=== PATIENT | male | born 1960 | race Caucasian/White ===

== ENCOUNTER → 2024-10-04 | Outpatient (CLI) | payer MEDICARE, MEDICAID, SELFPAY ==
--- OUTSIDE RECORDS SUMMARY | 2024-10-04 07:20 | XMS RPT_ITS | CCD ---
Author Organization [facility] Care Team Providers Care Advertising Production Manager Name Role Phone Lavon Stallings Primary Care Provider LAVON STALLINGS DO Primary Care Physician Bong PT, Madisyn Unavailable Unavailable Lavon Stallings Primary Care Provider Miles Washburn DO Unavailable Miles Washburn DO Unavailable Farhana PT, Miguelina Unavailable Miles Washburn DO Unavailable Miles Washburn DO Unavailable Lavon Stallings Primary Care Provider Miles Washburn DO Unavailable Miles Washburn DO Unavailable Farhana PT, Miguelina Unavailable MILES WASHBURN Referring Unavailable LAVON STALLINGS Primary Care Unavailable MICHAELER, ANGIE S Referring Unavailable LAVON STALLINGS Primary Care Unavailable SPOER, ANGIE S Referring Unavailable LAVON STALLINGS Primary Care Unavailable MILES WASHBURN Attending Unavailable MILES WASHBURN Referring Unavailable LAVON STALLINGS Primary Care Unavailable MILES WASHBURN Attending Unavailable LAVON STALLINGS Referring Unavailable LAVON STALLINGS Primary Care Unavailable MILES WASHBURN Attending Unavailable LAVON STALLINGS F Referring Unavailable LAVON STALLINGS F Primary Care Unavailable MILES WASHBURN Referring Unavailable MILES WASHBURN Attending Unavailable LAVON STALLINGS Primary Care Unavailable WU, MILES P Referring Unavailable HAYLIE, LAVON Lowe Primary Care Unavailable WU, MILES P Referring Unavailable HAYLIE, LAVON Lowe Primary Care Unavailable WU, MILES P Referring Unavailable HAYLIE, LAVON Lowe Primary Care Unavailable WU, MILES P Referring Unavailable WU, MILES P Attending Unavailable WU, MILES P Admitting Unavailable HAYLIE, LAVON Lowe Primary Care Unavailable WU, MILES P Referring Unavailable HAYLIE, LAVON Lowe Primary Care Unavailable WU, MILES P Attending Unavailable WU, MILES P Referring Unavailable HAYLIE, LAVON Lowe Primary Care Unavailable WU, MILES P Attending Unavailable WU, MILES P Referring Unavailable HAYLIE, LAVON Lowe Primary Care Unavailable WU, MILES P Referring Unavailable HAYLIE, LAVON Lowe Primary Care Unavailable WU, MILES P Referring Unavailable HAYLIE, LAVON Lowe Primary Care Unavailable WU, MILES P Referring Unavailable HAYLIE, LAVON Lowe Primary Care Unavailable WU, MILES P Referring Unavailable HAYLIE, LAVON Lowe Primary Care Unavailable WU, MILES P Referring Unavailable HAYLIE, LAVON Lowe Primary Care Unavailable HAYLIE , LAVON Primary Care Physician HAYLIE ELIAS, LAVON Attending Unavailable HAYLIE DO, LAVON Primary Care Unavailable CAROLINA MENJIVAR, IZZY Attending Unavailable HAYLIE ELIAS, LAVON Primary Care Unavailable CAROLINA MENJIVAR, IZZY Attending Unavailable HAYLIE , LAVON Primary Care Unavailable CAROLINA MENJIVAR, IZZY Admitting Unavailable KENNEN CLINICAL GENETICIST-ESTIMATION MANAGER, [place] L Consulting Unavasofia FIGUEROA MD, IZZY Referring Unavailable CAROLINA MENJIVAR, IZZY Consulting Unavailable MURTAZA MENJIVAR, LAVON Aguirre Attending Unavailable MAST CLINICAL GENETICIST-ESTIMATION MANAGER, [place] Primary Care Unavailabl e MAST CLINICAL GENETICIST-ESTIMATION MANAGER, [place] Primary Care Physician MAST CLINICAL GENETICIST-ESTIMATION MANAGER, [place]AW Primary Care Unavailabl e ARIAS CLINICAL GENETICIST-ESTIMATION MANAGER, BRIANA Gallardo Attending Sophia vailable MAST, KYAW Primary Care Unavailable Fish MANAGER LEASING, Mariano Referring Unavailable Fish MANAGER LEASING, Mariano Attending Unavailable MAST CLINICAL GENETICIST-ESTIMATION MANAGER, [place] Primary Care Unavailabl e MAST CLINICAL GENETICIST-ESTIMATION MANAGER, [place] Attending Unavailabl e MAST CLINICAL GENETICIST-ESTIMATION MANAGER, [place] Attending Unavailabl e MAST CLINICAL GENETICIST-ESTIMATION MANAGER, [place] Primary Care Unavailabl e MAST CLINICAL GENETICIST-ESTIMATION MANAGER, [place] Primary Care Unavailabl e LIV MENJIVAR, ROCHELLE Lockhart Attending Unavailable MAST CLINICAL GENETICIST-ESTIMATION MANAGER, [place] Primary Care Unavailabl e MAST CLINICAL GENETICIST-ESTIMATION MANAGER, KYAW Attending Unavailabl e MAST CLINICAL GENETICIST-ESTIMATION MANAGER, [place] Primary Care Unavailabl e ARIAS CLINICAL GENETICIST-ESTIMATION MANAGER, BRIANA Gallardo Attending Sophia BETO Canales DO Attending Unavailable MAST CLINICAL GENETICIST-ESTIMATION MANAGER, [place]AW Primary Care Unavailabl e MAST CLINICAL GENETICIST-ESTIMATION MANAGER, [place]AW Primary Care Unavailabl e TED ELIAS, DR MAY Schrader Attending Unavailabl e MAYDA DO, SLOANE Attending Unavailable MAST CLINICAL GENETICIST-ESTIMATION MANAGER, [place] Primary Care Unavailabl e KRISTIN MENJIVAR, GETACHEW Crews Attending Unavailable MAST CLINICAL GENETICIST-ESTIMATION MANAGER, [place] Primary Care Unavailabl e MAST CLINICAL GENETICIST-ESTIMATION MANAGER, [place] Primary Care Unavailabl e ROCHELLE PECK MD Attending Unavailable FISH CLINICAL GENETICIST-ESTIMATION MANAGER, MARIANO Attending Unavailab le MAST CLINICAL GENETICIST-ESTIMATION MANAGER, [place] Primary Care Unavailabl e MAST CLINICAL GENETICIST-ESTIMATION MANAGER, KYAW Attending Unavailabl e MAST CLINICAL GENETICIST-ESTIMATION MANAGER, KYAW Primary Care Unavailabl e Medications Current Medications Medication Drug Class(es) Dates Sig (Normalized) Sig (Original) acetaminophen 325 mg / HYDROcodone bitartrate 5 mg oral tablet (1 source) Opioid Agonist Start: 06-11-2022 End: 06-16-2022 Rosenberg 325- 5 mg oral tablet Dose = 1 tab(s), Oral, q4h, PRN PRN Pain, scale 1-6, X 5 day(s), # 12 tab(s), 0 Refill(s), Pharmacy: [facility]/pharmacy #[id number], Acute post-operative pain, 175, cm, 06/11/22 7:20:00 EDT, Height, 93.2 Start Date: 06/11/22 Stop Date: 06/16/22 Status: Ordered acetaminophen 325 mg / oxyCODONE hydrochloride 5 mg oral tablet (5 sources) Opioid Agonist Start: 06-10-2021 End: 06-15-2021 take 1 tablet by mouth every six hours as needed oxyCODONE-acetami nophen (PERCOCET) 5-325 mg tablet Indications: History of cervical spinal surgery Take 1 tablet by mouth every 6 hours as needed for up to 5 days. 28 tablet 0 06/10/2021 06/15/2021 Active Start: 05-31-2021 End: 06-05-2021 oxyCODONE-acetaminophen (PER COCET) 5-325 mg tablet Indications: History of cervical spinal surgery [The details of the medication are not available because there are pending changes by a home health clinician.] 20 tablet 0 05/31/2021 06/05/2021 Active Comment on above: [The details of the medication are not available because there are pending changes by a home health clinician.] Take 1 tablet by antonetet th every 6 hours as needed for up to 5 days. albuterol MDI (90 mcg/inh) CFC free inhalation aerosol (7 sources) Start: take 2 puff(s) by inhalation every four hours albuterol MDI (90 mcg/inh) CFC free inhalation aerosol 2 puff(s), Inhalation, q4h, # 1 EA, 0 Refill(s) Start Date: 07/11/24 Status: Ordered Quantity: 1.0 Unit: EA Repeat number: 1 Start: 04-05-2023 take 1 puff(s) by in halation every four hours as needed for wheezing albuterol MDI (90 mcg/inh) CFC free inhalation aerosol 1 puff(s), Inhalation, q4h, PRN as needed for wheezing, # 18 gram(s), 0 Refill(s), Pharmacy: [facility]/pharmacy #[id number], 173, cm, 04/05/23 14:47:00 EST, Height, kg, 04/05/23 14:47:00 EST, Dosing Weight Start Date: 04/05/23 Status: Ordered Quantity: 18.0 Unit: g Repeat number: 1 Start: 06-12-2022 take 2 puff(s) by in halation every four hours as needed for wheezing albuterol MDI (90 mcg/inh) CFC free inhalation aerosol 2 puff(s), Inhalation, q4h, PRN as needed for wheezing, # 8.5 gram(s), 0 Refill(s), Pharmacy: [facility]/pharmacy #[id number], 175, cm, 06/11/22 14:41:00 EDT, Height Start Date: 06/12/22 Status: Ordered Start: 06-12-2022 take 2 puff(s) by in halation every four hours as needed for wheezing albuterol MDI (90 mcg/inh) CFC free inhalation aerosol 2 puff(s), Inhalation, q4h, PRN PRN as needed for wheezing, # 8.5 gram(s), 0 Refill(s), [id number], 175, cm, 06/11/22 14:41:00 EDT, Height Start Date: 06/12/22 Status: Ordered amitriptyline hydrochloride 25 mg oral tablet (20 sources) Tricyclic Antidepressant Start: 08-25-2024 amitriptyline 25 mg oral tablet Dose : 25 mg = 1 tab(s), Oral, qHS, # 90 tab(s), 3 Refill(s), Pharmacy: [facility]/pharmacy #[id number], Lumbar back pain with radiculopathy affecting lower extremity, 173, cm, 08/11/24 13:23:00 EDT, Height, kg, 08/11/24 13:23:00 EDT, Dosing Weight Start Date: 08/25/24 Status: Ordered Quantity: 90.0 Unit: tab(s) Repeat number: 4 Indications: Radiculopathy, lumbar region; Start: 04-05-2023 amitriptyline 25 mg oral tablet Dose : 25 mg = 1 tab(s), Oral, qHS, # 90 tab(s), 3 Refill(s), [id number], Lumbar back pain with radiculopathy affecting lower extremity, 173, cm, 04/05/23 14:47:00 EST, Height, kg, 04/05/23 14:47:00 EST, Dosing Weight Start Date: 04/05/23 Status: Ordered Quantity: 90.0 Unit: tab(s) Repeat number: 4 Indications: Radiculopathy, lumbar region; Start: 10-08-2022 amitriptyline 25 mg oral tablet Dose : 25 mg = 1 tab(s), Oral, qHS, # 90 tab(s), 3 Refill(s), [id number], Lumbar back pain with radiculopathy affecting lower extremity, 172, cm, 10/08/22 14:50:00 EDT, Height, kg, 10/08/22 14:50:00 EDT, Dosing Weight Start Date: 10/08/22 Status: Ordered Start: 04-25-2019 amitriptyline 25 mg oral tablet Dose : 25 mg = 1 tab(s), Oral, qHS, # 90 tab(s), 3 Refill(s), [id number], Lumbar back pain with radiculopathy affecting lower extremity, 173, cm, 10/13/21 11:06:00 EDT, Height, kg, 10/13/21 11:06:00 EDT, Dosing Weight Start Date: 10/13/21 Status: Ordered Comment on above: 25 mg. Take 25 mg by mouth daily at bedtime. aspirin 81 mg delayed release oral tablet (3 sources) Platelet Aggregation Inhibitor, Nonsteroidal Anti-inflammatory Drug Start: 08-11-2024 aspirin 81 mg oral delayed release tablet Dose : 81 mg = 1 tab(s), Oral, Daily, # 30 tab(s), 1 Refill(s), [id number], 173, cm, 08/11/24 13:23:00 EDT, Height, kg, 08/11/24 13:23:00 EDT, Dosing Weight Start Date: 08/11/24 Status: Ordered Quantity: 30.0 Unit: tab(s) Repeat number: 2 Azithromycin 5 Day Dose Pack 250 mg oral tablet (2 sources) Start: 07-11-2024 End: 07-16-2024 Azithromycin 5 Day Dose Pack 250 mg oral tablet Take two (2) tablets day 1-then one (1) tablet, Oral, Daily, X 5 day(s), # 6 tab(s), 0 Refill(s), 07/16/24 1:01:00 PM EDT, 81.8 Start Date: 07/11/24 Stop Date: 07/16/24 Status: Ordered Quantity: 6.0 Unit: tab(s) Repeat number: 1 diclofenac sodium 75 mg delayed release oral tablet (7 sources) Nonsteroidal Anti-inflammatory Drug Start: 06-23-2024 End: 12-20-2024 diclofenac sodium 75 mg oral delayed release tablet Dose : 75 mg = 1 tab(s), Oral, BID, PRN as needed for pain, # 60 tab(s), 5 Refill(s), Pharmacy: [facility]/pharmacy #[id number], 173, cm, 06/23/24 13:11:00 EDT, Height, kg, 06/23/24 13:11:00 EDT, Dosing Weight Start Date: 06/23/24 Stop Date: 12/20/24 Status: Ordered Quantity: 60.0 Unit: tab(s) Repeat number: 6 DULoxetine 60 mg delayed release oral capsule (20 sources) Serotonin and Norepinephrine Reuptake Inhibitor Start: 05-09-2024 DULoxetine 30 mg oral delayed release capsule Dose : 30 mg = 1 cap(s), Oral, qDay, Take along with a 60 mg capsule daily to equal 90 mg, # 90 cap(s), 3 Refill(s), Pharmacy: [facility]/pharmacy #[id number], 172, cm, 04/28/24 14:45:00 EST, Height, kg, 04/28/24 14:45:00 EST, Dosing Weight Start Date: 05/09/24 Status: Ordered Quantity: 90.0 Unit: cap(s) Repeat number: 4 Start: 05-09-2024 take 1 capsule by [facility] once daily DULoxetine 60 mg oral delayed release capsule Dose : 60 mg = 1 cap(s), Oral, qDay, Take along with a 30 mg Daily to equal 90 mg daily., # 90 cap(s), 3 Refill(s), Pharmacy: [facility]/pharmacy #[id number], 172, cm, 04/28/24 14:45:00 EST, Height, kg, 04/28/24 14:45:00 EST, Dosing Weight Start Date: 05/09/24 Status: Ordered Quantity: 90.0 Unit: cap(s) Repeat number: 4 Start: 04-05-2023 DULoxetine 30 mg oral delayed release capsule Dose : 30 mg = 1 cap(s), Oral, qDay, Take along with a 60 mg capsule daily to equal 90 mg, # 90 cap(s), 3 Refill(s), Pharmacy: [facility]/pharmacy #[id number], 173, cm, 04/05/23 14:47:00 EST, Height, kg, 04/05/23 14:47:00 EST, Dosing Weight Start Date: 04/05/23 Status: Ordered Quantity: 90.0 Unit: cap(s) Repeat number: 4 Start: 04-05-2023 take 1 capsule by mo uth once daily DULoxetine 60 mg oral delayed release capsule Dose : 60 mg = 1 cap(s), Oral, qDay, Take along with a 30 mg Daily to equal 90 mg daily., # 90 cap(s), 3 Refill(s), Pharmacy: [facility]/pharmacy #[id number], 173, cm, 04/05/23 14:47:00 EST, Height, kg, 04/05/23 14:47:00 EST, Dosing Weight Start Date: 04/05/23 Status: Ordered Quantity: 90.0 Unit: cap(s) Repeat number: 4 Start: 10-08-2022 DULoxetine 30 mg oral delayed release capsule Dose : 30 mg = 1 cap(s), Oral, qDay, Take along with a 60 mg capsule daily to equal 90 mg, # 90 cap(s), 3 Refill(s), Pharmacy: [facility]/pharmacy #[id number], 172, cm, 10/08/22 14:50:00 EDT, Height, kg, 10/08/22 14:50:00 EDT, Dosing Weight Start Date: 10/08/22 Status: Ordered Start: 10-08-2022 take 1 capsule by [facility] once daily DULoxetine 60 mg oral delayed release capsule Dose : 60 mg = 1 cap(s), Oral, qDay, Take along with a 30 mg Daily to equal 90 mg daily., # 90 cap(s), 3 Refill(s), Pharmacy: [facility]/pharmacy #[id number], 172, cm, 10/08/22 14:50:00 EDT, Height, kg, 10/08/22 14:50:00 EDT, Dosing Weight Start Date: 10/08/22 Status: Ordered Start: 08-27-2021 DULoxetine 30 mg oral delayed release capsule Dose : 30 mg = 1 cap(s), Oral, qDay, Take along with a 60 mg capsule daily to equal 90 mg, # 90 cap(s), 3 Refill(s), Pharmacy: [facility]/pharmacy #[id number], 172, cm, 05/20/21 13:03:00 EDT, Height, kg, 05/20/21 13:03:00 EDT, Dosing Weight Start Date: 08/27/21 Status: Ordered Start: 08-27-2021 take 1 capsule by [facility] once daily DULoxetine 60 mg oral delayed release capsule Dose : 60 mg = 1 cap(s), Oral, qDay, Take along with a 30 mg Daily to equal 90 mg daily., # 90 cap(s), 3 Refill(s), Pharmacy: [facility]/pharmacy #[id number], 172, cm, 05/20/21 13:03:00 EDT, Height Start Date: 08/27/21 Status: Ordered Start: 02-06-2020 DULoxetine 30 mg oral delayed release capsule Dose : 90 mg = 3 cap(s), Oral, qDay, # 270 cap(s), 3 Refill(s), [id number], 167.6, cm, 10/24/19 7:00:00 EDT, Height, kg, 10/24/19 7:00:00 EDT, Dosing Weight Start Date: 02/06/20 Status: Ordered Start: 08-18-2019 take 3 capsules by m outh once daily DULoxetine (CYMBALTA) 30 mg capsule Take 90 mg by mouth once daily. 0 08/18/2019 Active Comment on above: 90 mg. Take 90 mg by mouth once daily. TAKE 1 CAP(S) BY ANTONETTE TH EVERY DAY. TAKE ALONG WITH A 30 MG DAILY TO EQUAL 90 MG DAILY. escitalopram 10 mg oral tablet (20 sources) Serotonin Reuptake Inhibitor Start: 04-05-2023 escitalopram 10 mg oral tablet Dose : 10 mg = 1 tab(s), Oral, qDay, # 90 tab(s), 3 Refill(s), [id number], 173, cm, 04/05/23 14:47:00 EST, Height, kg, 04/05/23 14:47:00 EST, Dosing Weight Start Date: 04/05/23 Status: Ordered Quantity: 90.0 Unit: tab(s) Repeat number: 4 Start: 10-08-2022 escitalopram 1 0 mg oral tablet Dose : 10 mg = 1 tab(s), Oral, qDay, # 90 tab(s), 3 Refill(s), Pharmacy: [facility]/pharmacy #[id number], 172, cm, 10/08/22 14:50:00 EDT, Height, kg, 10/08/22 14:50:00 EDT, Dosing Weight Start Date: 10/08/22 Status: Ordered Start: 10-13-2021 escitalopram 1 0 mg oral tablet Dose : 10 mg = 1 tab(s), Oral, qDay, # 90 tab(s), 3 Refill(s), [id number], 173, cm, 10/13/21 11:06:00 EDT, Height, kg, 10/13/21 11:06:00 EDT, Dosing Weight Start Date: 10/13/21 Status: Ordered Start: 01-02-2019 End: 05-22-2021 escitalopram 10 mg oral tabl et Dose : 10 mg = 1 tab(s), Oral, qDay, # 90 tab(s), 1 Refill(s), Pharmacy: [facility]/pharmacy #[id number], 179, cm, 05/17/20 10:56:00 EDT, Height, kg, 05/17/20 10:56:00 EDT, Dosing Weight Start Date: 02/03/21 Status: Ordered Comment on above: 10 mg. Take 10 mg by mouth once daily. ezetimibe 10 mg oral tablet (18 sources) Dietary Cholesterol Absorption Inhibitor Start: 10-01-2023 Zetia 10 mg oral tablet Dose : 10 mg = 1 tab(s), Oral, qDay, # 30 tab(s), 11 Refill(s), [id number], History of IA (myocardial infarction), 173, cm, 08/09/23 13:46:00 EDT, Height, kg, 08/09/23 13:46:00 EDT, Dosing Weight Start Date: 10/01/23 Status: Ordered Quantity: 30.0 Unit: tab(s) Repeat number: 12 Indications: Old myocardial infarction; Start: 06-03-2021 ezetimibe 10 m g oral tablet Dose : 10 mg = 1 tab(s), Oral, qDay, # 90 tab(s), 0 Refill(s) Start Date: 06/03/21 Status: Ordered Start: 04-04-2019 End: 05-22-2021 ezetimibe (ZETIA) 10 mg tabl et 10 mg. 0 04/04/2019 05/22/2021 Discontinued Comment on above: 10 mg. icosapent ethyl 1000 mg oral capsule (20 sources) Start: 04-14-2022 Vascepa 1 g or al capsule Dose : 2 gram(s) = 2 cap(s), Oral, BID, # 360 cap(s), 3 Refill(s), Pharmacy: [facility]/pharmacy #[id number], Hyperlipidemia, 173.4, cm, 04/14/22 11:14:00 EST, Height, kg, 04/14/22 11:14:00 EST, Dosing Weight Start Date: 04/14/22 Status: Ordered Start: 10-08-2021 icosapent ethy l (VASCEPA) 1 gram capsule Take 2 g by mouth twice daily. 0 10/08/2021 Active Start: 05-22-2020 Vascepa 1 g or al capsule Dose : 2 gram(s) = 2 cap(s), Oral, BID, # 120 cap(s), 11 Refill(s), Pharmacy: [facility]/pharmacy #[id number], Hyperlipidemia, 179, cm, 05/17/20 10:56:00 EDT, Height, kg, 05/17/20 10:56:00 EDT, Dosing Weight Start Date: 05/22/20 Status: Ordered icosapent ethyl (VASCEPA) 0.5 gram capsule Take 2 g by mouth twice daily. 0 Active Comment on above: Take 2 g by mouth tw ice daily. lidocaine 0.05 mg/mg medicated patch (2 sources) Antiarrhythmic, Amide Local Anesthetic Start: 02-28-2024 lidocaine 5% topical patch Apply 1 patch(es), Topical, qDay, PRN Pain, remove patches after 12 hours, # 30 patch(es), 0 Refill(s), [id number], 175.3, cm, 02/28/24 11:20:00 EST, Height, 81.8, kg, 02/28/24 11:20:00 EST, Dosing Weight Start Date: 02/28/24 Status: Ordered Quantity: 30.0 Unit: patch(es) Repeat number: 1 lisinopril 5 mg oral tablet (20 sources) Angiotensin Converting Enzyme Inhibitor Start: 03-08-2024 lisinopril 5 mg oral tablet Dose : 5 mg = 1 tab(s), Oral, qDay, # 90 tab(s), 3 Refill(s), [id number], 174.3, cm, 03/08/24 13:38:00 EST, Height, kg, 03/08/24 13:38:00 EST, Dosing Weight Start Date: 03/08/24 Status: Ordered Quantity: 90.0 Unit: tab(s) Repeat number: 4 Start: 02-15-2024 lisinopril 5 m g oral tablet Dose : 5 mg = 1 tab(s), Oral, qDay, # 90 tab(s), 3 Refill(s), Pharmacy: [facility]/pharmacy #[id number], 173, cm, 02/15/24 13:54:00 EST, Height, kg, 02/15/24 13:54:00 EST, Dosing Weight Start Date: 02/15/24 Status: Ordered Quantity: 90.0 Unit: tab(s) Repeat number: 4 Start: 04-14-2022 lisinopril 5 m g oral tablet Dose : 5 mg = 1 tab(s), Oral, qDay, # 90 tab(s), 3 Refill(s), Pharmacy: [facility]/pharmacy #[id number], 173.4, cm, 04/14/22 11:14:00 EST, Height, kg, 04/14/22 11:14:00 EST, Dosing Weight Start Date: 04/14/22 Status: Ordered Start: 10-24-2019 take 1 tablet by antonette once daily lisinopril (ZESTRIL, PRINIVIL) 5 mg tablet Take 5 mg by mouth once daily. 0 10/24/2019 Active Comment on above: 5 mg. Take 5 mg by mouth o nce daily. Lopressor 25mg--USE metoprolol tartrate 25 mg oral tablet (14 sources) Start: 03-08-2024 Lopressor 25mg--USE metoprolol tartrate 25 mg oral tablet Dose : 25 mg = 1 tab(s), Oral, qDay, # 90 tab(s), 3 Refill(s), Pharmacy: [facility]/pharmacy #[id number], 174.3, cm, 03/08/24 13:38:00 EST, Height, kg, 03/08/24 13:38:00 EST, Dosing Weight Start Date: 03/08/24 Status: Ordered Quantity: 90.0 Unit: tab(s) Repeat number: 4 Start: 04-05-2023 Lopressor 25mg --USE metoprolol tartrate 25 mg oral tablet Dose : 25 mg = 1 tab(s), Oral, qDay, # 90 tab(s), 3 Refill(s), Pharmacy: [facility]acy #[id number], 173, cm, 04/05/23 14:47:00 EST, Height, kg, 04/05/23 14:47:00 EST, Dosing Weight Start Date: 04/05/23 Status: Ordered Quantity: 90.0 Unit: tab(s) Repeat number: 4 Start: 04-14-2022 Lopressor 25mg --USE metoprolol tartrate 25 mg oral tablet Dose : 25 mg = 1 tab(s), Oral, qDay, # 90 tab(s), 3 Refill(s), [id number], 173.4, cm, 04/14/22 11:14:00 EST, Height, kg, 04/14/22 11:14:00 EST, Dosing Weight Start Date: 04/14/22 Status: Ordered Melatonin (3 sources) Start: 09-08-2024 melatonin 0 Refill(s) Start Date: 09/08/24 Status: Ordered Repeat number: 1 meloxicam 15 mg oral tablet (20 sources) Nonsteroidal Anti-inflammatory Drug Start: 04-05-2023 meloxicam 15 mg o ral tablet Dose : 15 mg = 1 tab(s), Oral, qDay, PRN Pain, # 90 tab(s), 3 Refill(s), [id number], 173, cm, 04/05/23 14:47:00 EST, Height, kg, 04/05/23 14:47:00 EST, Dosing Weight Start Date: 04/05/23 Status: Ordered Quantity: 90.0 Unit: tab(s) Repeat number: 4 Start: 10-08-2022 meloxicam 15 m g oral tablet Dose : 15 mg = 1 tab(s), Oral, qDay, PRN Pain, # 90 tab(s), 1 Refill(s), [id number], 172, cm, 10/08/22 14:50:00 EDT, Height, kg, 10/08/22 14:50:00 EDT, Dosing Weight Start Date: 10/08/22 Status: Ordered Start: 04-14-2022 meloxicam 15 m g oral tablet Dose : 15 mg = 1 tab(s), Oral, qDay, PRN Pain, # 90 tab(s), 1 Refill(s), Pharmacy: [id number], 173.4, cm, 04/14/22 11:14:00 EST, Height, kg, 04/14/22 11:14:00 EST, Dosing Weight Start Date: 04/14/22 Status: Ordered Start: 06-02-2021 take 1 tablet by antonette th once daily meloxicam (MOBIC) 15 mg tablet Take 15 mg by mouth once daily. 0 06/02/2021 Active Start: 10-24-2019 meloxicam (MOB IC) 15 mg tablet 15 mg. 0 10/24/2019 Active Comment on above: 15 mg. Take 15 mg by mouth once daily. Misc Medication (15 sources) Start: 08-31-2019 Misc Medicatio n 0 Refill(s), 93 Start Date: 08/31/19 Status: Ordered Repeat number: 1 Start: 08-31-2019 Misc Medicatio n 0 Refill(s), 93 Start Date: 08/31/19 Status: Ordered montelukast 10 mg oral tablet (20 sources) Leukotriene Receptor Antagonist Start: 04-14-2022 montelukast 10 mg or al tablet Dose : 10 mg = 1 tab(s), Oral, qPM, # 90 tab(s), 3 Refill(s), [id number], 173.4, cm, 04/14/22 11:14:00 EST, Height, kg, 04/14/22 11:14:00 EST, Dosing Weight Start Date: 04/14/22 Status: Ordered Start: 04-25-2019 take 1 tablet by antonette th once daily at bedtime montelukast (SINGULAIR) 10 mg tablet Take 10 mg by mouth daily at bedtime. 0 04/25/2019 Active Comment on above: 10 mg. Take 10 mg by mouth daily at bedtime. omeprazole 40 mg delayed release oral capsule (20 sources) Proton Pump Inhibitor Start: 04-25-2024 omeprazole 40 mg oral delayed release capsule Dose : 40 mg = 1 cap(s), Oral, qDay, # 90 cap(s), 3 Refill(s), Pharmacy: [facility]/pharmacy #[id number], 170, cm, 04/19/24 13:34:00 EST, Height, kg, 04/19/24 13:34:00 EST, Dosing Weight Start Date: 04/25/24 Status: Ordered Quantity: 90.0 Unit: cap(s) Repeat number: 4 Start: 04-05-2023 omeprazole 40 mg oral delayed release capsule Dose : 40 mg = 1 cap(s), Oral, qDay, # 90 cap(s), 3 Refill(s), [id number], 173, cm, 04/05/23 14:47:00 EST, Height, kg, 04/05/23 14:47:00 EST, Dosing Weight Start Date: 04/05/23 Status: Ordered Quantity: 90.0 Unit: cap(s) Repeat number: 4 Start: 04-14-2022 omeprazole 40 mg oral delayed release capsule Dose : 40 mg = 1 cap(s), Oral, qDay, # 90 cap(s), 3 Refill(s), [id number], 173.4, cm, 04/14/22 11:14:00 EST, Height, kg, 04/14/22 11:14:00 EST, Dosing Weight Start Date: 04/14/22 Status: Ordered Start: 04-22-2020 omeprazole 40 mg oral delayed release capsule Dose : 40 mg = 1 cap(s), Oral, qDay, # 90 cap(s), 3 Refill(s), [facility] [id number] 167.6, cm, 10/24/19 7:00:00 EDT, Height, kg, 10/24/19 7:00:00 EDT, Dosing Weight Start Date: 04/22/20 Status: Ordered Comment on above: Take 40 mg by mouth once daily. predniSONE 20 mg oral tablet (5 sources) Start: 07-11-2024 End: 07-15-2024 predniSONE 20 mg oral tablet Dose : 60 mg = 3 tab(s), Oral, qDay, X 4 day(s), # 12 tab(s), 0 Refill(s), 07/15/24 1:01:00 PM EDT Start Date: 07/11/24 Stop Date: 07/15/24 Status: Ordered Quantity: 12.0 Unit: tab(s) Repeat number: 1 Start: 02-15-2024 End: 02-20-2024 predniSONE 20 mg oral tablet Dose : 20 mg = 1 tab(s), Oral, BID, HOLD Mobic while taking Prednisone, X 5 day(s), # 10 tab(s), 0 Refill(s), 02/20/24 2:18:00 PM EST, Pharmacy: [facility]/pharmacy #[id number], 173, cm, 02/15/24 13:54:00 EST, Height, kg, 02/15/24 13:54:00 EST, Dosing Weight Start Date: 02/15/24 Stop Date: 02/20/24 Status: Ordered Quantity: 10.0 Unit: tab(s) Repeat number: 1 Start: 06-12-2022 End: 06-18-2022 take 1 tablet by mouth once daily prednisone 10mg tab (TAPER) Taper 40-20-10 mg x 2 days each dose, Oral, Daily, # 14 tab(s), 0 Refill(s), Pharmacy: [facility]/pharmacy #[id number], 175, cm, 06/11/22 14:41:00 EDT, Height Start Date: 06/12/22 Stop Date: 06/18/22 Status: Ordered simvastatin 80 mg oral tablet (20 sources) HMG-CoA Reductase Inhibitor Start: 10-08-2022 simvastatin 80 mg or al tablet Dose : 80 mg = 1 tab(s), Oral, qHS, # 90 tab(s), 3 Refill(s), Pharmacy: [facility]/pharmacy #[id number], 172, cm, 10/08/22 14:50:00 EDT, Height, kg, 10/08/22 14:50:00 EDT, Dosing Weight Start Date: 10/08/22 Status: Ordered Start: 01-02-2019 simvastatin 80 mg oral tablet Dose : 80 mg = 1 tab(s), Oral, qHS, # 90 tab(s), 3 Refill(s), Pharmacy: [facility]/pharmacy #[id number], 172, cm, 05/20/21 13:03:00 EDT, Height Start Date: 08/20/21 Status: Ordered Comment on above: 80 mg. Take 80 mg by mouth daily at bedtime. tiZANidine 2 mg oral tablet (6 sources) Central alpha-2 Adrenergic Agonist Start: 05-09-2024 tiZANidine 2 mg oral tablet Dose : 2 mg = 1 tab(s), Oral, BID, # 60 tab(s), 0 Refill(s), Pharmacy: [facility]/pharmacy #[id number], 172, cm, 04/28/24 14:45:00 EST, Height, kg, 04/28/24 14:45:00 EST, Dosing Weight Start Date: 05/09/24 Status: Ordered Quantity: 60.0 Unit: tab(s) Repeat number: 1 Start: 02-28-2024 tiZANidine 2 m g oral tablet Dose : 2 mg = 1 tab(s), Oral, BID, # 60 tab(s), 0 Refill(s), Pharmacy: [facility]/pharmacy #[id number], 175.3, cm, 02/28/24 11:20:00 EST, Height, kg, 02/28/24 11:20:00 EST, Dosing Weight Start Date: 02/28/24 Status: Ordered Quantity: 60.0 Unit: tab(s) Repeat number: 1 traZODone hydrochloride 150 mg oral tablet (20 sources) Serotonin Reuptake Inhibitor Start: 04-05-2023 traZODone 150 mg ora l tablet Dose : 150 mg = 1 tab(s), Oral, qHS, # 90 tab(s), 3 Refill(s), Pharmacy: [facility]/pharmacy #[id number], 173, cm, 04/05/23 14:47:00 EST, Height, kg, 04/05/23 14:47:00 EST, Dosing Weight Start Date: 04/05/23 Status: Ordered Quantity: 90.0 Unit: tab(s) Repeat number: 4 Start: 04-14-2022 traZODone 150 mg oral tablet Dose : 150 mg = 1 tab(s), Oral, qHS, # 90 tab(s), 3 Refill(s), Pharmacy: [facility]/pharmacy #[id number], 173.4, cm, 04/14/22 11:14:00 EST, Height, kg, 04/14/22 11:14:00 EST, Dosing Weight Start Date: 04/14/22 Status: Ordered Start: 08-18-2019 take 1 tablet by antonette th once daily at bedtime traZODone (DESYREL) 150 mg tablet Take 150 mg by mouth daily at bedtime. 0 08/18/2019 Active Comment on above: 150 mg. Take 150 mg by mouth daily at bedtime. Completed/Discontinued Medications Medication Drug Class(es) Dates Sig (Normalized) Sig (Original) Comp Stocking,Knee,Regu lar,Sml (T.E.D. ANTI-EMBOLISM STOCKING) (20 sources) Start: 05-16-2021 Comp Stocking,Knee,Regu lar,Sml (T.E.D. ANTI-EMBOLISM STOCKING) Indications: Disc displacement, lumbar 12 Each q 12 HR. Post operatively 12 Each 0 05/16/2021 Active Comment on above: 12 Each q 12 HR. Pos t operatively gabapentin 300 mg oral capsule (20 sources) Anti-epileptic Agent Start: 04-19-2024 End: 07-18-2024 gabapentin 300 mg oral capsule Dose : 300 mg = 1 cap(s), Oral, TID, # 90 cap(s), 2 Refill(s), [id number], Lumbar radiculopathy, 170, cm, 04/19/24 13:34:00 EST, Height, 80, kg, 04/19/24 13:34:00 EST, Dosing Weight Start Date: 04/19/24 Stop Date: 07/18/24 Status: Ordered Quantity: 90.0 Unit: cap(s) Repeat number: 3 Indications: Radiculopathy, lumbar region; Start: 10-08-2022 End: 01-06-2023 gabapentin 600 mg oral table t Dose : 600 mg = 1 tab(s), Oral, qHS, # 90 tab(s), 0 Refill(s), [id number], Reflex sympathetic dystrophy of left lower extremity, 172, cm, 10/08/22 14:50:00 EDT, Height, 89.7, kg, 10/08/22 14:50:00 EDT, Dosing Weight Start Date: 10/08/22 Stop Date: 01/06/23 Status: Ordered Quantity: 90.0 Unit: tab(s) Repeat number: 1 Indication: Complex regional pain syndrome I of left lower limb Start: 04-14-2022 End: 07-13-2022 gabapentin 600 mg oral table t Dose : 600 mg = 1 tab(s), Oral, qHS, # 90 tab(s), 0 Refill(s), [id number], Reflex sympathetic dystrophy of left lower extremity, 173.4, cm, 04/14/22 11:14:00 EST, Height, 93.4, kg, 04/14/22 11:14:00 EST, Dosing Weight Start Date: 04/14/22 Stop Date: 07/13/22 Status: Ordered Start: 07-17-2020 End: 05-22-2021 take 1 tablet by mouth once daily at bedtime gabapentin (NEURONTIN) 600 mg tablet Take 600 mg by mouth daily at bedtime. 0 09/22/2020 Active Comment on above: Take 1 tablet by antonette one time only for 1 dose. To be given 1-2 hours prior to surgery Take 1 tablet by antonette one time only for 1 dose. Take preoperatively, in presurg, day of surgery Take 600 mg by mouth daily at bedtime. metoprolol tartrate 25 mg oral tablet (20 sources) beta-Adrenergic Balbina Start: 06-12-2022 End: 06-12-2022 Metoprolol Tartrate 25 mg oral tablet Start: 06/12/22 8:00:00 EDT, Dose = 25 mg, = 1 tab(s), Oral, 06/11/22 16:27:00 EDT Start Date: 06/12/22 Stop Date: 06/12/22 Status: Completed Start: 07-06-2021 take 1 tablet by antonette once daily metoprolol tartrate, short acting, (LOPRESSOR) 25 mg tablet Take 25 mg by mouth once daily. 0 07/06/2021 Active Start: 04-25-2019 End: 05-22-2021 metoprolol tartrate, short a cting, (LOPRESSOR) 25 mg tablet 25 mg. 0 04/25/2019 05/22/2021 Discontinued take 1 tablet by antonette th once daily metoprolol succinate ER (TOPROL XL) 25 mg 24 hr tablet Take 25 mg by mouth once daily. 0 Active Comment on above: 25 mg. Take 25 mg by mouth once daily. pantoprazole 40 mg delayed release oral tablet (6 sources) Proton Pump Inhibitor Start: 0 take 1 tablet by mouth once daily in the morning pantoprazole DR (PROTONIX) 40 mg tablet TAKE 1 TABLET BY MOUTH EVERY DAY IN THE MORNING 0 10/24/2019 Active Comment on above: TAKE 1 TABLET BY MOUTH EVERY DAY IN THE MORNING polyethylene glycol 3350 75856 mg powder for oral solution (20 sources) Osmotic Laxative Start: 2 polyethylene glycol 3350 (MIRALAX) 17 gram/dose powder Take 17 g by mouth twice daily. 0 06/02/2021 Active Comment on above: Take 17 g by mouth t wice daily. Problems Active Problems Problem Classification Problem Date Documented Da te Episodic/Chronic Abdominal hernia (14 sources) Hernia of anterior abdominal wall 04-14-2022 Episodic Administrative/social admission (7 sources) Illiteracy 06-25-2024 Episodic Anxiety disorders (15 sources) Anxiety 12-25-2013 Chronic Chronic kidney disease (17 sources) Chronic kidney disease stage 3A 04-05-2023 Chronic Chronic obstructive pulmonary disease and bronchiectasis (2 sources) Acute exacerbation of chronic obstructive airways disease; Translations: [Chronic obstructive pulmonary disease with (acute) exacerbation] Onset: 5 Chronic Coronary atherosclerosis and other heart disease (20 sources) Coronary arteriosclerosis; Translations: [History of myocardial infarction] Onset: 2 06-19-2015 Chronic Disorders of lipid metabolism (17 sources) Mixed hyperlipidemia; Translations: [Mixed hyperlipidemia] Onset: 2 04-25-2019 Chronic Esophageal disorders (15 sources) Gastroesophageal reflux disease 01-23-2019 Chronic Essential hypertension (19 sources) Essential hypertension; Translations: [Essential (primary) hypertension] Onset: 2 05-17-2020 Chronic Fluid and electrolyte disorders (1 source) Hyperkalemia 08-22-2019 Episodic Genitourinary symptoms and ill-defined conditions (10 sources) Slowing of urinary stream 08-09-2023 Episodic Intracranial injury (3 sources) Traumatic brain injury 08-11-2024 Episodic Miscellaneous mental health disorders (15 sources) Primary insomnia 02-06-2020 Chronic Mood disorders (15 sources) Depressive disorder; Translations: [Major depressive disorder] 02-06-2020 Chronic Nonspecific chest pain (7 sources) Chest pain; Translations: [Other chest pain] Onset: 4 Episodic Osteoarthritis (1 source) Primary osteoarthritis, right shoulder; Translations: [Primary osteoarthritis, right shoulder] Onset: 5 Chronic Other and unspecified benign neoplasm (13 sources) History of adenomatous polyp of colon 04-21-2022 Episodic Other bone disease and musculoskeletal deformities (1 source) Tietze's disease; Translations: [Chondrocostal junction syndrome [Tietze]] Onset: 4 Episodic Other connective tissue disease (7 sources) Pain in toe 06-23-2024 Episodic Other connective tissue disease (1 source) Complete rotator cuff tear or rupture of right shoulder, not specified as traumatic; Translations: [Complete rotator cuff tear or rupture of right shoulder, not specified as traumatic] Onset: 5 Episodic Other connective tissue disease (1 source) Other specified disorders of tendon, right shoulder; Translations: [Other specified disorders of tendon, right shoulder] Onset: 5 Episodic Other connective tissue disease (1 source) Bursitis of right shoulder; Translations: [Bursitis of right shoulder] Onset: 5 Episodic Other connective tissue disease (1 source) Bicipital tendinitis, right shoulder; Translations: [Bicipital tendinitis, right shoulder] Onset: 5 Episodic Other ear and sense organ disorders (7 sources) Hearing loss 04-28-2024 Chronic Other ear and sense organ disorders (7 sources) Tinnitus 04-28-2024 Episodic Other gastrointestinal disorders (3 sources) Diarrhea 09-08-2024 Episodic Other gastrointestinal disorders (2 sources) Diarrhea, unspecified; Translations: [Diarrhea, unspecified] Onset: 5 Episodic Other injuries and conditions due to external causes (6 sources) Foreign body of foot 06-28-2024 Episodic Other nervous system disorders (1 source) Mixed sensory-motor polyneuropathy; Translations: [Polyneuropathy, 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 Other nervous system disorders (15 sources) Carpal tunnel syndrome 01-02-2019 Chronic Other nervous system disorders (15 sources) Complex regional pain syndrome of lower limb 03-17-2019 Chronic Other nervous system disorders (20 sources) Cervical myelopathy; Translations: [Disease of spinal cord, unspecified] Chronic Other nervous system disorders (2 sources) Disease of spinal cord, unspecified; Translations: [Cervical myelopathy (HCC)] Onset: 1 Chronic Other nervous system disorders (10 sources) Peripheral nerve disease 04-05-2023 Chronic Other nervous system disorders (5 sources) Dysesthesia 01-23-2019 Episodic Other nervous system disorders (1 source) Postoperative pain ; Translations: [Other acute postprocedural pain] Onset: 3 Episodic Other non-traumatic joint disorders (15 sources) Shoulder pain 05-17-2020 Episodic Other non-traumatic joint disorders (1 source) Pain of right shoulder joint; Translations: [Pain in right shoulder] Episodic Other non-traumatic joint disorders (8 sources) Disorder of acromioclavicular joint 03-08-2024 Episodic Other non-traumatic joint disorders (1 source) Effusion, right shoulder; Translations: [Effusion, right shoulder] Onset: 5 Episodic Other upper respiratory disease (15 sources) Seasonal allergy 12-25-2013 Chronic [place]-; endo-; and myocarditis; cardiomyopathy (except that caused by tuberculosis or sexually transmitted disease) (1 source) Cardiomyopathy, unspecified; Translations: [Cardiomyopathy, unspecified] Onset: 5 Chronic Residual codes; unclassified (1 source) Past history of procedure; Translations: [Other specified postprocedural states] Onset: 3 Episodic Residual codes; unclassified (8 sources) Referred pain 03-08-2024 Episodic Respiratory failure; insufficiency; arrest (adult) (1 source) Acute respiratory failure; Translations: [Acute respiratory failure with hypoxia] Onset: 3 Episodic Spondylosis; intervertebral disc disorders; other back problems (20 sources) Prolapsed lumbar intervertebral disc; Translations: [Herniation of nucleus pulposus of lumbar intervertebral disc] Onset: 0 09-08-2019 Chronic Spondylosis; intervertebral disc disorders; other back problems (20 sources) Low back pain; Translations: [Spinal stenosis in cervical region] Onset: 0 09-08-2019 Episodic Spondylosis; intervertebral disc disorders; other back problems (2 sources) Herniation of nucleus pulposus of lumbar intervertebral disc; Translations: [Disc displacement, lumbar] Sprains and strains (1 source) Other sprain of right shoulder joint, initial encounter; Translations: [Other sprain of right shoulder joint, initial encounter] Onset: 5 Episodic Substance-related disorders (20 sources) Nicotine dependence; Translations: [Nicotine dependence, unspecified, uncomplicated] Onset: 2 05-30-2021 Chronic Comment on above: 1ppd since age 18 Syncope (4 sources) Syncope; Translations: [Syncope and collapse] Onset: 5 08-11-2024 Episodic Unclassified (20 sources) Patient encounter status 08-18-2019 Unclassified (1 source) Established Patient Onset: 2 Unclassified (10 sources) Pain of right shoulder region 02-15-2024 Unclassified (1 source) Other intervertebral disc degeneration, lumbar region with discogenic back pain only; Translations: [Other intervertebral disc degeneration, lumbar region with discogenic back pain only] Onset: 5 Unclassified (3 sources) Rupture of rotator cuff of shoulder 08-11-2024 Unclassified (1 source) Unspecified synovitis and tenosynovitis, right shoulder; Translations: [Unspecified synovitis and tenosynovitis, right shoulder] Onset: 5 Past or Other Problems Problem Classification Problem Date Documented Date Episodic/Chronic Other connective tissue disease (1 source) Bicipital tendinitis, left shoulder; Translations: [Biceps tendonitis on left] Onset: 08-19-2021 Episodic Residual codes; unclassified (20 sources) History of surgical procedure on cervical spine; Translations: [Other specified postprocedural states] Onset: 05-29-2021 05-29-2021 Episodic Residual codes; unclassified (1 source) Other specified postprocedural states; Translations: [History of cervical spinal surgery] Onset: 05-29-2021 Episodic Residual codes; unclassified (7 sources) Radiating pain Onset: 10-03-2019 04-13-2024 Episodic Comment on above: to left leg down to toes Skull and face fractures (1 source) Unspecified fracture of skull, sequela; Translations: [Traumatic fracture of skull, sequela (HCC)] Onset: 03-10-2021 Episodic Superficial injury; contusion (1 source) Superficial foreign body, unspecified lesser toe(s), initial encounter; Translations: [Superficial foreign body, unspecified lesser toe(s), initial encounter] Onset: 06-27-2024 Episodic Unclassified (1 source) Other intervertebral disc degeneration, lumbar region with discogenic back pain only; Translations: [Other intervertebral disc degeneration, lumbar region with discogenic back pain only] Onset: 04-19-2024 Results Test Name Value Interpretation Reference Range Facility .Auto Diffon 10-01-2024 Basophil, Absolute 0.1 10 3/mcL Normal 0.0-0.3 [facility] Comment on above: Performed By: #### A JD, PBNP, ADIFF, MG, CMP, TROPHS, MDW, LIP, GFR, CBC ####[facility] [place], [place] [address] Basophils/100 WBC (Bld) 1.0 % Normal 0.0-2.5 [facility] Comment on above: Performed By: #### A JD, PBNP, ADIFF, MG, CMP, TROPHS, MDW, LIP, GFR, CBC ####[facility] [place], [place] [address] Eosinophil, Absolute 0.2 10 3/mcL Normal 0.0-0.7 [facility] Comment on above: Performed By: #### A JD, PBNP, ADIFF, MG, CMP, TROPHS, MDW, LIP, GFR, CBC ####[place] [address] [place], [place] [address] Eosinophils/100 WBC (Bld) 3.3 % Normal 0.0-6.0 [facility] Comment on above: Performed By: #### A JD, PBNP, ADIFF, MG, CMP, TROPHS, MDW, LIP, GFR, CBC ####[facility] [place], [place] [address] Lymphocyte, Absolute 1.6 10 3/mcL Normal 0.9-4.3 [facility] Comment on above: Performed By: #### A JD, PBNP, ADIFF, MG, CMP, TROPHS, MDW, LIP, GFR, CBC ####[facility] [place], [place] [address] Lymphocytes/100 WBC (Bld) 26.3 % Normal 20.0-40.0 [facility] Comment on above: Performed By: #### A JD, PBNP, ADIFF, MG, CMP, TROPHS, MDW, LIP, GFR, CBC ####[facility] [place], [place] [address] Monocyte, Absolute 0.5 10 3/mcL Normal 0.1-1.4 [facility] Comment on above: Performed By: #### A JD, PBNP, ADIFF, MG, CMP, TROPHS, MDW, LIP, GFR, CBC ####[place] [address] [place], [place] [address] Monocytes/100 WBC (Bld) 8.0 % Normal 2.0-13.0 [facility] Comment on above: Performed By: #### A JD, PBNP, ADIFF, MG, CMP, TROPHS, MDW, LIP, GFR, CBC ####[place] [address] [place], [place] [address] Neutrophils/100 WBC (Bld) 61.4 % Normal 50.0-75.0 [facility] Comment on above: Performed By: #### A JD, PBNP, ADIFF, MG, CMP, TROPHS, MDW, LIP, GFR, CBC ####[place] [address] [place], [place] [address] .GFRon 10-01-2024 Estimated Glomerular Filtration Rate 68 ml/min/1.73sqm Normal [facility] Comment on above: Result Comment: Stages of Chronic Kidney Disease (CKD) Stage Description eGFR(ml/min/1.73 sq.m.) CKD 1 Normal kidney function or >=90 normal kindney function with possible kidney damage (ex. Proteinuria) CKD 2 Kidney damage with mild loss 60-89 of kidney function CKD 3a Mild to moderate loss of kidney 45-59 function CKD 3b Moderate to severe loss of 30-44 of kindey function CKD 4 Severe loss of kidney function 15-29 CKD 5 Kidney failure <15 Note: (go live 2024) the eGFR calculation was updated to the 2020 CKD-EPI creatinine equation without a race factor to calculate the eGFR results. Performed By: #### A JD, PBNP, ADIFF, MG, CMP, TROPHS, MDW, LIP, GFR, CBC ####[place] [address] [place], [place] [address] .MDWon 10-01-2024 Monocyte Distribution Width 18.12 Normal 0.00-20.00 [facility] Comment on above: Result Comment: For ED adult patients suspected of sepsis, MDW<=20.0 does not rule out sepsis or risk of sepsis Performed By: #### A JD, PBNP, ADIFF, MG, CMP, TROPHS, MDW, LIP, GFR, CBC ####[address] [address] .NEUABSon 10-01-2024 Neutrophil, Absolute 3.7 10 3/mcL Normal 2.3-8.1 [facility] Comment on above: Performed By: #### A JD, PBNP, ADIFF, MG, CMP, TROPHS, MDW, LIP, GFR, CBC ####[place] [address] CBCon 10-01-2024 Erythrocyte distribution width (RBC) [Ratio] 14.4 % Normal 11.5-15.5 [facility] Comment on above: Performed By: #### A JD, PBNP, ADIFF, MG, CMP, TROPHS, MDW, LIP, GFR, CBC ####[place] [address] Hematocrit (Bld) [Volume fraction] 48.9 % Normal 40.0-52.0 [facility] Comment on above: Performed By: #### A JD, PBNP, ADIFF, MG, CMP, TROPHS, MDW, LIP, GFR, CBC ####[place] [address] Hgb 16.3 G/dL Normal 13.0-17.5 [facility] Comment on above: Performed By: #### A JD, PBNP, ADIFF, MG, CMP, TROPHS, MDW, LIP, GFR, CBC ####[place] [address] MCH (RBC) [Entitic mass] 31.7 pg Normal 27.0-33.0 [facility] Comment on above: Performed By: #### A JD, PBNP, ADIFF, MG, CMP, TROPHS, MDW, LIP, GFR, CBC ####[place] [address] MCHC 33.3 G/dL Normal 32.0-36.0 [facility] Comment on above: Performed By: #### A JD, PBNP, ADIFF, MG, CMP, TROPHS, MDW, LIP, GFR, CBC ####[address] [place] [place], [place] [address] MCV (RBC) [Entitic vol] 95.0 fL Normal 81.0-100.0 [facility] Comment on above: Performed By: #### A JD, PBNP, ADIFF, MG, CMP, TROPHS, MDW, LIP, GFR, CBC ####[address] [place] [place], [place] [address] Platelet 221 10 3/mcL Normal 150-450 [facility] Comment on above: Performed By: #### A JD, PBNP, ADIFF, MG, CMP, TROPHS, MDW, LIP, GFR, CBC ####[place] [address] [place], [place] [address] Platelet mean volume (Bld) [Entitic vol] 7.9 fL Normal 6.4-10.5 [facility] Comment on above: Performed By: #### A JD, PBNP, ADIFF, MG, CMP, TROPHS, MDW, LIP, GFR, CBC ####[address] [place] [place], [place] [address] RBC 5.15 10 6/mcL Normal 4.50-6.00 [facility] Comment on above: Performed By: #### A JD, PBNP, ADIFF, MG, CMP, TROPHS, MDW, LIP, GFR, CBC ####[address] [place] [place], [place] [address] WBC 6.0 10 3/mcL Normal 4.5-10.8 [facility] Comment on above: Performed By: #### A JD, PBNP, ADIFF, MG, CMP, TROPHS, MDW, LIP, GFR, CBC ####[facility] [place], [place] [address] CMPon 10-01-2024 Albumin Level 3.5 G/dL Normal 3.4-4.8 [facility] Comment on above: Performed By: #### A JD, PBNP, ADIFF, MG, CMP, TROPHS, MDW, LIP, GFR, CBC ####[address] [address] Albumin/Globulin [Mass ratio] 1.0 {ratio} Low 1.1-2.5 [facility] Comment on above: Performed By: #### A JD, PBNP, ADIFF, MG, CMP, TROPHS, MDW, LIP, GFR, CBC ####[place] [id number] ALP [Catalytic activity/Vol] 77 U/L Normal 40-135 [facility] Comment on above: Performed By: #### A JD, PBNP, ADIFF, MG, CMP, TROPHS, MDW, LIP, GFR, CBC ####[address] [address] ALT [Catalytic activity/Vol] 18 U/L Normal 16-63 [facility] Comment on above: Performed By: #### A JD, PBNP, ADIFF, MG, CMP, TROPHS, MDW, LIP, GFR, CBC ####[place] [id number] AST [Catalytic activity/Vol] 11 U/L Normal 10-40 [facility] Comment on above: Performed By: #### A JD, PBNP, ADIFF, MG, CMP, TROPHS, MDW, LIP, GFR, CBC ####[address] [address] Bili Total 0.4 mg/dL Normal 0.2-1.0 [facility] Comment on above: Result Comment: Use of this assay is not recommended for patients undergoing treatment with eltrombopag due to the potential for falsely elevated results. Performed By: #### A JD, PBNP, ADIFF, MG, CMP, TROPHS, MDW, LIP, GFR, CBC ####[place] [address] [place] [id number] BUN/Creatinine Ratio 13 ratio Normal 7-27 [facility] Comment on above: Performed By: #### A JD, PBNP, ADIFF, MG, CMP, TROPHS, MDW, LIP, GFR, CBC ####[address] [address] Calcium [Mass/Vol] 9.1 mg/dL Normal 8.4-10.2 [facility] Comment on above: Performed By: #### A JD, PBNP, ADIFF, MG, CMP, TROPHS, MDW, LIP, GFR, CBC ####[place] [address] Chloride [Moles/Vol] 105 mmol/L Normal 98-107 [facility] Comment on above: Performed By: #### A JD, PBNP, ADIFF, MG, CMP, TROPHS, MDW, LIP, GFR, CBC ####[place] [address] CO2 [Moles/Vol] 26 mmol/L Normal 23-31 [facility] Comment on above: Performed By: #### A JD, PBNP, ADIFF, MG, CMP, TROPHS, MDW, LIP, GFR, CBC ####[place] [address] Creatinine [Mass/Vol] 1.21 mg/dL High 0.67-1.17 [facility] Comment on above: Performed By: #### A JD, PBNP, ADIFF, MG, CMP, TROPHS, MDW, LIP, GFR, CBC ####[place] [address] Electrolyte Balance 7.0 mEq/L Normal 4.0-15.0 [facility] Comment on above: Performed By: #### A JD, PBNP, ADIFF, MG, CMP, TROPHS, MDW, LIP, GFR, CBC ####[place] [address] Globulin 3.6 G/dL Normal 2.7-4.4 [facility] Comment on above: Performed By: #### A JD, PBNP, ADIFF, MG, CMP, TROPHS, MDW, LIP, GFR, CBC ####[facility] [place], [place] [address] Glucose [Mass/Vol] 96 mg/dL Normal 80-115 [facility] Comment on above: Performed By: #### A JD, PBNP, ADIFF, MG, CMP, TROPHS, MDW, LIP, GFR, CBC ####[place] [address] [place], [place] [address] Potassium [Moles/Vol] 4.5 mmol/L Normal 3.5-5.1 [facility] Comment on above: Performed By: #### A JD, PBNP, ADIFF, MG, CMP, TROPHS, MDW, LIP, GFR, CBC ####[place] [address] [place], [place] [address] Sodium [Moles/Vol] 138 mmol/L Normal 136-145 [facility] Comment on above: Performed By: #### A JD, PBNP, ADIFF, MG, CMP, TROPHS, MDW, LIP, GFR, CBC ####[place] [place], [place] [address] Total Protein 7.1 G/dL Normal 6.4-8.2 [facility] Comment on above: Performed By: #### A JD, PBNP, ADIFF, MG, CMP, TROPHS, MDW, LIP, GFR, CBC ####[address] [place], [place] [address] Urea nitrogen [Mass/Vol] 16 mg/dL Normal 7-18 [facility] Comment on above: Performed By: #### A JD, PBNP, ADIFF, MG, CMP, TROPHS, MDW, LIP, GFR, CBC ####[address] [place], [place] [address] LABORATORYOrdered By: SYSTEM SYSTEM on 10-01-2024 Troponin I.cardiac DL <= 0.01 ng/mL [Mass/Vol] 7 ng/L Normal 0 - 76 ng/L AO ADM SS Comment on above: Interpretive Data: H igh Sensitive Troponin I Reference Ranges: Female: 0-51 ng/L Male: 0-76 ng/L Testing performed on [employer] using a homogeneous sandwich chemiluminescent immunoassay based on Transmension technology. Albumin BCP dye [Mass/Vol] 3.5 G/dL Normal 3.4 - 4.8 G/dL AO ADM SS Albumin/Globulin [Mass ratio] 1.0 {ratio} Low 1.1 - 2.5 ratio AO ADM SS ALP [Catalytic activity/Vol] 77 U/L Normal 40 - 135 U/L AO ADM SS ALT With P-5'-P [Catalytic activity/Vol] 18 U/L Normal 16 - 63 U/L AO ADM SS AST With P-5'-P [Catalytic activity/Vol] 11 U/L Normal 10 - 40 U/L AO ADM SS Basophils (Bld) [#/Vol] 0.1 103/mcL Normal 0.0 - 0.3 10^3/mcL AO Workflow SS Basophils/100 WBC (Bld) 1.0 % Normal 0.0 - 2.5 % AO Workflow SS Bilirubin [Mass/Vol] 0.4 mg/dL Normal 0.2 - 1 .0 mg/dL AO ADM SS Comment on above: Interpretive Data: U se of this assay is not recommended for patients undergoing treatment with eltrombopag due to the potential for falsely elevated results. Calcium [Mass/Vol] 9.1 mg/dL Normal 8.4 - 10. 2 mg/dL AO ADM SS Chloride [Moles/Vol] 105 mmol/L Normal 98 - 10 7 mmol/L AO ADM SS CO2 [Moles/Vol] 26 mmol/L Normal 23 - 31 mmol/L AO ADM SS Creatinine [Mass/Vol] 1.21 mg/dL High 0.67 - 1.17 mg/dL AO ADM SS Electrolyte Balance 7.0 mEq/L Normal 4.0 - 15 .0 mEq/L AO ADM SS Eosinophil, Absolute 0.2 103/mcL Normal 0.0 - 0 .7 10^3/mcL AO Workflow SS Eosinophils/100 WBC (Bld) 3.3 % Normal 0.0 - 6.0 % AO Workflow SS Erythrocyte distribution width (RBC) [Ratio] 14.4 % Normal 11.5 - 15.5 % AO Workflow SS Estimated Glomerular Filtration Rate 68 ml/min/1.73sqm Invalid Interpretation Code AO Chemistry S Comment on above: Interpretive Data: Stages of Chronic Kidney Disease (CKD) Stage Description eGFR(ml/min/1.73 sq.m.) CKD 1 Normal kidney function or >=90 normal kindney function with possible kidney damage (ex. Proteinuria) CKD 2 Kidney damage with mild loss 60-89 of kidney function CKD 3a Mild to moderate loss of kidney 45-59 function CKD 3b Moderate to severe loss of 30-44 of kindey function CKD 4 Severe loss of kidney function 15-29 CKD 5 Kidney failure <15 Note: (go live 2024) the eGFR calculation was updated to the 2020 CKD-EPI creatinine equation without a race factor to calculate the eGFR results. Globulin 3.6 G/dL Normal 2.7 - 4.4 G/dL AO ADM SS Glucose [Mass/Vol] 96 mg/dL Normal 80 - 115 mg/dL AO ADM SS Hematocrit (Bld) [Volume fraction] 48.9 % Normal 40.0 - 52.0 % AO Workflow SS Hemoglobin (Bld) [Mass/Vol] 16.3 G/dL Normal 13.0 - 17.5 G/dL AO Workflow SS Lipase [Catalytic activity/Vol] 44 U/L Normal 16 - 77 U/L AO ADM SS Lymphocytes (Bld) [#/Vol] 1.6 103/mcL Normal 0.9 - 4.3 10^3/mcL AO Workflow SS Lymphocytes/100 WBC (Bld) 26.3 % Normal 20.0 - 40.0 % AO Workflow SS Magnesium [Mass/Vol] 1.7 mg/dL Low 1.8 - 2 .4 mg/dL AO ADM SS MCH (RBC) [Entitic mass] 31.7 pg Normal 27.0 - 33.0 pg AO Workflow SS MCHC 33.3 G/dL Normal 32.0 - 36.0 G/dL AO Workflow SS MCV (RBC) [Entitic vol] 95.0 fL Normal 81.0 - 100.0 fL AO Workflow SS Monocyte distribution width Auto (Bld) [Entitic vol] 18.12 1 Normal 0.00 - 20.00 AO Workflow SS Comment on above: Result Comment: For ED adult patients suspected of sepsis, MDW<=20.0 does not rule out sepsis or risk of sepsis Monocytes (Bld) [#/Vol] 0.5 103/mcL Normal 0.1 - 1.4 10^3/mcL AO Workflow SS Monocytes/100 WBC (Bld) 8.0 % Normal 2.0 - 13.0 % AO Workflow SS Natriuretic peptide.B prohormone N-Terminal [Mass/Vol] 33 pg/mL Normal 0 - 125 pg/mL AO ADM SS Comment on above: Interpretive Data: N T-proBNP results of less than 300 pg/mL effectively rules out acute congestive heart failure with 99% negative predictive value. Neutrophils (Bld) [#/Vol] 3.7 103/mcL Normal 2.3 - 8.1 10^3/mcL AO Workflow SS Neutrophils/100 WBC (Bld) 61.4 % Normal 50.0 - 75.0 % AO Workflow SS Platelet mean volume (Bld) [Entitic vol] 7.9 fL Normal 6.4 - 10.5 fL AO Workflow SS Platelets (Bld) [#/Vol] 221 103/mcL Normal 150 - 450 10^3/mcL AO Workflow SS Potassium [Moles/Vol] 4.5 mmol/L Normal 3.5 - 5.1 mmol/L AO ADM SS Protein [Mass/Vol] 7.1 G/dL Normal 6.4 - 8.2 G/dL AO ADM SS RBC (Bld) [#/Vol] 5.15 106/mcL Normal 4.50 - 6.0 0 10^6/mcL AO Workflow SS Sodium [Moles/Vol] 138 mmol/L Normal 136 - 145 mmol/L AO ADM SS Troponin I.cardiac DL <= 0.01 ng/mL [Mass/Vol] 6 ng/L Normal 0 - 76 ng/L AO ADM SS Comment on above: Interpretive Data: H igh Sensitive Troponin I Reference Ranges: Female: 0-51 ng/L Male: 0-76 ng/L Testing performed on [email or web address] using a homogeneous sandwich chemiluminescent immunoassay based on Transmension technology. Urea nitrogen [Mass/Vol] 16 mg/dL Normal 7 - 18 mg/dL AO ADM SS Urea nitrogen/Creatinine [Mass ratio] 13 ratio Normal 7 - 27 ratio AO ADM SS WBC (Bld) [#/Vol] 6.0 103/mcL Normal 4.5 - 10.8 10^3/mcL AO Workflow SS LIPon 10-01-2024 Lipase Level 44 U/L Normal 16-77 [facility] Comment on above: Performed By: #### A JD, PBNP, ADIFF, MG, CMP, TROPHS, MDW, LIP, GFR, CBC ####[address] [address] MGon 10-01-2024 Magnesium [Mass/Vol] 1.7 mg/dL Low 1.8-2.4 [facility] Comment on above: Performed By: #### A JD, PBNP, ADIFF, MG, CMP, CARSON, W, LIP, GFR, CBC ####[place] [place], [place] [address] PBNPon 10-01-2024 Natriuretic peptide B (Bld) [Mass/Vol] 33 pg/mL Normal 0-125 [facility] Comment on above: Result Comment: NT-p roBNP results of less than 300 pg/mL effectively rules out acute congestive heart failure with 99% negative predictive value. Performed By: #### A JD, PBNP, ADIFF, MG, CMP, CARSON, SAM, LIP, GFR, CBC ####[place] [place], [place] [address] TROPHSon 10-01-2024 High Sensitivity Troponin I 7 ng/L Normal 0-76 [facility] Comment on above: Result Comment: High Sensitive Troponin I Reference Ranges: Female: 0-51 ng/L Male: 0-76 ng/L Testing performed on [email or web address] using a homogeneous sandwich chemiluminescent immunoassay based on Transmension technology. Performed By: #### T [facility] ####[address] [address] High Sensitivity Troponin I 6 ng/L Normal 0-76 [facility] Comment on above: Result Comment: High Sensitive Troponin I Reference Ranges: Female: 0-51 ng/L Male: 0-76 ng/L Testing performed on [email or web address] using a homogeneous sandwich chemiluminescent immunoassay based on Transmension technology. Performed By: #### A JD, PBNP, ADIFF, MG, CMP, CARSON, W, LIP, GFR, CBC ####[address] [address] XR CHEST 1 VIEWon 10-01-2024 XR CHEST 1 VIEW ORIGINAL EXAMINATION: ONE XRAY VIEW OF THE CHEST 10/01/2024 2:35 pm COMPARISON: 07/11/2024 HISTORY: ORDERING SYSTEM PROVIDED HISTORY: Reason for Exam: chest pain FINDINGS: Non optimal inspiratory effort observed. No active alveolar, interstitial, pleural or mediastinal process identified. The skeletal elements remain intact. IMPRESSION: 1. No acute chest process. 2. Non optimal inspiratory effort. Interpreted by: Rickey Anderson DO Preliminary Report By: Rickey Anderson DO Electronically signed By Rickey Anderson DO Dictated Date: 10/01/2024 2:50:38 PM Prelim Date: 10/01/2024 2:51:22 PM Sign Date: 10/01/2024 2:51:22 PM Ordering Provider: BETO Ortiz [facility] LABORATORYOrdered By: Adeline Farris on 09-19-2024 Adenovirus 40+41 DNA ALINA+non-probe Ql (Stl) Not Detected *NA* (09/19/24 11:32 AM) Invalid Interpretation Code Not Detected AH Auto Microbiology GL SS Astrovirus subtypes 1-8 RNA ALINA+non-probe Ql (Stl) Not Detected *NA* (09/19/24 11:32 AM) Invalid Interpretation Code Not Detected AH Auto Microbiology GL SS C. cayetanensis DNA ALINA+non-probe Ql (Stl) Not Detected *NA* (09/19/24 11:32 AM) Invalid Interpretation Code Not Detected AH Auto Microbiology GL SS C. coli+jejuni+upsalien sis DNA ALINA+non-probe Ql (Stl) Not Detected *NA* (09/19/24 11:32 AM) Invalid Interpretation Code Not Detected AH Auto Microbiology GL SS Cryptosporidium sp DNA ALINA+non-probe Ql (Stl) Not Detected *NA* (09/19/24 11:32 AM) Invalid Interpretation Code Not Detected AH Auto Microbiology GL SS E. coli enteroaggregative Daphne plasmid aggR+aatA genes ALINA+non-probe Ql (Stl) Not Detected *NA* (09/19/24 11:32 AM) Invalid Interpretation Code Not Detected AH Auto Microbiology GL SS E. coli enteropathogenic eae gene ALINA+non-probe Ql (Stl) Not Detected *NA* (09/19/24 11:32 AM) Invalid Interpretation Code Not Detected AH Auto Microbiology GL SS E. coli enterotoxigenic ltA+st1a+st1b genes ALINA+non-probe Ql (Stl) Not Detected *NA* (09/19/24 11:32 AM) Invalid Interpretation Code Not Detected AH Auto Microbiology GL SS E. coli O157 DNA ALINA+non-probe Ql (Stl) Not Detected (09/19/24 11:32 AM) Normal Not Detected AH Auto Microbiology GL SS E. coli stx1+stx2 genes ALINA+non-probe Ql (Stl) Not Detected *NA* (09/19/24 11:32 AM) Invalid Interpretation Code Not Detected AH Auto Microbiology GL SS E. histolytica DNA ALINA+non-probe Ql (Stl) Not Detected *NA* (09/19/24 11:32 AM) Invalid Interpretation Code Not Detected AH Auto Microbiology GL SS G. lamblia DNA ALINA+non-probe Ql (Stl) Not Detected *NA* (09/19/24 11:32 AM) Invalid Interpretation Code Not Detected AH Auto Microbiology GL SS Norovirus genogroup I+II RNA ALINA+non-probe Ql (Stl) Not Detected *NA* (09/19/24 11:32 AM) Invalid Interpretation Code Not Detected AH Auto Microbiology GL SS Plesiomonas shigelloides Not Detected *NA* (09/19/24 11:32 AM) Invalid Interpretation Code Not Detected AH Auto Microbiology GL SS Rotavirus A RNA ALINA+non-probe Ql (Stl) Not Detected *NA* (09/19/24 11:32 AM) Invalid Interpretation Code Not Detected AH Auto Microbiology GL SS S. enterica+bongori DNA ALINA+non-probe Ql (Stl) Not Detected *NA* (09/19/24 11:32 AM) Invalid Interpretation Code Not Detected AH Auto Microbiology GL SS Sapovirus genogroups I+II+IV+V RNA ALINA+non-probe Ql (Stl) Not Detected *NA* (09/19/24 11:32 AM) Invalid Interpretation Code Not Detected AH Auto Microbiology GL SS Shigella species+EIEC invasion plasmid antigen H ipaH gene ALINA+non-probe Ql (Stl) Not Detected *NA* (09/19/24 11:32 AM) Invalid Interpretation Code Not Detected AH Auto Microbiology GL SS Stool GI Comment See Comment 1 (09/19/24 11:32 AM) Normal AH Auto Microbiology GL SS Comment on above: Interpretive Data: V irus, bacteria, and parasite nucleic acid may persist in vivo independently of organism viability. Negative Film Array GI panel results in the setting of clinical illness compatible with gastroenteritis may be due to infection by pathogens that are not detected by this test. False negatives may occur due to genetic variability in the region targeted by the primers. V. cholerae DNA ALINA+non-probe Ql (Stl) Not Detected *NA* (09/19/24 11:32 AM) Invalid Interpretation Code Not Detected AH Auto Microbiology GL SS V. cholerae+parahaemoly ticus+vulnificus DNA ALINA+non-probe Ql (Stl) Not Detected *NA* (09/19/24 11:32 AM) Invalid Interpretation Code Not Detected AH Auto Microbiology GL SS Y. enterocolitica DNA ALINA+non-probe Ql (Stl) Not Detected *NA* (09/19/24 11:32 AM) Invalid Interpretation Code Not Detected AH Auto Microbiology GL SS STGIPCRon 09-19-2024 Adenovirus F 40/41 Not detected Normal Not Detected [facility] Comment on above: Performed By: #### S TGIPCR ####[place] [address] Astrovirus Not detected Normal Not Detected [facility] Comment on above: Performed By: #### S TGIPCR ####[place] [address] Campy (jejuni/coli/ups) Not detected Normal Not Detected [facility] Comment on above: Performed By: #### S TGIPCR ####[place] [address] Cryptosporidium Not detected Normal Not Detected [facility] Comment on above: Performed By: #### S TGIPCR ####[place] [address] Cyclospora Not detected Normal Not Detected [facility] Comment on above: Performed By: #### S TGIPCR ####[place] [address] E. coli (ETEC) Not detected Normal Not Detected [facility] Comment on above: Performed By: #### S TGIPCR ####[place] [address] E. coli O157 Not detected Normal Not Detected [facility] Comment on above: Performed By: #### S TGIPCR ####[place] [address] Entamoeba histolytica Not detected Normal Not Detected [facility] Comment on above: Performed By: #### S TGIPCR ####[place] [address] Enteroaggregative E. coli (EAEC) Not detected Normal Not Detected [facility] Comment on above: Performed By: #### S TGIPCR ####[place] [address] Enteropathogenic E. coli (EPEC) Not detected Normal Not Detected [facility] Comment on above: Performed By: #### S TGIPCR ####[place] [address] Giardia lamblia Not detected Normal Not Detected [facility] Comment on above: Performed By: #### S TGIPCR ####[place] [address] Norovirus GI/GII Not detected Normal Not Detected [facility] Comment on above: Performed By: #### S TGIPCR ####[place] [address] Plesiomonas shigelloides Not detected Normal Not Detected [facility] Comment on above: Performed By: #### S TGIPCR ####[place] [address] Rotavirus A Not detected Normal Not Detected [facility] Comment on above: Performed By: #### S TGIPCR ####[place] [address] Salmonella species, stool Not detected Normal Not Detected [facility] Comment on above: Performed By: #### S TGIPCR ####[place] [address] Sapovirus I,II,IV,V Not detected Normal Not Detected [facility] Comment on above: Performed By: #### S TGIPCR ####[place] [address] Shig Tox E. coli (STEC) Not detected Normal Not Detected [facility] Comment on above: Performed By: #### S TGIPCR ####[place] [address] Shigella/Enteroinvas di E. coli (EIEC) Not detected Normal Not Detected [facility] Comment on above: Performed By: #### S TGIPCR ####[place] [address] Stool GI Comment See Comment Normal [facility] Comment on above: Result Comment: Viru s, bacteria, and parasite nucleic acid may persist in vivo independently of organism viability. Negative Film Array GI panel results in the setting of clinical illness compatible with gastroenteritis may be due to infection by pathogens that are not detected by this test. False negatives may occur due to genetic variability in the region targeted by the primers. Performed By: #### S TGIPCR ####[place] [address] Vibrio cholerae Not detected Normal Not Detected [facility] Comment on above: Performed By: #### S TGIPCR ####[place] [address] Vibrio par/vul/chol Not detected Normal Not Detected [facility] Comment on above: Performed By: #### S TGIPCR ####[place] [address] Yersinia enterocolitica Not detected Normal Not Detected [facility] Comment on above: Performed By: #### S TGIPCR ####[place] [address] CT HEAD OR BRAIN W/O CONTRAS Ton 09-12-2024 CT HEAD OR BRAIN W/O CONTRAST ORIGINAL EXAMINATION: CT OF THE HEAD WITHOUT CONTRAST 09/12/2024 10:51 am TECHNIQUE: CT of the head was performed without the administration of intravenous contrast. Automated exposure control, iterative reconstruction, and/or weight based adjustment of the mA/kV was utilized to reduce the radiation dose to as low as reasonably achievable. COMPARISON: Head CT 11/04/2018. HISTORY: ORDERING SYSTEM PROVIDED HISTORY: Reason for Exam: syncope FINDINGS: BRAIN/VENTRICLES: There is no acute intracranial hemorrhage, mass effect or midline shift. No abnormal extra-axial fluid collection. 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 No acute infarct visible. No posterior fossa lesion. ORBITS: The visualized portion of the orbits demonstrate no acute abnormality. SINUSES: The visualized paranasal sinuses and mastoid air cells demonstrate no acute abnormality. SOFT TISSUES/SKULL: No acute abnormality of the visualized skull or soft tissues. IMPRESSION: No acute findings. Interpreted by: Rochelle Jaramillo Preliminary Report By: Rochelle Jaramillo Electronically signed By Rochelle Jaramillo Dictated Date: 09/12/2024 10:58:54 AM Prelim Date: 09/12/2024 11:01:09 AM Sign Date: 09/12/2024 11:01:09 AM Ordering Provider: MARIANO Ortiz [facility] MRI SPINE LUMBAR W/O CONTRAS Ton 07-13-2024 MRI SPINE LUMBAR W/O CONTRAST ORIGINAL EXAMINATION: MRI OF THE LUMBAR SPINE WITHOUT CONTRAST, 07/13/2024 11:45 am TECHNIQUE: Multiplanar multisequence MRI of the lumbar spine was performed without the administration of intravenous contrast. COMPARISON: Lumbar spine radiograph 04/27/2023, MRI lumbar spine 10/23/2022 HISTORY: ORDERING SYSTEM PROVIDED HISTORY: Reason for Exam: increased low back pain into left leg FINDINGS: BONES/ALIGNMENT: Lumbar spine vertebral body heights are preserved. Facet joints are in gross anatomic alignment. Spinous processes are grossly intact. There is small endplate concavity with mild disc invagination again seen at inferior L2. There are small vertebral foci of T1/T2 hyperintensity, most compatible with hemangiomas. There are Modic endplate degenerative signal changes at L2-L3, L5-S1. SPINAL CORD: The conus terminates normally. SOFT TISSUES: No paraspinal mass identified. L1-L2: There is minimal grade 1 retrolisthesis of L1. There is mild ligamentum flavum and facet hypertrophy. There is moderate disc space narrowing with central 4 mm disc protrusion. There is mild central canal stenosis. There is mild disc bulge with endplate osteophytes and bilateral foraminal extension. There is no neuroforaminal stenosis. L2-L3: There is grade 1 retrolisthesis of L2. There is mild ligamentum flavum and facet hypertrophy. There is disc bulge with endplate osteophytes and bilateral foraminal extension. There is a right paracentral 5 mm disc protrusion. There is mild-moderate right subarticular stenosis with mild impingement of the traversing right L3 nerve root. There is mild central canal stenosis. There is no neuroforaminal stenosis. L3-L4: There is minimal grade 1 retrolisthesis of L3. Mild disc space narrowing is present. There is mild ligamentum flavum and facet hypertrophy. There is disc bulge with endplate osteophytes and bilateral foraminal extension. There is no central canal stenosis. There is mild left neuroforaminal stenosis. There is right foraminal/lateral 4 mm disc protrusion in close proximity to the exiting extraforaminal right L3 nerve root. There is mild-moderate right neuroforaminal stenosis. L4-L5: Mild disc space narrowing is present. There is grade 1 retrolisthesis of L4. There is mild-moderate ligamentum flavum and facet hypertrophy. There is disc bulge with endplate osteophytes and bilateral foraminal extension, right greater than left. There is mild impingement of the exiting right L3 nerve root and moderate right foraminal stenosis. There is mild-moderate left neuroforaminal stenosis. There is no central canal stenosis. L5-S1: There is grade 1 retrolisthesis of L5. There is moderate-severe posterior disc space narrowing. There is mild-moderate ligamentum flavum and facet hypertrophy. There is disc bulge with endplate osteophytes and bilateral foraminal extension. There is a broad-based central disc protrusion measuring 6 mm AP. There is mild central canal stenosis. There is mild-moderate right neuroforaminal stenosis. There is moderate left neuroforaminal stenosis. IMPRESSION: 1. Multilevel lumbar spondylosis with central canal stenosis as described above. 2. There is mild-moderate right subarticular stenosis with mild impingement of the traversing right L3 nerve root at L2-L3. 3. There is mild-moderate right neuroforaminal stenosis at L3-L4, L4-L5, and L5-S1. There is moderate right neuroforaminal stenosis at L4-L5 and moderate left neuroforaminal stenosis at L5-S1. Interpreted by: Kristopher Deluna Preliminary Report By: Kristopher Deluna Electronically signed By Kristopher eDluna Dictated Date: 07/13/2024 4:52:41 PM Prelim Date: 07/13/2024 5:08:45 PM Sign Date: 07/13/2024 5:08:45 PM Ordering Provider: BRIANA Ortiz [facility] XR CHEST 1 VIEWon 07-11-2024 XR CHEST 1 VIEW ORIGINAL EXAMINATION: ONE XRAY VIEW OF THE CHEST 07/11/2024 12:28 pm COMPARISON: 02/28/2024 HISTORY: ORDERING SYSTEM PROVIDED HISTORY: Reason for Exam: cough FINDINGS: Partially visualized lower cervical spine hardware. Cardiomediastinal silhouette is within normal limits. Left mediastinal small clips again seen. No overt edema. No focal consolidation, pleural effusion or pneumothorax. No acute osseous abnormality. Right AC joint degenerative change with subacromial spurring. IMPRESSION: No acute cardiopulmonary process. Interpreted by: Rhonda Menendez Preliminary Report By: Rhonda Menendez Electronically signed By Rhonda Menendez Dictated Date: 07/11/2024 12:34:33 PM Prelim Date: 07/11/2024 12:35:32 PM Sign Date: 07/11/2024 12:35:32 PM Ordering Provider: SLOANE OHARA [facility] MRI SHOULDER W/O CONTRAST VIRY Fatou 07-07-2024 MRI SHOULDER W/O CONTRAST RIGHT ORIGINAL EXAMINATION: MRI OF THE RIGHT SHOULDER WITHOUT CONTRAST 07/07/2024 11:53 am TECHNIQUE: Multiplanar multisequence MRI of the right shoulder was performed without the administration of intravenous contrast. COMPARISON: Right shoulder radiograph dated 02/15/2024 HISTORY: ORDERING SYSTEM PROVIDED HISTORY: Reason for Exam: Rotator cuff tear FINDINGS: There is no evidence of acute fracture, osteonecrosis or suspicious marrow lesion. Severe AC joint degenerative change with hypertrophic bone formation, capsular hypertrophy, subchondral cystic change and marrow edema with AC joint effusion with synovitis. There is subacromial spurring.. A type 1 acromial undersurface is seen. The coracoacromial ligaments are thickened and attenuated. Dystrophic calcification within the region of the coracoclavicular ligament which may be sequela of chronic injury. The humeral head is high riding secondary to a full-thickness full width supraspinatus tear. There is subacromial subdeltoid and subcoracoid bursitis. Glenohumeral joint fluid with synovitis and intra-articular debris. The teres minor is intact. High-grade full-thickness infraspinatus tear with retraction approximately to the level of the glenoid. The torn retracted fibers are balled-up and frayed. There is mild posterior instability. Moderate to severe subscapularis tendinosis with tearing of the transverse humeral ligament. The long head of the biceps tendon is perched at the level of the bicipital groove with tendinosis, interstitial tearing and tenosynovitis. There is no acute Hill-Sacks or Bankart lesion. Suboptimal evaluation of the labrum with lack of intra-articular contrast. Anterior superior labral tear. Posteroinferior labral tear with tiny parameniscal cyst (series 10, image 6). Diffuse chondral thinning of the glenohumeral joint with near [id number]. There is edema surrounding the inferior axillary pouch and obliteration of the fat within the rotator interval with thickened coracohumeral ligament, findings which can be seen in the setting of adhesive capsulitis. The suprascapular and spinoglenoid notches as well as the quadrilateral space have preserved fat planes. Moderate to severe supraspinatus and infraspinatus muscle belly atrophy. IMPRESSION: 1. High-riding humeral head secondary to massive rotator cuff tear with full-thickness supraspinatus infraspinatus tears. There is moderate to severe subscapularis tendinosis with tearing of the transverse humeral ligament. 2. Subacromial, subdeltoid and subcoracoid bursitis. Glenohumeral joint effusion with synovitis and intra-articular debris. 3. Limited evaluation of the labrum with lack of intra-articular contrast however there is an anterior superior labral tear and posteroinferior labral tear. 4. Biceps tendinosis, interstitial tearing and tenosynovitis. 5. Severe AC joint degenerative changes as detailed above. 6. Findings which most likely suggest adhesive capsulitis. Additional incidental findings as above. Interpreted by: Rhonda Menendez Preliminary Report By: Rhonda Menendez Electronically signed By Rhonda Menendez Dictated Date: 07/07/2024 3:32:57 PM Prelim Date: 07/07/2024 3:47:08 PM Sign Date: 07/07/2024 3:47:08 PM Ordering Provider: ROCHELLE PECK [facility] XR FOOT MINIMUM 3 VIEWS LEFT on 06-28-2024 XR FOOT MINIMUM 3 VIEWS LEFT ORIGINAL EXAMINATION: THREE XRAY VIEWS OF THE LEFT FOOT06/27/2024 2:38 pm COMPARISON: None HISTORY: ORDERING SYSTEM PROVIDED HISTORY: Reason for Exam: left great toe pain; RO foreign body FINDINGS: There is soft tissue swelling of the 1st digit. Within the plantar and lateral 1st digit soft tissues, there is a linear 4 mm radiopaque density. No evidence of subcutaneous gas. No fracture or dislocation. Articulations are maintained. No aggressive osseous lesion. IMPRESSION: Small radiopaque foreign body within the 1st digit soft tissues. Interpreted by: Elvis Rivera DO Preliminary Report By: Elvis Rivera DO Electronically signed By Elvis Rivera DO Dictated Date: 06/28/2024 2:33:02 PM Prelim Date: 06/28/2024 2:34:43 PM Sign Date: 06/28/2024 2:34:43 PM Ordering Provider: KYAW Ortiz [facility] PMDSon 04-25-2024 ToxAssure 13 Summary FINAL [facility] MAIN Comment on above: Result Comment: === TOXASSURE COMP DRUG ANALYSIS,UR === Test Result Flag Units Drug Present and Declared for Prescription Verification Carboxy-THC 233 EXPECTED ng/mg creat Carboxy-THC is a metabolite of tetrahydrocannabinol (THC). Source of THC is most commonly herbal marijuana or marijuana-based products, but THC is also present in a scheduled prescription medication. Trace amounts of THC can be present in hemp and cannabidiol (CBD) products. This test is not intended to distinguish between nsopq-1-gsrgvivbiinexuidhaif, the predominant form of THC in most herbal or marijuana-based products, and tbiwn-4-ubtyhtfvxxmyzqxsfclx. Citalopram PRESENT EXPECTED Desmethylcitalopram PRESENT EXPECTED Desmethylcitalopram is an expected metabolite of citalopram or the enantiomeric form, escitalopram. Duloxetine PRESENT EXPECTED Trazodone PRESENT EXPECTED 1,3 chlorophenyl piperazine PRESENT EXPECTED 1,3-chlorophenyl piperazine is an expected metabolite of trazodone. Drug Present not Declared for Prescription Verification Amitriptyline PRESENT UNEXPECTED Nortriptyline PRESENT UNEXPECTED Nortriptyline may be administered as a prescription drug; it is also an expected metabolite of amitriptyline. Metoprolol PRESENT UNEXPECTED Drug Absent but Declared for Prescription Verification Gabapentin Not Detected UNEXPECTED Tizanidine Not Detected UNEXPECTED Tizanidine, as indicated in the declared medication list, is not always detected even when used as directed. === Test Result Flag Units Ref Range Creatinine 150 mg/dL >=20 === Declared Medications: The flagging and interpretation on this report are based on the following declared medications. Unexpected results may arise from inaccuracies in the declared medications. Note: The testing scope of this panel includes these medications: Duloxetine (Cymbalta) Escitalopram Gabapentin Marijuana (THC) Trazodone (Desyrel) Note: The testing scope of this panel does not include small to moderate amounts of these reported medications: Tizanidine (Zanaflex) === For clinical consultation, please call . === ToxAssure, ToxAssure FLEX or MAT drug testin -Technical component - Data analysis performed at [facility], [address] [place] [address], [id number]. [phone]. Exhibit Builder Suki Huynh MD ToxAssure, ToxAssure FLEX or MAT drug testing: -Technical component - Result certification performed at [facility], [address] [address]. [phone] Exhibit Builder Vishal Ott MD. Performed At: [facility] [address] [id number] David Brianna J [facility] Ph:[phone] Performed By: #### [id number] #### [facility] [address] [place] [address] LABORATORYOrdered By: Karla Mora on 03-31-2024 Glucose [Mass/Vol] 94 mg/dL Normal 82 - 115 mg/dL [facility] XR FLUORO GUIDANCE FOR THERA PY INJECTIONon 03-31-2024 XR FLUORO GUIDANCE FOR THERAPY INJECTION ORIGINAL Images acquired, not reported on this accession number. Normal [facility] .Auto Diffon 02-28-2024 Basophil, Absolute 0.1 10 3/mcL Normal 0.0-0.2 [facility] Comment on above: Performed By: #### G FR, CBC, KENYON BYRD MDW, ANEU, BMP, PBNP ####[address] [place], [place] [address] Basophils/100 WBC (Bld) 1.2 % Normal 0.0-2.5 [facility] Comment on above: Performed By: #### G FR, CBC, KENYON BYRD MDW, ANEU, BMP, PBNP ####[facility] [place], [place] [address] Eosinophil, Absolute 0.2 10 3/mcL Normal 0.0-0.7 [facility] Comment on above: Performed By: #### G FR, CBC, TROPHS, ADIFF, MDW, ANEU, BMP, PBNP ####[facility] [place], [place] [address] Eosinophils/100 WBC (Bld) 3.1 % Normal 0.0-7.0 [facility] Comment on above: Performed By: #### G FR, CBC, TROPHS, ADIFF, MDW, ANEU, BMP, PBNP ####[place] [address] [place], [place] [address] Lymphocyte, Absolute 1.9 10 3/mcL Normal 0.9-4.3 [facility] Comment on above: Performed By: #### G FR, CBC, TROPHS, ADIFF, MDW, ANEU, BMP, PBNP ####[address] [place], [place] [address] Lymphocytes/100 WBC (Bld) 30.2 % Normal 20.0-40.0 [facility] Comment on above: Performed By: #### G FR, CBC, TROPHS, ADIFF, MDW, ANEU, BMP, PBNP ####[address] [address] Monocyte, Absolute 0.5 10 3/mcL Normal 0.1-1.4 [facility] Comment on above: Performed By: #### G FR, CBC, TROPHS, ADIFF, MDW, ANEU, BMP, PBNP ####[address] [address] Monocytes/100 WBC (Bld) 7.6 % Normal 2.0-13.0 [facility] Comment on above: Performed By: #### G FR, CBC, TROPHS, ADIFF, MDW, ANEU, BMP, PBNP ####[facility] [place], [place] [address] Neutrophils/100 WBC (Bld) 57.9 % Normal 50.0-75.0 [facility] Comment on above: Performed By: #### G FR, CBC, TROPHS, ADIFF, MDW, ANEU, BMP, PBNP ####[address] [place], [place] [address] .GFRon 02-28-2024 GFR 82 ml/min/1.73sqm Normal [facility] Comment on above: Result Comment: GFR Population mean for , Non- Americans Ages 20-29 = 116 mL/min/1.73 sq.m. Ages 30-39 = 107 mL/min/1.73 sq.m. Ages 40-49 = 99 mL/min/1.73 sq.m. Ages 50-59 = 93 mL/min/1.73 sq.m. Ages 60-69 = 85 mL/min/1.73 sq.m. Ages 70+ = 75 mL/min/1.73 sq.m. Chronic Kidney Disease: Less than 60 mL/min/1.73 square meters End Stage Renal Disease: Less than 15 mL/min/1.73 square meters Performed By: #### G FR, CBC, KENYON BYRD, SAM, ANEU, BMP, PBNP ####[address] [place], [place] [address] GFR Non- 68 ml/min/1.73sqm Normal [facility] Comment on above: Result Comment: GFR Population mean for , Non- Americans Ages 20-29 = 116 mL/min/1.73 sq.m. Ages 30-39 = 107 mL/min/1.73 sq.m. Ages 40-49 = 99 mL/min/1.73 sq.m. Ages 50-59 = 93 mL/min/1.73 sq.m. Ages 60-69 = 85 mL/min/1.73 sq.m. Ages 70+ = 75 mL/min/1.73 sq.m. Chronic Kidney Disease: Less than 60 mL/min/1.73 square meters End Stage Renal Disease: Less than 15 mL/min/1.73 square meters Performed By: #### G FR, CBC, CARSON, KENYON, SAM, ANEU, BMP, PBNP ####[address] [place], [place] [address] .MDWon 02-28-2024 Monocyte Distribution Width 17.91 Normal 0.00-20.00 [facility] Comment on above: Result Comment: For ED adult patients suspected of sepsis, MDW<=20.0 does not rule out sepsis or risk of sepsis Performed By: #### G FR, CBC, TROPHS, KENYON, SAM, ANEU, BMP, PBNP ####[facility] [place], [place] [address] .NEUABSon 02-28-2024 Neutrophil, Absolute 3.6 10 3/mcL Normal 2.3-8.1 [facility] Comment on above: Performed By: #### G FR, CBC, TROPHS, KENYON, SAM, ANEU, BMP, PBNP ####[facility] [place], [place] [address] BMPon 02-28-2024 BUN/Creatinine Ratio 19 ratio Normal 7-27 [facility] Comment on above: Performed By: #### G FR, CBC, TROPHS, KENYON, SAM, ANEU, BMP, PBNP ####[facility] [place], [place] [address] Calcium [Mass/Vol] 9.3 mg/dL Normal 8.4-10.2 [facility] Comment on above: Performed By: #### G FR, CBC, TROPHKENYON Mcneil, SAM, ANEU, BMP, PBNP ####[facility] [place], [place] [address] Chloride [Moles/Vol] 105 mmol/L Normal 98-107 [facility] Comment on above: Performed By: #### G FR, CBC, TROPHS, KENYON, SAM, ANEU, BMP, PBNP ####[facility] [place], [place] [address] CO2 [Moles/Vol] 30 mmol/L Normal 23-31 [facility] Comment on above: Performed By: #### G FR, CBC, TROPHS, KENYON, W, ANEU, BMP, PBNP ####[facility] [place], [place] [address] Creatinine [Mass/Vol] 1.10 mg/dL Normal 0.70-1.30 [facility] Comment on above: Result Comment: Test ing performed on Siemens Dimension EXL analyzer using a modified kinetic Marjan technique. Performed By: #### G FR, CBC, KENYON BYRD MDW, ANEU, BMP, PBNP ####[address] [place], [place] [address] Electrolyte Balance 6.0 mEq/L Normal 4.0-15.0 [facility] Comment on above: Performed By: #### G FR, CBC, KENYON BYRD MDW, ANEU, BMP, PBNP ####[address] [place], [place] [address] Glucose [Mass/Vol] 90 mg/dL Normal 80-115 [facility] Comment on above: Performed By: #### G FR, CBC, KENYON BYRD MDW, ANEU, BMP, PBNP ####[address] [place], [place] [address] Potassium [Moles/Vol] 4.7 mmol/L Normal 3.5-5.1 [facility] Comment on above: Performed By: #### G FR, CBC, KENYON BYRD MDW, ANEU, BMP, PBNP ####[address] [place], [place] [address] Sodium [Moles/Vol] 141 mmol/L Normal 136-145 [facility] Comment on above: Performed By: #### G FR, CBC, KENYON BYRD MDW, ANEU, BMP, PBNP ####[address] [place], [place] [address] Urea nitrogen [Mass/Vol] 21 mg/dL High 7-18 [facility] Comment on above: Performed By: #### G FR, CBC, KENYON BYRD MDW, ANEU, BMP, PBNP ####[address] [place], [place] [address] CBCon 02-28-2024 Erythrocyte distribution width (RBC) [Ratio] 13.4 % Normal 11.5-15.5 [facility] Comment on above: Performed By: #### G FR, CBC, TROPHS, ADIFF, MDW, ANEU, BMP, PBNP #### [address] [address] Hematocrit (Bld) [Volume fraction] 44.9 % Normal 40.0-52.0 [facility] Comment on above: Performed By: #### G FR, CBC, TROPHS, ADISI, MDW, ANEU, BMP, PBNP #### [id number] [place], [place] [address] Hgb 15.5 G/dL Normal 13.0-17.5 [facility] Comment on above: Performed By: #### G FR, CBC, TROPHS, KENYON, MDW, ANEU, BMP, PBNP #### [address] [address] MCH (RBC) [Entitic mass] 32.3 pg Normal 27.0-33.0 [facility] Comment on above: Performed By: #### G FR, CBC, TROPHS, ADISI, MDW, ANEU, BMP, PBNP #### [address] [address] MCHC 34.6 G/dL Normal 32.0-36.0 [facility] Comment on above: Performed By: #### G FR, CBC, TROPHS, ADISI, MDW, ANEU, BMP, PBNP #### [address] [address] MCV (RBC) [Entitic vol] 93.5 fL Normal 81.0-100.0 [facility] Comment on above: Performed By: #### G FR, CBC, TROPHS, ADIFF, MDW, ANEU, BMP, PBNP #### [address] [address] Platelet 202 10 3/mcL Normal 150-450 [facility] Comment on above: Performed By: #### G FR, CBC, TROPHS, ADIFF, MDW, ANEU, BMP, PBNP #### [address] [address] Platelet mean volume (Bld) [Entitic vol] 7.7 fL Normal 6.4-10.5 [facility] Comment on above: Performed By: #### G FR, CBC, KENYON BYRD MDW, ANEU, BMP, PBNP #### [address] [address] RBC 4.80 10 6/mcL Normal 4.50-6.00 [facility] Comment on above: Performed By: #### G FR, CBC, KENYON BYRD MDW, ANEU, BMP, PBNP #### [id number] [place], [place] [address] WBC 6.2 10 3/mcL Normal 4.5-10.8 [facility] Comment on above: Performed By: #### G FR, CBC, KENYON BYRD MDW, ANEU, BMP, PBNP #### [address] [address] LABORATORYOrdered By: SYSTEM SYSTEM on 02-28-2024 Troponin I.cardiac DL <= 0.01 ng/mL [Mass/Vol] ng/L Normal 0 - 76 ng/L AO ADM SS Comment on above: Interpretive Data: H igh Sensitive Troponin I Reference Ranges: Female: 0-51 ng/L Male: 0-76 ng/L Testing performed on [email or web address] using a homogeneous sandwich chemiluminescent immunoassay based on Transmension technology. Basophils (Bld) [#/Vol] 0.1 103/mcL Normal 0.0 - 0.2 10^3/mcL AO Workflow SS Basophils/100 WBC (Bld) 1.2 % Normal 0.0 - 2.5 % AO Workflow SS Calcium [Mass/Vol] 9.3 mg/dL Normal 8.4 - 10. 2 mg/dL AO ADM SS Chloride [Moles/Vol] 105 mmol/L Normal 98 - 10 7 mmol/L AO ADM SS CO2 [Moles/Vol] 30 mmol/L Normal 23 - 31 mmol/L AO ADM SS Creatinine [Mass/Vol] 1.10 mg/dL Normal 0.70 - 1.30 mg/dL AO ADM SS Comment on above: Interpretive Data: T esting performed on [email or web address] Dimension EXL analyzer using a modified kinetic Marjan technique. Electrolyte Balance 6.0 mEq/L Normal 4.0 - 15 .0 mEq/L AO ADM SS Eosinophil, Absolute 0.2 103/mcL Normal 0.0 - 0 .7 10^3/mcL AO Workflow SS Eosinophils/100 WBC (Bld) 3.1 % Normal 0.0 - 7.0 % AO Workflow SS Erythrocyte distribution width (RBC) [Ratio] 13.4 % Normal 11.5 - 15.5 % AO Workflow SS GFR/1.73 sq M.predicted among blacks MDRD (S/P/Bld) [Vol rate/Area] 82 ml/min/1.73sqm Invalid Interpretation Code AO Chemistry S Comment on above: Interpretive Data: GFR Population mean for , Non- Americans Ages 20-29 = 116 mL/min/1.73 sq.m. Ages 30-39 = 107 mL/min/1.73 sq.m. Ages 40-49 = 99 mL/min/1.73 sq.m. Ages 50-59 = 93 mL/min/1.73 sq.m. Ages 60-69 = 85 mL/min/1.73 sq.m. Ages 70+ = 75 mL/min/1.73 sq.m. Chronic Kidney Disease: Less than 60 mL/min/1.73 square meters End Stage Renal Disease: Less than 15 mL/min/1.73 square meters GFR/1.73 sq M.predicted among non-blacks MDRD (S/P/Bld) [Vol rate/Area] 68 ml/min/1.73sqm Invalid Interpretation Code AO Chemistry S Comment on above: Interpretive Data: GFR Population mean for , Non- Americans Ages 20-29 = 116 mL/min/1.73 sq.m. Ages 30-39 = 107 mL/min/1.73 sq.m. Ages 40-49 = 99 mL/min/1.73 sq.m. Ages 50-59 = 93 mL/min/1.73 sq.m. Ages 60-69 = 85 mL/min/1.73 sq.m. Ages 70+ = 75 mL/min/1.73 sq.m. Chronic Kidney Disease: Less than 60 mL/min/1.73 square meters End Stage Renal Disease: Less than 15 mL/min/1.73 square meters Glucose [Mass/Vol] 90 mg/dL Normal 80 - 115 mg/dL AO ADM SS Hematocrit (Bld) [Volume fraction] 44.9 % Normal 40.0 - 52.0 % AO Workflow SS Hemoglobin (Bld) [Mass/Vol] 15.5 G/dL Normal 13.0 - 17.5 G/dL AO Workflow SS Lymphocytes (Bld) [#/Vol] 1.9 103/mcL Normal 0.9 - 4.3 10^3/mcL AO Workflow SS Lymphocytes/100 WBC (Bld) 30.2 % Normal 20.0 - 40.0 % AO Workflow SS MCH (RBC) [Entitic mass] 32.3 pg Normal 27.0 - 33.0 pg AO Workflow SS MCHC 34.6 G/dL Normal 32.0 - 36.0 G/dL AO Workflow SS MCV (RBC) [Entitic vol] 93.5 fL Normal 81.0 - 100.0 fL AO Workflow SS Monocyte distribution width Auto (Bld) [Entitic vol] 17.91 1 Normal 0.00 - 20.00 AO Workflow SS Comment on above: Result Comment: For ED adult patients suspected of sepsis, MDW<=20.0 does not rule out sepsis or risk of sepsis Monocytes (Bld) [#/Vol] 0.5 103/mcL Normal 0.1 - 1.4 10^3/mcL AO Workflow SS Monocytes/100 WBC (Bld) 7.6 % Normal 2.0 - 13.0 % AO Workflow SS Natriuretic peptide.B prohormone N-Terminal [Mass/Vol] 13 pg/mL Normal 0 - 125 pg/mL AO ADM SS Comment on above: Interpretive Data: N T-proBNP results of less than 300 pg/mL effectively rules out acute congestive heart failure with 99% negative predictive value. Neutrophils (Bld) [#/Vol] 3.6 103/mcL Normal 2.3 - 8.1 10^3/mcL AO Workflow SS Neutrophils/100 WBC (Bld) 57.9 % Normal 50.0 - 75.0 % AO Workflow SS Platelet mean volume (Bld) [Entitic vol] 7.7 fL Normal 6.4 - 10.5 fL AO Workflow SS Platelets (Bld) [#/Vol] 202 103/mcL Normal 150 - 450 10^3/mcL AO Workflow SS Potassium [Moles/Vol] 4.7 mmol/L Normal 3.5 - 5.1 mmol/L AO ADM SS RBC (Bld) [#/Vol] 4.80 106/mcL Normal 4.50 - 6.0 0 10^6/mcL AO Workflow SS Sodium [Moles/Vol] 141 mmol/L Normal 136 - 145 mmol/L AO ADM SS Troponin I.cardiac DL <= 0.01 ng/mL [Mass/Vol] ng/L Normal 0 - 76 ng/L AO ADM SS Comment on above: Interpretive Data: H igh Sensitive Troponin I Reference Ranges: Female: 0-51 ng/L Male: 0-76 ng/L Testing performed on Dimension EXL using a homogeneous sandwich chemiluminescent immunoassay based on Transmension technology. Urea nitrogen [Mass/Vol] 21 mg/dL High 7 - 18 mg/dL AO ADM SS Urea nitrogen/Creatinine [Mass ratio] 19 ratio Normal 7 - 27 ratio AO ADM SS WBC (Bld) [#/Vol] 6.2 103/mcL Normal 4.5 - 10.8 10^3/mcL AO Workflow SS PBNPon 02-28-2024 Natriuretic peptide B (Bld) [Mass/Vol] 13 pg/mL Normal 0-125 [facility] Comment on above: Result Comment: NT-p roBNP results of less than 300 pg/mL effectively rules out acute congestive heart failure with 99% negative predictive value. Performed By: #### G FR, CBC, KENYON BYRD MDW, ANEU, BMP, PBNP ####[address] [place], [place] [address] [facility] 02-28-2024 High Sensitivity Troponin I <4 Normal 0-76 [facility] Comment on above: Result Comment: High Sensitive Troponin I Reference Ranges: Female: 0-51 ng/L Male: 0-76 ng/L Testing performed on Dimension EXL using a homogeneous sandwich chemiluminescent immunoassay based on Transmension technology. Performed By: #### T GEORGE ####[address] [place], [place] [address] High Sensitivity Troponin I <4 Normal 0-76 [facility] Comment on above: Result Comment: High Sensitive Troponin I Reference Ranges: Female: 0-51 ng/L Male: 0-76 ng/L Testing performed on Dimension EXL using a homogeneous sandwich chemiluminescent immunoassay based on LOCI technology. Performed By: #### G FR, CBC, KENYON BYRD MDW, ANEU, BMP, PBNP ####[facility] [place], [place] [address] XR CHEST 1 VIEWon 02-28-2024 XR CHEST 1 VIEW ORIGINAL EXAMINATION: ONE XRAY VIEW OF THE CHEST 02/28/2024 2:11 pm COMPARISON: None. HISTORY: ORDERING SYSTEM PROVIDED HISTORY: Reason for Exam: chest pain FINDINGS: Rotation to left. Cardiomediastinal silhouette is within normal limits. No overt edema. No focal consolidation. Costophrenic angles are sharp. No pneumothorax. Lower cervical posterior instrumented fusion partially visualized. Severe right AC joint degenerative change. IMPRESSION: No acute cardiopulmonary process. Interpreted by: Rhonda Menendez Preliminary Report By: Rhonda Menendez Electronically signed By Rhonda Menendez Dictated Date: 02/28/2024 2:17:44 PM Prelim Date: 02/28/2024 2:18:42 PM Sign Date: 02/28/2024 2:18:42 PM Ordering Provider: MAY JEAN [facility] XR SHOULDER MINIMUM 2 VIEWS RIGHTon 02-16-2024 XR SHOULDER MINIMUM 2 VIEWS RIGHT ORIGINAL EXAMINATION: TWO XRAY VIEWS OF THE RIGHT SHOULDER 02/15/2024 2:45 pm COMPARISON: November 04, 2018 HISTORY: ORDERING SYSTEM PROVIDED HISTORY: Reason for Exam: right shoulder pain FINDINGS: There is partially imaged orthopedic fixation of the cervical spine. There is no acute fracture or dislocation. Alignment is anatomic. The glenohumeral and acromioclavicular joints are maintained. There is right acromioclavicular joint space narrowing with adjacent subchondral sclerosis and marginal osteophytic lipping. Calcific tendinitis. Bones are well mineralized. Visualized portions of the thorax are unremarkable. IMPRESSION: 1. No acute fracture or dislocation. 2. Right acromioclavicular joint osteoarthritis. 3. Calcific tendinitis Interpreted by: Radha Zeng Preliminary Report By: Radha Zeng Electronically signed By Radha Zeng Dictated Date: 02/16/2024 3:44:51 PM Prelim Date: 02/16/2024 3:47:51 PM Sign Date: 02/16/2024 3:47:51 PM Ordering Provider: KYAW Ortiz [facility] MRI SPINE LUMBAR W/O CONTRAS Ton 10-23-2022 MRI SPINE LUMBAR W/O CONTRAST ORIGINAL EXAMINATION: MRI OF THE LUMBAR SPINE WITHOUT CONTRAST, 10/23/2022 11:36 am TECHNIQUE: Multiplanar multisequence MRI of the lumbar spine was performed without the administration of intravenous contrast. 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 New onset left lower extremity weakness and absence of the knee reflex. FINDINGS: For the purposes of this dictation, there are 5 lumbar vertebral bodies with the most caudal segmented vertebral body considered L5. BONES/ALIGNMENT: Grade 1 retrolisthesis of L1 on L2, L2 on L3, L4 on L5 and L5 on S1. The vertebral body heights are maintained. Degenerate endplate changes. SPINAL CORD: The conus terminates normally. SOFT TISSUES: No paraspinal mass identified. Scattered tiny renal cysts bilaterally. L1-L2: There is no significant disc herniation, spinal canal stenosis or neural foraminal narrowing. L2-L3: Mild disc bulge with a small central disc extrusion with superior migration to the infra pedicular level without significant spinal canal stenosis or neural foraminal narrowing. L3-L4: There is no significant disc herniation, spinal canal stenosis or neural foraminal narrowing. L4-L5: Mild disc bulge and facet arthrosis resulting in mild right neural foraminal narrowing without significant spinal canal stenosis. L5-S1: Broad disc bulge with bilateral facet arthrosis resulting in moderate left neural foraminal narrowing, mild on the right, without significant spinal canal stenosis. IMPRESSION: Degenerative changes of the spine as above.. Interpreted by: Terry Paredes Preliminary Report By: Terry Paredes Electronically signed By Terry Paredes Dictated Date: 10/23/2022 1:47:24 PM Prelim Date: 10/23/2022 1:57:19 PM Sign Date: 10/23/2022 1:57:19 PM Ordering Provider: LAVON Ortiz [facility] ([place] .Auto Diffon 06-12-2022 Basophil, Absolute 0.1 10 3/mcL Normal 0.0-0.2 [facility] ([place]) Comment on above: Performed By: #### C BC, ADIFF, ANEU, GFR, BMP #### [facility] [place] [address] [place], [place] [address] Basophils/100 WBC (Bld) 0.5 % Normal 0.0-2.5 [facility] ([place]) Comment on above: Performed By: #### C BC, ADIFF, ANEU, GFR, BMP #### [address] [address] Eosinophil, Absolute 0.0 10 3/mcL Normal 0.0-0.4 [facility] ([place]) Comment on above: Performed By: #### C BC, ADIFF, ANEU, GFR, BMP #### [address] [address] Eosinophils/100 WBC (Bld) 0.2 % Normal 0.0-7.0 [facility] ([place]) Comment on above: Performed By: #### C BC, ADIFF, ANEU, GFR, BMP #### [address] [address] Lymphocyte, Absolute 1.3 10 3/mcL Normal 0.8-3.9 [facility] ([place]) Comment on above: Performed By: #### C BC, ADIFF, ANEU, GFR, BMP #### [address] [address] Lymphocytes/100 WBC (Bld) 10.2 % Normal 10.0-50.0 [facility] ([place]) Comment on above: Performed By: #### C BC, ADIFF, ANEU, GFR, BMP #### [address] [address] Monocyte, Absolute 0.8 10 3/mcL Normal 0.2-1.0 [facility] ([place]) Comment on above: Performed By: #### C BC, ADIFF, ANEU, GFR, BMP #### [address] [address] Monocytes/100 WBC (Bld) 5.8 % Normal 1.7-13.0 [facility] ([place] Comment on above: Performed By: #### C BC, ADIFF, ANEU, GFR, BMP #### [address] [address] Neutrophils/100 WBC (Bld) 83.3 % High 37.0-80.0 [facility] ([place] Comment on above: Performed By: #### C BC, ADIFF, ANEU, GFR, BMP #### [address] [address] .GFRon 06-12-2022 GFR 68 ml/min/1.73sqm Normal [facility] ([place] Comment on above: Result Comment: GFR Population mean for , Non- Americans Ages 20-29 = 116 mL/min/1.73 sq.m. Ages 30-39 = 107 mL/min/1.73 sq.m. Ages 40-49 = 99 mL/min/1.73 sq.m. Ages 50-59 = 93 mL/min/1.73 sq.m. Ages 60-69 = 85 mL/min/1.73 sq.m. Ages 70+ = 75 mL/min/1.73 sq.m. Chronic Kidney Disease: Less than 60 mL/min/1.73 square meters End Stage Renal Disease: Less than 15 mL/min/1.73 square meters Performed By: #### C BC, ADIFF, ANEU, GFR, BMP #### [address] [address] GFR Non- 56 ml/min/1.73sqm Normal [facility] ([place] Comment on above: Result Comment: GFR Population mean for , Non- Americans Ages 20-29 = 116 mL/min/1.73 sq.m. Ages 30-39 = 107 mL/min/1.73 sq.m. Ages 40-49 = 99 mL/min/1.73 sq.m. Ages 50-59 = 93 mL/min/1.73 sq.m. Ages 60-69 = 85 mL/min/1.73 sq.m. Ages 70+ = 75 mL/min/1.73 sq.m. Chronic Kidney Disease: Less than 60 mL/min/1.73 square meters End Stage Renal Disease: Less than 15 mL/min/1.73 square meters Performed By: #### C BC, ADIFF, ANEU, GFR, BMP #### [address] [address] .NEUABSon 06-12-2022 Neutrophil, Absolute 10.8 10 3/mcL High 2.9-6.2 [facility] [place]: Performed By: #### C BC, ADIFF, ANEU, GFR, BMP #### [address] [address] BMPon 06-12-2022 Electrolyte Balance 12.0 mEq/L Normal 4.0-15.0 [facility] ([place] Comment on above: Performed By: #### C BC, ADIFF, ANEU, GFR, BMP #### [address] [address] Sodium [Moles/Vol] 141 mmol/L Normal 136-145 [facility] ([place] Comment [place]: Performed By: #### C BC, ADIFF, ANEU, GFR, BMP #### [place] [address] BUN/Creatinine Ratio 11 ratio Normal 7-27 [facility] ([place] Comment on above: Performed By: #### C BC, ADIFF, ANEU, GFR, BMP #### [address] [address] Calcium [Mass/Vol] 8.7 mg/dL Normal 8.4-10.2 [facility] ([place] Comment on above: Performed By: #### C BC, ADIFF, ANEU, GFR, BMP #### [address] [address] Chloride [Moles/Vol] 99 mmol/L Normal 98-107 [facility] ([place] Comment on above: Performed By: #### C BC, ADIFF, ANEU, GFR, BMP #### [place] [id number] CO2 [Moles/Vol] 30 mmol/L High 22-29 [facility] ([place] Comment on above: Performed By: #### C BC, ADIFF, ANEU, GFR, BMP #### [address] [address] Creatinine [Mass/Vol] 1.31 mg/dL High 0.70-1.30 [facility] ([place] Comment on above: Performed By: #### C BC, ADIFF, ANEU, GFR, BMP #### [address] [address] Glucose [Mass/Vol] 110 mg/dL High 70-105 [facility] ([place] Comment [place] above: Performed By: #### C BC, ADIFF, ANEU, GFR, BMP #### [address] [address] Potassium [Moles/Vol] 4.3 mmol/L Normal 3.5-5.1 [facility] ([place] Comment on above: Performed By: #### C BC, ADIFF, ANEU, GFR, BMP #### [address] [address] Urea nitrogen [Mass/Vol] 15 mg/dL Normal 7-18 [facility] ([place] Comment on above: Performed By: #### C BC, ADIFF, ANEU, GFR, BMP #### [address] [address] CBCon 06-12-2022 Erythrocyte distribution width (RBC) [Ratio] 14.4 % Normal 11.5-14.5 [facility] ([place] Comment [place] above: Performed By: #### C BC, ADIFF, ANEU, GFR, BMP #### [address] [address] Hematocrit (Bld) [Volume fraction] 43.5 % Normal 42.0-52.0 [facility] ([place] Comment on above: Performed By: #### C BC, ADIFF, ANEU, GFR, BMP #### [address] [address] Hgb 14.6 G/dL Normal 14.0-18.0 [facility] ([place] Comment on above: Performed By: #### C BC, ADIFF, ANEU, GFR, BMP #### [address] [address] MCH (RBC) [Entitic mass] 31.3 pg High 27.0-31.2 [facility] ([place] Comment on above: Performed By: #### C BC, ADIFF, ANEU, GFR, BMP #### [address] [address] MCHC 33.6 G/dL Normal 31.8-35.4 [facility] ([place] Comment on above: Performed By: #### C BC, ADIFF, ANEU, GFR, BMP #### [address] [address] MCV (RBC) [Entitic vol] 93.0 fL Normal 80.0-94.0 [facility] ([place] Comment on above: Performed By: #### C BC, ADIFF, ANEU, GFR, BMP #### [address] [address] Platelet 174 10 3/mcL Normal 130-400 [facility] ([place] Comment on above: Performed By: #### C BC, ADIFF, ANEU, GFR, BMP #### [address] [address] Platelet mean volume (Bld) [Entitic vol] 8.3 fL Normal 7.4-10.4 [facility] ([place] Comment on above: Performed By: #### C BC, ADIFF, ANEU, GFR, BMP #### [address] [address] RBC 4.68 10 6/mcL Normal 4.04-6.13 [facility] ([place] Comment [place]: Performed By: #### C BC, ADIFF, ANEU, GFR, BMP #### [address] [address] WBC 12.9 10 3/mcL High 4.6-10.8 [facility] ([place] Comment on above: Performed By: #### C BC, ADIFF, ANEU, GFR, BMP #### [address] [address] LABORATORYOrdered By: Ruth Mueller on 06-12-2022 Basophil, Absolute 0.1 103/mcL Invalid Interpretation Code 0.0 - 0.2 10^3/mcL AO Workflow SS Basophils/100 WBC (Bld) 0.5 % Invalid Interpretation Code 0.0 - 2.5 % AO Workflow SS Eosinophil, Absolute 0.0 103/mcL Invalid Interpretation Code 0.0 - 0.4 10^3/mcL AO Workflow SS Eosinophils/100 WBC (Bld) 0.2 % Invalid Interpretation Code 0.0 - 7.0 % AO Workflow SS Erythrocyte distribution width (RBC) [Ratio] 14.4 % Invalid Interpretation Code 11.5 - 14.5 % AO Workflow SS Hematocrit (Bld) [Volume fraction] 43.5 % Invalid Interpretation Code 42.0 - 52.0 % AO Workflow SS Hemoglobin (Bld) [Mass/Vol] 14.6 G/dL Invalid Interpretation Code 14.0 - 18.0 G/dL AO Workflow SS Lymphocyte, Absolute 1.3 103/mcL Invalid Interpretation Code 0.8 - 3.9 10^3/mcL AO Workflow SS Lymphocytes/100 WBC (Bld) 10.2 % Invalid Interpretation Code 10.0 - 50.0 % AO Workflow SS MCH (RBC) [Entitic mass] 31.3 pg Invalid Interpretation Code 27.0 - 31.2 pg AO Workflow SS MCHC 33.6 G/dL Invalid Interpretation Code 31.8 - 35.4 G/dL AO Workflow SS MCV (RBC) [Entitic vol] 93.0 fL Invalid Interpretation Code 80.0 - 94.0 fL AO Workflow SS Monocyte, Absolute 0.8 103/mcL Invalid Interpretation Code 0.2 - 1.0 10^3/mcL AO Workflow SS Monocytes/100 WBC (Bld) 5.8 % Invalid Interpretation Code 1.7 - 13.0 % AO Workflow SS Neutrophil, Absolute 10.8 103/mcL Invalid Interpretation Code 2.9 - 6.2 10^3/mcL AO Workflow SS Neutrophils/100 WBC (Bld) 83.3 % Invalid Interpretation Code 37.0 - 80.0 % AO Workflow SS Platelet mean volume (Bld) [Entitic vol] 8.3 fL Invalid Interpretation Code 7.4 - 10.4 fL AO Workflow SS Platelets (Bld) [#/Vol] 174 103/mcL Invalid Interpretation Code 130 - 400 10^3/mcL AO Workflow SS RBC (Bld) [#/Vol] 4.68 106/mcL Invalid Interpretation Code 4.04 - 6.13 10^6/mcL AO Workflow SS WBC (Bld) [#/Vol] 12.9 103/mcL Invalid Interpretation Code 4.6 - 10.8 10^3/mcL AO Workflow SS LABORATORYOrdered By: SYSTEM SYSTEM on 06-12-2022 Calcium [Mass/Vol] 8.7 mg/dL Invalid Interpretation Code 8.4 - 10.2 mg/dL AO ADM SS Chloride [Moles/Vol] 99 mmol/L Invalid Interpretation Code 98 - 107 mmol/L AO ADM SS CO2 [Moles/Vol] 30 mmol/L Invalid Interpretation Code 22 - 29 mmol/L AO ADM SS Creatinine [Mass/Vol] 1.31 mg/dL Invalid Interpretation Code 0.70 - 1.30 mg/dL AO ADM SS Electrolyte Balance 12.0 mEq/L Invalid Interpretation Code 4.0 - 15.0 mEq/L AO ADM SS GFR/1.73 sq M.predicted among blacks MDRD (S/P/Bld) [Vol rate/Area] 68 ml/min/1.73sqm Invalid Interpretation Code AO Chemistry S GFR/1.73 sq M.predicted among non-blacks MDRD (S/P/Bld) [Vol rate/Area] 56 ml/min/1.73sqm Invalid Interpretation Code AO Chemistry S Glucose [Mass/Vol] 110 mg/dL Invalid Interpretation Code 70 - 105 mg/dL AO ADM SS Potassium [Moles/Vol] 4.3 mmol/L Invalid Interpretation Code 3.5 - 5.1 mmol/L AO ADM SS Sodium [Moles/Vol] 141 mmol/L Invalid Interpretation Code 136 - 145 mmol/L AO ADM SS Urea nitrogen [Mass/Vol] 15 mg/dL Invalid Interpretation Code 7 - 18 mg/dL AO ADM SS Urea nitrogen/Creatinine [Mass ratio] 11 ratio Invalid Interpretation Code 7 - 27 ratio AO ADM SS XR CHEST 2 VIEWSon 3 XR CHEST 2 VIEWS ORIGINAL EXAMINATION: TWO XRAY VIEWS OF THE CHEST 06/12/2022 5:37 am COMPARISON: Chest radiograph 06/11/2022 HISTORY: ORDERING SYSTEM PROVIDED HISTORY: Reason for Exam: Follow-up abnormal chest x-ray and postop hypoxia FINDINGS: Improved lung volumes and aeration. Normal cardiomediastinal silhouette. No focal consolidation, vascular congestion, pleural effusion, or pneumothorax. Minimal left retrocardiac atelectasis. Cervical spine hardware. IMPRESSION: Improved lung volumes and aeration. Minimal left atelectasis. I have personally reviewed the images of this examination, and agree with the resident's findings and interpretation. Interpreted by: Jani Gonzalez MD Preliminary Report By: Irlanda Mónica Electronically signed By Jani Gonzalez MD Dictated Date: 06/12/2022 5:41:11 AM Prelim Date: 06/12/2022 5:43:00 AM Sign Date: 06/12/2022 6:09:30 AM Ordering Provider: IZZY FIGUEROA [facility] ([place] CHEST 1 VIEWon 06-11-2022 XR CHEST 1 VIEW ORIGINAL EXAMINATION: ONE XRAY VIEW OF THE CHEST TECHNIQUE: AP upright COMPARISON: Chest 05/23/2019 HISTORY: ORDERING SYSTEM PROVIDED HISTORY: Reason for Exam: sob FINDINGS: Support devices: None Cardiomediastinal: The heart is not enlarged. Lungs: Hypoventilatory changes with accentuation of the pulmonary vessels and mild bibasilar atelectasis. Mild bilateral perihilar haziness. Left retrocardiac opacification. No evidence of a pleural effusion. Pneumothorax: None Osseous: No acute osseous pathology. Moderately severe acromioclavicular arthrosis with enthesopathy changes extending into the subacromial space. IMPRESSION: Bilateral perihilar haziness in the setting of diminished lung volumes reflecting either hypoventilatory changes are mild central vascular congestion. Left retrocardiac atelectasis. Interpreted by: Lavon Covarrubias MD Preliminary Report By: Lavon Covarrubias MD Electronically signed By Lavon Covarrubias MD Dictated Date: 06/11/2022 11:26:06 AM Prelim Date: 06/11/2022 11:36:05 AM Sign Date: 06/11/2022 11:36:05 AM Ordering Provider: IZZY FIGUEROA [facility] ([place] .Auto Diffon 05-28-2022 Basophil, Absolute 0.0 10 3/mcL Normal 0.0-0.2 [facility] ([place] Comment on above: Performed By: #### A DIFF, CBC, GFR, ANEU, BMP #### [place] [id number] [place], [place] [address] Basophils/100 WBC (Bld) 0.9 % Normal 0.0-2.5 [facility] ([place] Comment on above: Performed By: #### A DIFF, CBC, GFR, ANEU, BMP #### [address] [address] Eosinophil, Absolute 0.2 10 3/mcL Normal 0.0-0.4 [facility] ([place] Comment on above: Performed By: #### A DIFF, CBC, GFR, ANEU, BMP #### [address] [address] Eosinophils/100 WBC (Bld) 3.0 % Normal 0.0-7.0 [facility] ([place] Comment on above: Performed By: #### A DIFF, CBC, GFR, ANEU, BMP #### [address] [address] Lymphocyte, Absolute 1.6 10 3/mcL Normal 0.8-3.9 [facility] ([place] Comment on above: Performed By: #### A DIFF, CBC, GFR, ANEU, BMP #### [address] [address] Lymphocytes/100 WBC (Bld) 29.1 % Normal 10.0-50.0 [facility] ([place] Comment on above: Performed By: #### A DIFF, CBC, GFR, ANEU, BMP #### [address] [address] Monocyte, Absolute 0.4 10 3/mcL Normal 0.2-1.0 [facility] ([place] Comment on above: Performed By: #### A DIFF, CBC, GFR, ANEU, BMP #### [address] [address] Monocytes/100 WBC (Bld) 7.8 % Normal 1.7-13.0 [facility] ([place] Comment on above: Performed By: #### A DIFF, CBC, GFR, ANEU, BMP #### [address] [address] Neutrophils/100 WBC (Bld) 59.2 % Normal 37.0-80.0 [facility] ([place] Comment on above: Performed By: #### A DIFF, CBC, GFR, ANEU, BMP #### [address] [address] .GFRon 05-28-2022 GFR 65 ml/min/1.73sqm Normal [facility] ([place] Comment on above: Result Comment: GFR Population mean for , Non- Americans Ages 20-29 = 116 mL/min/1.73 sq.m. Ages 30-39 = 107 mL/min/1.73 sq.m. Ages 40-49 = 99 mL/min/1.73 sq.m. Ages 50-59 = 93 mL/min/1.73 sq.m. Ages 60-69 = 85 mL/min/1.73 sq.m. Ages 70+ = 75 mL/min/1.73 sq.m. Chronic Kidney Disease: Less than 60 mL/min/1.73 square meters End Stage Renal Disease: Less than 15 mL/min/1.73 square meters Performed By: #### C BC, ADIFF, ANEU, GFR, BMP #### [address] [address] GFR Non- 54 ml/min/1.73sqm Normal [facility] ([place] Comment on above: Result Comment: GFR Population mean for , Non- Americans Ages 20-29 = 116 mL/min/1.73 sq.m. Ages 30-39 = 107 mL/min/1.73 sq.m. Ages 40-49 = 99 mL/min/1.73 sq.m. Ages 50-59 = 93 mL/min/1.73 sq.m. Ages 60-69 = 85 mL/min/1.73 sq.m. Ages 70+ = 75 mL/min/1.73 sq.m. Chronic Kidney Disease: Less than 60 mL/min/1.73 square meters End Stage Renal Disease: Less than 15 mL/min/1.73 square meters Performed By: #### C BC, ADIFF, ANEU, GFR, BMP #### [address] [address] .NEUABSon 05-28-2022 Neutrophil, Absolute 3.3 10 3/mcL Normal 2.9-6.2 [facility] ([place] Comment on above: Performed By: #### A DIFF, CBC, GFR, ANEU, BMP #### [address] [address] BMPon 05-28-2022 BUN/Creatinine Ratio 12 ratio Normal 7-27 [facility] ([place] Comment on above: Performed By: #### A DIFF, CBC, GFR, ANEU, BMP #### [address] [address] Calcium [Mass/Vol] 8.5 mg/dL Normal 8.4-10.2 [facility] ([place] Comment on above: Performed By: #### A DIFF, CBC, GFR, ANEU, BMP #### [address] [address] Chloride [Moles/Vol] 105 mmol/L Normal 98-107 [facility] ([place] Comment on above: Performed By: #### A DIFF, CBC, GFR, ANEU, BMP #### [address] [address] CO2 [Moles/Vol] 30 mmol/L High 22-29 [facility] ([place] Comment on above: Performed By: #### A DIFF, CBC, GFR, ANEU, BMP #### [address] [address] Creatinine [Mass/Vol] 1.36 mg/dL High 0.70-1.30 [facility] ([place] Comment on above: Performed By: #### A DIFF, CBC, GFR, ANEU, BMP #### [address] [address] Electrolyte Balance 7.0 mEq/L Normal 4.0-15.0 [facility] ([place] Comment on above: Performed By: #### A DIFF, CBC, GFR, ANEU, BMP #### [address] [address] Glucose [Mass/Vol] 98 mg/dL Normal 70-105 [facility] ([place] Comment on above: Performed By: #### A DIFF, CBC, GFR, ANEU, BMP #### [address] [address] Potassium [Moles/Vol] 4.6 mmol/L Normal 3.5-5.1 [facility] ([place] Comment on above: Performed By: #### A DIFF, CBC, GFR, ANEU, BMP #### [place] [id number] Sodium [Moles/Vol] 142 mmol/L Normal 136-145 [facility] ([place] Comment on above: Performed By: #### A DIFF, CBC, GFR, ANEU, BMP #### [place] [id number] Urea nitrogen [Mass/Vol] 16 mg/dL Normal 7-18 [facility] ([place] Comment on above: Performed By: #### A DIFF, CBC, GFR, ANEU, BMP #### [address] [address] CBCon 05-28-2022 Erythrocyte distribution width (RBC) [Ratio] 14.0 % Normal 11.5-14.5 [facility] ([place] Comment [place] above: Order Comment: Pre-A dmission Testing Performed By: #### A DIFF, CBC, GFR, ANEU, BMP #### [address] [address] Hematocrit (Bld) [Volume fraction] 45.1 % Normal 42.0-52.0 [facility] ([place] Comment [place] above: Order Comment: Pre-A dmission Testing Performed By: #### A DIFF, CBC, GFR, ANEU, BMP #### [address] [address] Hgb 15.5 G/dL Normal 14.0-18.0 [facility] ([place] Comment on above: Order Comment: Pre-A dmission Testing Performed By: #### A DIFF, CBC, GFR, ANEU, BMP #### [address] [address] MCH (RBC) [Entitic mass] 31.5 pg High 27.0-31.2 [facility] ([place] Comment on above: Order Comment: Pre-A dmission Testing Performed By: #### A DIFF, CBC, GFR, ANEU, BMP #### [address] [address] MCHC 34.3 G/dL Normal 31.8-35.4 [facility] ([place] Comment on above: Order Comment: Pre-A dmission Testing Performed By: #### A DIFF, CBC, GFR, ANEU, BMP #### [address] [address] MCV (RBC) [Entitic vol] 92.0 fL Normal 80.0-94.0 [facility] ([place] Comment on above: Order Comment: Pre-A dmission Testing Performed By: #### A DIFF, CBC, GFR, ANEU, BMP #### [address] [address] Platelet 158 10 3/mcL Normal 130-400 [facility] ([place] Comment on above: Order Comment: Pre-A dmission Testing Performed By: #### A DIFF, CBC, GFR, ANEU, BMP #### [address] [address] Platelet mean volume (Bld) [Entitic vol] 8.4 fL Normal 7.4-10.4 [facility] ([place] Comment on above: Order Comment: Pre-A dmission Testing Performed By: #### A DIFF, CBC, GFR, ANEU, BMP #### [address] [address] RBC 4.91 10 6/mcL Normal 4.04-6.13 [facility] ([place] Comment on above: Order Comment: Pre-A dmission Testing Performed By: #### A DIFF, CBC, GFR, ANEU, BMP #### [address] [address] WBC 5.5 10 3/mcL Normal 4.6-10.8 [facility] ([place] Comment on above: Order Comment: Pre-A dmission Testing Performed By: #### A DIFF, CBC, GFR, ANEU, BMP #### [place] [address] [place] [address] LABORATORYOrdered By: Ruth Mueller on 05-28-2022 Basophil, Absolute 0.0 103/mcL Invalid Interpretation Code 0.0 - 0.2 10^3/mcL AO Workflow SS Basophils/100 WBC (Bld) 0.9 % Invalid Interpretation Code 0.0 - 2.5 % AO Workflow SS Eosinophil, Absolute 0.2 103/mcL Invalid Interpretation Code 0.0 - 0.4 10^3/mcL AO Workflow SS Eosinophils/100 WBC (Bld) 3.0 % Invalid Interpretation Code 0.0 - 7.0 % AO Workflow SS Erythrocyte distribution width (RBC) [Ratio] 14.0 % Invalid Interpretation Code 11.5 - 14.5 % AO Workflow SS Hematocrit (Bld) [Volume fraction] 45.1 % Invalid Interpretation Code 42.0 - 52.0 % AO Workflow SS Hemoglobin (Bld) [Mass/Vol] 15.5 G/dL Invalid Interpretation Code 14.0 - 18.0 G/dL AO Workflow SS Lymphocyte, Absolute 1.6 103/mcL Invalid Interpretation Code 0.8 - 3.9 10^3/mcL AO Workflow SS Lymphocytes/100 WBC (Bld) 29.1 % Invalid Interpretation Code 10.0 - 50.0 % AO Workflow SS MCH (RBC) [Entitic mass] 31.5 pg Invalid Interpretation Code 27.0 - 31.2 pg AO Workflow SS MCHC 34.3 G/dL Invalid Interpretation Code 31.8 - 35.4 G/dL AO Workflow SS MCV (RBC) [Entitic vol] 92.0 fL Invalid Interpretation Code 80.0 - 94.0 fL AO Workflow SS Monocyte, Absolute 0.4 103/mcL Invalid Interpretation Code 0.2 - 1.0 10^3/mcL AO Workflow SS Monocytes/100 WBC (Bld) 7.8 % Invalid Interpretation Code 1.7 - 13.0 % AO Workflow SS Neutrophil, Absolute 3.3 103/mcL Invalid Interpretation Code 2.9 - 6.2 10^3/mcL AO Workflow SS Neutrophils/100 WBC (Bld) 59.2 % Invalid Interpretation Code 37.0 - 80.0 % AO Workflow SS Platelet mean volume (Bld) [Entitic vol] 8.4 fL Invalid Interpretation Code 7.4 - 10.4 fL AO Workflow SS Platelets (Bld) [#/Vol] 158 103/mcL Invalid Interpretation Code 130 - 400 10^3/mcL AO Workflow SS RBC (Bld) [#/Vol] 4.91 106/mcL Invalid Interpretation Code 4.04 - 6.13 10^6/mcL AO Workflow SS WBC (Bld) [#/Vol] 5.5 103/mcL Invalid Interpretation Code 4.6 - 10.8 10^3/mcL AO Workflow SS LABORATORYOrdered By: SYSTEM SYSTEM on 05-28-2022 Calcium [Mass/Vol] 8.5 mg/dL Invalid Interpretation Code 8.4 - 10.2 mg/dL AO ADM SS Chloride [Moles/Vol] 105 mmol/L Invalid Interpretation Code 98 - 107 mmol/L AO ADM SS CO2 [Moles/Vol] 30 mmol/L Invalid Interpretation Code 22 - 29 mmol/L AO ADM SS Creatinine [Mass/Vol] 1.36 mg/dL Invalid Interpretation Code 0.70 - 1.30 mg/dL AO ADM SS Electrolyte Balance 7.0 mEq/L Invalid Interpretation Code 4.0 - 15.0 mEq/L AO ADM SS GFR 65 ml/min/1.73sqm Invalid Interpretation Code AO Chemistry S GFR Non- 54 ml/min/1.73sqm Invalid Interpretation Code AO Chemistry S Glucose [Mass/Vol] 98 mg/dL Invalid Interpretation Code 70 - 105 mg/dL AO ADM SS Potassium [Moles/Vol] 4.6 mmol/L Invalid Interpretation Code 3.5 - 5.1 mmol/L AO ADM SS Sodium [Moles/Vol] 142 mmol/L Invalid Interpretation Code 136 - 145 mmol/L AO ADM SS Urea nitrogen [Mass/Vol] 16 mg/dL Invalid Interpretation Code 7 - 18 mg/dL AO ADM SS Urea nitrogen/Creatinine [Mass ratio] 12 ratio Invalid Interpretation Code 7 - 27 ratio AO ADM SS LABORATORYOrdered By: SYSTEM SYSTEM on 04-14-2022 Albumin BCP dye [Mass/Vol] 3.7 G/dL Invalid Interpretation Code 3.5 - 5.0 G/dL AO ADM SS Albumin/Globulin [Mass ratio] 1.1 {ratio} Invalid Interpretation Code 1.1 - 2.5 ratio AO ADM SS ALP [Catalytic activity/Vol] 92 U/L Invalid Interpretation Code 40 - 135 U/L AO ADM SS ALT With P-5'-P [Catalytic activity/Vol] 23 U/L Invalid Interpretation Code 16 - 63 U/L AO ADM SS AST With P-5'-P [Catalytic activity/Vol] 17 U/L Invalid Interpretation Code 10 - 40 U/L AO ADM SS Bilirubin [Mass/Vol] 0.4 mg/dL Invalid Interpretation Code 0.2 - 1.0 mg/dL AO ADM SS Calcium [Mass/Vol] 8.9 mg/dL Invalid Interpretation Code 8.4 - 10.2 mg/dL AO ADM SS Chloride [Moles/Vol] 103 mmol/L Invalid Interpretation Code 98 - 107 mmol/L AO ADM SS CO2 [Moles/Vol] 32 mmol/L Invalid Interpretation Code 22 - 29 mmol/L AO ADM SS Creatinine [Mass/Vol] 1.39 mg/dL Invalid Interpretation Code 0.70 - 1.30 mg/dL AO ADM SS Electrolyte Balance 5.0 mEq/L Invalid Interpretation Code 4.0 - 15.0 mEq/L AO ADM SS GFR 63 ml/min/1.73sqm Invalid Interpretation Code AO Chemistry S GFR Non- 52 ml/min/1.73sqm Invalid Interpretation Code AO Chemistry S Globulin 3.4 G/dL Invalid Interpretation Code AO ADM SS Glucose [Mass/Vol] 94 mg/dL Invalid Interpretation Code 70 - 105 mg/dL AO ADM SS Potassium [Moles/Vol] 4.6 mmol/L Invalid Interpretation Code 3.5 - 5.1 mmol/L AO ADM SS Prostate specific Ag [Mass/Vol] 1.31 ng/mL Invalid Interpretation Code 0.00 - 4.00 ng/mL AO ADM SS Protein [Mass/Vol] 7.1 G/dL Invalid Interpretation Code 6.4 - 8.2 G/dL AO ADM SS Sodium [Moles/Vol] 140 mmol/L Invalid Interpretation Code 136 - 145 mmol/L AO ADM SS Urea nitrogen [Mass/Vol] 20 mg/dL Invalid Interpretation Code 7 - 18 mg/dL AO ADM SS Urea nitrogen/Creatinine [Mass ratio] 14 ratio Invalid Interpretation Code 7 - 27 ratio AO ADM SS LABORATORYOrdered By: Brenda Martin on 04-14-2022 Cholesterol [Mass/Vol] 202 mg/dL Invalid Interpretation Code 0 - 200 mg/dL AO ADM SS Cholesterol in HDL [Mass/Vol] 41 mg/dL Invalid Interpretation Code 40 - 60 mg/dL AO ADM SS Cholesterol in LDL [Mass/Vol] 115 mg/dL Invalid Interpretation Code 0 - 130 mg/dL AO ADM SS Triglyceride [Mass/Vol] 232 mg/dL Invalid Interpretation Code 0 - 150 mg/dL AO ADM SS CNOVon 11-25-2021 CNOV Office Visit (AGOR ) DESTINY LESTER ([id number]) 1960 M Date Time Provider Department 11/25/21 2:15 PM MILES WASHBURN [facility] During your visit today, we recorded the following information about you: Temperature Pulse Blood pressure Weight 97.5 degrees 71/minute 107/58 93 kg Height 1.753 m Miles Washburn DO 11/25/2021 2:32 PM Signed Miles Washburn DO [facility] - Orthopedic Spine Surgeon [address] [facility] Megan Melendez., [place] [id number] [place] [address] Phone: [phone] ([phone] FAX: [phone] SPINE SURGERY OUTPATIENT CONSULT SERVICE DATE: 11/25/2021 Last Office Visit: 08/19/2021 REFERRING PROVIDER: Miles Washburn [address] [facility] [place] [id number] CHIEF COMPLAINT: Gait and balance-improved HISTORY OF PRESENT ILLNESS Destiny Lester is a 61 year old male presenting alone. He is 6 months s/p C3-6 lami fusion on 05/29/2021. At his last office visit he stated he was doing well. He stated he is having some shooting pains down his left arm at times. Pain is in the anterior shoulder. Pain is worse when he is carrying his heavy groceries. Stated he worked with physical and occupational therapy and had great improvement. Patient stated he started smoking again. Recommendation was to work with physical therapy for his right shoulder pain and smoking cessation. He was asked to follow up in 3 months, prompting his visit today. Today, he states he is doing great. He states he had his last cigarette on Wednesday. States he has been using his cane for gait stability secondary to his leg pain. Denies loss of bowel or bladder. He is here for image review, evaluation and plan of care. SYMPTOMS: none PREVIOUS CONSERVATIVE TREATMENTS: NSAID's (mobic) Physical therapy PREVIOUS SURGERY: SURGERY #1: C3-6 laminectomy with fusion on 05/29/2021 Smoker: former Diabetic: Denies Anticoagulants / Antiplatelets: No Occupation: Not working at this time PAST MEDICAL HISTORY Diagnosis Date Anxiety state CAD (coronary artery disease) Depression GERD (gastroesophageal reflux disease) Hypertension Illiterate 03/20/21- per Adeline, caregiver/underwriter mortgage loan Lumbar disc disease IA (myocardial infarction) ([facility]) 2013 Mixed hyperlipidemia Myelopathy ([facility]) Polyneuropathy, peripheral sensorimotor axonal PAST SURGICAL HISTORY Procedure Laterality Date NECK SURGERY HX 05/29/2021 C3-7 Laminectomy C3-T1 Fusion PAST SURGICAL HISTORY OF 2013 coronary arthery bypass graft PAST SURGICAL HISTORY OF tonsillectomy and nose surgery FAMILY HISTORY Problem Relation Age of Onset Stroke Mother Kidney failure Sister Social History Tobacco Use Smoking status: Every Day Years: 45.00 Types: Cigarettes Smokeless tobacco: Never Tobacco comments: 3-4 cig per day Substance Use Topics Alcohol use: Not Currently Drug use: Never ALLERGIES No Known Allergies MEDICATIONS: DULoxetine (CYMBALTA) 60 mg capsule TAKE 1 CAP(S) BY MOUTH EVERY DAY. TAKE ALONG WITH A 30 MG DAILY TO EQUAL 90 MG DAILY. icosapent ethyl (VASCEPA) 1 gram capsule Take 2 g by mouth twice daily. metoprolol tartrate, short acting, (LOPRESSOR) 25 mg tablet Take 25 mg by mouth once daily. metoprolol succinate ER (TOPROL XL) 25 mg 24 hr tablet Take 25 mg by mouth once daily. meloxicam (MOBIC) 15 mg tablet Take 15 mg by mouth once daily. polyethylene glycol 3350 (MIRALAX) 17 gram/dose powder Take 17 g by mouth twice daily. escitalopram oxalate (LEXAPRO) 10 mg tablet Take 10 mg by mouth once daily. Comp Stocking,Knee,Regular,S ml (T.E.D. ANTI-EMBOLISM STOCKING) 12 Each q 12 HR. Post operatively omeprazole (PRILOSEC) 40 mg capsule Take 40 mg by mouth once daily. icosapent ethyl (VASCEPA) 0.5 gram capsule Take 2 g by mouth twice daily. gabapentin (NEURONTIN) 600 mg tablet Take 600 mg by mouth daily at bedtime. simvastatin (ZOCOR) 80 mg tablet Take 80 mg by mouth daily at bedtime. amitriptyline (ELAVIL) 25 mg tablet Take 25 mg by mouth daily at bedtime. traZODone (DESYREL) 150 mg tablet Take 150 mg by mouth daily at bedtime. montelukast (SINGULAIR) 10 mg tablet Take 10 mg by mouth daily at bedtime. lisinopril (ZESTRIL, PRINIVIL) 5 mg tablet Take 5 mg by mouth once daily. DULoxetine (CYMBALTA) 30 mg capsule Take 90 mg by mouth once daily. REVIEW OF SYSTEMS Review of Systems Constitutional: Negative for appetite change, chills and fever. HENT: Negative for ear discharge, tinnitus and trouble swallowing. Eyes: Negative for pain, redness and visual disturbance. Respiratory: Negative for cough, shortness of breath and wheezing. Cardiovascular: Negative for chest pain, palpitations and leg swelling. Gastrointestinal: Negative for diarrhea, nausea and vomiting. Endocrine: Negative for cold intolerance and heat intolerance. Genitourinary: Negative for difficu (more content not included)... Normal [facility] XR CERVICAL 2V AP/LATon 10-31 XR CERVICAL 2V AP/LAT * * *Final Report* * * DATE OF EXAM: Nov 25 2021 1:49PM A1X 5308 - XR CERVICAL 2V AP/LAT / PROCEDURE REASON: Cervical myelopathy (HCC) * * * * Physician Interpretation * * * * EXAM TITLE: XR CERVICAL 2V AP/LAT DATE: 11/25/2021 COMPARISON: 08/19/2021 radiographs CLINICAL INDICATION/HISTORY: Cervical myelopathy TECHNIQUE: AP and lateral views of the cervical spine are presented. RESULT: No fractures or subluxations are noted, smooth reversal normal cervical lordosis Postoperative changes posterior fusion bilateral rods and facet screw fixation C3-C6. Hardware radiographically intact and unchanged. Posterior decompressive laminectomies C3-C5. Moderate degenerative disc disease C4-C5 and C5-C6 with loss of disc height and endplate osteophyte formation. Multilevel facet arthrosis. The prevertebral soft tissues are normal. IMPRESSION: No acute findings radiographically or significant interval change. Postoperative and degenerative changes of the cervical spine as noted. Intact surgical hardware. [employer]: PSCB Transcribe Date/Time: Nov 28 2021 11:24A Dictated by : RHONDA ROLAND MD This examination was interpreted and the report reviewed and electronically signed by: RHONDA ROLAND MD on Nov 28 2021 11:29AM EST [id number] Normal [facility] CNOVon 08-19-2021 CNOV Office Visit (AGOR ) SENG LESTERNN Richy ([id number]) 1960 M Date Time Provider Department 08/19/21 1:30 PM [facility] During your visit today, we recorded the following information about you: Temperature Pulse Blood pressure Weight 97.8 degrees 74/minute 120/79 93.3 kg Height 1.753 m Miles Washburn DO 08/19/2021 1:53 PM Signed Miles Washburn DO [facility] Orthopedics - Orthopedic Spine Surgeon [address] [facility] Megan White, [facility] [address] [place] [address] Phone: [phone] FAX: [phone] SPINE SURGERY POST-OP FOLLOW UP SERVICE DATE: 08/19/2021 SURGERY DATE: 05/29/2021 ? SURGERY: C3-6 lamifusion ? PREOPERATIVE SYMPTOMS: Bilateral arm weakness, balance disturbance? ? Destiny Lester is seen for 3 month post operative follow up. At his last visit he noted he was improving since surgery. Stated he had been wearing his neck brace at all times. He stated his bilateral arms felt significantly stronger. He stated he had a mechanical fall by his fridge and noted he landed on his left side. He did not call EMS and he did not notify the office. He denied hitting his head and noted his neck was feeling great. Recommendation was to continue with home physical therapy exercises and follow-up in 6 weeks with repeat imaging. Today, he states he was doing well. He states he is having some shooting pains down his left arm at times. Pain is in the anterior shoulder. Pain is worse when he is carrying his heavy groceries. States he worked with physical and occupational therapy and had great improvement. Denies loss of bowel or bladder. He is here for image review, evaluation and plan of care. INCISION: healed PREVIOUS SURGERY: None Review of Systems Constitutional: Negative for appetite change, chills and fever. HENT: Negative for ear discharge, tinnitus and trouble swallowing. Eyes: Negative for pain, redness and visual disturbance. Respiratory: Negative for cough, shortness of breath and wheezing. Cardiovascular: Negative for chest pain, palpitations and leg swelling. Gastrointestinal: Negative for diarrhea, nausea and vomiting. Endocrine: Negative for cold intolerance and heat intolerance. Genitourinary: Negative for difficulty urinating, frequency and urgency. Musculoskeletal: Positive for back pain and gait problem. Negative for neck pain and neck stiffness. Skin: Negative for color change, rash and wound. Allergic/Immunologic: Negative for environmental allergies and food allergies. Neurological: Positive for numbness. Negative for weakness and headaches. Hematological: Does not bruise/bleed easily. Psychiatric/Behavioral: Negative for agitation and confusion. The patient is not nervous/anxious. ALLERGIES No Known Allergies Current Outpatient Medications Medication Sig Dispense Refill - metoprolol succinate ER (TOPROL XL) 25 mg 24 hr tablet Take 25 mg by mouth once daily. - meloxicam (MOBIC) 15 mg tablet Take 15 mg by mouth once daily. - polyethylene glycol 3350 (MIRALAX) 17 gram/dose powder Take 17 g by mouth twice daily. - escitalopram oxalate (LEXAPRO) 10 mg tablet Take 10 mg by mouth once daily. - Comp Stocking,Knee,Regular,S ml (T.E.D. ANTI-EMBOLISM STOCKING) 12 Each q 12 HR. Post operatively 12 Each 0 - omeprazole (PRILOSEC) 40 mg capsule Take 40 mg by mouth once daily. - icosapent ethyl (VASCEPA) 0.5 gram capsule Take 2 g by mouth twice daily. - gabapentin (NEURONTIN) 600 mg tablet Take 600 mg by mouth daily at bedtime. - simvastatin (ZOCOR) 80 mg tablet Take 80 mg by mouth daily at bedtime. - amitriptyline (ELAVIL) 25 mg tablet Take 25 mg by mouth daily at bedtime. - traZODone (DESYREL) 150 mg tablet Take 150 mg by mouth daily at bedtime. - montelukast (SINGULAIR) 10 mg tablet Take 10 mg by mouth daily at bedtime. - lisinopril (ZESTRIL, PRINIVIL) 5 mg tablet Take 5 mg by mouth once daily. - DULoxetine (CYMBALTA) 30 mg capsule Take 90 mg by mouth once daily. - metoprolol tartrate, short acting, (LOPRESSOR) 25 mg tablet Take 25 mg by mouth once daily. (Patient not taking: Reported on 08/19/2021 ) No current facility-administered medications for this visit. OBJECTIVE: BP 120/79 (BP Site: Right Arm, BP Position: Sitting, BP Cuff Size: Large Adult) Pulse 74 Temp 36.6 ?C (97.8 ?F) Ht 175.3 cm (5' 9) Wt 93.3 kg (205 lb 11 oz) SpO2 94% BMI 30.38 kg/m? PHYSICAL EXAM GENERAL APPEARANCE: Well nourished, well developed, and no apparent distress. NEURO PSYCH: Patient oriented to person, place, and time. Mood pleasant. Benign affect. CARDIOVASCULAR: Palpable pulses. No edema noted. No varicosities. SKIN: Head, neck, trunk, and extremities dry, intact and without lesions. LYMPHATICS: No palpable nodes in cervical or axillae areas. Groin exam deferred MUSCULOSKELETAL PALPATION: SPIN (more content not included)... Normal [facility] XR CERVICAL 2V AP/LATon 07-31 XR CERVICAL 2V AP/LAT * * *Final Report* * * DATE OF EXAM: Aug 19 2021 1:04PM A1X 5308 - XR CERVICAL 2V AP/LAT / PROCEDURE REASON: History of cervical spinal surgery * * * * Physician Interpretation * * * * EXAM: CERVICAL SPINE, 2 VIEWS CLINICAL: 60-year-old male with history of cervical surgery TECHNIQUE: AP, lateral, COMPARISON: 07/08/2021 RESULTS: Counting reference: Craniocervical junction.. Status post C3-C6 posterior fusion with pedicle screw and rods and laminectomies. IMPRESSION: NO CHANGE COMPARED TO THE PREVIOUS EXAM. [employer]: RAYMUNDO Transcribe Date/Time: Aug 20 2021 4:01P Dictated by : MORGAN KLEIN MD This examination was interpreted and the report reviewed and electronically signed by: MORGAN KLEIN MD on Aug 20 2021 4:02PM EST [id number] Normal [facility] CNOVon 07-08-2021 CNOV Office Visit (AGOR ) DESTINY LESTER ([id number]) 1960 M Date Time Provider Department 07/08/21 10:45 AM [facility] During your visit today, we recorded the following information about you: Temperature Pulse Blood pressure Weight 97.9 degrees 76/minute 121/81 85.3 kg Height 1.753 m Miles Washburn DO 07/08/2021 11:30 AM Signed Miles Washburn DO [facility] Orthopedics - Orthopedic Spine Surgeon [address] [facility] Megan White, [facility] [address] [place] [address] Phone: [phone]) FAX: [phone] SPINE SURGERY POST-OP FOLLOW UP SERVICE DATE: 07/08/2021 SURGERY DATE: 05/29/2021 ? SURGERY: C3-6 lamifusion ? PREOPERATIVE SYMPTOMS: Bilateral arm weakness, balance disturbance? ? Destiny Mayley is seen for 6 week post operative follow up. At his last visit he stated his presurgical symptoms have resolved and he is feeling great. 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 He stated he was very pleased with the surgery. He stated he has warn his c-collar at all time and is using a walker for mobility. He reported doing home physical and occupation therapy. He was asked to stay in the c-collar until the 6-week appointment along with xray's, prompting his visit today. Today he states he is improving since surgery. States he has been wearing his neck brace at all times. He states on Wednesday night he was at his fridge and went to turn around and his left leg went numb he fell onto the floor hitting his left side. States he did not call EMS and the office was not notified. Patient states he did not hit his head and his neck feel great. He is here for image review, evaluation and plan of care. States that his bilateral arms feels significantly stronger. INCISION: Healed PREVIOUS SURGERY: None Review of Systems ALLERGIES No Known Allergies Current Outpatient Medications Medication Sig Dispense Refill - metoprolol succinate ER (TOPROL XL) 25 mg 24 hr tablet Take 25 mg by mouth once daily. - meloxicam (MOBIC) 15 mg tablet Take 15 mg by mouth once daily. - polyethylene glycol 3350 (MIRALAX) 17 gram/dose powder Take 17 g by mouth twice daily. - escitalopram oxalate (LEXAPRO) 10 mg tablet Take 10 mg by mouth once daily. - Comp Stocking,Knee,Regular,S ml (T.E.D. ANTI-EMBOLISM STOCKING) 12 Each q 12 HR. Post operatively 12 Each 0 - omeprazole (PRILOSEC) 40 mg capsule Take 40 mg by mouth once daily. - icosapent ethyl (VASCEPA) 0.5 gram capsule Take 2 g by mouth twice daily. - gabapentin (NEURONTIN) 600 mg tablet Take 600 mg by mouth daily at bedtime. - simvastatin (ZOCOR) 80 mg tablet Take 80 mg by mouth daily at bedtime. - amitriptyline (ELAVIL) 25 mg tablet Take 25 mg by mouth daily at bedtime. - traZODone (DESYREL) 150 mg tablet Take 150 mg by mouth daily at bedtime. - montelukast (SINGULAIR) 10 mg tablet Take 10 mg by mouth daily at bedtime. - lisinopril (ZESTRIL, PRINIVIL) 5 mg tablet Take 5 mg by mouth once daily. - DULoxetine (CYMBALTA) 30 mg capsule Take 90 mg by mouth once daily. No current facility-administered medications for this visit. OBJECTIVE: BP 121/81 (BP Site: Right Arm, BP Position: Sitting, BP Cuff Size: Large Adult) Pulse 76 Temp 36.6 ?C (97.9 ?F) Ht 175.3 cm (5' 9) Wt 85.3 kg (188 lb) SpO2 97% BMI 27.76 kg/m? PHYSICAL EXAM GENERAL APPEARANCE: Well nourished, well developed, and no apparent distress. NEURO PSYCH: Patient oriented to person, place, and time. Mood pleasant. Benign affect. CARDIOVASCULAR: Palpable pulses. No edema noted. No varicosities. SKIN: Head, neck, trunk, and extremities dry, intact and without lesions. LYMPHATICS: No palpable nodes in cervical or axillae areas. Groin exam deferred MUSCULOSKELETAL PALPATION: SPINOUS PROCESS: No pain. PARASPINALS: No pain. MUSCLE TONE and BULK: Symmetrical in the upper AND lower extremities. MOTOR: Upper Extremity Left Right Deltoids 5/5 5/5 Biceps 5/5 5/5 Triceps 5/5 5/5 Assembler Finger Buffs 5/5 5/5 Interossei 5/5 5/5 Lower Extremity Hip Flexors 5/5 5/5 Quadriceps 5/5 5/5 Dorsiflexion 5/5 5/5 EHL 5/5 5/5 Plantar Flexion 5/5 5/5 SENSORY: Sensation intact to light touch C5-T1, L1-S1 GAIT: Able to perform toe and heel walk. Able to perform tandem gait. LONG TRACT SIGNS: No clonus. Positive Penny's bilaterally REFLEXES: symmetric non-brisk WOUND ASSESSMENT: Healed DATA REVIEW Xray cervical 2V AP/LAT 07/08/2021 AP lateral cervical x-ray displays a C3-6 fusion with hardware in excellent position no signs of loosening. ASSESSMENT/PLAN (G95.9) Cervical myelopathy (HCC) (primary encounter diagnosis) Destiny Lester is a 60-year-old male who is 6 weeks status post C3-6 fusion with a C3-5 decompression. -He is doing great since surgery. He has resolution of his deltoid (more content not included)... Normal [facility] XR CERVICAL 2V AP/LATon 05- XR CERVICAL 2V AP/LAT * * *Final Report* * * DATE OF EXAM: Jul 08 2021 10:23AM A1X 5308 - XR CERVICAL 2V AP/LAT / PROCEDURE REASON: Cervical myelopathy (HCC) * * * * Physician Interpretation * * * * EXAM TITLE: XR CERVICAL 2V AP/LAT DATE: 07/08/2021 COMPARISON: 06/10/2021. CLINICAL INDICATION/HISTORY: Cervical myelopathy. Recent cervical surgery. TECHNIQUE: AP and lateral views of the cervical spine are presented. FINDINGS: No fracture, subluxation, or osseous destructive process. Smooth reversal normal cervical lordosis. Postoperative changes posterior fusion with bilateral rods and facet screw fixation C3-C6. Hardware radiographically intact. Posterior decompression C3, C4, and C5. There is moderate degenerative disc disease at C4-C5 and C5-C6 with loss of disc height and endplate osteophyte formation. The prevertebral soft tissues are normal. A cervical collar is noted. IMPRESSION: Postoperative and degenerative changes of the cervical spine as noted. Intact surgical hardware. [employer]: RAYMUNDO Transcribe Date/Time: Jul 09 2021 2:13P Dictated by : RHONDA ROLAND MD This examination was interpreted and the report reviewed and electronically signed by: RHONDA ROLAND MD on Jul 09 2021 2:20PM EST [id number] [facility] DESTINY [facility] ([id number]) 1960 M Date Time Provider Department 06/26/21 MIGUELINA DELCID During your visit today, we recorded the following information about you: Miguelina Delcid, PT 06/26/2021 5:27 PM Signed Pt discharged from home PT 06/26/21 Goals met Allergies As of Date: 06/26/2021 (No Known Allergies) Date Reviewed: 06/23/2021 Reviewed by: Brenton Parish PTA - Fully Assessed Reason for Visit: Home Care [4073] Cmt: agency d/c Prescriptions as of 06/26/2021 - metoprolol succinate ER (TOPROL XL) 25 mg 24 hr tablet Take 25 mg by mouth once daily. - meloxicam (MOBIC) 15 mg tablet Take 15 mg by mouth once daily. - polyethylene glycol 3350 (MIRALAX) 17 gram/dose powder Take 17 g by mouth twice daily. - escitalopram oxalate (LEXAPRO) 10 mg tablet Take 10 mg by mouth once daily. - Comp Stocking,Knee,Regular,S ml (T.E.D. ANTI-EMBOLISM STOCKING) 12 Each q 12 HR. Post operatively - omeprazole (PRILOSEC) 40 mg capsule Take 40 mg by mouth once daily. - icosapent ethyl (VASCEPA) 0.5 gram capsule Take 2 g by mouth twice daily. - gabapentin (NEURONTIN) 600 mg tablet Take 600 mg by mouth daily at bedtime. - simvastatin (ZOCOR) 80 mg tablet Take 80 mg by mouth daily at bedtime. - amitriptyline (ELAVIL) 25 mg tablet Take 25 mg by mouth daily at bedtime. - traZODone (DESYREL) 150 mg tablet Take 150 mg by mouth daily at bedtime. - montelukast (SINGULAIR) 10 mg tablet Take 10 mg by mouth daily at bedtime. - lisinopril (ZESTRIL, PRINIVIL) 5 mg tablet Take 5 mg by mouth once daily. - DULoxetine (CYMBALTA) 30 mg capsule Take 90 mg by mouth once daily. Problem List As Of Date 06/26/2021 Noted Resolved History of cervical spinal surgery [Z98.890] 05/29/2021 Nicotine use disorder, F17.2 [F17.200] 05/30/2021 Encounter Status:Closed by MIGUELINA DELCID on 06/26/21 [facility] 06-17-2021 CNPN Telephone (HCSIND) DESTINY LESTER ([id number]) 1960 M Date Time Provider Department 06/17/21 EDDIE WICK During your visit today, we recorded the following information about you: Eddie iWck, OT/L 06/17/2021 9:27 AM Signed D/C home OT d/t pt has met goals. Feel free to contact me if you have any questions or concerns regarding plan of care. ([phone]) Eddie Wick OTR/L, [facility] Allergies As of Date: 06/17/2021 (No Known Allergies) Date Reviewed: 06/12/2021 Reviewed by: Shira Wild PTA - Fully Assessed Reason for Visit: Home Care [4073] Cmt: d/c OT Prescriptions as of 06/17/2021 - metoprolol succinate ER (TOPROL XL) 25 mg 24 hr tablet Take 25 mg by mouth once daily. - meloxicam (MOBIC) 15 mg tablet Take 15 mg by mouth once daily. - polyethylene glycol 3350 (MIRALAX) 17 gram/dose powder Take 17 g by mouth twice daily. - escitalopram oxalate (LEXAPRO) 10 mg tablet Take 10 mg by mouth once daily. - Comp Stocking,Knee,Regular,S ml (T.E.D. ANTI-EMBOLISM STOCKING) 12 Each q 12 HR. Post operatively - omeprazole (PRILOSEC) 40 mg capsule Take 40 mg by mouth once daily. - icosapent ethyl (VASCEPA) 0.5 gram capsule Take 2 g by mouth twice daily. - gabapentin (NEURONTIN) 600 mg tablet Take 600 mg by mouth daily at bedtime. - simvastatin (ZOCOR) 80 mg tablet Take 80 mg by mouth daily at bedtime. - amitriptyline (ELAVIL) 25 mg tablet Take 25 mg by mouth daily at bedtime. - traZODone (DESYREL) 150 mg tablet Take 150 mg by mouth daily at bedtime. - montelukast (SINGULAIR) 10 mg tablet Take 10 mg by mouth daily at bedtime. - lisinopril (ZESTRIL, PRINIVIL) 5 mg tablet Take 5 mg by mouth once daily. - DULoxetine (CYMBALTA) 30 mg capsule Take 90 mg by mouth once daily. Problem List As Of Date 06/17/2021 Noted Resolved History of cervical spinal surgery [Z98.890] 05/29/2021 Nicotine use disorder, F17.2 [F17.200] 05/30/2021 Encounter Status:Closed by EDDIE WICK on 06/17/21 Normal [facility] CNOVon 06-10-2021 CNOV Office Visit (AGOCMR ) DESTINY LESTER ([id number]) 1960 M Date Time Provider Department 06/10/21 10:45 AM [facility] During your visit today, we recorded the following information about you: Temperature Pulse Blood pressure Weight 97.8 degrees 63/minute 101/60 85.3 kg Height 1.753 m Miles Washburn DO 06/10/2021 11:42 AM Signed Miles Washburn DO [facility] Orthoped[facility] - Orthopedic Spine Surgeon [facility] [place], [place] [id number] [place] [address] Phone: [phone] FAX: [phone] SPINE SURGERY POST-OP FOLLOW UP SERVICE DATE: 06/05/2021 SURGERY DATE: 05/29/2021 SURGERY: C3-6 lamifusion PREOPERATIVE SYMPTOMS: Bilateral arm weakness, balance disturbance Destiny Lester is seen for 1st post operative follow up. He presented to [facility] with complaints of low back pain into the left lower extremity. Imaging was completed and determined cervical myelopathy, warrannting a C3-6 laminectomy and fusion. He did well following his operation and hospital stay. Today he presents with his sister. He states his presurgical symptoms have resolved and he is feeing great. 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 He states he is very pleased with the surgery. He states he has warn his c-collar at all times and is using a walker for mobility. He notes he is doing home physical and occupational therapy. He kayce loss of bowel or bladder. He is here for image review, evaluation and plan of care. Denies any drainage from incision. Denies any fevers. INCISION: clean, dry, intact and healing PREVIOUS SURGERY: None Review of Systems Constitutional: Negative for appetite change, chills and fever. HENT: Negative for ear discharge, tinnitus and trouble swallowing. Eyes: Negative for pain, redness and visual disturbance. Respiratory: Negative for cough, shortness of breath and wheezing. Cardiovascular: Negative for chest pain, palpitations and leg swelling. Gastrointestinal: Negative for diarrhea, nausea and vomiting. Endocrine: Negative for cold intolerance and heat intolerance. Genitourinary: Negative for difficulty urinating, frequency and urgency. Musculoskeletal: Negative for back pain, gait problem, neck pain and neck stiffness. Skin: Negative for color change, rash and wound. Allergic/Immunologic: Negative for environmental allergies and food allergies. Neurological: Negative for weakness, numbness and headaches. Hematological: Does not bruise/bleed easily. Psychiatric/Behavioral: Negative for agitation and confusion. The patient is not nervous/anxious. ALLERGIES No Known Allergies Current Outpatient Medications Medication Sig Dispense Refill - metoprolol succinate ER (TOPROL XL) 25 mg 24 hr tablet Take 25 mg by mouth once daily. - meloxicam (MOBIC) 15 mg tablet Take 15 mg by mouth once daily. - escitalopram oxalate (LEXAPRO) 10 mg tablet Take 10 mg by mouth once daily. - Comp Stocking,Knee,Regular,S ml (T.E.D. ANTI-EMBOLISM STOCKING) 12 Each q 12 HR. Post operatively 12 Each 0 - omeprazole (PRILOSEC) 40 mg capsule Take 40 mg by mouth once daily. - icosapent ethyl (VASCEPA) 0.5 gram capsule Take 2 g by mouth twice daily. - gabapentin (NEURONTIN) 600 mg tablet Take 600 mg by mouth daily at bedtime. - simvastatin (ZOCOR) 80 mg tablet Take 80 mg by mouth daily at bedtime. - amitriptyline (ELAVIL) 25 mg tablet Take 25 mg by mouth daily at bedtime. - traZODone (DESYREL) 150 mg tablet Take 150 mg by mouth daily at bedtime. - montelukast (SINGULAIR) 10 mg tablet Take 10 mg by mouth daily at bedtime. - lisinopril (ZESTRIL, PRINIVIL) 5 mg tablet Take 5 mg by mouth once daily. - DULoxetine (CYMBALTA) 30 mg capsule Take 90 mg by mouth once daily. - polyethylene glycol 3350 (MIRALAX) 17 gram/dose powder Take 17 g by mouth twice daily. (Patient not taking: Reported on 06/10/2021 ) No current facility-administered medications for this visit. OBJECTIVE: BP 101/60 (BP Site: Left Arm, BP Position: Sitting, BP Cuff Size: Large Adult) Pulse 63 Temp 36.6 ?C (97.8 ?F) Ht 175.3 cm (5' 9) Wt 85.3 kg (188 lb) SpO2 95% BMI 27.76 kg/m? PHYSICAL EXAM GENERAL APPEARANCE: Well nourished, well developed, and no apparent distress. NEURO PSYCH: Patient oriented to person, place, and time. Mood pleasant. Benign affect. CARDIOVASCULAR: Palpable pulses. No edema noted. No varicosities. SKIN: Head, neck, trunk, and extremities dry, intact and without lesions. LYMPHATICS: No palpable nodes in cervical or axillae areas. Groin exam deferred MUSCULOSKELETAL PALPATION: SPINOUS PROCESS: No pain. PARASPINALS: No pain. MUSCLE TONE and BULK: Symmetrical in the upper AND lower extremities. MOTOR: Upper Extremity Left Right Deltoids 5/5 5/5 Biceps 5/5 5/5 Triceps 5/5 5/5 Gr (more content not included)... Normal [facility] No Panel Informationon 06-10 [facility] XR CERVICAL 2V AP/LATon 05-30 XR CERVICAL 2V AP/LAT * * *Final Report* * * DATE OF EXAM: Jun 10 2021 10:15AM A1X 5308 - XR CERVICAL 2V AP/LAT / PROCEDURE REASON: History of cervical spinal surgery * * * * Physician Interpretation * * * * EXAM: CERVICAL SPINE, 2 VIEWS CLINICAL: 60-year-old male with history of spinal surgery TECHNIQUE: AP, lateral, COMPARISON: 05/30/2021 RESULTS: Counting reference: Craniocervical junction.. Status post C3-C6 posterior fusion with pedicle screw and rods. Less than 2 mm images of fixation C2 in relation C3. Osteophytes anteriorly at C3-C6. Mild narrowing at C6/C7 disc space. Laminectomy at C4 and C5. Skin carla are present. Soft tissue postoperative air is resolved since the previous exam. IMPRESSION: POSTERIOR FUSION AT C4-C6 AND LAMINECTOMIES UNCHANGED COMPARED TO THE PREVIOUS EXAM Loader [employer]: RAYMUNDO Transcribe Date/Time: Jun 10 2021 12:28P Dictated by : MORGAN KLEIN MD This examination was interpreted and the report reviewed and electronically signed by: MORGAN KLEIN MD on Jun 10 2021 12:36PM EST [id number] [facility] C[facility] Telephone ([facility]) DESTINY LESTER ([id number]) 1960 M Date Time Provider Department 06/09/21 EDDIE WICK HCSIND During your visit today, we recorded the following information about you: Eddie Wick OT/L 06/09/2021 10:28 AM Signed OT evaluation completed 06/03/21 with plan to see pt 2wk1, 1wk2 to address adaptive techniques and safety with ADLs and IADLs, as well as UE HEP for strengthening/ROM. Feel free to contact me if you have any questions or concerns regarding plan of care. ([phone]) Eddie Wick OTR/L, [facility] Allergies As of Date: 06/09/2021 (No Known Allergies) Date Reviewed: 06/09/2021 Reviewed by: Shira Wild PTA - Fully Assessed Reason for Visit: Home Care [4073] Cmt: OT evaluation Prescriptions as of 06/09/2021 - meloxicam (MOBIC) 15 mg tablet Take 15 mg by mouth once daily. - polyethylene glycol 3350 (MIRALAX) 17 gram/dose powder Take 17 g by mouth twice daily. - escitalopram oxalate (LEXAPRO) 10 mg tablet Take 10 mg by mouth once daily. - Comp Stocking,Knee,Regular,S ml (T.E.D. ANTI-EMBOLISM STOCKING) 12 Each q 12 HR. Post operatively - omeprazole (PRILOSEC) 40 mg capsule Take 40 mg by mouth once daily. - icosapent ethyl (VASCEPA) 0.5 gram capsule Take 2 g by mouth twice daily. - gabapentin (NEURONTIN) 600 mg tablet Take 600 mg by mouth daily at bedtime. - simvastatin (ZOCOR) 80 mg tablet Take 80 mg by mouth daily at bedtime. - amitriptyline (ELAVIL) 25 mg tablet Take 25 mg by mouth daily at bedtime. - traZODone (DESYREL) 150 mg tablet Take 150 mg by mouth daily at bedtime. - montelukast (SINGULAIR) 10 mg tablet Take 10 mg by mouth daily at bedtime. - lisinopril (ZESTRIL, PRINIVIL) 5 mg tablet Take 5 mg by mouth once daily. - DULoxetine (CYMBALTA) 30 mg capsule Take 90 mg by mouth once daily. Problem List As Of Date 06/09/2021 Noted Resolved History of cervical spinal surgery [Z98.890] 05/29/2021 Nicotine use disorder, F17.2 [F17.200] 05/30/2021 Encounter Status:Closed by EDDIE WICK on 06/09/21 [facility] Araseli 06-04-2021 [facility] Telephone ([facility]) DESTINY LESTER ([id number]) 1960 M Date Time Provider Department 06/04/21 [facility] your visit today, we recorded the following information about you: Ab Grace RN 06/04/2021 1:43 PM Signed Spoke with Adeline at this time and answered questions in regards to patients ability to walk around, go up and down stairs and the use of a walker. Informed her he is to keep his c-collar on and to use the walker. 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 - meloxicam (MOBIC) 15 mg tablet Take 15 mg by mouth once daily. - polyethylene glycol 3350 (MIRALAX) 17 gram/dose powder Take 17 g by mouth twice daily. - escitalopram oxalate (LEXAPRO) 10 mg tablet Take 10 mg by mouth once daily. - Comp Stocking,Knee,Regular,S ml (T.E.D. ANTI-EMBOLISM STOCKING) 12 Each q 12 HR. Post operatively - omeprazole (PRILOSEC) 40 mg capsule Take 40 mg by mouth once daily. - icosapent ethyl (VASCEPA) 0.5 gram capsule Take 2 g by mouth twice daily. - gabapentin (NEURONTIN) 600 mg tablet Take 600 mg by mouth daily at bedtime. - simvastatin (ZOCOR) 80 mg tablet Take 80 mg by mouth daily at bedtime. - amitriptyline (ELAVIL) 25 mg tablet Take 25 mg by mouth daily at bedtime. - traZODone (DESYREL) 150 mg tablet Take 150 mg by mouth daily at bedtime. - montelukast (SINGULAIR) 10 mg tablet Take 10 mg by mouth daily at bedtime. - lisinopril (ZESTRIL, PRINIVIL) 5 mg tablet Take 5 mg by mouth once daily. - DULoxetine (CYMBALTA) 30 mg capsule Take 90 mg by mouth once daily. Problem List As Of Date 06/04/2021 Noted Resolved History of cervical spinal surgery [Z98.890] 05/29/2021 Nicotine use disorder, F17.2 [F17.200] 05/30/2021 Encounter Status:Closed by AB GRACE on 06/19/21 [facility] Ar[facility]eli 06-02-2021 [facility] Telephone ([facility]) TAYLERDESTINY Lockhart ([id number]) 1960 M Date Time Provider Department 06/02/21 MIGUELINA DELCID During your visit today, we recorded the following information about you: Miguelina Delcid, PT 06/02/2021 5:20 PM Signed PT germain completed 06/02/21 POC 2w4 for ther ex, gait, balance, transfers and stairs Allergies As of Date: 06/02/2021 (No Known Allergies) Date Reviewed: 05/30/2021 Reviewed by: Reema Kelsey RN - Fully Assessed Reason for Visit: Home Care [4073] Cmt: admit to home care Prescriptions as of 06/02/2021 - polyethylene glycol 3350 (MIRALAX) 17 gram/dose powder Take 17 g by mouth twice daily. - oxyCODONE-acetaminophen (PERCOCET) 5-325 mg tablet Take 1 tablet by mouth every 6 hours as needed for up to 5 days. - escitalopram oxalate (LEXAPRO) 10 mg tablet Take 10 mg by mouth once daily. - Comp Stocking,Knee,Regular,S ml (T.E.D. ANTI-EMBOLISM STOCKING) 12 Each q 12 HR. Post operatively - omeprazole (PRILOSEC) 40 mg capsule Take 40 mg by mouth once daily. - icosapent ethyl (VASCEPA) 0.5 gram capsule Take 2 g by mouth twice daily. - gabapentin (NEURONTIN) 600 mg tablet Take 600 mg by mouth daily at bedtime. - simvastatin (ZOCOR) 80 mg tablet Take 80 mg by mouth daily at bedtime. - amitriptyline (ELAVIL) 25 mg tablet Take 25 mg by mouth daily at bedtime. - traZODone (DESYREL) 150 mg tablet Take 150 mg by mouth daily at bedtime. - montelukast (SINGULAIR) 10 mg tablet Take 10 mg by mouth daily at bedtime. - lisinopril (ZESTRIL, PRINIVIL) 5 mg tablet Take 5 mg by mouth once daily. - DULoxetine (CYMBALTA) 30 mg capsule Take 90 mg by mouth once daily. Problem List As Of Date 06/02/2021 Noted Resolved History of cervical spinal surgery [Z98.890] 05/29/2021 Nicotine use disorder, F17.2 [F17.200] 05/30/2021 Encounter Status:Closed by MIGUELINA DELCID on 06/02/21 Normal [facility] Basic metabolic 2000 panelon 05-30-2021 Anion gap [Moles/Vol] 10 mmol/L Normal 9-18 [facility] Comment on above: Order Comment: Speci men Type: BLOOD SPECIMENOrdering Facility: [facility] Address: [address] [place] [address] Performed By: #### 2 4321-2 ####[facility] LABORATORYCLIA [id number] [place] [address] [place] Calcium [Mass/Vol] 8.6 mg/dL Normal 8.5-10.2 [facility] Comment on above: Order Comment: Speci men Type: BLOOD SPECIMENOrdering Facility: [facility] Address: [address] [place] [address] Performed By: #### 2 4321-2 ####[facility] LABORATORYCLIA [id number] [place] [address] [place] Chloride [Moles/Vol] 102 mmol/L Normal 97-105 [facility] Comment on above: Order Comment: Speci men Type: BLOOD SPECIMENOrdering Facility: [facility] Address: [address] [address] Performed By: #### 2 4321-2 ####[facility]ORATORYCLIA [id number] [place] [address] [place] CO2 [Moles/Vol] 26 mmol/L Normal 22-30 [facility] Comment on above: Order Comment: Speci men Type: BLOOD SPECIMENOrdering Facility: [facility] Address: [address] [place] [address] Performed By: #### 2 4321-2 ####[facility]ITAL[facility] [id number] [address] [place] Creatinine [Mass/Vol] 1.22 mg/dL Normal 0.73-1.22 [facility] Comment on above: Order Comment: Alfred cordon Type: BLOOD SPECIMENOrdering Facility: [facility] Address: [address] [place] [address] Performed By: #### 2 4321-2 ####[facility] LABORATORYIA [id number] [address] ESTIMATED GLOMERULAR FILTRATION RATE 69 mL/min/1.73m??? Normal >=60 [facility] Comment on above: Order Comment: Alfred cordon Type: BLOOD SPECIMENOrdering Facility: [facility] Address: [address] [place] [address] Result Comment: Daiana mated Glomerular Filtration Rate (eGFR) is calculated using the 2020 CKD-EPI creatinine equation. This equation utilizes serum creatinine, sex, and age as parameters. The creatinine assay has traceable calibration to isotope dilution-mass spectrometry. Refer to KDIGO guidelines for clinical interpretation. In patients with unstable renal function, e.g. those with acute kidney injury, the eGFR may not accurately reflect actual GFR. Performed By: #### 2 4321-2 ####[facility] [id number] [address] [place] Glucose [Mass/Vol] 142 mg/dL High 74-99 [facility] Comment on above: Order Comment: Alfred cordon Type: BLOOD SPECIMENOrdering Facility: [facility] Address: [address] [place] [address] Result Comment: The [place] Diabetes Association (ADA) provides guidance for cutoff values for fasting glucose and random glucose. The ADA defines fasting as no caloric intake for at least 8 hours. Fasting plasma glucose results between 100 to 125 mg/dL indicate increased risk for diabetes (prediabetes). Fasting plasma glucose results greater than or equal to 126 mg/dL meet the criteria for diagnosis of diabetes. In the absence of unequivocal hyperglycemia, results should be confirmed by repeat testing. In a patient with classic symptoms of hyperglycemia or hyperglycemic crisis, random plasma glucose results greater than or equal to 200 mg/dL meet the criteria for diagnosis of diabetes. Reference: Standards of Medical Care in Diabetes 2016, [place] Diabetes Association. Diabetes Care. 2016.39(Suppl 1). Performed By: #### 2 4321-2 ####[facility] LABORATORYCLIA [id number] [address] OF [facility] Potassium [Moles/Vol] 4.7 mmol/L Normal 3.7-5.1 [facility] Comment on above: Order Comment: Speci men Type: BLOOD SPECIMENOrdering Facility: [facility] Address: [address] [place] [address] Performed By: #### 2 4321-2 ####[facility] LABORATORYCLIA [id number] [address] Sodium [Moles/Vol] 138 mmol/L Normal 136-144 [facility] Comment on above: Order Comment: Speci men Type: BLOOD SPECIMENOrdering Facility: [facility] Address: [address] [place] [address] Performed By: #### 2 4321-2 ####[facility] LABORATORYCLIA [id number] [address] Urea nitrogen [Mass/Vol] 18 mg/dL Normal 9-24 [facility] Comment on above: Order Comment: Speci men Type: BLOOD SPECIMENOrdering Facility: [facility] Address: [address] [place] [address] Performed By: #### 2 4321-2 ####[facility] LABORATORYCLIA [id number] [address] [place] CASE MGT INIT ASSESon 2021 CASE MGT INIT ASSES HNO ID: [id number] Author: Polly Montiel RN Service: ? Author Type: Registered Nurse Type: Care Mgt Initial Assessment Filed: 05/30/2021 4:57 PM Note Text: CARE MANAGEMENT: ASSESSMENT AND DISCHARGE PLAN SERVICE DATE: May 30, 2021 SERVICE TIME: 11:32 AM PRIMARY CARE PHYSICIAN: Lavon Stallings DO ADMISSION STATUS: Inpatient Needs Prior to Discharge: To Be Determined;Home Care Order;OT/PT Evaluation MEDICAL: [employer] Patient/Band Shover Stated Goals: To have reduction in pain;To have reduction in symptoms;To return home to life as it was;To be cured/healed;To improve my functional status Health Insurance: [facility] ([facility] Medicare and Medicaid.) Health Issues Impacting Discharge Plan: Newly diagnosed Newly Diagnosed: Cervical myelopathy Last Discharge Date: N/A Is this Within the Past 30 days? Last discharge within 30 days: No Advance Directive: Current Advance Directive: Health Care Power of Battery Builder;Living Will In Chart: No Health LiteracyHow often do you need to have someone help you when you read instructions, pamphlets, or other written material from your doctor or pharmacy? : 4 - Often How confident are you filling out medical forms by yourself?: 4 - A little bit If Patient scores > 3 on either question, the following interventions were put into place:: Forms of communication used with patient and family;Use of plain language and active listening with Patient and family;Gave Patient the opportunity to ask questions;Use concrete and specific phrases, avoid medical jargon Baseline Mental Status Prior to this Illness what was the patient's Baseline Mental Status?: Alert AND Oriented Prior to this illness, has anyone described the patient having any of the following behaviors?: Not Applicable Relationship of the informant to the patient:: Other: See Comment Name of Informant: : Adeline Fernández [phone] and Sissy Fernández [phone] - his underwriter mortgage loan and - He has no family Functional Status: Needs Assistance Does Patient Currently Receive Any Community Services or Home Care?: None Equipment Prior to Admission: None Has the Patient Been in a [facility] Facility in the Past 30 days?: No SOCIAL: Living Arrangements: Home Lives With: Alone Financial Resources: Disabled Primary Contact: Extended Emergency Contact Information Primary Emergency Contact: sissy fernández Mobile Relation: Other Secondary Emergency Contact: Jonah Lr Mobile Relation: Other Supportive Patient Contact:: Yes Contact Resources: TAMMIE CHO Name/Phone: Adeline and Sissy Fernández - the patients underwriter mortgage loan he has known them for 20+ years and they are his HCPOA - no papers in system. Caregiver AssessmentCaregiver is ready, willing and able to meet the patient's needs as recommended by the inter-professional team:: No Does the patient have an acute stroke diagnosis, or has the patient had a stroke during this admission?: No Patient's transition needs and plan for meeting these needs: Possible [facility] Patient's perception of need for this admission: Procedure(s): C3-7 laminectomy with fusion C3-T1 Medication Adherance I am convinced of the importance of my prescription medication: 0 - Agree Completely I worry that my prescription medication will do more harm than good to me : 0 - Disagree Completely I feel financially burdened by my [id number]-ep-[id number] expenses for my prescription medication:: 0 - Disagree Completely Risk Score: 0 Patient is categorized as: Low risk < 2 Are you interested in bedside delivery of your medications? No Is Patient Psychosocially Complex?: No ASSESSMENT AND PLAN: Medical Needs: Medical Needs: Fall risk or frequent falls Psychosocial Needs: Psychosocial Needs: None FREEDOM OF CHOICE EXPLAINED: [place] of Choice Given: Yes Level of Care Discussed: Home Care Provider List: Home Care Provider list within the patient's requested geographic area shared with the patient/family: Yes within: 25 miles of zip code: [address] Quality and resource use metrics shared with the patient that are relevant to the patient's goals of care and treatment preferences:: Yes Metrics: Functional Status;Incidence of Major Falls;Transfer of Health Information and Care Preferences;Potentially Preventable 30-day Post Discharge Readmission Rates;Discharge to Community POTENTIAL TRANSITION PLANS Home Care;Home OT/PT Epic reviewed. Call received from [facility] - case picker Cesilia [phone] and . Cesilia would like notified of discharge and if she could get a medication list and discharge summary that would be great. Met with the patient and his pastors - Adeline Patel at the bedside. Patient lives on his own in an apartment that has 2 steps to enter. The Hyster Driver Sissy Patel and his (more content not included)... Normal [facility] CBC panel Auto (Bld)on 05-30 Erythrocyte distribution width (RBC) [Ratio] 13.2 % Normal 11.5-15.0 [facility] Comment on above: Order Comment: Speci men Type: BLOOD SPECIMENOrdering Facility: [facility] Address: [address] [place] [address] Performed By: #### 5 8410-2 ####[facility] LABORATORYCLIA [id number] [address] Hematocrit (Bld) [Volume fraction] 43.7 % Normal 39.0-51.0 [facility] Comment on above: Order Comment: Speci men Type: BLOOD SPECIMENOrdering Facility: [facility] Address: [address] [place] [address] Performed By: #### 5 8410-2 ####[facility] LABORATORYCLIA [id number] [address] [place] Hemoglobin (Bld) [Mass/Vol] 14.6 g/dL Normal 13.0-17.0 [facility] Comment on above: Order Comment: Speci men Type: BLOOD SPECIMENOrdering Facility: [facility] Address: [address] [place] [address] Performed By: #### 5 8410-2 ####[facility] LABORATORYCLIA [id number] [address] [place] MCH (RBC) [Entitic mass] 31.9 pg Normal 26.0-34.0 [facility] Comment on above: Order Comment: Speci men Type: BLOOD SPECIMENOrdering Facility: [facility] Address: [address] [place] [address] Performed By: #### 5 8410-2 ####[facility] LABORATORYCLIA [id number] [address] [place] MCHC (RBC) [Mass/Vol] 33.4 g/dL Normal 30.5-36.0 [facility] Comment on above: Order Comment: Speci men Type: BLOOD SPECIMENOrdering Facility: [facility] Address: [address] [place] [address] Performed By: #### 5 8410-2 ####[facility] LABORATORYCLIA [id number] [address] MCV (RBC) [Entitic vol] 95.6 fL Normal 80.0-100.0 [facility] Comment on above: Order Comment: Speci men Type: BLOOD SPECIMENOrdering Facility: [facility] Address: [address] [place] [address] Performed By: #### 5 8410-2 ####[facility] LABORATORYCLIA [id number] [address] Nucleated RBC (Bld) [#/Vol] 10*3/uL Normal <0.01 [facility] Comment on above: Order Comment: Speci men Type: BLOOD SPECIMENOrdering Facility: [facility] Address: [address] [place] [address] Performed By: #### 5 8410-2 ####[facility] LABORATORYCLIA [id number] [address] Platelet mean volume (Bld) [Entitic vol] 10.2 fL Normal 9.0-12.7 [facility] Comment on above: Order Comment: Speci men Type: BLOOD SPECIMENOrdering Facility: [facility] Address: [address] [place] [address] Performed By: #### 5 8410-2 ####[facility] LABORATORYCLIA [id number] [address] Platelets (Bld) [#/Vol] 182 10*3/uL Normal 150-400 [facility] Comment on above: Order Comment: Speci men Type: BLOOD SPECIMENOrdering Facility: [facility] Address: [address] [place] [address] Performed By: #### 5 8410-2 ####[facility] LABORATORYCLIA [id number] [address] RBC (Bld) [#/Vol] 4.57 10*6/uL Normal 4.20-6.00 [facility] Comment on above: Order Comment: Speci men Type: BLOOD SPECIMENOrdering Facility: [facility] Address: [address] Performed By: #### 5 8410-2 ####[facility] LABORATORYCLIA [id number] [address] OF [facility] WBC (Bld) [#/Vol] 12.68 10*3/uL High 3.70-11.00 [facility] Comment on above: Order Comment: Speci men Type: BLOOD SPECIMENOrdering Facility: [facility] Address: [address] [place], [place] [address] Performed By: #### 5 8410-2 ####[facility] LABORATORYCLIA [id number] [place] [id number] [facility] CNDSon 05-30-2021 CNDS HNO ID: [id number] Author: Eleanor Ruiz MD Service: Orthopaedic Surgery Author Type: Resident Type: Discharge Summary Filed: 05/31/2021 8:18 AM Note Text: Attestation signed by Miles Washburn DO at 06/01/2021 9:58 AM I agree with the discharge summary. Follow up with me in office in two weeks. Miles Washburn DO ORTHOPEDIC SURGERY DISCHARGE SUMMARY ADMISSION DATE: 05/29/2021 DISCHARGE DATE: 05/31/2021 Attending Physician: Miles Washburn DO Admitting Diagnosis: Cervical Myelopathy Discharge Diagnosis: Same as admitting Additional Diagnoses: ACTIVE PROBLEM LIST History of Cervical Spinal Surgery Nicotine use disorder, F17.2 Surgeries During Hospitalization: Procedure(s) (LRB): C3-7 laminectomy with fusion C3-T1 (N/A) ARTHRODESIS CERVICAL POSTERIOR, BELOW C2 1ST SINGLE LEVEL (N/A) ARTHRODESIS CERVICAL BELOW C2, 3RD CERVICAL LEVEL (N/A) DECOMPRESSION LAMINECTOMY 4TH ADD'L CERVICAL SEGMENT (N/A) POSTERIOR SEGMENTAL INSTRUMENTATION FOLLOWING CERVICAL FUSION 3-6 LEVELS (N/A) BONE MARROW ASPIRATION FOR BONE GRAFTING,SPINE SURGERY ONLY,VIA SEPARATE SKIN OR FASCIAL INCISION (N/A) Consultations: Occupational Therapy Physical Therapy Case Management Hospital Course: The patient is a 60 year old male who has been followed by Dr. Miles Washburn DO, MD. It was determined he would benefit from surgery. The procedure, its risks, benefits, and potential complications were discussed in detail with the patient or POA prior to surgery. Understanding of all topics was conveyed by the patient or POA, and consent was given for surgery. The patient was electively admitted to [facility] on 05/29/2021. Surgery was scheduled and on 05/29/2021 he underwent a Procedure(s) (LRB): C3-7 laminectomy with fusion C3-T1 (N/A) ARTHRODESIS CERVICAL POSTERIOR, BELOW C2 1ST SINGLE LEVEL (N/A) ARTHRODESIS CERVICAL BELOW C2, 3RD CERVICAL LEVEL (N/A) DECOMPRESSION LAMINECTOMY 4TH ADD'L CERVICAL SEGMENT (N/A) POSTERIOR SEGMENTAL INSTRUMENTATION FOLLOWING CERVICAL FUSION 3-6 LEVELS (N/A) BONE MARROW ASPIRATION FOR BONE GRAFTING,SPINE SURGERY ONLY,VIA SEPARATE SKIN OR FASCIAL INCISION (N/A). The procedure was tolerated well and he was sent to the post operative recovery room in stable condition, where he also did well. He was subsequently sent to his hospital room for postoperative management. Once on the floor his postoperative course was unremarkable and he did well. His diet was advanced which he tolerated. His pain was well controlled. He worked with Physical and Occupational Therapy who recommended he be discharged to home. He remained afebrile with stable vital signs throughout his stay. He was stable for discharge on POD#2. Complete and comprehensive discharge instructions were provided to the patient as well as necessary prescriptions. The patient had no further questions and was advised to call with any questions, concerns, or problems. Patient was hemodynamically stable postoperatively. Relevant labs included: Hemoglobin (g/dL) Date Value 05/30/2021 14.6 05/22/2021 16.0 03/24/2021 15.6 Hematocrit (%) Date Value 05/30/2021 43.7 05/22/2021 47.6 03/24/2021 48.4 Discharge Antibiotics: None Prior to surgery the patient was treated with antibiotics and continued with antibiotics 24 hours postoperatively DVT Prophylaxis: Sequential Compression Devices and Early Ambulation Complications: Continued throughout the hospital course without complications. Patient Condition @ Discharge: Stable Discharge Disposition: Home with Self Care The patient was instructed to follow-up in Future Appointments Date Time Provider Department Center 06/10/2021 10:30 AM XR AKLEE 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 [facility] 06/10/2021 10:45 AM DO FRANDY Pearce [facility] Highest Readmission Risk Score: 9 The 30 day readmissions risk score is derived from an internally validated risk model which evaluates patient level characteristics, utilization history, medication orders and lab results up until the day of discharge. Patients with a score of 40 or above are considered highest risk for readmission. Specific patient level drivers will be listed at the bottom of the summary. The 30 day readmissions risk score is derived from an internally validated risk model which evaluates patient level characteristics, utilization history, medication orders and lab results up until the day of discharge. Patients with a score of 40 or above are considered highest risk for readmission. Specific patient level drivers will be listed at the bottom of the summary. Discharge Medications: Current Discharge Medication List START taking these medications oxyCODONE-acetaminophen (PERCOCET) 1 tablet Take 1 tablet by mouth every 6 hours as needed (more content not included)... [facility] THERAPY NTon 05-30-2021 THERAPY NT HNO ID: [id number] Author: Carmencita Gaston OT/Macrina Service: ? Author Type: Occupational Therapist Type: Therapy (PT/OT/Speech/Resp) Filed: 05/30/2021 4:46 PM Note Text: Occupational Therapy Evaluation SERVICE DATE: 05/30/2021 SERVICE TIME: 1330 to 1424 ROOM: [id number] Recommended Discharge Disposition: Home OT Recommended Discharge Disposition Comments: Patient requires SBA to CGA/occasional min assist for ADL/mobility and requires assist with home management. Patient is motivated and anticipate further progress acutely, however patient lives alone and has mildly impaired strength, balance and safety awareness. Has good support from friends who will come 3x/day and assist with all meals/home management. Anticipate home with support if here 2-3 days and continues to progress functionally acutely. If discharged home sooner, may benefit from staying with friends for a few days prior to return home alone. Home OT/therapy is recommended to progress to independent level to allow to remain home alone safely at highest level of function. Recommendation provided to patient, family friend, PT and care management for discharge planning. Anticipated Discharge Needs: Physical Assist at Home;Supervision at Home Physical Assist at Home for: Cleaning;Laundry;Meals; Safety;Shopping;Transpo rtation (shower safety, brace management as needed initially) Supervision at Home due to: (recent surgery/mildly impaired safety awareness/lives alone; friends report will come 3x/day, or can stay a day or 2 at their house initially if needed) Recommended Discharge Equipment: Wheeled Walker (family/friend to look into tub seat, grab bar and elevated toilet seat for home as needed, as well as looking for wheeled walker through [employer] [employer]) OT 6 Clicks Score: 16 Precautions/Activity Restrictions: Fall Risk;Spine;Brace;Lines/ Tubes/Drains Precaution/Activity Restriction Comments: cervical drain, IV; cervical collar at all times Isolation Type: None Current Hospital Course: 60-year-old male status post C3-C6 posterior cervical laminectomy and fusion 05/29 Reason for Hospital Admission: elective cervical surgery Relevant Past Medical History: CAD, HTN, IA Response to Therapy Interventions: Good participation in activities, Notable progression with functional activities/skills, On-track to achieve discharge goals, Requires additional time to complete activities Continue skilled needs due to: Family training required, Functional impairment, Safety concerns Occupational Therapy Problem List: Education Deficit;Pain;Safety Deficits;Impaired Self Care;Decreased Activity Tolerance;Decreased Strength;Functional Mobility Impairment;Balance Impaired Cognition/Communication Deficits Responsiveness: Alert, Awake Follows Commands: 2-step Commands, Cueing Needed Cueing to Follow Commands: Minimum Attention Deficits: Divided (mildly impaired) Executive Function Deficits: Insight to Deficits, Problem Solving, Safety Awareness Insight to Deficits: Minimal impairment Problem Solving Deficit: Minimal impairment Safety Awareness Deficit: Minimal impairment Treatment Interventions: Education;Self Care / Home Management;Energy Conservation Training;Functional Mobility Training;Balance Training Home Environment Patient Lives With: Self/Alone Assistance Available: PRN (friends, neighbors, muslim/Hyster Driver will provide assist as needed.) Entry To Home: Stairs Number Of Stairs Into Home: 1 Number Of Stairs To Bed/Bath: 0 Tub/Shower Type: tub/shower with one grab bar and rubber mat Laundry: main floor, friends to assist Equipment Owned: Grab Bars-Shower;Functional Skills Tutor Prior Functional Level: Within Functional Limits Prior Functional Level Comments: Patient reports independence prior to admission, driving, working Patient Report: Patient pleasant, agreeable to therapy. Reports 4 or 5 pain in neck. Patient receptive to education . Friend present and supportive. CURRENT FUNCTIONAL STATUS: Most recent performance Current Activities of Daily Living Assist Level Additional Information Feeding Set Up;Additional Information Reports able to loosen front of brace for meals per ortho, then refasten. extra padding for brace issued for hygiene, cleaning. Grooming Contact Guard Assistance;Additional Information in standing at sink Bathing Upper Body Stand By Assistance Bathing Lower Body Minimal Assistance;Additional Information Education for use of shower seat, hand held shower provided. Reports has long brush for washing LE/back as needed. Education to not use on upper back/neck as did previously until healed. Education to discuss when can shower with physician prior to leaving facility. Dressing Upper Body Moderate Assistance;Minimal Assistance;Additional Information Education provided for wearing loose T shirts, placing overhead first and then placing RUE, LUE into shirt. Reports wears Tshirts mainly. (more content not included)... [facility] THERAPY NT HNO ID: [id number] Author: Mauricio Reynolds, PT Service: Physical Therapy Author Type: Physical Therapist Type: Therapy (PT/OT/Speech/Resp) Filed: 05/30/2021 3:10 PM Note Text: Physical Therapy Evaluation SERVICE DATE: 05/30/2021 SERVICE TIME: 904 to 929 ROOM: [place] [id number] Recommended Discharge Disposition: Home PT Recommended Discharge Disposition Comments: Patient slightly below baseline functioning, anticipate will progress well towards mobility goals, recommend home PT with assist from neighbors and friends for completion of IADLs. Anticipated Discharge Needs: Physical Assist at Home;Supervision at Home Physical Assist at Home for: Cleaning;Laundry;Meals; Shopping;Transportation Recommended Discharge Equipment: Wheeled Walker PT 6 Clicks Score: 18 Patient to benefit from wheeled walker at discharge for improved stability with ambulation. Patient reports having plenty of assistance at discharge to assist with care for cats and changing litter box located in the basement. Precautions/Activity Restrictions: Fall Risk;Spine;Brace Precaution/Activity Restriction Comments: cervical collar at all times Isolation Type: None Current Hospital Course: 60-year-old male status post C3-C6 posterior cervical laminectomy and fusion 05/29 Reason for Hospital Admission: elective cervical surgery Relevant Past Medical History: CAD, HTN, IA Response to Therapy Interventions: Good participation in activities, On-track to achieve discharge goals, Requires additional time to complete activities Continue skilled needs due to: Functional mobility/skill impairments Physical Therapy Problem List: Decreased Activity Tolerance;Decreased Strength;Functional Mobility Impairment Treatment Interventions: Energy Conservation Training;Strengthening; Functional Mobility Training Plan for next visit: Bed mobility, Gait training, Sit to Stand Transfers, Standing Tolerance, Stairs training, Walker Training Home Environment Patient Lives With: Self/Alone Assistance Available: PRN (friends and neighbors to assist) Entry To Home: Stairs Number Of Stairs Into Home: 1 Number Of Stairs To Bed/Bath: 0 Tub/Shower Type: tub shower Laundry: main floor, friends to assist Equipment Owned: (none) Prior Functional Level: Within Functional Limits Prior Functional Level Comments: Patient reports independence prior to admission, driving, working Patient Report: Patient pleasant and agreeable to PT session CURRENT FUNCTIONAL STATUS: Most recent performance Current Functional Mobility Assist Level Additional Information Rolling Minimal Assistance;Additional Information Cues to bend knees reach cross body to grab a railing, assisted trying to achieve side-lying Supine to Sit Minimal Assistance;Additional Information Cues/assist to bring bilateral lower extremities forward to bed, cues to push through bed to raise trunk with assistance at trunk to achieve sitting Sit to Supine Scooting Stand By Assistance Sit to Stand Contact Guard Assistance;Additional Information Cues for hand placement on edge of bed, power through legs and tuck bottom to stand tall, cues for pursed lips breathing together self once in standing Stand to Sit Contact Guard Assistance;Additional Information Cues to reach back for seated surface once back of legs are touching, emphasis to slowly lower bottom, light assist upon descent Bed to Chair Toilet/Commode Stand By Assistance;Additional Information Patient maintaining good static standing balance at edge of bed while using urinal Gait Contact Guard Assistance;Additional Information Gait Device: Hand Held Assist;Wheeled Walker Gait Distance (feet): 10' (SHORE WORKER), 175' x 1 (FWW) Patient with short shuffled unsteady steps with hand-held assist, instruction to use front wheeled walker, cues to stand tall look forward with feet inside walker frame, emphasis to take bigger steps for more natural gait, improved with increased ambulation distance, no loss of balance with lateral sway noted Stairs Curb Step Car Transfer Blank auguste indicate activity not attempted General Deviations/Observations : Hiram decreased;Step length decreased;Shuffling Gait;Non-functional gait speed Range of Motion: WFL Strength: WFL Balance: Static Sitting;Static Standing;Dynamic Standing;Dynamic Sitting Static Sitting Balance: Normal Patient able to maintain steady balance without handhold support Dynamic Sitting Balance: Good Patient accepts moderate challenge, able to maintain balance while picking up object off floor Static Standing Balance: Good Patient able to maintain balance without handhold support, limited postural sway Dynamic Standing Balance: Fair Patient accepts minimal challenge, able to maintain balance while turning head/trunk Activity Tolerance: Standing Activity Standing Activity: ambulation, static standing balance while using urinal at EOB Standing Activity (more content not included)... [facility] XR CERVICAL 2V AP/LATon 04-0 XR CERVICAL 2V AP/LAT * * *Final Report* * * DATE OF EXAM: May 30 2021 3:35PM [id number] [id number] - XR CERVICAL 2V AP/LAT / PROCEDURE REASON: Post-operative / post-procedure assessment, asymptomatic * * * * Physician Interpretation * * * * EXAMINATION: XR CERVICAL 2V AP/LAT HISTORY: POST OP C-SPINE Post-operative / post-procedure assessment, asymptomatic. TECHNIQUE: XR CERVICAL 2V AP/LAT Laterality: NOT APPLICABLE Number of different views (projections): 2 M: XB_1 COMPARISON: Preoperative MRI December 2020 and intraoperative radiograph 05/29/2021 RESULT: Laminectomy/posterior fusion from C3 through C5. There are facet screws along the right side at C3-C6 and on the left side at C3, C5 and C6. Stabilization bars are present. No subluxations are seen. No prevertebral soft tissue swelling. No other significant abnormality. IMPRESSION: Postoperative changes as above [employer]: RAYMUNDO Transcribe Date/Time: May 30 2021 4:49P Dictated by : LAURA LEIVA MD This examination was interpreted and the report reviewed and electronically signed by: LAURA LEIVA MD on May 30 2021 4:51PM EST [id number] [facility] ANES POSTPROC EVALon 022 ANES POSTPROC EVAL HNO ID: [id number] Author: Vicente Matrin DO Service: Anesthesiology Author Type: Physician Type: Anesthesia Postprocedure Evaluation Filed: 05/29/2021 3:32 PM Note Text: POST ANESTHESIA EVALUATION NOTE : 1960 Procedure Summary Date: 05/29/21 Room / Location: [place] OR Anesthesia Start: 802 Anesthesia Stop: 1109 Procedures: C3-7 laminectomy with fusion C3-T1 (N/A Neck) ARTHRODESIS CERVICAL POSTERIOR, BELOW C2 1ST SINGLE LEVEL (N/A Neck) ARTHRODESIS CERVICAL BELOW C2, 3RD CERVICAL LEVEL (N/A Neck) DECOMPRESSION LAMINECTOMY 4TH ADD'L CERVICAL SEGMENT (N/A Neck) POSTERIOR SEGMENTAL INSTRUMENTATION FOLLOWING CERVICAL FUSION 3-6 LEVELS (N/A Neck) BONE MARROW ASPIRATION FOR BONE GRAFTING,SPINE SURGERY ONLY,VIA SEPARATE SKIN OR FASCIAL INCISION (N/A Neck) Diagnosis: Cervical myelopathy (HCC) Surgeons: Miles Washburn DO Responsible Provider: Vicente Martin DO Anesthesia Type: general ASA Status: 3 Anesthesia Type: general Airway Type: ETT Last Vitals Vitals Value Taken Time BP 88/58 05/29/21 1230 Temp 36.1 ?C (97 ?F) 05/29/21 1205 HR SpO2 66 05/29/21 1244 Resp 10 05/29/21 1244 SpO2 92 % 05/29/21 1244 Vitals shown include unvalidated device data. Post Anesthesia Patient Status Patient Evaluation: PACU. PACU/ICU Patient Condition: stable. Anticipated Disposition: inpatient floor planned admission. Neurological Status: sleepy but arousable. Pulmonary Status: breathing comfortably on supplemental oxygen Airway Control: returned to baseline unsupported. Cardiovascular Status: stable. Pain Management: clinically adequate Postoperative Hydration: acceptable. Intraoperative Events: no significant anesthesia events Post Operative Nausea/Vomiting Status: no significant post operative nausea or vomiting Anesthetic Observations: Recommendation: continue current plan of care. Anesthesia Observations No Documentation SIGNATURE: Vicente Martin DO PATIENT NAME: Destiny Lester DATE: May 29, 2021 TIME: 3:32 PM CSN: [id number] [facility] ANES PRE-OPon 05-29-2021 ANES PRE-OP HNO ID: [id number] Author: Vicente Martin DO Service: Anesthesiology Author Type: Physician Type: Anesthesia Preprocedure Evaluation Filed: 05/29/2021 7:42 AM Note Text: ANESTHESIOLOGY DAY OF SURGERY NOTE : 1960 Procedure Information Date/Time: 05/29/21 0800 Procedures: C3-7 laminectomy with fusion C3-T1 (N/A Neck) ARTHRODESIS CERVICAL POSTERIOR, BELOW C2 1ST SINGLE LEVEL (N/A Neck) ARTHRODESIS CERVICAL BELOW C2, 3RD CERVICAL LEVEL (N/A Neck) STEREOTACTIC COMPUTER-ASSISTED NAVIGATIONAL PROCEDURE SPINAL (N/A Neck) DECOMPRESSION LAMINECTOMY 4TH ADD'L CERVICAL SEGMENT (N/A Neck) POSTERIOR SEGMENTAL INSTRUMENTATION FOLLOWING CERVICAL FUSION 3-6 LEVELS (N/A Neck) BONE MARROW ASPIRATION FOR BONE GRAFTING,SPINE SURGERY ONLY,VIA SEPARATE SKIN OR FASCIAL INCISION (N/A Neck) Location: [place] / [place] Surgeons: Miles Washburn DO Estimated body mass index is 31.17 kg/m? as calculated from the following: Height as of 05/22/21: 172.7 cm (5' 8). Weight as of 05/22/21: 93 kg (205 lb). Most recent hematocrit and potassium results: Hematocrit 47.6 05/22/2021 Potassium 5.5 05/22/2021 Relevant Problems No relevant active problems I - PHYSICAL EVALUATION AIRWAY Patient intubated: No. Tracheostomy tube not present Mallampati: II. TM distance: >3 FB. Neck ROM: full ROM without neurological symptoms. Mouth opening: adequate. Short neck: no. Thick neck: no DENTAL Dental findings: teeth intact. Additional exam findings: no II - ANESTHESIA PLAN ASA Score: 3 Anesthetic Plan: general Airway type: ETT The patient is a current smoker. NPO Status: adequate Monitoring plan: standard ASA. Postoperative analgesic plan: multimodal analgesia and parenteral or oral opioids. Patient / Surrogate agrees to blood products: blood products not planned Significant changes in the patient condition since the History and Physical, not otherwise documented in primary service progress note: no. Potential Anesthesia issues that may suggest increased risk of complications or contraindication to planned procedure: none. Vitals Value Taken Time BP 112/77 05/29/21730 Pulse 84 05/29/21730 Resp 16 05/29/21730 Temp 36.3 ?C (97.3 ?F) 05/29/21730 SpO2 96 % 05/29/21730 Facility-Administered Medications as of 05/29/2021 Medication Dose Route Frequency - lactated ringers iv infusion 5-30 mL/hr INTRAVENOUS CONTINUOUS Outpatient Medications as of 05/29/2021 Medication Sig - escitalopram oxalate (LEXAPRO) 10 mg tablet Take 10 mg by mouth once daily. - omeprazole (PRILOSEC) 40 mg capsule Take 40 mg by mouth once daily. - icosapent ethyl (VASCEPA) 0.5 gram capsule Take 2 g by mouth twice daily. - gabapentin (NEURONTIN) 600 mg tablet - meloxicam (MOBIC) 15 mg tablet 15 mg. - simvastatin (ZOCOR) 80 mg tablet 80 mg. - amitriptyline (ELAVIL) 25 mg tablet 25 mg. - traZODone (DESYREL) 150 mg tablet 150 mg. - montelukast (SINGULAIR) 10 mg tablet 10 mg. - lisinopril (ZESTRIL, PRINIVIL) 5 mg tablet 5 mg. - DULoxetine (CYMBALTA) 30 mg capsule 90 mg. I have interviewed and examined the patient. I have reviewed the medical record and/or the pre-anesthesia evaluation, pertinent labs, and test results. This contains updated information obtained within 48 hours of Surgery/Procedure. SIGNATURE: Vicente Martin DO PATIENT NAME: Destiny Lester DATE: May 29, 2021 TIME: 7:38 AM CSN: [id number] [facility] BRIEF OP NOTon 05-29-2021 BRIEF OP NOT HNO ID: [id number] Author: Raj Hunter MD Service: Orthopaedic Surgery Author Type: Resident Type: Brief Op Note Filed: 05/29/2021 11:22 AM Note Text: Orthopaedic Surgery Brief Operative Note Log ID: [id number] Surgery/Procedure Date: 05/29/2021 Incision/Procedure Start Time: 8:52 AM Incision Close/Procedure End Time: 10:51 AM Surgeon(s)/Proceduralis t(s) and Field Application Engineer(s): Surgeon(s) and Role: * Miles Washburn, - Primary * Pardeep Francis MD - Assisting * Raj Hunter MD - Resident - Assisting Wedger Machine: Tera Cunningham SA Procedure(s): C3-C6 posterior cervical laminectomy and fusion, harvesting of iliac crest bone graft Anesthesia: General Pre-Op/Pre-Procedure Diagnosis: Cervical myelopathy Post-Op/Post-Procedure Diagnosis: Same Fluids: per anesthesia Estimated Blood Loss: 350cc Munson: Maintain till out of bed Specimens: None Drains: Hemovac drain Findings: See operative report. Complications: None Special medications: 2 g Ancef Assessment: 60 year old male status-post: C3-C6 posterior cervical laminectomy and fusion. Post op plan: - Pain control. - Weight Bearing Status: WBAT BLE . - Immobilization/Dressing (s): Soft dressing, C collar at all times . - Drain(s): Posterior cervical hemovac drain - put drain to gravity POD1 . - PT/OT: Evaluation AND recommendations. - Okay for diet - DVT PPx: SCDs. - Antibiotics: Ancef 2g x Q6H for 24 hours. - Munson: Maintain till out of bed and ambulating . - Imaging: Upright C spine films POD1. - Anticipated Length of Stay/Disposition: pending PT/OT, 2-3 days. Raj Hunter MD Orthopaedic Surgery 05/29/2021 11:14 AM [facility] NURSING PROGon 05-29-2021 NURSING PROG HNO ID: [id number] Author: Hedy Aponte RN Service: Nursing Author Type: Registered Nurse Type: Nursing Progress Note Filed: 05/29/2021 12:51 PM Note Text: Dr. Martin notified of patients BP of 88/58 after 500ml LR bolus. No new orders at this time. Ok to go to floor at this time. [facility] OPERATIVE NOon 05-29-2021 OPERATIVE NO HNO ID: [id number] Author: Pardeep Francis MD Service: Orthopaedic Surgery Author Type: Physician Type: Operative Report Filed: 05/29/2021 11:13 AM Note Text: OPERATIVE/PROCEDURE REPORT LOG ID: [id number] SURGERY/PROCEDURE DATE: 05/29/2021 INCISION/PROCEDURE START TIME: 8:52 AM INCISION CLOSE/PROCEDURE END TIME: SURGEON(S)/PROCEDURALIS T(S) AND INDUSTRIAL RETROFIT DESIGNER(S): Surgeon(s) and Role: * Miles Washburn DO - Primary * Pardeep Francis MD - Assisting * Raj Hunter MD - Resident - Assisting Wedger Machine: Tera Cunningham SA SURGERY/PROCEDURE(S): 1. Posterior cervical laminectomy C3 to C5 with bilateral foraminotomies 2. Posterolateral arthrodesis C3 to C6 3. Posterior segmental fixation C3 to C6 4. Harvesting of iliac crest bone marrow through separate stab incision ANESTHESIA: General SURGERY/PROCEDURE DETAILS: This is a 60-year-old patient who presents for evaluation of neck pain and signs and symptoms of cervical myelopathy. The patient has undergone a variety of radiographic studies demonstrating significant neural compression warranting cervical decompression and stabilization. The patient was felt to be a good candidate for this procedure I assisted Dr. Miles Washburn with posterior cervical laminectomies, posterolateral arthrodesis, posterior segmental fixation C3-C6, and harvesting of iliac crest bone marrow aspirate through separate stab incision. Please see Dr. Miles Washburn's operative report for full details. PRE-OP/PRE-PROCEDURE DIAGNOSIS: Cervial spondylotic myelopathy POST-OP/POST-PROCEDURE DIAGNOSIS: Same as Preop ESTIMATED BLOOD LOSS: 350 mls SPECIMENS: None IMPLANTABLE DEVICES: billie DRAINS: HV x 1 COMPLICATIONS: None PARTICIPATION IN SURGERY/PROCEDURE: I assisted Dr. Miles Washburn due to the complexity of the case. No qualified resident was available SIGNATURE: Pardeep Francis MD PATIENT NAME: Destiny Lester DATE: May 29, 2021 TIME: 10:26 AM [facility] OPERATIVE NO HNO ID: [id number] Author: Miles Washburn DO Service: Orthopaedic Surgery Author Type: Physician Type: Operative Report Filed: 05/29/2021 11:02 AM Note Text: OPERATIVE REPORT LOG ID: [id number] SURGERY/PROCEDURE DATE: 05/29/2021 INCISION/PROCEDURE START TIME: 8:52 AM INCISION CLOSE/PROCEDURE END TIME: SURGEON(S)/PROCEDURALIS T(S) AND INDUSTRIAL RETROFIT DESIGNER(S): Surgeon(s) and Role: * Miles Washburn DO - Primary * Pardeep Francis MD - Assisting * Raj Hunter MD - Resident - Assisting Wedger Machine: Tera Cunningham SA PRE-OPERATIVE DIAGNOSIS: Cervical myelopathy POST-OPERATIVE DIAGNOSIS: same SURGERY/PROCEDURE(S): 1. Posterior cervical laminectomy C3 to C5 with bilateral foraminotomies 2. Posterolateral arthrodesis C3 to C6 3. Posterior segmental fixation C3 to C6 4. Harvesting of iliac crest bone marrow through separate stab incision ANESTHESIA: General INDICATIONS: This is a 60-year-old patient who presents for evaluation of neck pain and signs and symptoms of cervical myelopathy. The patient has undergone a variety of radiographic studies demonstrating significant neural compression warranting cervical decompression and stabilization. The patient was felt to be a good candidate for this procedure. DETAILS OF PROCEDURE: Following the obtaining of full informed consent, the patient was brought to the operating room and underwent induction of general endotracheal anesthesia. The patient was then placed in a Fam head greenskeeper, flipped onto the prone position, and secured to the operating table. The patient was then prepped and draped in the usual sterile manner. Following surgical timeout, a small stab incision was made overlying the iliac crest. A 12-gauge Jamshidi needle was advanced into the right iliac crest following which bone marrow was aspirated and mixed with prefabricated allograft sponge consisting consisting of collagen and calcium triphosphate which was laid aside for later use in the arthrodesis portion of the procedure. Following this, a midline incision was made in the posterior cervical region overlying the spinous processes of the cervical spine. Dissection was carried down through the subcutaneous tissues to expose the cervical dorsal fascia was opened in the midline and carried over the spinous processes bilaterally. The dissection was then carried further laterally to expose the lamina and lateral masses extending from C3 toC6. Once this was done, self-retaining cerebellar retractors were placed along the muscles to provide exposure. Senior Data Analyst holes in the center of the lateral mass of C3, C4, C5, C6 were created with a high-speed bur bilaterally. A drill with guide set to 12 mm was then placed in lateral masses and a tract was created in the standard Magerl technique. The bottoms were palpated with a probe and there was found to be bone at the bottom at every level. Following this, lateral mass screws measuring 3.5 mm in diameter were then placed within each of the pilot plant operator holes except for C4 on the left because it did not fit a good hiram. At this point, the screw heads were aligned and connected with the appropriate length jennifer which was contoured to the appropriate curvature and placed within the slotted screw heads of the fixation points within the cervical spine. The rods were then secured with set screws that were torqued to their final breakoff point. Following this, the posterior laminectomy was performed from C3 to C5. This was done by resecting the spinous processes in question following which midline laminotomies were performed with a high-speed pneumatic bur. Following this, full laminectomy was performed from right to left at each of the aforementioned levels, except for C3 which a dome laminectomy was performed. The lamina of C3 was thinned down with a high-speed bur. The remaining dome portion of the laminectomy was performed with a 3 mm Kerrison. This was taken up to the point of the attachment of ligamentum flavum and there was found to be no compression overlying the dura. Dome laminectomy was performed to maintain the tension band between C2 and C3.. Once the central decompression was performed, we then proceeded to perform foraminotomies at these levels using a 2 mm Kerrison punch. Once the decompression was complete, the posterolateral aspects of the vertebral bodies involved, were decorticated with a high-speed pneumatic bur. They were then layered with a mixture of the bone marrow aspirate, allograft material, and locally harvested autologous laminectomy bone which was cleaned and morselized and added to the mixture. At this point, the wound was copiously irrigated with antibiotic saline. Immaculate hemostasis was achieved in the usual manner. 1 g of vancomycin powder was placed deep to the fascia. A 1/8 inch Hemovac drain was left in place, tunneled out through the skin, and secured with a drain stitch. The wou (more content not included)... Normal [facility] XR CERVICAL 2V AP/LATon - XR CERVICAL 2V AP/LAT * * *Final Report* * * DATE OF EXAM: May 29 2021 10:30AM [facility] 5308 - XR CERVICAL 2V AP/LAT / PROCEDURE REASON: FUSION * * * * Physician Interpretation * * * * EXAM TITLE: INTRAOPERATIVE SPOT VIEWS OF THE CERVICAL SPINE DATE: May 29, 2021 10:13 AM COMPARISON: MRI of the cervical spine from January 09, 2021. CLINICAL INDICATION/HISTORY: The patient is a 58-year-old male with cervical myelopathy with cervical spinal stenosis undergoing posterior decompression and fusion. TECHNIQUE: 0 minutes and 4 seconds of fluoroscopy time was available in the OR. 3 spot films were obtained. Fluoroscopy Radiation dose: Integrated dose-area product (DAP) for this visit = 0.92 mGy*cm. FINDINGS: There is posterior lateral mass fixation screws at C3, C5, and C6 bilaterally along with a right lateral mass fixation screw at C4 with vertical fixation bars. There is resection of the spinous process and lamina at C4 and C5. An endotracheal tube is identified anteriorly. The lower cervical spine is obscured on the lateral view by the shoulder girdle but the visualized portions of the cervical spine appear anatomic. IMPRESSION: Intraoperative spot view documents dorsal decompression and posterior fixation of the cervical spine as described in the body of the report. Loader Malt House: [facility] Transcribe Date/Time: May 29 2021 11:56A Dictated by : CAROLINE HERNANDEZ MD This examination was interpreted and the report reviewed and electronically signed by: CAROLINE HERNANDEZ MD on May 29 2021 12:01PM EST [id number] Normal [facility] XR VERIFY LEVEL [id number] 05-29-2021 XR VERIFY LEVEL C-SPINE-NB * * *Final Report* * * DATE OF EXAM: May 29 2021 9:28AM [facility] 5640 - XR VERIFY LEVEL C-SPINE-NB / PROCEDURE REASON: LEVEL FOR FUSION * * * * Physician Interpretation * * * * EXAMINATION: XR VERIFY LEVEL C-SPINE-NB CLINICAL HISTORY: Cervical fusion Intraoperative localization. Technique: XR VERIFY LEVEL C-SPINE-NB Comparison: MR cervical spine 01/09/2021 RESULT: A single intraoperative lateral view of the cervical spine was obtained for localization. There is a needlelike probe noted with tip overlying the posterior C3-C4 intervertebral disc level. Findings were relayed to the OR via telephone with agreement by Dr. MILES WASHBURN on 05/29/2021 at 9:30 AM. IMPRESSION: Intraoperative localization as described above. Fluoroscopic Radiation Summary: Plane A, Air Kerma: 0.2 mGy Dose Area Product (DAP): Fluoro time: 0:01 min:sec Loader Malt House: [facility] Transcribe Date/Time: May 29 2021 9:34A Dictated by : BRITNI WARREN MD This examination was interpreted and the report reviewed and electronically signed by: BRITNI WARREN MD on May 29 2021 9:35AM EST [id number] [facility] 05-28-2021 CNPN Telephone (AGOR) DESTINY LESTER ([id number]) 1960 M Date Time Provider Department 05/28/21 MILES WASHBURN [facility] During your visit today, we recorded the following information about you: Ab Grace RN 05/28/2021 4:02 PM Signed Spoke with Amber Capps [facility] regarding patient per-surgical lab work. No new orders needed at this time. Allergies As of Date: 05/28/2021 (No Known Allergies) Date Reviewed: 04/30/2021 Reviewed by: Cheryl Whittaker RN - Fully Assessed Reason for Visit: Results [95] Prescriptions as of 05/28/2021 - Comp Stocking,Knee,Regular,S ml (T.E.D. ANTI-EMBOLISM STOCKING) 12 Each q 12 HR. Post operatively - omeprazole (PRILOSEC) 40 mg capsule Take 40 mg by mouth once daily. - icosapent ethyl (VASCEPA) 0.5 gram capsule Take 2 g by mouth twice daily. - gabapentin (NEURONTIN) 600 mg tablet - meloxicam (MOBIC) 15 mg tablet 15 mg. - simvastatin (ZOCOR) 80 mg tablet 80 mg. - amitriptyline (ELAVIL) 25 mg tablet 25 mg. - traZODone (DESYREL) 150 mg tablet 150 mg. - montelukast (SINGULAIR) 10 mg tablet 10 mg. - lisinopril (ZESTRIL, PRINIVIL) 5 mg tablet 5 mg. - DULoxetine (CYMBALTA) 30 mg capsule 90 mg. Problem List As Of Date: 05/28/2021 (None) Encounter Status:Closed by AB GRACE on 05/28/21 Normal [facility] SARS-CoV-2 RNA Resp Ql ALINA+p robinson 05-26-2021 SARS-CoV-2 (COVID-19) RNA ALINA+probe Ql (Resp) COVID 19 RESULT: SARS-CoV-2 (Agent of COVID-19) Not Detected by RT-PCR or equivalent method. This test was developed and its performance characteristics determined by [facility] [place]. This test has been authorized by FDA under an Emergency Use Authorization (EUA). This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 Date Time Vital Sign Value Performing Clinician Faci lity 07-11-2024 13:20-0400 Diastolic Blood Pressure Non-Invasive 69 mm[Hg] SLOANE FROMMELT DO [facility] 07-11-2024 13:20-0400 Heart rate 98 /min SLOANE FROMMELT DO [facility] 07-11-2024 13:20-0400 Respiratory rate 18 /min SLOANE FROMMELT DO [facility] 07-11-2024 13:20-0400 Systolic Blood Pressure Non-Invasive 105 mm[Hg] SLOANE FROMMELT DO [facility] 07-11-2024 12:22-0400 Heart rate 100 /min SLOANE FROMMELT DO [facility] 07-11-2024 12:22-0400 Respiratory rate 20 /min SLOANE FROMMELT DO [facility] 07-11-2024 12:08-0400 Heart rate 97 /min SLOANE FROMMELT DO [facility] 07-11-2024 12:08-0400 Respiratory rate 20 /min SLOANE FROMMELT DO [facility] 07-11-2024 11:59-0400 Heart rate 95 /min SLOANE FROMMELT DO [facility] 07-11-2024 11:43-0400 Body height 175.3 cm SLOANE OHARA DO [facility] 07-11-2024 11:43-0400 Body temperature 97.7 [degF] SLOANE OHARA DO [facility] 07-11-2024 11:43-0400 Body weight 81.8 kg SLOANE OHARA DO [facility] 07-11-2024 11:43-0400 Diastolic Blood Pressure Non-Invasive 80 mm[Hg] SLOANE OHARA DO [facility] 07-11-2024 11:43-0400 Systolic Blood Pressure Non-Invasive 121 mm[Hg] SLOANE OHARA DO [facility] 03-31-2024 14:15-0500 Diastolic Blood Pressure Non-Invasive 87 mm[Hg] GETACHEW FOSTER MD [facility] 03-31-2024 14:15-0500 Heart rate 62 /min GETACHEW FOSTER MD [facility] 03-31-2024 14:15-0500 Systolic Blood Pressure Non-Invasive 111 mm[Hg] GETACHEW FOSTER MD [facility] 03-31-2024 14:11-0500 Diastolic Blood Pressure Non-Invasive 82 mm[Hg] GETACHEW FOSTER MD [facility] 03-31-2024 14:11-0500 Systolic Blood Pressure Non-Invasive 117 mm[Hg] GETACHEW FOSTER MD [facility] 03-31-2024 14:03-0500 Diastolic Blood Pressure Non-Invasive 87 mm[Hg] GETACHEW FOSTER MD [facility] 03-31-2024 14:03-0500 Heart rate 67 /min GETACHEW FOSTER MD [facility] 03-31-2024 14:03-0500 Systolic Blood Pressure Non-Invasive 108 mm[Hg] GETACHEW FOSTER MD [facility] 03-31-2024 13:56-0500 Heart rate 61 /min GETACHEW FOSTER MD [facility] 03-31-2024 13:40-0500 Body temperature 96.8 [degF] GETACHEW FOSTER MD [facility] 03-31-2024 12:52-0500 Respiratory rate 15 /min GETACHEW FOSTER MD [facility] 03-31-2024 12:49-0500 Body height 174.3 cm GETACHEW FOSTER MD [facility] 03-31-2024 12:49-0500 Body weight 82 kg GETACHEW FOSTER MD [facility] 03-31-2024 12:49-0500 Body weight 26.99 kg/m2 GETACHEW FOSTER MD [facility] 02-28-2024 16:19-0500 Diastolic Blood Pressure Non-Invasive 72 mm[Hg] DR MAY JEAN DO [facility] 02-28-2024 16:19-0500 Heart rate 69 /min DR MAY JEAN DO [facility] 02-28-2024 16:19-0500 Mean blood pressure 88 mm[Hg] DR MAY JEAN DO [facility] 02-28-2024 16:19-0500 Respiratory rate 18 /min DR MAY JEAN DO [facility] 02-28-2024 16:19-0500 Systolic Blood Pressure Non-Invasive 119 mm[Hg] DR MAY JEAN DO [facility] 02-28-2024 14:50-0500 Diastolic Blood Pressure Non-Invasive 82 mm[Hg] DR MAY JEAN DO [facility] 02-28-2024 14:50-0500 Heart rate 71 /min DR MAY JEAN DO [facility] 02-28-2024 14:50-0500 Mean blood pressure 91 mm[Hg] DR MAY JEAN DO [facility] 02-28-2024 14:50-0500 Respiratory rate 17 /min DR MAY JEAN DO [facility] 02-28-2024 14:50-0500 Systolic Blood Pressure Non-Invasive 112 mm[Hg] DR MAY JEAN DO [facility] 02-28-2024 14:18-0500 Diastolic Blood Pressure Non-Invasive 73 mm[Hg] DR MAY JEAN DO [facility] 02-28-2024 14:18-0500 Heart rate 77 /min DR MAY JEAN DO [facility] 02-28-2024 14:18-0500 Mean blood pressure 82 mm[Hg] DR MAY JEAN DO [facility] 02-28-2024 14:18-0500 Respiratory rate 19 /min DR MAY JEAN DO [facility] 02-28-2024 14:18-0500 Systolic Blood Pressure Non-Invasive 100 mm[Hg] DR MAY JEAN DO [facility] 02-28-2024 13:25-0500 Body height 182.[address] MAY JEAN DO [facility] 02-28-2024 13:25-0500 Body temperature 96.8 [degF] DR MAY JEAN DO [facility] 02-28-2024 13:25-0500 Body weight [address] MAY JEAN DO [facility] 02-28-2024 13:25-0500 Heart rate 77 /min DR MAY JEAN DO [facility] 06-12-2022 16:30-0400 Heart rate 90 /min IZZY FIGUEROA MD [facility] 06-12-2022 16:30-0400 Respiratory rate 18 /min IZZY FIGUEROA MD [facility] 06-12-2022 14:31-0400 Body temperature 97.7 [degF] IZZY FIGUEROA MD [facility] 06-12-2022 14:31-0400 Diastolic Blood Pressure Non-Invasive 84 1 IZZY FIGUEROA MD [facility] 06-12-2022 14:31-0400 Heart rate 93 /min IZZY FIGUEROA MD [facility] 06-12-2022 14:31-0400 Reason For Taking VItal Signs IZZY FIGUEROA MD [facility] 06-12-2022 14:31-0400 Respiratory rate 20 /min IZZY FIGUEROA MD [facility] 06-12-2022 14:31-0400 Systolic Blood Pressure Non-Invasive 121 1 IZZY FIGUEROA MD [facility] 06-12-2022 13:56-0400 Heart rate 89 /min IZZY FIGUEROA MD [facility] 06-12-2022 13:56-0400 Respiratory rate 18 /min IZZY FIGUEROA MD [facility] 06-12-2022 11:04-0400 Body temperature 98.6 [degF] IZZY FIGUEROA MD [facility] 06-12-2022 11:04-0400 Diastolic Blood Pressure Non-Invasive 82 1 IZZY FIGUEROA MD [facility] 06-12-2022 11:04-0400 Heart rate 92 /min IZZY FIGUEROA MD [facility] 06-12-2022 11:04-0400 Reason For Taking VItal Signs IZZY FIGUEROA MD [facility] 06-12-2022 11:04-0400 Systolic Blood Pressure Non-Invasive 140 1 IZZY FIGUEROA MD [facility] 06-12-2022 10:32-0400 Heart rate 86 /min IZZY FIGUEROA MD [facility] 06-12-2022 09:25-0400 Heart rate 87 /min IZZY FIGUEROA MD [facility] 06-12-2022 09:14-0400 Heart rate 74 /min IZZY FIGUEROA MD [facility] 06-12-2022 07:42-0400 Body temperature 97.88 [degF] IZZY FIGUEROA MD [facility] 06-12-2022 07:42-0400 Diastolic Blood Pressure Non-Invasive 77 1 IZZY FIGUEROA MD [facility] 06-12-2022 07:42-0400 Heart rate 83 /min IZZY FIGUEROA MD [facility] 06-12-2022 07:42-0400 Reason For Taking VItal Signs IZZY FIGUEROA MD [facility] 06-12-2022 07:42-0400 Systolic Blood Pressure Non-Invasive 127 1 IZZY FIGUEROA MD [facility] 06-12-2022 04:30-0400 Heart rate 76 /min IZZY FIGUEROA MD [facility] 06-11-2022 14:41-0400 Body height 175 cm IZZY FIGUEROA MD [facility] 06-11-2022 14:41-0400 Body weight 93.2 kg IZZY FIGUEROA MD [facility] 06-11-2022 14:41-0400 Body weight 30.43 kg/m2 IZZY FIGUEROA MD [facility] 06-11-2022 13:31-0400 Body temperature 96.8 [degF] IZZY FIGUEROA MD [facility] 06-11-2022 10:35-0400 Body temperature 95.9 [degF] IZZY FIGUEROA MD [facility] 06-11-2022 10:35-0400 Respiratory Rate - Anes 0 br/min IZZY FIGUEROA MD [facility] 06-11-2022 10:30-0400 Respiratory Rate - Anes 0 br/min IZZY FIGUEROA MD [facility] 06-11-2022 10:25-0400 Respiratory Rate - Anes 3 br/min IZZY FIGUEROA MD [facility] 06-11-2022 06:51-0400 Body height 175 cm IZZY FIGUEROA MD [facility] 06-11-2022 06:51-0400 Body temperature 95.72 [degF] IZZY FIGUEROA MD [facility] 06-11-2022 06:51-0400 Body weight 93.2 kg IZZY FIGUEROA MD [facility] 05-28-2022 10:12-0400 Body height 175 cm IZYZ FIGUEROA MD [facility] 05-28-2022 10:12-0400 Body weight 93.2 kg IZZY FIGUEROA MD [facility] 11-25-2021 13:51-0400 Body height 175.3 cm Miles Wu DO Work Phone: [facility] 11-25-2021 13:51-0400 Body temperature 97.5 [degF] Miles Wu DO Work Phone: [facility] 11-25-2021 13:51-0400 Body weight 93 kg Miles Wu DO Work Phone: [facility] 11-25-2021 13:51-0400 Diastolic blood pressure 58 mm[Hg] Miles Uw DO Work Phone: [facility] 11-25-2021 13:51-0400 Heart rate 71 /min Miles Wu DO Work Phone: [facility] 11-25-2021 13:51-0400 SaO2% (BldA) [Mass fraction] 94 % Miles Wu DO Work Phone: [facility] 11-25-2021 13:51-0400 Systolic blood pressure 107 mm[Hg] Miles Wu DO Work Phone: [facility] 07-08-2021 10:35-0400 Body height 175.3 cm Miles Wu DO Work Phone: [facility] 07-08-2021 10:35-0400 Body temperature 97.9 [degF] Miles Wu DO Work Phone: [facility] 07-08-2021 10:35-0400 Body weight 85.28 kg Miles Wu DO Work Phone: [facility] 07-08-2021 10:35-0400 Diastolic blood pressure 81 mm[Hg] Miles Wu DO Work Phone: [facility] 07-08-2021 10:35-0400 Heart rate 76 /min Miles Wu DO Work Phone: [facility] 07-08-2021 10:35-0400 SaO2% (BldA) [Mass fraction] 97 % Miles Wu DO Work Phone: [facility] 07-08-2021 10:35-0400 Systolic blood pressure 121 mm[Hg] Miles Wu DO Work Phone: [facility] 06-26-2021 13:05-0400 Body temperature 97.39 [degF] Miguelina Delcid PT Work Phone: [facility] 06-26-2021 13:05-0400 Diastolic blood pressure 70 mm[Hg] Miguelina Delcid PT Work Phone: [facility] 06-26-2021 13:05-0400 Heart rate 71 /min Miguelina Delcid PT Work Phone: [facility] 06-26-2021 13:05-0400 Respiratory rate 16 /min Miguelina Delcid PT Work Phone: [facility] 06-26-2021 13:05-0400 SaO2% (BldA) [Mass fraction] 93 % Miguelina KellyArciniega PT Work Phone: [facility] 06-26-2021 13:05-0400 Systolic blood pressure 100 mm[Hg] Miguelina KellyArciniega PT Work Phone: [facility] 06-23-2021 13:25-0400 Diastolic blood pressure 78 mm[Hg] Brenton Arorar UNIVERSITY EXTENSION SPECIALIST Work Phone: [facility] 06-23-2021 13:25-0400 Heart rate 69 /min Brenton WestJem UNIVERSITY EXTENSION SPECIALIST Work Phone: [facility] 06-23-2021 13:25-0400 SaO2% (BldA) [Mass fraction] 96 % Brenton WestJem UNIVERSITY EXTENSION SPECIALIST Work Phone: [facility] 06-23-2021 13:25-0400 Systolic blood pressure 112 mm[Hg] Brenton WestEjm UNIVERSITY EXTENSION SPECIALIST Work Phone: [facility] 06-23-2021 12:59-0400 Body temperature 97.81 [degF] Brenton WestJem UNIVERSITY EXTENSION SPECIALIST Work Phone: [facility] 06-23-2021 12:59-0400 Respiratory rate 16 /min Brenton WestJem UNIVERSITY EXTENSION SPECIALIST Work Phone: [facility] 06-19-2021 15:10-0400 Diastolic blood pressure 78 mm[Hg] Shira Torri UNIVERSITY EXTENSION SPECIALIST Work Phone: [facility] 06-19-2021 15:10-0400 Heart rate 77 /min Shira Torri UNIVERSITY EXTENSION SPECIALIST Work Phone: [facility] 06-19-2021 15:10-0400 SaO2% (BldA) [Mass fraction] 95 % Shira Torri UNIVERSITY EXTENSION SPECIALIST Work Phone: [facility] 06-19-2021 15:10-0400 Systolic blood pressure 120 mm[Hg] Shira Torri UNIVERSITY EXTENSION SPECIALIST Work Phone: [facility] 06-19-2021 14:33-0400 Body temperature 97.81 [degF] Shira Torri UNIVERSITY EXTENSION SPECIALIST Work Phone: [facility] 06-19-2021 14:33-0400 Respiratory rate 18 /min Shira Torri UNIVERSITY EXTENSION SPECIALIST Work Phone: [facility] 06-16-2021 15:54-0400 Body temperature 98.49 [degF] Eddie White OT/L Work Phone: [facility] 06-16-2021 15:54-0400 Diastolic blood pressure 70 mm[Hg] Eddie White OT/L Work Phone: [facility] 06-16-2021 15:54-0400 Heart rate 76 /min Eddie White OT/L Work Phone: [facility] 06-16-2021 15:54-0400 Respiratory rate 16 /min Eddie White OT/L Work Phone: [facility] 06-16-2021 15:54-0400 SaO2% (BldA) [Mass fraction] 92 % Eddie White OT/L Work Phone: [facility] 06-16-2021 15:54-0400 Systolic blood pressure 110 mm[Hg] Eddie White OT/L Work Phone: [facility] 06-10-2021 10:18-0400 Body height 175.3 cm Miles Wu DO Work Phone: [facility] 06-10-2021 10:18-0400 Body temperature 97.81 [degF] Miles Wu DO Work Phone: [facility] 06-10-2021 10:18-0400 Body weight 85.28 kg Miles Wu DO Work Phone: [facility] 06-10-2021 10:18-0400 Diastolic blood pressure 60 mm[Hg] Miles Wu DO Work Phone: [facility] 06-10-2021 10:18-0400 Heart rate 63 /min Miles Wu DO Work Phone: [facility] 06-10-2021 10:18-0400 SaO2% (BldA) [Mass fraction] 95 % Miles Wu DO Work Phone: [facility] 06-10-2021 10:18-0400 Systolic blood pressure 101 mm[Hg] Miles Wu DO Work Phone: [facility] 06-09-2021 14:10-0400 Diastolic blood pressure 76 mm[Hg] Eddie White OT/L Work Phone: [facility] 06-09-2021 14:10-0400 Heart rate 73 /min Eddie White OT/L Work Phone: [facility] 06-09-2021 14:10-0400 Respiratory rate 18 /min Eddie White OT/L Work Phone: [facility] 06-09-2021 14:10-0400 SaO2% (BldA) [Mass fraction] 93 % Eddie White OT/L Work Phone: [facility] 06-09-2021 14:10-0400 Systolic blood pressure 110 mm[Hg] Eddie White OT/L Work Phone: [facility] 06-09-2021 13:34-0400 Body temperature 97.81 [degF] Eddie White OT/L Work Phone: [facility] 06-09-2021 09:31-0400 Diastolic blood pressure 82 mm[Hg] Shira Torri UNIVERSITY EXTENSION SPECIALIST Work Phone: [facility] 06-09-2021 09:31-0400 Heart rate 69 /min Shira Torri UNIVERSITY EXTENSION SPECIALIST Work Phone: [facility] 06-09-2021 09:31-0400 SaO2% (BldA) [Mass fraction] 96 % Shira Torri UNIVERSITY EXTENSION SPECIALIST Work Phone: [facility] 06-09-2021 09:31-0400 Systolic blood pressure 122 mm[Hg] Shira Torri UNIVERSITY EXTENSION SPECIALIST Work Phone: [facility] 06-09-2021 08:59-0400 Body temperature 96.6 [degF] Shira Torri UNIVERSITY EXTENSION SPECIALIST Work Phone: [facility] 06-09-2021 08:59-0400 Respiratory rate 18 /min Shira Torri UNIVERSITY EXTENSION SPECIALIST Work Phone: [facility] 06-06-2021 14:12-0400 Diastolic blood pressure 80 mm[Hg] Eddie White OT/L Work Phone: [facility] 06-06-2021 14:12-0400 Heart rate 77 /min Eddie White OT/L Work Phone: [facility] 06-06-2021 14:12-0400 Respiratory rate 18 /min Eddie White OT/L Work Phone: [facility] 06-06-2021 14:12-0400 SaO2% (BldA) [Mass fraction] 93 % Eddie White OT/L Work Phone: [facility] 06-06-2021 14:12-0400 Systolic blood pressure 104 mm[Hg] Eddie White OT/L Work Phone: [facility] 06-06-2021 13:19-0400 Body temperature 98.2 [degF] Eddie White OT/L Work Phone: [facility] 06-05-2021 09:10-0400 Body temperature 97.9 [degF] Shira Torri UNIVERSITY EXTENSION SPECIALIST Work Phone: [facility] 06-05-2021 09:10-0400 Diastolic blood pressure 70 mm[Hg] Shira Torri UNIVERSITY EXTENSION SPECIALIST Work Phone: [facility] 06-05-2021 09:10-0400 Heart rate 97 /min Shira Torri UNIVERSITY EXTENSION SPECIALIST Work Phone: [facility] 06-05-2021 09:10-0400 Respiratory rate 18 /min Shira Torri UNIVERSITY EXTENSION SPECIALIST Work Phone: [facility] 06-05-2021 09:10-0400 SaO2% (BldA) [Mass fraction] 94 % Shira Torri UNIVERSITY EXTENSION SPECIALIST Work Phone: [facility] 06-05-2021 09:10-0400 Systolic blood pressure 110 mm[Hg] Shira Torri UNIVERSITY EXTENSION SPECIALIST Work Phone: [facility] 06-03-2021 14:35-0400 Body temperature 98.29 [degF] Eddie White OT/L Work Phone: [facility] 06-03-2021 14:35-0400 Diastolic blood pressure 76 mm[Hg] Eddie White OT/L Work Phone: [facility] 06-03-2021 14:35-0400 Heart rate 89 /min Eddie White OT/L Work Phone: [facility] 06-03-2021 14:35-0400 Respiratory rate 16 /min Eddie White OT/L Work Phone: [facility] 06-03-2021 14:35-0400 SaO2% (BldA) [Mass fraction] 92 % Eddie White OT/L Work Phone: [facility] 06-03-2021 14:35-0400 Systolic blood pressure 110 mm[Hg] Eddie White OT/L Work Phone: [facility] 06-02-2021 10:26-0400 Body temperature 98.4 [degF] Miguelina Sinclair-Demian PT Work Phone: [facility] 06-02-2021 10:26-0400 Diastolic blood pressure 74 mm[Hg] Miguelina Sinclair-Demian PT Work Phone: [facility] 06-02-2021 10:26-0400 Heart rate 75 /min Miguelina Sinclair-Demian PT Work Phone: [facility] 06-02-2021 10:26-0400 Respiratory rate 18 /min Miguelina Sinclair-Demian PT Work Phone: [facility] 06-02-2021 10:26-0400 SaO2% (BldA) [Mass fraction] 93 % Miguelina AikenbarbarasebastianElma PT Work Phone: [facility] 06-02-2021 10:26-0400 Systolic blood pressure 108 mm[Hg] Miguelina AikenbarbarasebastianElma PT Work Phone: [facility] 05-22-2021 14:08-0400 Body height 172.7 cm [address] 1 [facility] 05-22-2021 14:08-0400 Body temperature 98.01 [degF] Pst [facility] 05-22-2021 14:08-0400 Body weight 92.99 kg Pst 1 [facility] 05-22-2021 14:08-0400 Diastolic blood pressure 75 mm[Hg] Pst 1 [facility] 05-22-2021 14:08-0400 Heart rate 84 /min Pst 1 [facility] 05-22-2021 14:08-0400 Respiratory rate 18 /min Pst [address] [facility] 05-22-2021 14:08-0400 SaO2% (BldA) [Mass fraction] 94 % Pst 1 [facility] 05-22-2021 14:08-0400 Systolic blood pressure 123 mm[Hg] Pst 1 [facility] 04-26-2020 10:24-0500 Body Temperature 98.01 [degF] [facility] tiki 04-26-2020 10:24-0500 Body weight 91.63 kg [facility] 04-26-2020 10:24-0500 BP Diastolic 80 mm[Hg] [facility] 04-26-2020 10:24-0500 BP Systolic 122 mm[Hg] [facility] 04-26-2020 10:24-0500 Height 170.2 cm [facility] 04-26-2020 10:24-0500 Pulse (Heart Rate) 66 /min [facility] 04-26-2020 10:24-0500 Pulse Oximetry 94 % [facility] 04-26-2020 10:24-0500 Respiratory Rate 16 /min [facility] tiki 01-03-2020 10:41-0500 Body weight 91.81 kg [facility] 01-03-2020 10:41-0500 BP Diastolic 81 mm[Hg] [facility] 01-03-2020 10:41-0500 BP Systolic 140 mm[Hg] [facility] 01-03-2020 10:41-0500 Height 170.2 cm [facility] 01-03-2020 10:41-0500 Pulse (Heart Rate) 71 /min [facility] linic 01-03-2020 10:41-0500 Respiratory Rate 18 /min [facility] Cli tiki Encounters Encounter Date Encounter Type Care Provider Facility Start: 10-04-2024 ambulatory KYAW MAST Facility:[facility] Start: 10-01-2024 End: 10-01-2024 Emergency department patient visit BETO LOWELL ELIAS [facility] Start: 09-19-2024 End: 09-23-2024 ambulatory KYAW MAST CLINICAL GENETICIST-ESTIMATION MANAGER Facility:[facility] Start: 09-19-2024 End: 09-23-2024 Outreach Lab KYAW MAST CLINICAL GENETICIST-ESTIMATION MANAGER [facility] Start: 09-12-2024 End: 09-12-2024 ambulatory MARIANO FISH CLINICAL GENETICIST-ESTIMATION MANAGER Facility:[facility] Start: 09-12-2024 End: 09-12-2024 Patient encounter procedure MARIANO HERNANDEZ CLINICAL GENETICIST-ESTIMATION MANAGER [facility] Start: 08-25-2024 ambulatory KYAW MAST CLINICAL GENETICIST-ESTIMATION MANAGER Fa cility:[facility] Start: 07-13-2024 End: 07-13-2024 ambulatory KYAW MAST CLINICAL GENETICIST-ESTIMATION MANAGER [facility] Start: 07-13-2024 End: 07-13-2024 Patient encounter procedure BRIANA ARIAS CLINICAL GENETICIST-ESTIMATION MANAGER [facility] Start: 07-11-2024 End: 07-11-2024 Emergency department patient visit SLOANE OHARA DO [facility] Start: 07-07-2024 End: 07-07-2024 ambulatory KYAW MAST CLINICAL GENETICIST-ESTIMATION MANAGER Facility:[facility] Start: 07-07-2024 End: 07-07-2024 Patient encounter procedure ROCHELLE PECK MD [facility] Start: 06-27-2024 End: 06-27-2024 ambulatory KYAW MAST CLINICAL GENETICIST-ESTIMATION MANAGER Facility:[facility] Start: 06-27-2024 End: 06-27-2024 Patient encounter procedure KYAW MAST CLINICAL GENETICIST-ESTIMATION MANAGER [facility] Start: 04-25-2024 End: 05-15-2024 ambulatory KYAW MAST CLINICAL GENETICIST-ESTIMATION MANAGER Facility:[facility] Start: 04-19-2024 End: 04-23-2024 ambulatory KYAW MAST CLINICAL GENETICIST-ESTIMATION MANAGER Facility:[facility] Start: 03-31-2024 End: 03-31-2024 ambulatory GETACHEW FOSTER MD Facility:[facility] Start: 03-31-2024 End: 03-31-2024 SAME DAY STAY GETACHEW FOSTER MD [facility] Start: 02-28-2024 End: 02-28-2024 Emergency department patient visit DR MAY JEAN DO [facility] Start: 02-15-2024 End: 02-15-2024 ambulatory KYAW MAST CLINICAL GENETICIST-ESTIMATION MANAGER Facility:[facility] Start: 02-15-2024 End: 02-15-2024 Patient encounter procedure KYAW MAST CLINICAL GENETICIST-ESTIMATION MANAGER [facility] Start: 05-10-2023 End: 05-11-2023 ambulatory LAVON HAUSER MD Facility:[facility] Start: 10-23-2022 End: 10-24-2022 ambulatory LAVON HAYLIE DO Facility:[facility] Start: 10-23-2022 End: 10-23-2022 Patient encounter procedure LAVON STALLINGS DO [facility] Start: 06-11-2022 End: 06-12-2022 ambulatory IZZY FIGUEROA MD Facility:[facility] Start: 06-11-2022 End: 06-12-2022 Observation IZZY FIGUEROA MD [facility] Start: 05-28-2022 End: 05-29-2022 ambulatory IZZY FIGUEORA MD Facility:[facility] Start: 05-28-2022 End: 05-28-2022 Admission to establishment IZZY FIGUEROA MD [facility] Start: 04-14-2022 End: 04-14-2022 Patient encounter procedure LAVON STALLINGS DO [facility] Start: 11-25-2021 End: 11-25-2021 ambulatory MILES WASHBURN Facility[facility] Start: 11-25-2021 End: 11-25-2021 Patient encounter procedure Miles Washburn DO Work Phone: [facility] Comment on above: Cervical myelopathy (HCC) (Primary Dx) Start: 11-25-2021 End: 11-25-2021 Subsequent hospital visit by physician Xr [facility] [place] [employer] 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 Comment on above: Cervical myelopathy (HCC) [G95.9] Start: 08-19-2021 End: 08-19-2021 ambulatory MILES CAMACOHON Facility:[facility] Start: 08-19-2021 End: 08-19-2021 Subsequent hospital visit by physician Xr [facility] [place] [employer] 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 Comment on above: History of cervical spinal surgery [Z98.890] Start: 07-08-2021 End: 07-08-2021 ambulatory MILES P WU Facility[facility] Start: 07-08-2021 End: 07-08-2021 Patient encounter procedure Miles Washburn DO Work Phone: [facility] Comment on above: Cervical myelopathy (HCC) (Primary Dx) Start: 07-08-2021 End: 07-08-2021 Subsequent hospital visit by physician Xr [facility] [place] [employer] 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 Comment on above: Cervical myelopathy (HCC) [G95.9] Start: 06-26-2021 Telephone encounter Miguelina Delcid PT Work Phone: [facility] Comment on above: Home Care (agency d/ c ) Start: 06-26-2021 End: 06-26-2021 Home visit Miguelina Delcid PT Work Phone: [facility] Comment on above: PT AGENCY DC W VISIT Start: 06-23-2021 End: 06-23-2021 Home visit Brenton Parish UNIVERSITY EXTENSION SPECIALIST Work Phone: [facility] Comment on above: UNIVERSITY EXTENSION SPECIALIST ROUTINE Start: 06-19-2021 End: 06-19-2021 Home visit Shira Wild UNIVERSITY EXTENSION SPECIALIST Work Phone: [facility] Comment on above: UNIVERSITY EXTENSION SPECIALIST ROUTINE Start: 06-17-2021 Telephone encounter Eddie allen OT/L Work Phone: [facility] Comment on above: Home Care (d/c OT) Start: 06-16-2021 End: 06-16-2021 Home visit Eddie Wick OT/L Work Phone: [facility] Comment on above: OT DISC DC W VISIT Start: 06-10-2021 End: 06-10-2021 Subsequent hospital visit by physician Xr [facility] [place] [employer] 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 Comment on above: History of cervical spinal surgery [Z98.890] Refill Request (pain medician) Start: 06-10-2021 End: 06-10-2021 ambulatory MILES WASHBURN Facility[facility] Start: 06-10-2021 End: 06-10-2021 Patient encounter procedure Miles Washburn DO Work Phone: [facility] Comment on above: Cervical myelopathy (HCC) (Primary Dx); History of cervical spinal surgery Start: 06-09-2021 Telephone encounter Eddie allen OT/L Work Phone: [facility] Comment on above: Home Care (OT evalua tion) Start: 06-09-2021 End: 06-09-2021 Home visit Shira Wild UNIVERSITY EXTENSION SPECIALIST Work Phone: [facility] Comment on above: UNIVERSITY EXTENSION SPECIALIST ROUTINE OT ROUTINE Start: 06-06-2021 End: 06-06-2021 Home visit Eddiesammy Wick OT/L Work Phone: [facility] Comment on above: OT ROUTINE Start: 06-05-2021 End: 06-05-2021 Home visit Shira Wild UNIVERSITY EXTENSION SPECIALIST Work Phone: [facility] Comment on above: UNIVERSITY EXTENSION SPECIALIST ROUTINE Start: 06-04-2021 Telephone encounter Miles Robertson lauraapollo DO Work Phone: [facility] Comment on above: [employer] 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 Start: 06-03-2021 End: 06-03-2021 Home visit Eddie Wick OT/L Work Phone: [facility] Comment on above: OT EVAL Start: 06-02-2021 Telephone encounter Miguelina Delcid PT Work Phone: [facility] Comment on above: Home Care (admit to home care ) Start: 06-02-2021 End: 06-02-2021 Home visit Miguelina Delcid PT Work Phone: [facility] Comment on above: PT SOC Start: 05-29-2021 End: 05-31-2021 Evaluation and management of inpatient MILES WASHBURN Facility:[facility] Start: 05-28-2021 Telephone encounter Miles Robertson lauraon DO Work Phone: [facility] Comment on above: Results Start: 05-23-2021 Telephone encounter Olegario pandey CLINICAL GENETICIST.ESTIMATION MANAGER Work Phone: [facility] Comment on above: Pre-Op Update Start: 05-22-2021 End: 05-23-2021 ambulatory MILES WASHBURN [facility] Start: 05-22-2021 End: 05-22-2021 Subsequent hospital visit by physician Denise Miles [facility] Comment on above: Presurgical Testing Start: 05-22-2021 End: 05-22-2021 Admission to [address] [facility] Start: 05-22-2021 End: 05-22-20[address] P[address] 1 Pre Surgical Testing Comment on above: Pre-op testing (Prim tom Dx); Disc displacement, lumbar; Cervical myelopathy (HCC); Primary hypertension; Mixed hyperlipidemia Start: 05-22-2021 End: 05-22-2021 Patient encounter status Pst 1 Pre Surgical Te sting Start: 03-27-2021 End: 03-27-2021 Patient encounter procedure MARIANO HERNANDEZ CLINICAL GENETICIST-ESTIMATION MANAGER [facility] Start: 03-24-2021 End: 03-25-2021 ambulatory MILES WASHBURN Facility:[facility] Start: 03-24-2021 End: 03-25-2021 ambulatory MILES WASHBURN [facility] Start: 03-24-2021 Encounter for other preprocedural examination MILES WASHBURN [facility] Start: 03-10-2021 ambulatory MILES WASHBURN [facility] Start: 03-04-2021 End: 03-04-2021 ambulatory MILES WASHBURN [facility] Start: 02-11-2021 End: 02-11-2021 ambulatory MILES WASHBURN [facility] Start: 01-09-2021 ambulatory ANGIE Ewa RAFFY [facility] Start: 04-26-2020 End: 04-26-2020 Patient encounter procedure Shakeel Torres Work Phone: [facility] Comment on above: Polyneuropathy, juana pheral sensorimotor axonal (Primary Dx) Start: 04-26-2020 End: 04-26-2020 Subsequent hospital visit by physician Xr [facility] [place] [employer] 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 Comment on above: Disc displacement, 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] Start: 01-18-2020 End: 01-18-2020 Patient encounter procedure External Provider [facility] Start: 01-18-2020 Results Only External Provider Exter nal-Non[facility]F Start: 01-05-2020 End: 01-05-2020 Patient encounter procedure External Provider [facility] Start: 01-05-2020 Results Only External Provider Exter nal-NonCCF Start: 01-03-2020 End: 01-03-2020 Patient encounter procedure Shakeel Peralesmary ann Brian Work Phone: [facility] Comment on above: Disc displacement, l umbar (Primary Dx) Procedures Date Procedure Procedure Detail Performing Clinician Start: 03-31-2024 PM Transforaminal In j L/S Sng LV with fluoro SN 1 GETACHEW FOSTER MD Comment on above: auto-populated from documented surgical case Start: 06-11-2022 History of hernia repair LAVON STALLINGS DO Comment on above: ROBOTIC ASSISTED KAREEN TRAL AND UMBILICAL HERNIA REPAIR WITH PREPERITONEAL MESH Start: 08-19-2021 Radex spine cervical 2 or 3 views Miles Washburn DO Work Phone: Start: 07-08-2021 Radex spine cervical 2 or 3 views Miles Washburn DO Work Phone: Start: 06-10-2021 Radex spine cervical 2 or 3 views Miles Washburn DO Work Phone: Start: 05-22-2021 Antibody screen MILES WASHBURN Comment on above: Order Comment: Speci men Type: BLOOD SPECIMENOrdering Facility: [facility] Address: [address] [place] [address] [place] [address] Performed By: #### T [id number] ####[facility]ANK[facility]IA [id number] [place] [address] [place] Start: 05-22-2021 Radiologic exam ches t 2 views Miles Washburn DO Work Phone: Start: 03-24-2021 Antibody screen MILES WASHBURN Comment on above: Order Comment: Speci men Type: BLOOD SPECIMEN Performed By: #### T [id number] #### [facility] CLIA [id number] [place] [address] [place] Start: 04-26-2020 Radex spine lumbosac ral minimum 4 views Shakeel Smith Brian Work Phone: Start: 01-18-2020 EXTERNAL PROCEDURE Exte rnal Provider Start: 01-05-2020 End: 01-05-2020 EXTERNAL IMAGING External Provider Start: 11-28-2019 Local anesthetic fac et joint nerve block MARIANO RAZ CLINICAL GENETICIST-ESTIMATION MANAGER Start: 10-24-2019 Lumbar epidural ster oid injection MARIANO RAZ CLINICAL GENETICIST-ESTIMATION MANAGER Start: 03-01-2013 Coronary artery bypass graft MARIANO RAZ CLINICAL GENETICIST-ESTIMATION MANAGER Comment on above: In [place] Cervical (qualifier value) M REYMUNDO FIGUEROA MD Comment on above: fusion Nasal septoplasty MARIANO BARNETT SH CLINICAL GENETICIST-ESTIMATION MANAGER Operation on brain MARIANO Chrissy STEVE CLINICAL GENETICIST-ESTIMATION MANAGER Comment on above: States 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 Tonsillectomy MARIANO RAZ A PRN-ESTIMATION MANAGER Plan of Treatment Date Care Activity Detail Author Start: 05-30-2024 DIABETES SCREEN DIAB[address]ES SCREEN [facility] Start: 05-22-2024 DIABETES SCREEN DIABETES SCREEN [facility] Start: 03-24-2024 DIABETES SCREEN DIABETES SCREEN [facility] Start: 10-30-2021 Influenza vaccination INFLUENZA (#1) [facility] Start: 03-29-2021 COVID-19 VACCINE (3 - Booster for Moderna series) COVID-19 VACCINE (3 - Booster for Moderna series) [facility] Start: 03-01-2021 DEPRESSION ASSESSMENT DEPRESSION ASS ESSMENT [facility] Start: 12-22-2020 COVID-19 VACCINE (3 - Booster for Moderna series) COVID-19 VACCINE (3 - Booster for Moderna series) [facility] Start: 10-31-2019 Influenza vaccination INFLUENZA (#1) [facility] Start: 2017 PROSTATE CANCER SCREENING DISCUSSION PROSTATE CANCER SCREENING DISCUSSION [facility] Start: 2012 COLORECTAL CANCER SCREENING,SEE MODIFIER COLORECTAL CANCER SCREENING,SEE MODIFIER [facility] Start: 2012 Screening for malign ant neoplasm of colon [facility] Start: 2012 SHINGRIX VACCINE (1 of 2) SHINGRIX VACCINE (1 of 2) [facility] Start: 2012 Tuberculosis screening COLOREC ADRIA CANCER SCREENING,SEE MODIFIER [facility] Start: 11-03-2007 COLOGUARD (FIT-DNA) COLOGUARD (FIT-D NA) [facility] Start: 11-03-2007 Colonoscopy COLONOSCOPY [facility] Start: 11-03-2007 COLORECTAL CANCER SCREENING COLORECTAL CANCER SCREENING [facility] Start: 11-03-[address] COLONOGRAPHY [facility] Start: 11-03-2007 DIABETES SCREEN DIABETES SCREEN [facility] Start: 11-03-2007 FECAL OCCULT BLOOD FECAL OCCULT BLOO D [facility] Start: 11-03-2007 SIGMOIDOSCOPY SIGMOIDOSCOPY [facility] Start: 1997 LIPID SCREEN LIPID SCREEN [facility] Start: 1981 Urine microalbumin profile DTAP,TDAP,TD (1 - Tdap) [facility] Start: 1980 HEPATITIS C SCREENING HEPATITIS C SC MATILDE [facility] Start: 1980 HIV SCREENING HIV SCREENING [facility] Start: 1974 Adult depression screening assessment DEPRESSION SCREENING [facility] Start: 1968 PNEUMOCOCCAL (1 - PCV) PNEUMOCOCCAL (1 - PCV) [facility] Start: 1962 HEPATITIS B (1 of 3 - 3-dose series) HEPATITIS B (1 of 3 - 3-dose series) [facility] End: 01-02-2021 EMG(NEURO/NI) EMG(NEURO/NI) EMG Routine Disc displacement, lumbar 1 Occurrences starting 01/03/2020 until 01/02/2021 [facility] Comment on above: 1 Occurrences starti ng 01/03/2020 until 01/02/2021 Radex spine cervical 2 or 3 views XR CERV GENERAL 2V AP/LAT Radiology Routine Cervical myelopathy (HCC) 07/08/2021 10:23 AM EDT [facility] Work Phone: Radex spine cervical 2 or 3 views XR CERV GENERAL 2V AP/LAT Radiology Routine History of cervical spinal surgery 08/19/2021 1:04 PM EDT [facility] Work Phone: End: 11-25-2021 Radex spine cervical 2 or 3 views [facility] Work Phone: Comment on above: 1 Occurrences starti ng 11/25/2021 until 11/25/2021 End: 12-25-2022 Radex spine cervical 4 or 5 views XR CERV OTHER 4V AP/LAT/OBL Radiology Routine Cervical myelopathy (HCC) 1 Occurrences starting 11/25/2021 until 12/25/2022 [facility] Work Phone: Comment on above: 1 Occurrences starti ng 11/25/2021 until 12/25/2022 End: 02-01-2021 Radex spine lumbosacral minimum 4 views XR LUMBAR MOTION 4V AP/LAT/ FLEX/EXT Radiology Routine Disc displacement, lumbar 1 Occurrences starting 01/03/2020 until 02/01/2021 [facility] Comment on above: 1 Occurrences starti ng 01/03/2020 until 02/01/2021 STAPH AUREUS PCR STAPH AUREUS PC R Lab Routine Disc displacement, lumbar 05/22/2021 3:09 PM EDT [facility] Work Phone: [facility] Immunizations Immunization Date Immunization Notes Care Provider [facility] 03-06-2022 influenza virus vacc ine, unspecified formulation IZZY FIGUEROA MD [facility] 09-13-2021 zoster vaccine recombinant IZZY FIGUEROA MD [facility] 12-16-2020 influenza virus vacc ine, unspecified formulation MARIANO FISH CLINICAL GENETICIST-ESTIMATION MANAGER [facility] 10-27-2020 SARS-CoV-2 (COVID-19 ) mRNA-1273 vaccine MARIANO FISH CLINICAL GENETICIST-ESTIMATION MANAGER [facility] Comment on above: Result Comment: 2021: [id number] 09-28-2020 SARS-CoV-2 (COVID-19 ) mRNA-1273 vaccine MARIANO FISH CLINICAL GENETICIST-ESTIMATION MANAGER [facility] Comment on above: Result Comment: 2021: [id number] 05-10-2018 pneumococcal polysaccharide vaccine, 23 valent MARIANO FISH CLINICAL GENETICIST-ESTIMATION MANAGER [facility] 02-01-2017 tetanus toxoid, redu edgar diphtheria toxoid, and acellular pertussis vaccine, adsorbed MARIANO FISH CLINICAL GENETICIST-ESTIMATION MANAGER [facility] 12-26-2013 influenza, seasonal, injectable MARIANO FISH CLINICAL GENETICIST-ESTIMATION MANAGER [facility] Payers Date Payer Category Payer Self-pay 2024 Medicaid [id number] 2024 Private Health Insurance [id number] 2024 Private Health Insurance [id number] 2022 Medicare [id number] 2020 Medicaid [id number] 2019 Medicare [id number] 2019 Medicare [employer] PATI CABALL[employer]ARE [employer] MEDICARE [id number] 2019-Present [phone] [address] [place] [address] Medicare [id number] 2019 Medicare [id number] 1962 Unknown [id number] 2.16.840.1.582253.3.579.2. 1962 Unknown [id number] 2.16.840.1.522717.3.579.2 1962 Unknown [id number] 2.16.840.1.137918.3.579.2. 1962 Unknown [id number] 2.16.840.1.074694.3.579.2. 1962 Unknown [id number] 2.16.840.1.634503.3.579.2 1962 Unknown [id number] 2.16.840.1.917151.3.579.2. 1962 Unknown [id number] 2.16.840.1.853555.3.579.2. 1962 Unknown [id number] 2.16.840.1.708128.3.579.2. 1962 Unknown [id number] 2.16.840.1.151041.3.579.2. 1962 Unknown [id number] 2.16.840.1.060651.3.579.2. 1962 Unknown [id number] 2.16.840.1.069530.3.579.2. 1962 Unknown [id number] 2.16.840.1.298557.3.579.2. 627 1962 Unknown [id number] 2.16.840.1.654977.3.579.2. 627 1962 Unknown [id number] 2.16.840.1.825320.3.579.2. 627 1962 Unknown [id number] 2.16.840.1.102076.3.579.2. 627 1962 Unknown [id number] 2.16.840.1.704018.3.579.2. 627 1962 Unknown [id number] 2.16.840.1.000094.3.579.2. 627 Unknown [id number] 2.16.840.1.434553.3.579.2. 462 Social History Date Type Detail Facility Start: 01-03-2020 [facility] Start: 1960 Sex Assigned At Not on file [facility] Start: 05-12-2021 End: 11-25-2021 Exposure to SARS-CoV-2 (event) Not sure [facility] Start: 04-26-2020 [facility] Current every day smoker [facility] History of tobacco use Cigarette Smoker [facility] Start: 04-26-2020 End: 11-25-2021 Tobacco use and exposure [facility] Start[facility] 04-26-2020 End: 11-25-2021 Alcohol intake Ex-drinker (finding) [facility] Start: 08-31-2019 End: 08-11-2024 Light tobacco smoker (finding) [facility] Sex Assigned At Male [facility] Start: 03-20-2021 End: 11-25-2021 Tobacco Comment 3-4 cig per day [facility] Start: 11-25-2021 Tobacco [facility] Occasional tobacco smoker [facility] Sexual Orientation [facility] Start: 08-24-2018 Sex Male (finding) [facility] Start: 10-01-2024 Tobacco smoking status Heavy t obacco smoker (finding) [facility] Medical Equipment Procedure Code Equipment Code Equipment Origin al Text Equipment Identifier Dates Substitute Mastergraft 10cm Bone Graft Strip 12ml Spine - [id number] Start: 05-29-2021 Jennifer Spnl 55mm 3. 5mm [place] - [id number] Start: 05-29-[address] Spnl Oc t [place] Ns Lf - [id number] Start: 05-29-2021 Screw Bn 3.5mm 1 2mm [employer] Spnl - [id number] Start: 05-29-2021 Functional Status Date Assessment Result Facility 07-11-2024 Functional Status Independent [facility] 07-11-2024 Functional Status Independent [facility] 03-31-2024 Functional Status Maintained, Less than 8 hours [facility] 02-28-2024 Functional Status Independent [facility] 02-28-2024 Functional Status Activity Status ADL [facility] 02-28-2024 Functional Status Independent [facility] 06-12-2022 Functional Status Door open, Room check performed [facility] 06-12-2022 Functional Status Single level home [facility] 06-12-2022 Functional Status 100 [facility] 06-12-2022 Functional Status [facility] 06-12-2022 Functional Status [facility] 06-12-2022 Functional Status Walker [facility] 06-11-2022 Functional Status Sensory Deficits None A [facility] 06-11-2022 Functional Status [facility] 06-11-2022 Functional Status Maintained [facility] 05-28-2022 Functional Status Sensory Deficits None A [facility] Mental Status Date Assessment Result Facility 07-11-2024 Mental Status Orientation Oriented x 4 [facility] 07-11-2024 Mental Status [facility] 02-28-2024 Mental Status Orientation Oriented x 4 [facility] 06-12-2022 Mental Status Oriented x 4 [facility] 06-12-2022 Mental Status [facility] 06-12-2022 Mental Status [facility] Clinical Notes 12-27-2020 to 10-01-2024 Note Date & Type Note Facility 10-01-2024 Hospital Discharg e instructions Patient Education 10/01/2024 16:40:58 Chest Pain, Uncertain Cause Uncertain Causes of Chest Pain Chest pain can happen for a number of reasons. Sometimes the cause can't be determined. If your condition does not seem serious, and your pain does not appear to be coming from your heart, your healthcare provider may recommend watching it closely. Sometimes the signs of a serious problem take more time to appear. Many problems not related to your heart can cause chest pain. These include: Musculoskeletal. Costochondritis is an inflammation of the tissues around the ribs that can occur from trauma or overuse injuries, or a strain of the muscles of the chest wall Respiratory. Pneumonia, collapsed lung (pneumothorax), or inflammation of the lining of the chest and lungs (pleurisy) Gastrointestinal. Esophageal reflux, heartburn, ulcers, or gallbladder disease Anxiety and panic disorders Nerve compression and inflammation Rare miscellaneous problems such as aortic aneurysm (a swelling of the large artery coming out of the heart) or pulmonary embolism (a blood clot in the lungs) Home care After your visit, follow these recommendations: Rest today and avoid strenuous activity. Take any prescribed medicine as directed. Be aware of any recurrent chest pain and notice any changes Follow-up care Follow up with your healthcare provider if you do not start to feel better within 24 hours, or as advised. Call 911 Call 911 if any of these occur: A change in the type of pain: if it feels different, becomes more severe, lasts longer, or begins to spread into your shoulder, arm, neck, jaw or back Shortness of breath or increased pain with breathing Weakness, dizziness, or fainting Rapid heart beat Crushing sensation in your chest When to seek medical advice Call your healthcare provider right away if any of the following occur: Cough with dark colored sputum (phlegm) or blood Fever of 100.4 F (38 C) or higher, or as directed by your healthcare provider Swelling, pain or redness in one leg [id number] [employer]. [address] [place] [address]. All rights reserved. This information is not intended as a substitute for professional medical care. Always follow your healthcare professional's instructions. Follow Up Care 10/01/2024 13:41:14 With:Go to emergency room if symptoms worsen Address:Unknown When:2-4 days With:KYAW CASILLAS Address: [address] [place] [id number] [phone] When:2-4 days With:MARIANO HERNANDEZ Address: [address] [place] [address] [phone] [phone] When:2-4 days [facility] 10-01-2024 Emergency department Discharge summary Discharge Instructions Thank you for allowing [facility] to assist you with your healthcare needs. The following is important discharge information regarding your hospital visit. Diagnosis from Today's Visit Chest pain What to Do Next Instructions from Your Care Team Please be sure to follow-up for your scheduled stress test on Wednesday. Return to the emergency department for any acute worsening symptoms or concerns. No qualifying data available. Post Acute Orders No qualifying data available. You Need to Schedule the Following Appointments Follow Up with Go to emergency room if symptoms worsen When:Within 2-4 days Follow Up with KYAW CASILLAS When:Within 2-4 days Where:[address] [place] [phone] Follow Up with MARIANO HERNANDEZ When:Within 2-4 days Where:[address] [place] [address] [address] [place] [address]- [phone] Allergies NKA Medications Please ask your primary doctor or pharmacist before taking any other medication not listed, including over the counter drugs, herbal medications, vitamins and or supplements as they may interact with your home medications. What How Much When Why Instructions Last Dose Unchanged amitriptyline (amitriptyline 25 mg oral tablet) 1 tab(s) by mouth Daily at bedtime Lumbar back pain with radiculopathy affecting lower extremity Unchanged aspirin (aspirin 81 mg oral delayed release tablet) 1 tab(s) by mouth Every day Unchanged diclofenac (diclofenac sodium 75 mg oral delayed release tablet) 1 tab(s) by mouth Two (2) times a day as needed for as needed for pain Duration: 30 Days Unchanged DULoxetine (DULoxetine 30 mg oral delayed release capsule) 1 cap by mouth Once a day Take along with a 60 mg capsule daily to equal 90 mg Unchanged DULoxetine (DULoxetine 60 mg oral delayed release capsule) 1 cap by mouth Once a day Take along with a 30 mg Daily to equal 90 mg daily. Unchanged escitalopram (escitalopram 10 mg oral tablet) 1 tab(s) by mouth Once a day Unchanged gabapentin (gabapentin 300 mg oral capsule) 1 cap by mouth Three (3) times a day Lumbar radiculopathy Duration: 30 Days Unchanged melatonin Unchanged metoprolol (Lopressor 25mg--USE metoprolol tartrate 25 mg oral tablet) 1 tab(s) by mouth Once a day Unchanged Misc Medication Unchanged omeprazole (omeprazole 40 mg oral delayed release capsule) 1 cap by mouth Once a day Unchanged traZODone (traZODone 150 mg oral tablet) 1 tab(s) by mouth Daily at bedtime Please take this list to your next doctor s visit. Bring all medications you take, including over the counter medications, herbals and other supplements with you to your doctor s visit. Patients and families are reminded to discard old lists and to update any records with all medication providers or retail pharmacies. Education Materials Uncertain Causes of Chest Pain Chest pain can happen for a number of reasons. Sometimes the cause can't be determined. If your condition does not seem serious, and your pain does not appear to be coming from your heart, your healthcare provider may recommend watching it closely. Sometimes the signs of a serious problem take more time to appear. Many problems not related to your heart can cause chest pain. These include: Musculoskeletal. Costochondritis is an inflammation of the tissues around the ribs that can occur from trauma or overuse injuries, or a strain of the muscles of the chest wall Respiratory. Pneumonia, collapsed lung (pneumothorax), or inflammation of the lining of the chest and lungs (pleurisy) Gastrointestinal. Esophageal reflux, heartburn, ulcers, or gallbladder disease Anxiety and panic disorders Nerve compression and inflammation Rare miscellaneous problems such as aortic aneurysm (a swelling of the large artery coming out of the heart) or pulmonary embolism (a blood clot in the lungs) Home care After your visit, follow these recommendations: Rest today and avoid strenuous activity. Take any prescribed medicine as directed. Be aware of any recurrent chest pain and notice any changes Follow-up care Follow up with your healthcare provider if you do not start to feel better within 24 hours, or as advised. Call 911 Call 911 if any of these occur: A change in the type of pain: if it feels different, becomes more severe, lasts longer, or begins to spread into your shoulder, arm, neck, jaw or back Shortness of breath or increased pain with breathing Weakness, dizziness, or fainting Rapid heart beat Crushing sensation in your chest When to seek medical advice Call your healthcare provider right away if any of the following occur: Cough with dark colored sputum (phlegm) or blood Fever of 100.4 F (38 C) or higher, or as directed by your healthcare provider Swelling, pain or redness in one leg [phone] [employer] [address] [place] [address]. All rights reserved. This information is not intended as a substitute for professional medical care. Always follow your healthcare professional's instructions. Additional Information VACCINATE! IT SAVES LIVES! Members of the community who have not yet received the COVID-19 vaccine and would like to receive it can visit one of [facility] vaccine clinics. There are many vaccine clinic locations within the [facility]. For locations and available times, please visit [email or web address] [email or web address] It is important to note that some COVID mobile vaccine clinics are held outdoors and may be canceled in rainy or stormy conditions. To learn more about pediatric vaccinations (ages 5-11), we invite you to visit the [facility] webpage. [email or web address] [email or web address]-Ilzqj-[email or web address]-Freq gsvhlz-[email or web address]-[email or web address] To learn more about the COVID-19 vaccine, we invite you to visit the CDC website for a list of frequently asked questions. https://www.cdc.gov/coronavirus/ 2019-ncov/vaccines/faq.html [facility] Patient Portal Access Instructions: Stay connected with your healthcare team and access your personal medical information anytime with the [facility] Patient Portal. If you would like a full copy of your medical records please contact the [facility] Medical Records Department Wednesday through Wednesday between 8a.m. and 4:30p.m. Please follow the directions below to access the portal: 1.Access the email account you provided upon registration to the [facility].2.Look for an invitation email from [facility].3.Open the email and access the invitation link: Accept Invitation to [facility]4.Fill in the required auguste to create your account. Sign into [email or web address] with your username and password that you created in the above steps to stay up to date. You can then view a summary of results, a summary of your visits, and the ability to download your summaries to your computer or send the information securely to a physician. Remember that your healthcare information is confidential, so carefully consider who you will allow to register on the [facility] Patient Portal for access to your information. You can also access the [facility] Patient Portal on the [employer] ziggy. Simply click on Health Records under Health Data and then click on the [employer] logo. HOW TO SAFELY DISPOSE OF PRESCRIPTION MEDICATIONS Please use one of the following methods to safely dispose of your unused medications. 1.Use a drug disposal kit: the drug disposal pouch allows you to safely discard your old and unused drugs. Ask your nurse to give you one when you are discharged.2.Visit a local take-back location: Many local pharmacies and police departments have programs that collect old and unwanted prescription drugs. Call your local pharmacy or go to http://bit.[employer]/4A9Um7f to find one close to you.3.Make use of household items: Use cat litter or old coffee grounds to dispose medications if other options are not available. Mix your drugs with these household products, seal them in an airtight container and throw it into the garbage. Call [facility]: [phone] to be sure your drugs can be disposed of in this way. Some medicines may require a different approach.4.Never flush your medications down the toilet. IF YOU HAVE BEEN PRESCRIBED AN OPIOIDS FOR PAIN If you have been prescribed an opioid (such as hydrocodone, oxycodone or morphine), it is critical to understand the possible side effects and risks of opioid pain medications. Even when taken as directed, opioids can have several side effects including: Tolerance, meaning you might need to take more of a medication for the same pain relief. Nausea, vomiting and/or constipation. Sleepiness, dizziness, dry mouth, confusion, depression or itching. Physical dependence, meaning you have withdrawal symptoms when a medication is stopped ? this can develop within a few days. KNOW YOUR RESPONSIBILITIES It is important to know exactly how much and how often to take the opioid pain medications you are prescribed. Never take opioids in higher amounts or more often than prescribed. Do not combine opioids with alcohol or other drugs that cause drowsiness, such as benzodiazepines, also known as benzos, including diazepam and alprazolam, muscle relaxants or sleep aids. Never sell or share prescription opioids. This is illegal. Store opioids in a secure place and out of reach of others (including children, family, friends and visitors). The last page(s) of this document has been signed and retained as a CHART COPY Signatures Patient Education Materials Chest Pain, Uncertain Cause Medication Leaflets My discharge plan and instructions have been reviewed and explained to me and I,DESTINY LESTER understand my current condition and have read and understand these discharge instructions. I have received a written copy of the plan/instructions. If I have questions, I am aware that I should contact my doctor. 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 No active alveolar, interstitial, pleural or mediastinal process identified. The skeletal elements remain intact. IMPRESSION: 1. No acute chest process. 2. Non optimal inspiratory effort. Interpreted by: Rickey Anderson DO Preliminary Report By: Rickey Anderson DO Electronically signed By Rickey Anderson DO Dictated Date: 10/01/2024 2:50:38 PM Prelim Date: 10/01/2024 2:51:22 PM Sign Date: 10/01/2024 2:51:22 PM Ordering Provider: BETO ETIENNE [facility]08-03-2025 Note* Exam Date Time Procedure Performing Provider Status 10/01/24 2:00 PM EKG [ED AOH] - CV LOWELLBETO ; Aut h (Verified) ECG Final Report Sinus rhythm Prolonged MS interval Left axis deviation Electronic Signature: LOWELL BETO 10/01/2024 15:53:41 [facility]07-15-2025 Note* Exam Date Time Procedure Performing Provider Status 09/12/24 10:[address] Head or Brain w/o Contrast ROCHELLE JARAMILLO MD; Auth (Verified) [id number] ORIGINAL EXAMINATION: CT OF THE HEAD WITHOUT CONTRAST 09/12/2024 10:51 am TECHNIQUE: CT of the head was performed without the administration of intravenous contrast. Automated exposure control, iterative reconstruction, and/or weight based adjustment of the mA/kV was utilized to reduce the radiation dose to as low as reasonably achievable. COMPARISON: Head CT 11/04/2018. HISTORY: ORDERING SYSTEM PROVIDED HISTORY: Reason for Exam: syncope FINDINGS: BRAIN/VENTRICLES: There is no acute intracranial hemorrhage, mass effect or midline shift. No abnormal extra-axial fluid collection. 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 No acute infarct visible. No posterior fossa lesion. ORBITS: The visualized portion of the orbits demonstrate no acute abnormality. SINUSES: The visualized paranasal sinuses and mastoid air cells demonstrate no acute abnormality. SOFT TISSUES/SKULL: No acute abnormality of the visualized skull or soft tissues. IMPRESSION: No acute findings. Interpreted by: Rochelle Jaramillo Preliminary Report By: Rochelle Jaramillo Electronically signed By Rochelle Jaramillo Dictated Date: 09/12/2024 10:58:54 AM Prelim Date: 09/12/2024 11:01:09 AM Sign Date: 09/12/2024 11:01:09 AM Ordering Provider: MARIANO [facility]05-15-2025 Note* Exam Date Time Procedure Performing Provider Status 07/13/24 11:45 AM MRI Spine Lumbar w/o Contrast KRISTOPHER DELUNA MD; Auth (Verified) [id number] ORIGINAL EXAMINATION: MRI OF THE LUMBAR SPINE WITHOUT CONTRAST, 07/13/2024 11:45 am TECHNIQUE: Multiplanar multisequence MRI of the lumbar spine was performed without the administration of intravenous contrast. COMPARISON: Lumbar spine radiograph 04/27/2023, MRI lumbar spine 10/23/2022 HISTORY: ORDERING SYSTEM PROVIDED HISTORY: Reason for Exam: increased low back pain into left leg FINDINGS: BONES/ALIGNMENT: Lumbar spine vertebral body heights are preserved. Facet joints are in gross anatomic alignment. Spinous processes are grossly intact. There is small endplate concavity with mild disc invagination again seen at inferior L2. There are small vertebral foci of T1/T2 hyperintensity, most compatible with hemangiomas. There are Modic endplate degenerative signal changes at L2-L3, L5-S1. SPINAL CORD: The conus terminates normally. SOFT TISSUES: No paraspinal mass identified. L1-L2: There is minimal grade 1 retrolisthesis of L1. There is mild ligamentum flavum and facet hypertrophy. There is moderate disc space narrowing with central 4 mm disc protrusion. There is mild central canal stenosis. There is mild disc bulge with endplate osteophytes and bilateral foraminal extension. There is no neuroforaminal stenosis. L2-L3: There is grade 1 retrolisthesis of L2. There is mild ligamentum flavum and facet hypertrophy. There is disc bulge with endplate osteophytes and bilateral foraminal extension. There is a right paracentral 5 mm disc protrusion. There is mild-moderate right subarticular stenosis with mild impingement of the traversing right L3 nerve root. There is mild central canal stenosis. There is no neuroforaminal stenosis. L3-L4: There is minimal grade 1 retrolisthesis of L3. Mild disc space narrowing is present. There is mild ligamentum flavum and facet hypertrophy. There is disc bulge with endplate osteophytes and bilateral foraminal extension. There is no central canal stenosis. There is mild left neuroforaminal stenosis. There is right foraminal/lateral 4 mm disc protrusion in close proximity to the exiting extraforaminal right L3 nerve root. There is mild-moderate right neuroforaminal stenosis. L4-L5: Mild disc space narrowing is present. There is grade 1 retrolisthesis of L4. There is mild-moderate ligamentum flavum and facet hypertrophy. There is disc bulge with endplate osteophytes and bilateral foraminal extension, right greater than left. There is mild impingement of the exiting right L3 nerve root and moderate right foraminal stenosis. There is mild-moderate left neuroforaminal stenosis. There is no central canal stenosis. L5-S1: There is grade 1 retrolisthesis of L5. There is moderate-severe posterior disc space narrowing. There is mild-moderate ligamentum flavum and facet hypertrophy. There is disc bulge with endplate osteophytes and bilateral foraminal extension. There is a broad-based central disc protrusion measuring 6 mm AP. There is mild central canal stenosis. There is mild-moderate right neuroforaminal stenosis. There is moderate left neuroforaminal stenosis. IMPRESSION: 1. Multilevel lumbar spondylosis with central canal stenosis as described above. 2. There is mild-moderate right subarticular stenosis with mild impingement of the traversing right L3 nerve root at L2-L3. 3. There is mild-moderate right neuroforaminal stenosis at L3-L4, L4-L5, and L5-S1. There is moderate right neuroforaminal stenosis at L4-L5 and moderate left neuroforaminal stenosis at L5-S1. Interpreted by: Kristopher Deluna Preliminary Report By: Kristopher Deluna Electronically signed By Kristopher Deluna Dictated Date: 07/13/2024 4:52:41 PM Prelim Date: 07/13/2024 5:08:45 PM Sign Date: 07/13/2024 5:08:45 PM Ordering Provider: BRIANA ARIAS [facility]05-13-2025 Hospital Discharge instructions Patient Education 07/11/2024 13:02:06 Acute Bronchitis Acute Bronchitis Your healthcare provider has told you that you have acute bronchitis. Bronchitis is infection or inflammation of the bronchial tubes (airways in the lungs). Normally, air moves easily in and out of the airways. Bronchitis narrows the airways, making it harder for air to flow in and out of the lungs. This causes symptoms such as shortness of breath, coughing up yellow or green mucus, and wheezing.Bronchitis can be acute or chronic. Acute means the condition comes on quickly and goes away in a short time, usually within 3 to 10 days. Chronic means a condition lasts a long time and often comes back. What causes acute bronchitis? Acute bronchitis almost always starts as a viral respiratory infection, such as a cold or the flu. Certain factors make it more likely for a cold or flu to turn into bronchitis. These include being very young, being elderly, having a heart or lung problem, or having a weak immune system. Cigarette smoking also makes bronchitis more likely. When bronchitis develops, the airways become swollen. The airways may also become infected with bacteria. This is known as a secondary infection. Diagnosing acute bronchitis Your healthcare provider will examine you and ask about your symptoms and health history. You may also have a sputum culture to test the fluid in your lungs. Chest X-rays may be done to look for infection in the lungs. Treating acute bronchitis Bronchitis usually clears up as the cold or flu goes away. You can help feel better faster by doingthe following: Take medicine as directed. You may be told to take ibuprofen or other uhro-kfd-thgmnmx medicines. These help relieve inflammation in your bronchial tubes. Your healthcare provider may prescribe an inhaler to help open up the bronchial tubes. Most of the time, acute bronchitis is caused by a viral in fection. Antibiotics are usually not prescribed for viral infections. Drink plenty of fluids, such as water, juice, or warm soup. Fluids loosen mucus so that you can cough it up. This helps you breathe more easily. Fluids also prevent dehydration. Make sure you get plenty of rest. Do not smoke. Do not allow anyone else to smoke in your home. Recovery and follow-up Follow up with your doctor as you are told. You will likely feel better in a week or two. But a drycough can linger beyond that time. Let your doctor know if you still have symptoms (other than a dry cough) after 2 weeks, or if you re prone to getting bronchial infections. Take steps to protect yourself from future infections. These steps include stopping smoking and avoiding tobacco smoke, washing your hands often, and getting a yearly flu shot. When to call your healthcare provider Call the healthcare provider if you have any of the following: Fever of 100.4 F (38.0 C) or higher, or as advised Symptoms that get worse, or new symptoms Trouble breathing Symptoms that don t start to improve within a week, or within 3 days of taking antibiotics 3729-5626 [employer]. [address] [place] [address], [place] [address]. All rights reserved. This information is not intended as a substitute for professional medical care. Always follow yourhealthcare professional's instructions. 07/11/2024 13:01:57 Chronic Lung Disease: Your Emotional Well-Being Chronic Lung Disease: Your Emotional Well-Being When you have chronic lung disease, it s normal to have good days and bad days. Make sure to take care of yourself emotionally, as well as physically. You can take steps to feel more in control of your health and your situation. Remember that your healthcare team, family, and friends are here to help. Don t be afraid to share your feelings and ask for support. Staying in control Chronic lung disease can affect your independence. This can lead to feelings of anger, frustration,anxiety, and depression. The following may help you feel more in control of your life: Keep doing the things you enjoy. When you re planning your day, make sure to include some activities that are just for fun. Stay involved with friends and family. This may mean inviting people over to your house more often.Talk about your feelings with people close to you. Learn as much as you can about your lung disease. The more you know, the more control you ll have. Share what you learn with people close to you. Bring loved ones with you to the healthcare provider.And let them know how they can help with treatment. Follow your treatment plan. Accept that even if you do everything you re supposed to, you ll still have ups and downs. Take an active role in your treatment. Talk to your healthcare provider if you have any concerns orquestions. New treatments are always being developed. If current treatment isn t meeting your needs, other choices may be available. Staying intimate with your partner Even if you use oxygen, having chronic lung disease doesn t mean you have to give up being intimate. Keep the following in mind: You and your partner may both feel better if you communicate your feelings and concerns. Don t be afraid to talk with your healthcare provider, too. Sex may feel better if you wait until you re rested. Use positions that need less energy, such as lying on your side or your back. Prepare for sex as you would for exercise. Use your inhaler beforehand if one has been prescribed. Clear your lungs of mucus if needed. If you use oxygen, set the flow rate for activity. It s OK if you don t feel like having sex. You can show your love in other ways. Try hugging, giving a backrub, or just telling your partner how much you care. Having chronic lung disease doesn t mean you have to feel bad all the time. Talk with your healthcare provider or a therapist if you feel worthless or helpless, or are thinking about suicide. These are warning signs of depression. Treatment can help you feel better. When depression is under control, your overall health may also improve. [id number] [employer] [address] [place] [address]. All rights reserved. This information is not intended as a substitute for professional medical care. Always follow your[facility] hospitalcare professional's instructions. 07/11/2024 13:01:56 COPD Flare COPD Flare You have had a flare-up of your COPD. COPD (chronic obstructive pulmonary disease) is a common lung disease. It causes your airways to get irritated and narrower. This makes it harder for you to breathe. Emphysema and chronic bronchitis are both types of COPD. This is a long-term (chronic) condition. This means you always have it. Sometimes it gets worse. When this happens, it is called a flare-up. Symptoms of COPD People with COPD may have symptoms most of the time. In a flare-up, your symptoms get worse. These symptoms may mean you are having a flare-up: Shortness of breath, shallow or rapid breathing, or wheezing that gets worse Lung infection Cough that gets worse More mucus, thicker mucus or mucus of a different color Tiredness, less energy, or trouble doing your normal activities Fever Chest tightness Your symptoms don t get better even when you use your normal medicines, inhalers, and nebulizer Trouble talking You feel confused Causes of flare-ups Unfortunately, a flare-up can happen even if you did everything right. And even if you followed your healthcare provider s instructions. Some causes of flare- ups are: Smoking or secondhand smoke Colds, the flu, or respiratory infections Air pollution Sudden change in the weather Dust, irritating chemicals, or strong fumes Not taking your medicines as prescribed Home care Here are some things you can do at home to treat a flare-up: Try not to panic. This makes it harder to breathe, and keeps you from doing the right things. Don t smoke or be around others who are smoking. Try to drink more fluids than normal during a flare-up, unless your healthcare provider has told you not to because of heart and kidney problems. More fluids can help loosen the mucus. Use your inhalers and nebulizer, if you have one, as you have been told to. If you were given antibiotics, take them until they are used up or your provider tells you to stop.It s important to finish the antibiotics, even though you feel better. This will make sure the infection has cleared. If you were given prednisone or another steroid, finish it even if you feel better. Preventing a flare-up Flare-ups happen. But the best way to treat one is to prevent it before it starts. Here are some pointers: Don t smoke or be around others who are smoking. Take your medicines as discussed with your healthcare provider. Talk with your provider about getting a flu shot every year. Also find out if you need a pneumonia shot. If there is a weather advisory warning to stay indoors, try to stay inside when possible. Try to eat healthy, exercise, and get plenty of sleep. Try to stay away from things that normally set you off. These include dust, chemical fumes, hairsprays, or strong perfumes. Follow-up care Follow up with your healthcare provider, or as advised. If a culture was done, you will be told if your treatment needs to be changed. You can call as directed for the results. If X-rays were done, you will be told of any new findings that may affect your care. Call 911 Call 911 if any of these occur: You have trouble breathing You feel confused or it s hard to wake you up You faint or lose consciousness You have a rapid heart rate You have new pain in your chest, arm, shoulder, neck, or upper back When to seek medical advice Call your healthcare provider right away if any of these occur: Wheezing or shortness of breath gets worse You need to use your inhalers more often than normal without relief Fever of 100.4 F (38 C) or higher, or as directed by your healthcare provider Coughing up lots of dark-colored or bloody mucus (sputum) Chest pain with each breath You don't start to get better within 24 hours Swelling of your ankles gets worse Dizziness or weakness [id number] [employer] [address] [place] [address]. All rights reserved. This information is not intended as a substitute for professional medical care. Always follow yourhealthcare professional's instructions. Follow Up Care 07/11/2024 11:27:59 With:KYAW CASILLAS Address: [address] [place] [phone] When:2-4 days [facility] 05-13-2025 Note Discharge Instructions Thank you for allowing [facility] to assist you with your healthcare needs. The following is importantdischarge information regarding your hospital visit. Diagnosis from Today's Visit COPD exacerbation What to Do Next Instructions from Your Care Team No qualifying data available. Post Acute Orders No qualifying data available. You Need to Schedule the Following Appointments Follow Up with KYAW CASILLAS When:Within 2-4 days Where:[address] [place] [phone] Allergies [facility] Medications Please ask your primary doctor or pharmacist before taking any other medication not listed, including over the counter drugs, herbal medications, vitamins and or supplements as they may interact withyour home medications. What How Much When Why Instructions Last Dose New albuterol (albuterol MDI (90 mcg/ inh) CFC free inhalation aerosol) 2 puff(s) by inhalation Every 4 hours Printed Prescription New azithromycin (Azithromycin 5 Day Dose Pack 250 mg oral tablet) Take two (2) tablets day 1-then one (1) tablet by mouth Every day Duration: 5 Days Printed Prescription New predniSONE (predniSONE 20 mg oral tablet) 3 tab(s) by mouth Once a day Duration: 4 Days Printed Prescription Unchanged amitriptyline (amitriptyline 25 mg oral tablet) 1 tab(s) by mouth Daily at bedtime Lumbar back pain with radiculopathy affecting lower extremity Unchanged diclofenac (diclofenac sodium 75 mg oral delayed release tablet) 1 tab(s) by mouth Two (2) times a day as needed for as needed for pain Duration: 30 Days Unchanged DULoxetine (DULoxetine 30 mg oral delayed release capsule) 1 cap by mouth Once a day Take along with a 60 mg capsule daily to equal 90 mg Unchanged DULoxetine (DULoxetine 60 mg oral delayed release capsule) 1 cap by mouth Once a day Take along with a 30 mg Daily to equal 90 mg daily. Unchanged escitalopram (escitalopram 10 mg oral tablet) 1 tab(s) by mouth Once a day Unchanged ezetimibe (Zetia 10 mg oral tablet) 1 tab(s) by mouth Once a day History of IA (myocardial infarction) Unchanged gabapentin (gabapentin 300 mg oral capsule) 1 cap by mouth Three (3) times a day Lumbar radiculopathy Duration: 30 Days Unchanged lisinopril (lisinopril 5 mg oral tablet) 1 tab(s) by mouth Once a day Unchanged metoprolol (Lopressor 25mg--USE metoprolol tartrate 25 mg oral tablet) 1 tab(s) by mouth Once a day Unchanged Misc Medication Unchanged omeprazole (omeprazole 40 mg oral delayed release capsule) 1 cap by mouth Once a day Unchanged tiZANidine (tiZANidine 2 mg oral tablet) 1 tab(s) by mouth Two (2) times a day Unchanged traZODone (traZODone 150 mg oral tablet) 1 tab(s) by mouth Daily at bedtime Please take this list to your next doctor s visit. Bring all medications you take, including over the counter medications, herbals and other supplements with you to your doctor s visit. Patients and families are reminded to discard old lists and to update any records with all medication providers or retail pharmacies. Education Materials Acute Bronchitis Your healthcare provider has told you that you have acute bronchitis. Bronchitis is infection or inflammation of the bronchial tubes (airways in the lungs). Normally, air moves easily in and out of the airways. Bronchitis narrows the airways, making it harder for air to flow in and out of the lungs. This causes symptoms such as shortness of breath, coughing up yellow or green mucus, and wheezing.Bronchitis can be acute or chronic. Acute means the condition comes on quickly and goes away in a short time, usually within 3 to 10 days. Chronic means a condition lasts a long time and often comes back. What causes acute bronchitis? Acute bronchitis almost always starts as a viral respiratory infection, such as a cold or the flu. Certain factors make it more likely for a cold or flu to turn into bronchitis. These include being very young, being elderly, having a heart or lung problem, or having a weak immune system. Cigarette smoking also makes bronchitis more likely. When bronchitis develops, the airways become swollen. The airways may also become infected with bacteria. This is known as a secondary infection. Diagnosing acute bronchitis Your healthcare provider will examine you and ask about your symptoms and health history. You may also have a sputum culture to test the fluid in your lungs. Chest X-rays may be done to look for infection in the lungs. Treating acute bronchitis Bronchitis usually clears up as the cold or flu goes away. You can help feel better faster by doingthe following: Take medicine as directed. You may be told to take ibuprofen or other wfdc-jsu-ptxetke medicines. These help relieve inflammation in your bronchial tubes. Your healthcare provider may prescribe an inhaler to help open up the bronchial tubes. Most of the time, acute bronchitis is caused by a viral in fection. Antibiotics are usually not prescribed for viral infections. Drink plenty of fluids, such as water, juice, or warm soup. Fluids loosen mucus so that you can cough it up. This helps you breathe more easily. Fluids also prevent dehydration. Make sure you get plenty of rest. Do not smoke. Do not allow anyone else to smoke in your home. Recovery and follow-up Follow up with your doctor as you are told. You will likely feel better in a week or two. But a drycough can linger beyond that time. Let your doctor know if you still have symptoms (other than a dry cough) after 2 weeks, or if you re prone to getting bronchial infections. Take steps to protect yourself from future infections. These steps include stopping smoking and avoiding tobacco smoke, washing your hands often, and getting a yearly flu shot. When to call your healthcare provider Call the healthcare provider if you have any of the following: Fever of 100.4 F (38.0 C) or higher, or as advised Symptoms that get worse, or new symptoms Trouble breathing Symptoms that don t start to improve within a week, or within 3 days of taking antibiotics [id number] [employer]. [address] [place] [address], [place] [address]. All rights reserved. This information is not intended as a substitute for professional medical care. Always follow yourhealthcare professional's instructions. Chronic Lung Disease: Your Emotional Well-Being When you have chronic lung disease, it s normal to have good days and bad days. Make sure to take care of yourself emotionally, as well as physically. You can take steps to feel more in control of your health and your situation. Remember that your healthcare team, family, and friends are here to help. Don t be afraid to share your feelings and ask for support. Staying in control Chronic lung disease can affect your independence. This can lead to feelings of anger, frustration,anxiety, and depression. The following may help you feel more in control of your life: Keep doing the things you enjoy. When you re planning your day, make sure to include some activities that are just for fun. Stay involved with friends and family. This may mean inviting people over to your house more often.Talk about your feelings with people close to you. Learn as much as you can about your lung disease. The more you know, the more control you ll have. Share what you learn with people close to you. Bring loved ones with you to the healthcare provider.And let them know how they can help with treatment. Follow your treatment plan. Accept that even if you do everything you re supposed to, you ll still have ups and downs. Take an active role in your treatment. Talk to your healthcare provider if you have any concerns orquestions. New treatments are always being developed. If current treatment isn t meeting your needs, other choices may be available. Staying intimate with your partner Even if you use oxygen, having chronic lung disease doesn t mean you have to give up being intimate. Keep the following in mind: You and your partner may both feel better if you communicate your feelings and concerns. Don t be afraid to talk with your healthcare provider, too. Sex may feel better if you wait until you re rested. Use positions that need less energy, such as lying on your side or your back. Prepare for sex as you would for exercise. Use your inhaler beforehand if one has been prescribed. Clear your lungs of mucus if needed. If you use oxygen, set the flow rate for activity. It s OK if you don t feel like having sex. You can show your love in other ways. Try hugging, giving a backrub, or just telling your partner how much you care. Having chronic lung disease doesn t mean you have to feel bad all the time. Talk with your healthcare provider or a therapist if you feel worthless or helpless, or are thinking about suicide. These are warning signs of depression. Treatment can help you feel better. When depression is under control, your overall health may also improve. [id number] [employer] [address] [place] [address]. All rights reserved. This information is not intended as a substitute for professional medical care. Always follow yourhealthcare professional's instructions. COPD Flare You have had a flare-up of your COPD. COPD (chronic obstructive pulmonary disease) is a common lung disease. It causes your airways to get irritated and narrower. This makes it harder for you to breathe. Emphysema and chronic bronchitis are both types of COPD. This is a long-term (chronic) condition. This means you always have it. Sometimes it gets worse. When this happens, it is called a flare-up. Symptoms of COPD People with COPD may have symptoms most of the time. In a flare-up, your symptoms get worse. These symptoms may mean you are having a flare-up: Shortness of breath, shallow or rapid breathing, or wheezing that gets worse Lung infection Cough that gets worse More mucus, thicker mucus or mucus of a different color Tiredness, less energy, or trouble doing your normal activities Fever Chest tightness Your symptoms don t get better even when you use your normal medicines, inhalers, and nebulizer Trouble talking You feel confused Causes of flare-ups Unfortunately, a flare-up can happen even if you did everything right. And even if you followed your healthcare provider s instructions. Some causes of flare- ups are: Smoking or secondhand smoke Colds, the flu, or respiratory infections Air pollution Sudden change in the weather Dust, irritating chemicals, or strong fumes Not taking your medicines as prescribed Home care Here are some things you can do at home to treat a flare-up: Try not to panic. This makes it harder to breathe, and keeps you from doing the right things. Don t smoke or be around others who are smoking. Try to drink more fluids than normal during a flare-up, unless your healthcare provider has told you not to because of heart and kidney problems. More fluids can help loosen the mucus. Use your inhalers and nebulizer, if you have one, as you have been told to. If you were given antibiotics, take them until they are used up or your provider tells you to stop.It s important to finish the antibiotics, even though you feel better. This will make sure the infection has cleared. If you were given prednisone or another steroid, finish it even if you feel better. Preventing a flare-up Flare-ups happen. But the best way to treat one is to prevent it before it starts. Here are some pointers: Don t smoke or be around others who are smoking. Take your medicines as discussed with your healthcare provider. Talk with your provider about getting a flu shot every year. Also find out if you need a pneumonia shot. If there is a weather advisory warning to stay indoors, try to stay inside when possible. Try to eat healthy, exercise, and get plenty of sleep. Try to stay away from things that normally set you off. These include dust, chemical fumes, hairsprays, or strong perfumes. Follow-up care Follow up with your healthcare provider, or as advised. If a culture was done, you will be told if your treatment needs to be changed. You can call as directed for the results. If X-rays were done, you will be told of any new findings that may affect your care. Call 911 Call 911 if any of these occur: You have trouble breathing You feel confused or it s hard to wake you up You faint or lose consciousness You have a rapid heart rate You have new pain in your chest, arm, shoulder, neck, or upper back When to seek medical advice Call your healthcare provider right away if any of these occur: Wheezing or shortness of breath gets worse You need to use your inhalers more often than normal without relief Fever of 100.4 F (38 C) or higher, or as directed by your healthcare provider Coughing up lots of dark-colored or bloody mucus (sputum) Chest pain with each breath You don't start to get better within 24 hours Swelling of your ankles gets worse Dizziness or weakness [id number] [employer]. [address] [place] [id number]. All rights reserved. This information is not intended as a substitute for professional medical care. Always follow yourhealthcare professional's instructions. Additional Information VACCINATE! IT SAVES LIVES! Members of the community who have not yet received the COVID-19 vaccine and would like to receive it can visit one of [facility] vaccine clinics. There are many vaccine clinic locations within the [facility]. For locations and available times, please visit [email or web address] It is important to note that some COVID mobile vaccine clinics are held outdoors and may be canceled in rainy or stormy conditions. To learn more about pediatric vaccinations (ages 5-11), we invite you to visit the [facility] webpage. [email or web address]/[email or web address] [email or web address] learn more about the COVID-19 vaccine, we invite you to visit the CDC website for a list of frequently asked questions. https://www.cdc.gov/coronavirus/2019-ncov/vaccines/faq.html [facility] Patient Portal Access Instructions: Stay connected with your healthcare team and access your personal medical information anytime with the [employer] Patient Portal. If you would like a full copy of your medical records please contact the [facility] Medical Records Department Wednesday through Wednesday between 8a.m. and 4:30p.m. Please follow the directions below to access the portal: 1.Access the email account you provided upon registration to the [facility].2.Look for an invitation email from [facility].3.Open the email and access the invitation link: Accept Invitation to [employer]4.Fill in the required auguste to create your account. Sign into [email or web address] with your username and password that you created in the above steps to stay up to date. You can then view a summary of results, a summary of your visits, and the ability to download your summaries to your computer or send the information securely to a physician. Remember that your healthcare information is confidential, so carefully consider who you will allow to register on the [employer] Patient Portal for access to your information. You can also access the [employer] Patient Portal on the [employer]. Simply click on Health Records under [employer] and then click on the [employer] logo. HOW TO SAFELY DISPOSE OF PRESCRIPTION MEDICATIONS Please use one of the following methods to safely dispose of your unused medications. 1.Use a drug disposal kit: the drug disposal pouch allows you to safely discard your old and unuseddrugs. Ask your nurse to give you one when you are discharged.2.Visit a local take-back location: Many local pharmacies and police departments have programs that collect old and unwanted prescriptiondrugs. Call your local pharmacy or go to http://2d2c.[employer]/6L4Vg8s to find one close to you.3.Make use of household items: Use cat litter or old coffee grounds to dispose medications if other options arenot available. Mix your drugs with these household products, seal them in an airtight container andthrow it into the garbage. Call [facility]: [phone] to be sure your drugs can be disposed of in this way. Some medicines may require a different approach.4.Never flush your medications down the toilet. IF YOU HAVE BEEN PRESCRIBED AN OPIOIDS FOR PAIN If you have been prescribed an opioid (such as hydrocodone, oxycodone or morphine), it is critical to understand the possible side effects and risks of opioid pain medications. Even when taken as directed, opioids can have several side effects including: Tolerance, meaning you might need to take more of a medication for the same pain relief. Nausea, vomiting and/or constipation. Sleepiness, dizziness, dry mouth, confusion, depression or itching. Physical dependence, meaning you have withdrawal symptoms when a medication is stopped ? this can develop within a few days. KNOW YOUR RESPONSIBILITIES It is important to know exactly how much and how often to take the opioid pain medications you are prescribed. Never take opioids in higher amounts or more often than prescribed. Do not combine opioids with alcohol or other drugs that cause drowsiness, such as benzodiazepines, also known as benzos,including diazepam and alprazolam, muscle relaxants or sleep aids. Never sell or share prescriptionopioids. This is illegal. Store opioids in a secure place and out of reach of others (including children, family, friends and visitors). The last page(s) of this document has been signed and retained as a CHART COPY Signatures Patient Education Materials Acute Bronchitis Chronic Lung Disease: Your Emotional Well-Being COPD Flare Medication Leaflets My discharge plan and instructions have been reviewed and explained to me and I,DESTINY LESTER understand my current condition and have read and understand these discharge instructions. I have received a written copy of the plan/instructions. If I have questions, I am aware that I should contact my doctor. Patient/Band Shover Signature: Date/Time: Relationship to Patient: Witness Name/Signature: Date/Time: [facility]05-13-2025 Note* Exam Date Time Procedure Performing Provider Status 07/11/24 12:28 PM XR Chest 1 View RHONDA MENENDEZ MD; Au th (Verified) [id number] ORIGINAL EXAMINATION: ONE XRAY VIEW OF THE CHEST 07/11/2024 12:28 pm COMPARISON: 02/28/2024 HISTORY: ORDERING SYSTEM PROVIDED HISTORY: Reason for Exam: cough FINDINGS: Partially visualized lower cervical spine hardware. Cardiomediastinal silhouette is within normal limits. Left mediastinal small clips again seen. No overt edema. No focal consolidation, pleural effusion or pneumothorax. No acute osseous abnormality. Right AC joint degenerative change with subacromial spurring. IMPRESSION: No acute cardiopulmonary process. Interpreted by: Rhonda Menendez Preliminary Report By: Rhonda Menendez Electronically signed By Rhonda Menendez Dictated Date: 07/11/2024 12:34:33 PM Prelim Date: 07/11/2024 12:35:32 PM Sign Date: 07/11/2024 12:35:32 PM Ordering Provider: [facility]05-09-2025 Note* Exam Date Time Procedure Performing Provider Status 07/07/24 11:50 AM MRI Shoulder w/o Contrast Right RHONDA MENENDEZ MD; Auth (Verified) [id number] ORIGINAL EXAMINATION: MRI OF THE RIGHT SHOULDER WITHOUT CONTRAST 07/07/2024 11:53 am TECHNIQUE: Multiplanar multisequence MRI of the right shoulder was performed without the administration of intravenous contrast. COMPARISON: Right shoulder radiograph dated 02/15/2024 HISTORY: ORDERING SYSTEM PROVIDED HISTORY: Reason for Exam: Rotator cuff tear FINDINGS: There is no evidence of acute fracture, osteonecrosis or suspicious marrow lesion. Severe AC joint degenerative change with hypertrophic bone formation, capsular hypertrophy, subchondral cystic change and marrow edema with AC joint effusion with synovitis. There is subacromial spurring.. A type 1 acromial undersurface is seen. The coracoacromial ligaments are thickened and attenuated. Dystrophic calcification within the region of the coracoclavicular ligament which may be sequela of chronic injury. The humeral head is high riding secondary to a full-thickness full width supraspinatus tear. There is subacromial subdeltoid and subcoracoid bursitis. Glenohumeral joint fluid with synovitis and intra-articular debris. The teres minor is intact. High-grade full-thickness infraspinatus tear with retraction approximately to the level of the glenoid. The torn retracted fibers are balled-up and frayed. There is mild posterior instability. Moderate to severe subscapularis tendinosis with tearing of the transverse humeral ligament. The long head of the biceps tendon is perched at the level of the bicipital groove with tendinosis, interstitial tearing and tenosynovitis. There is no acute Hill-Sacks or Bankart lesion. Suboptimal evaluation of the labrum with lack of intra-articular contrast. Anterior superior labral tear. Posteroinferior labral tear with tiny parameniscal cyst (series 10, image 6). Diffuse chondral thinning of the glenohumeral joint with near [id number]. There is edema surrounding the inferior axillary pouch and obliteration of the fat within the rotator interval with thickened coracohumeral ligament, findings which can be seen in the setting of adhesive capsulitis. The suprascapular and spinoglenoid notches as well as the quadrilateral space have preserved fat planes. Moderate to severe supraspinatus and infraspinatus muscle belly atrophy. IMPRESSION: 1. High-riding humeral head secondary to massive rotator cuff tear with full-thickness supraspinatus infraspinatus tears. There is moderate to severe subscapularis tendinosis with tearing of the transverse humeral ligament. 2. Subacromial, subdeltoid and subcoracoid bursitis. Glenohumeral joint effusion with synovitis and intra-articular debris. 3. Limited evaluation of the labrum with lack of intra-articular contrast however there is an anterior superior labral tear and posteroinferior labral tear. 4. Biceps tendinosis, interstitial tearing and tenosynovitis. 5. Severe AC joint degenerative changes as detailed above. 6. Findings which most likely suggest adhesive capsulitis. Additional incidental findings as above. Interpreted by: Rhonda Menendez Preliminary Report By: Rhonda Menendez Electronically signed By Rhonda Menendez Dictated Date: 07/07/2024 3:32:57 PM Prelim Date: 07/07/2024 3:47:08 PM Sign Date: 07/07/2024 3:47:08 PM Ordering Provider: [facility]01-31-2025 History and physical note Chief Complaint Left-sided lower back pain with radiation down the left lower extremity History of Present Illness The patient presents with left-sided low back and with radiation down the left lower extremity, extending to the level of the left foot. The patient indicates that the current symptoms are chronic. The patient has history of falls. The patient ambulates without assistance. No fever or weight loss. No loss of bowel or bladder control. The patient reports the home exercise program to be ineffective. The pain has been persistent despite the current management. The patient reports that the current symptoms interfere with activity level. Review of Systems All other systems reviewed and negative. Physical Exam Vitals and Measurements T: 36 C (Temporal Artery) HR: 62 RR: 15 BP: 111/87 SpO2: 94% HT: 174.3 cm WT: 82 kg BMI: 26.99 Oxygen Therapy: Room air Primary Pain Intensity: 0 (03/31/24 14:11:00) Primary Pain Intensity: 0 (03/31/24 13:52:00) Range of motion of the lumbar spine was not tested for safety. Moderate tenderness on palpation of the left lumbar paraspinal muscles. Sitting SLR is positive on the left side at about 35 degrees. Nogross weakness is appreciated DTR 2+ at the knees and 1+ at the ankles. Imaging Results and Diagnostics MRI of the lumbar spine performed on 10/23/2022 showed the presence of disc bulge with bilateral facet arthrosis at the L5-S1 level, resulting in moderate left neuroforaminal stenosis and mild right neuroforaminal stenosis without significant spinal canal stenosis. 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 Safe place to go: Yes., 06/11/2022 Domestic Concerns: None. Living situation: Home/Independent. 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 Lives In: Apartment, Single level home, 1st floor bedroom, 1st floor bathroom. Current Home Treatments None. Marital Status: Unmarried., 03/19/2021 Nutrition/Health Type of diet: Regular. Appetite Good. Eating Difficulties None. Enteral Feedings No. TPN Feedings No. Skin Breakdown No., 06/11/2022 Type of diet: Regular. Appetite Good. Eating Difficulties None. Caffeine intake amount: 2 servings daily., 08/31/2019 Substance Abuse - Denies Substance Abuse, 03/15/2017 Use: Current. Type: Marijuana. Frequency: Daily., 04/05/2023 Tobacco Nicotine Use: 5-9 cigarettes (between 1/4 to 1/2 pack)/day in last 30 days. Type: Cigarettes. Readyto change: No. Smoking Cessation Information Instructed to not smoke day of surgery., 02/15/2024 Family History Diabetes mellitus: Father. Heart disease: Mother and Sister. Health Status Family Member(s) Family Member(s) Relationship: Father, Name: Tera Lester, Age: About 48 Years, Cause: Patient is of diabetes. Relationship: Mother, Name: Aydee Lester, Age: About 83 Years, Cause: IA Relationship: Sister, Name: Radha Lester, Age: About 50 Years, Cause: murdered, beaten to Relationship: Sister, Name: Sena Chen, Age: Unknown, Cause: IA Assessment/Plan 1. L-S radiculopathy The patient presents with left-sided low back and with radiation down the left lower extremity, extending to the level of the left foot. The patient indicates that the current symptoms are chronic. The patient has history of falls. The patient ambulates without assistance. No fever or weight loss. No loss of bowel or bladder control. The patient reports the home exercise program to be ineffective. The pain has been persistent despite the current management. The patient reports that the current symptoms interfere with activity level. Range of motion of the lumbar spine was not tested for safety. Moderate tenderness on palpation of the left lumbar paraspinal muscles. Sitting SLR is positive on the left side at about 35 degrees. Nogross weakness is appreciated DTR 2+ at the knees and 1+ at the ankles. MRI of the lumbar spine performed on 10/23/2022 showed the presence of disc bulge with bilateral facet arthrosis at the L5-S1 level, resulting in moderate left neuroforaminal stenosis and mild right neuroforaminal stenosis without significant spinal canal stenosis. The current symptoms are likely related to left lumbosacral radiculitis. The pain has been persistent despite conservative therapy including HEP and medical therapy. The current symptoms interfere with the patient's activity level. I discussed with the patient the different treatment options. Will proceed with a transforaminal epidural steroid injection at the left L5-S1 level under fluoroscopic guidance. I discussed with the patient the risks, benefits and alternatives including the riskof infection, bleeding, nerve injury and headache and the patient understands and wishes to proceed. Orders: Communication Order (scheduled), 03/31/24 12:36:00 EST, Once, 03/31/24 12:36:00 EST, Nursing to provide patient with post-procedure discharge instructions: Epidural Steroid Injection. Discharge, 03/31/24 12:36:00 EST, Discharged to: Home Ice application, 03/31/24 12:36:00 EST, Once, 03/31/24 12:36:00 EST, To procedure site: 20 minutes on , 20 minutes off x 2 hours, then prn Sign Consent, 03/31/24 12:36:00 EST, Once Vital Signs, 03/31/24 12:36:00 EST, Once, 03/31/24 12:36:00 EST, On arrival to pre-procedure area Problem List/Past Medical History Ongoing AC joint arthropathy Anxiety CAD (coronary artery disease) Cervical myelopathy Cervical spinal stenosis Chronic shoulder pain CKD stage 3a, GFR 45-59 ml/min CTS (carpal tunnel syndrome) DDD (degenerative disc disease), lumbar Encounter for examination following treatment at [facility] Essential hypertension GERD - Gastro-esophageal reflux disease History of adenomatous polyp of colon History of IA (myocardial infarction) HNP (herniated nucleus pulposus), lumbar Hyperlipidemia L-S radiculopathy longterm use of drug Lumbar back pain with radiculopathy affecting lower extremity Major depression, chronic Medicare annual wellness visit, subsequent Nicotine dependence Peripheral neuropathy Primary insomnia Protrusion of intervertebral disc of lumbosacral region Referred pain Reflex sympathetic dystrophy of left lower extremity Right shoulder pain Screening for prostate cancer Seasonal allergy Slow urinary stream Stage 3a chronic kidney disease (CKD) Ventral hernia without obstruction or gangrene Well adult exam Historical Acute kidney failure, unspecified Acute renal failure Preop examination Right shoulder injury Procedure/Surgical History History of hernia repair: 06/11/22 Facet joint nerve block: 11/28/19 Lumbar epidural steroid injection: 10/24/19 CABG - Coronary artery bypass graft: 2013 Tonsillectomy Nasal septoplasty Operation on brain Allergies NKA Medications What How Much When Why Instructions Last Dose Unchanged albuterol (albuterol MDI (90 mcg/ inh) CFC free inhalation aerosol) 1 puff(s) by inhalation Every 4 hours as needed for as needed for wheezing Unchanged amitriptyline (amitriptyline 25 mg oral tablet) 1 tab(s) by mouth Daily at bedtime Lumbar back pain with radiculopathy affecting lower extremity Unchanged DULoxetine (DULoxetine 30 mg oral delayed release capsule) 1 cap by mouth Once a day Take along with a 60 mg capsule daily to equal 90 mg Unchanged DULoxetine (DULoxetine 60 mg oral delayed release capsule) 1 cap by mouth Once a day Take along with a 30 mg Daily to equal 90 mg daily. Unchanged escitalopram (escitalopram 10 mg oral tablet) 1 tab(s) by mouth Once a day Unchanged ezetimibe (Zetia 10 mg oral tablet) 1 tab(s) by mouth Once a day History of IA (myocardial infarction) Unchanged gabapentin (gabapentin 600 mg oral tablet) 1 tab(s) by mouth Daily at bedtime Reflex sympathetic dystrophy of left lower extremity Duration: 90 Days Unchanged lidocaine topical (lidocaine 5% topical patch) 1 patch(es) Topical Once a day as needed for Pain remove patches after 12 hours Unchanged lisinopril (lisinopril 5 mg oral tablet) 1 tab(s) by mouth Once a day Unchanged meloxicam (meloxicam 15 mg oral tablet) 1 tab(s) by mouth Once a day as needed for Pain Unchanged metoprolol (Lopressor 25mg--USE metoprolol tartrate 25 mg oral tablet) 1 tab(s) by mouth Once a day Unchanged Misc Medication Unchanged omeprazole (omeprazole 40 mg oral delayed release capsule) 1 cap by mouth Once a day Unchanged tiZANidine (tiZANidine 2 mg oral tablet) 1 tab(s) by mouth Two (2) times a day Unchanged traZODone (traZODone 150 mg oral tablet) 1 tab(s) by mouth Daily at bedtime Digitally Signed by GETACHEW FOSTER MD on 03/31/2024 03:01 PM [facility]01-31-2025 Hospital Discharge instructions Patient Education 03/31/2024 12:56:42 Epidural Steroid Injection, Care After Epidural Steroid Injection, Care After Refer to this sheet in the next few weeks. These instructions provide you with information about caring for yourself after your procedure. Your health care provider may also give you more specific instructions. Your treatment has been planned according to current medical practices, but problems sometimes occur. Call your health care provider if you have any problems or questions after your procedure. What can I expect after the procedure? After your procedure, it is common to feel a little discomfort at the injection site. Follow these instructions at home: For 24 hours after the procedure: ?Avoid using heat on the injection site. ?Do not take a tub bath, and do not soak in water. ?Do not drive if you received a medicine to help you relax (sedative). If directed, put ice on the injection site: ?Put ice in a plastic bag. ?Place a towel between your skin and the bag. ?Leave the ice on for 20 minutes, 2 3 times a day. Return to your normal activities as told by your health care provider. Ask your health care provider what activities are safe for you. You may remove the bandage (dressing) after 24 hours. Take bbpf-nox-pkhsiws and prescription medicines only as told by your health care provider. Keep all follow-up visits as told by your health care provider. This is important. Contact a health care provider if: You have a fever. You continue to have pain and soreness around the injection site, even after taking xnmn-unz-wmrzfmn pain medicine. You have severe, sudden, or lasting nausea or vomiting. Get help right away if: You have severe pain at the injection site that is not relieved by medicines. You develop a severe headache or a stiff neck. You become sensitive to light. You have any new numbness or weakness in your legs or arms. You lose control of your bladder or bowel movements. You have trouble breathing. This information is not intended to replace advice given to you by your health care provider. Make sure you discuss any questions you have with your health care provider. Document Released: 06/02/2011 Document Revised: 01/28/2018 Document Reviewed: 06/02/2016 [employer] Patient Education 2020 [employer]. Follow Up Care 03/21/2024 13:27:32 With:GETACHEW FOSTER MD Address: [address] [place] [address] [place] [address]- [phone] When: Unknown Comments:FOLLOW UP IN OFFICE SCHEDULED. [facility] 01-31-2025 Note* Exam Date Time Procedure Performing Provider Status 03/31/24 2:33 PM XR Fluoro Guide for Therapy Injection Modified [id number] ORIGINAL Images acquired, not reported on this accession number. [facility]01-31-2025 Evaluation + Plan noteExtracted from: Title:Specialty Office Visit Note Author:GETACHEW FOSTER MD Date:03/31/24 1. L-S radiculopathy The patient presents with left-sided low back and with radiation down the left lower extremity, extending to the level of the left foot. The patient indicates that the current symptoms are chronic. The patient has history of falls. The patient ambulates without assistance. No fever or weight loss. No loss of bowel or bladder control. The patient reports the home exercise program to be ineffective. The pain has been persistent despite the current management. The patient reports that the current symptoms interfere with activity level. Range of motion of the lumbar spine was not tested for safety. Moderate tenderness on palpation of the left lumbar paraspinal muscles. Sitting SLR is positive on the left side at about 35 degrees. No gross weakness is appreciated DTR 2+ at the knees and 1+ at the ankles. MRI of the lumbar spine performed on 10/23/2022 showed the presence of disc bulge with bilateral facet arthrosis at the L5-S1 level, resulting in moderate left neuroforaminal stenosis and mild right neuroforaminal stenosis without significant spinal canal stenosis. The current symptoms are likely related to left lumbosacral radiculitis. The pain has been persistent despite conservative therapy including HEP and medical therapy. The current symptoms interfere with the patient's activity level. I discussed with the patient the different treatment options. Will proceed with a transforaminal epidural steroid injection at the left L5-S1 level under fluoroscopic guidance. I discussed with the patient the risks, benefits and alternatives including the risk of infection, bleeding, nerve injury and headache and the patient understands and wishes to proceed. Orders: Communication Order (scheduled), 03/31/24 12:36:00 EST, Once, 03/31/24 12:36:00 EST, Nursing to provide patient with post-procedure discharge instructions: Epidural Steroid Injection. 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 The following is importantdischarge information regarding your hospital visit. Your Care Team KYAW CASILLAS What to do next Scheduled Follow-Up Appointments Appointment Type When With Where Contact Information StatusOSM MANAGER LEASING 04/13/2024 10:00 AM ROCHELLE HAWTHORNE MD [facility] [address] [id number]- Confirmed PM OV 04/17/2024 10:15 AM CHRISTINE DAILEY [facility] PM [address] [place] [address]- [phone] Confirmed Follow Up Appointments Follow Up with GETACEHW FOSTER MD Where:[address] [facility] [place] [address] [phone] Additional Information: FOLLOW UP IN OFFICE SCHEDULED. Allergies NKA Medications Please ask your primary doctor or pharmacist before taking any other medication not listed, including over the counter drugs, herbal medications, vitamins and or supplements as they may interact withur home medications. What How Much When Why Instructions Last Dose Unchanged albuterol (albuterol MDI (90 mcg/ inh) CFC free inhalation aerosol) 1 puff(s) by inhalation Every 4 hours as needed for as needed for wheezing Unchanged amitriptyline (amitriptyline 25 mg oral tablet) 1 tab(s) by mouth Daily at bedtime Lumbar back pain with radiculopathy affecting lower extremity Unchanged DULoxetine (DULoxetine 30 mg oral delayed release capsule) 1 cap by mouth Once a day Take along with a 60 mg capsule daily to equal 90 mg Unchanged DULoxetine (DULoxetine 60 mg oral delayed release capsule) 1 cap by mouth Once a day Take along with a 30 mg Daily to equal 90 mg daily. Unchanged escitalopram (escitalopram 10 mg oral tablet) 1 tab(s) by mouth Once a day Unchanged ezetimibe (Zetia 10 mg oral tablet) 1 tab(s) by mouth Once a day History of IA (myocardial infarction) Unchanged gabapentin (gabapentin 600 mg oral tablet) 1 tab(s) by mouth Daily at bedtime Reflex sympathetic dystrophy of left lower extremity Duration: 90 Days Unchanged lidocaine topical (lidocaine 5% topical patch) 1 patch(es) Topical Once a day as needed for Pain remove patches after 12 hours Unchanged lisinopril (lisinopril 5 mg oral tablet) 1 tab(s) by mouth Once a day Unchanged meloxicam (meloxicam 15 mg oral tablet) 1 tab(s) by mouth Once a day as needed for Pain Unchanged metoprolol (Lopressor 25mg--USE metoprolol tartrate 25 mg oral tablet) 1 tab(s) by mouth Once a day Unchanged Misc Medication Unchanged omeprazole (omeprazole 40 mg oral delayed release capsule) 1 cap by mouth Once a day Unchanged tiZANidine (tiZANidine 2 mg oral tablet) 1 tab(s) by mouth Two (2) times a day Unchanged traZODone (traZODone 150 mg oral tablet) 1 tab(s) by mouth Daily at bedtime Please take this list to your next doctor s visit. Bring all medications you take, including over the counter medications, herbals and other supplements with you to your doctor s visit. Patients and families are reminded to discard old lists and to update any records with all medication providers or retail pharmacies. Education Materials Epidural Steroid Injection, Care After Refer to this sheet in the next few weeks. These instructions provide you with information about caring for yourself after your procedure. Your health care provider may also give you more specific instructions. Your treatment has been planned according to current medical practices, but problems sometimes occur. Call your health care provider if you have any problems or questions after your procedure. What can I expect after the procedure? After your procedure, it is common to feel a little discomfort at the injection site. Follow these instructions at home: For 24 hours after the procedure: ? Avoid using heat on the injection site. ? Do not take a tub bath, and do not soak in water. ? Do not drive if you received a medicine to help you relax (sedative). If directed, put ice on the injection site: ? Put ice in a plastic bag. ? Place a towel between your skin and the bag. ? Leave the ice on for 20 minutes, 2 3 times a day. Return to your normal activities as told by your health care provider. Ask your health care provider what activities are safe for you. You may remove the bandage (dressing) after 24 hours. Take qkeg-pze-leetyqt and prescription medicines only as told by your health care provider. Keep all follow-up visits as told by your health care provider. This is important. Contact a health care provider if: You have a fever. You continue to have pain and soreness around the injection site, even after taking rgvw-atp-nrgbwwr pain medicine. You have severe, sudden, or lasting nausea or vomiting. Get help right away if: You have severe pain at the injection site that is not relieved by medicines. You develop a severe headache or a stiff neck. You become sensitive to light. You have any new numbness or weakness in your legs or arms. You lose control of your bladder or bowel movements. You have trouble breathing. This information is not intended to replace advice given to you by your health care provider. Make sure you discuss any questions you have with your health care provider. Document Released: 06/02/2011 Document Revised: 01/28/2018 Document Reviewed: 06/02/2016 [employer] Patient Education 2020 [employer] Additional Information VACCINATE! IT SAVES LIVES! Members of the community who have not yet received the COVID-19 vaccine and would like to receive it can visit one of [facility] vaccine clinics. There are many vaccine clinic locations within the [facility]. For locations and available times, please visit [email or web address].[place].gov/. It is important to note that some COVID mobile vaccine clinics are held outdoors and may be canceled in rainy or stormy conditions. To learn more about pediatric vaccinations (ages 5-11), we invite you to visit the [facility] webpage. [email or web address].[email or web address].org/pages/[email or web address]-Qpehh-Yelbvylxrut-Rbfvjxugcn-[email or web address] stions.htmlTo learn more about the COVID-19 vaccine, we invite you to visit the CDC website for a list of frequently asked questions.https://www.cdc.gov/coronavirus/2019-ncov/vaccines/faq.html [facility] Patient Portal Access Instructions: Stay connected with your healthcare team and access your personal medical information anytime with the [employer] Patient Portal. Please follow the directions below to create your [employer] account: 1.Access the email account you provided upon registration to the hospital/physician office.2.Look for an invitation email from [facility].3.Open the email and access the invitation link: AcceptInvitation to [facility].4.Fill in the required auguste to create your account. To access your account, visit [email or web address]. Click the blue button labeled Access Patient Portal and then log in with the username and password that you created in the steps above. You will be able to view your test results, lab results, a summary of your visits, upcoming appointments and more. There is also a convenient messaging option where you can send secure messages to your p [employer]. In addition, you will have the ability to download any documents or summaries to your computer and/or send the information securely to a physician. Remember that your healthcare information is confidential, so carefully consider who you will allowto register on the [facility] Patient Portal for access to your information. You can also access the [facility] Patient Portal on the [employer] ziggy. Simply click on Patient Portal and then log into your account. If you would like to receive a full copy of your medical records, please contact the [facility] Medical Records Department by calling [phone], Wednesday through Wednesday between 8 a.m. and 4:30 p.m. HOW TO SAFELY DISPOSE OF PRESCRIPTION MEDICATIONS Please use one of the following methods to safely dispose of your unused medications. 1.Use a drug disposal kit: the drug disposal pouch allows you to safely discard your old and unuseddrugs. Ask your nurse to give you one when you are discharged.2.Visit a local take-back location: Many local pharmacies and police departments have programs that collect old and unwanted prescriptiondrugs. Call your local pharmacy or go to http://2d2c.[employer]/0B7Sg7u to find one close to you.3.Make use of household items: Use cat litter or old coffee grounds to dispose medications if other options arenot available. Mix your drugs with these household products, seal them in an airtight container andthrow it into the garbage. Call [facility]: [phone] to be sure your drugs can be disposed of in this way. Some medicines may require a different approach.4.Never flush your medications down the toilet. IF YOU HAVE BEEN PRESCRIBED AN OPIOID FOR PAIN If you have been prescribed an opioid (such as hydrocodone, oxycodone or morphine), it is critical to understand the possible side effects and risks of opioid pain medications. Even when taken as directed, opioids can have several side effects including: Tolerance, meaning you might need to take more of a medication for the same pain relief. Nausea, vomiting and/or constipation. Sleepiness, dizziness, dry mouth, confusion, depression or itching. Physical dependence, meaning you have withdrawal symptoms when a medication is stopped, can develop within a few days. KNOW YOUR RESPONSIBILITIES It is important to know exactly how much and how often to take the opioid pain medications you are prescribed. Never take opioids in higher amounts or more often than prescribed. Do not combine opioids with alcohol or other drugs that cause drowsiness, such as benzodiazepines, also known as benzos, including diazepam and alprazolam, muscle relaxants or sleep aids. Never sell or share prescription opioids. This is illegal. Store opioids in a secure place and out of reach of others (including children, family, friends and visitors). The last page of this document has been signed and retained as a CHART COPY. 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 I have received a written copy of the plan/instructions. If I have questions, I am aware that I should contact my doctor. Patient/Band Shover Signature: Date/Time: Relationship to Patient: Witness Name/Signature: Date/Time: [facility] Eitan [id number] Hospital Discharge instructions Patient Education 02/28/2024 16:14:04 Costochondritis Costochondritis Costochondritis is inflammation of a rib or the cartilage that connects a rib to your breastbone (sternum). It causes tenderness, and sometimes chest pain may be sharp or aching, or it may feel like pressure. Pain may get worse with deep breathing, movement, or exercise. In some cases, the pain is mistaken for a heart attack. Despite this, the condition is not serious. Read on to learn more aboutthe condition and how it can be treated. What causes costochondritis? The cause of costochondritis is not completely clear, but it may happen after a chest injury, chestinfection, or coughing episode. Some physical activities can sometimes lead to costochondritis. Large-breasted women may be more likely to have the condition. Often, the reason for the inflammation is unknown. Diagnosing costochondritis There is no test for costochondritis. The condition is diagnosed by the symptoms you have. Your healthcare provider will perform a physical exam. He or she will ask you about your symptoms and examine your chest for tenderness. In some cases, tests are done to rule out more serious problems. These tests may include imaging tests such as chest X-ray, CT scan, or an ECG. Treating costochondritis If an underlying cause is found, treatment for that will likely relieve the problem. Costochondritis often goes away on its own. The course of the condition varies from person to person. It usually lasts from weeks to months. In some cases, mild symptoms continue for months to years. To ease symptoms: Take medicine as directed. These relieve pain and swelling. Ibuprofen or other NSAIDs are often recommended. In some cases, you may be given prescription medicine, such as muscle relaxants. Avoid activities that put stress on the chest or spine. Apply a heating pad (set to warm, not too high, heat) to the breastbone several times a day. Perform stretching exercises as directed. Call the healthcare provider right away if you have any of the following: Pain that is not relieved by medicine Shortness of breath Lightheadedness, dizziness, or fainting Feeling of irregular heartbeat or fast pulse Anyone with chest pain should see a healthcare provider, especially those who are older and may be at risk for heart disease. 5369-4831 [employer]. [address] [place] [address]. All rights reserved. This information is not intended as a substitute for professional medical care. Always follow yourhealthcare professional's instructions. 02/28/2024 16:14:02 Chest Pain, Uncertain Cause Uncertain Causes of Chest Pain Chest pain can happen for a number of reasons. Sometimes the cause can't be determined. If your condition does not seem serious, and your pain does not appear to be coming from your heart, your healthcare provider may recommend watching it closely. Sometimes the signs of a serious problem take moretime to appear. Many problems not related to your heart can cause chest pain. These include: Musculoskeletal. Costochondritis is an inflammation of the tissues around the ribs that can occur from trauma or overuse injuries, or a strain of the muscles of the chest wall Respiratory. Pneumonia, collapsed lung (pneumothorax), or inflammation of the lining of the chest and lungs (pleurisy) Gastrointestinal. Esophageal reflux, heartburn, ulcers, or gallbladder disease Anxiety and panic disorders Nerve compression and inflammation Rare miscellaneous problems such as aortic aneurysm (a swelling of the large artery coming out of the heart) or pulmonary embolism (a blood clot in the lungs) Home care After your visit, follow these recommendations: Rest today and avoid strenuous activity. Take any prescribed medicine as directed. Be aware of any recurrent chest pain and notice any changes Follow-up care Follow up with your healthcare provider if you do not start to feel better within 24 hours, or as advised. Call 911 Call 911 if any of these occur: A change in the type of pain: if it feels different, becomes more severe, lasts longer, or begins to spread into your shoulder, arm, neck, jaw or back Shortness of breath or increased pain with breathing Weakness, dizziness, or fainting Rapid heart beat Crushing sensation in your chest When to seek medical advice Call your healthcare provider right away if any of the following occur: Cough with dark colored sputum (phlegm) or blood Fever of 100.4 F (38 C) or higher, or as directed by your healthcare provider Swelling, pain or redness in one leg [id number] [employer]. [address] [place] [address], [place] [address]. All rights reserved. This information is not intended as a substitute for professional medical care. Always follow yourhealthcare professional's instructions. Follow Up Care 02/28/2024 13:10:22 With:KYAW CASILLAS Address: [address] [place] [id number] [phone] When:2-4 days [facility] 12-30-2024 Note Discharge Instructions Thank you for allowing [facility] to assist you with your healthcare needs. The following is importantdischarge information regarding your hospital visit. Diagnosis from Today's Visit Atypical chest pain Costochondritis What to Do Next Instructions from Your Care Team No qualifying data available. Post Acute Orders No qualifying data available. You Need to Schedule the Following Appointments Follow Up with KYAW CASILLAS When:Within 2-4 days Where:[address] [place] [id number] [phone] Allergies NKA Medications Please ask your primary doctor or pharmacist before taking any other medication not listed, including over the counter drugs, herbal medications, vitamins and or supplements as they may interact withyour home medications. What How Much When Why Instructions Last Dose Unchanged albuterol (albuterol MDI (90 mcg/ inh) CFC free inhalation aerosol) 1 puff(s) by inhalation Every 4 hours as needed for as needed for wheezing Unchanged amitriptyline (amitriptyline 25 mg oral tablet) 1 tab(s) by mouth Daily at bedtime Lumbar back pain with radiculopathy affecting lower extremity Unchanged DULoxetine (DULoxetine 30 mg oral delayed release capsule) 1 cap by mouth Once a day Take along with a 60 mg capsule daily to equal 90 mg Unchanged DULoxetine (DULoxetine 60 mg oral delayed release capsule) 1 cap by mouth Once a day Take along with a 30 mg Daily to equal 90 mg daily. Unchanged escitalopram (escitalopram 10 mg oral tablet) 1 tab(s) by mouth Once a day Unchanged ezetimibe (Zetia 10 mg oral tablet) 1 tab(s) by mouth Once a day History of IA (myocardial infarction) Unchanged gabapentin (gabapentin 600 mg oral tablet) 1 tab(s) by mouth Daily at bedtime Reflex sympathetic dystrophy of left lower extremity Duration: 90 Days Unchanged lidocaine topical (lidocaine 5% topical patch) 1 patch(es) Topical Once a day as needed for Pain remove patches after 12 hours Unchanged lisinopril (lisinopril 5 mg oral tablet) 1 tab(s) by mouth Once a day Unchanged meloxicam (meloxicam 15 mg oral tablet) 1 tab(s) by mouth Once a day as needed for Pain Unchanged metoprolol (Lopressor 25mg--USE metoprolol tartrate 25 mg oral tablet) 1 tab(s) by mouth Once a day Unchanged Misc Medication Unchanged omeprazole (omeprazole 40 mg oral delayed release capsule) 1 cap by mouth Once a day Unchanged tiZANidine (tiZANidine 2 mg oral tablet) 1 tab(s) by mouth Two (2) times a day Unchanged traZODone (traZODone 150 mg oral tablet) 1 tab(s) by mouth Daily at bedtime Please take this list to your next doctor s visit. Bring all medications you take, including over the counter medications, herbals and other supplements with you to your doctor s visit. Patients and families are reminded to discard old lists and to update any records with all medication providers or retail pharmacies. Education Materials Costochondritis Costochondritis is inflammation of a rib or the cartilage that connects a rib to your breastbone (sternum). It causes tenderness, and sometimes chest pain may be sharp or aching, or it may feel like pressure. Pain may get worse with deep breathing, movement, or exercise. In some cases, the pain is mistaken for a heart attack. Despite this, the condition is not serious. Read on to learn more aboutthe condition and how it can be treated. What causes costochondritis? The cause of costochondritis is not completely clear, but it may happen after a chest injury, chestinfection, or coughing episode. Some physical activities can sometimes lead to costochondritis. Large-breasted women may be more likely to have the condition. Often, the reason for the inflammation is unknown. Diagnosing costochondritis There is no test for costochondritis. The condition is diagnosed by the symptoms you have. Your healthcare provider will perform a physical exam. He or she will ask you about your symptoms and examine your chest for tenderness. In some cases, tests are done to rule out more serious problems. These tests may include imaging tests such as chest X-ray, CT scan, or an ECG. Treating costochondritis If an underlying cause is found, treatment for that will likely relieve the problem. Costochondritis often goes away on its own. The course of the condition varies from person to person. It usually lasts from weeks to months. In some cases, mild symptoms continue for months to years. To ease symptoms: Take medicine as directed. These relieve pain and swelling. Ibuprofen or other NSAIDs are often recommended. In some cases, you may be given prescription medicine, such as muscle relaxants. Avoid activities that put stress on the chest or spine. Apply a heating pad (set to warm, not too high, heat) to the breastbone several times a day. Perform stretching exercises as directed. Call the healthcare provider right away if you have any of the following: Pain that is not relieved by medicine Shortness of breath Lightheadedness, dizziness, or fainting Feeling of irregular heartbeat or fast pulse Anyone with chest pain should see a healthcare provider, especially those who are older and may be at risk for heart disease. [phone] [employer] [address] [place], [place] [id number]. All rights reserved. This information is not intended as a substitute for professional medical care. Always follow yourhealthcare professional's instructions. Uncertain Causes of Chest Pain Chest pain can happen for a number of reasons. Sometimes the cause can't be determined. If your condition does not seem serious, and your pain does not appear to be coming from your heart, your healthcare provider may recommend watching it closely. Sometimes the signs of a serious problem take moretime to appear. Many problems not related to your heart can cause chest pain. These include: Musculoskeletal. Costochondritis is an inflammation of the tissues around the ribs that can occur from trauma or overuse injuries, or a strain of the muscles of the chest wall Respiratory. Pneumonia, collapsed lung (pneumothorax), or inflammation of the lining of the chest and lungs (pleurisy) Gastrointestinal. Esophageal reflux, heartburn, ulcers, or gallbladder disease Anxiety and panic disorders Nerve compression and inflammation Rare miscellaneous problems such as aortic aneurysm (a swelling of the large artery coming out of the heart) or pulmonary embolism (a blood clot in the lungs) Home care After your visit, follow these recommendations: Rest today and avoid strenuous activity. Take any prescribed medicine as directed. Be aware of any recurrent chest pain and notice any changes Follow-up care Follow up with your healthcare provider if you do not start to feel better within 24 hours, or as advised. Call 911 Call 911 if any of these occur: A change in the type of pain: if it feels different, becomes more severe, lasts longer, or begins to spread into your shoulder, arm, neck, jaw or back Shortness of breath or increased pain with breathing Weakness, dizziness, or fainting Rapid heart beat Crushing sensation in your chest When to seek medical advice Call your healthcare provider right away if any of the following occur: Cough with dark colored sputum (phlegm) or blood Fever of 100.4 F (38 C) or higher, or as directed by your healthcare provider Swelling, pain or redness in one leg [id number] [employer]. [address] [place] [address]. All rights reserved. This information is not intended as a substitute for professional medical care. Always follow yourhealthcare professional's instructions. Additional Information VACCINATE! IT SAVES LIVES! Members of the community who have not yet received the COVID-19 vaccine and would like to receive it can visit one of [facility] vaccine clinics. There are many vaccine clinic locations within the [facility]. For locations and available times, please visit [email or web address].[email or web address]/. It is important to note that some COVID mobile vaccine clinics are held outdoors and may be canceled in rainy or stormy conditions. To learn more about pediatric vaccinations (ages 5-11), we invite you to visit the [facility] webpage. [email or web address]/[email or web address] [email or web address] learn more about the COVID-19 vaccine, we invite you to visit the CDC website for a list of frequently asked questions. https://www.cdc.gov/coronavirus/2019-ncov/vaccines/faq.html [facility] Patient Portal Access Instructions: Stay connected with your healthcare team and access your personal medical information anytime with the [employer] Patient Portal. If you would like a full copy of your medical records please contact the [facility] Medical Records Department Wednesday through Wednesday between 8a.m. and 4:30p.m. Please follow the directions below to access the portal: 1.Access the email account you provided upon registration to the [facility].2.Look for an invitation email from [facility].3.Open the email and access the invitation link: Accept Invitation to [facility].Fill in the required auguste to create your account. Sign into [email or web address] with your username and password that you created in the above steps to stay up to date. You can then view a summary of results, a summary of your visits, and the ability to download your summaries to your computer or send the information securely to a physician. Remember that your healthcare information is confidential, so carefully consider who you will allow to register on the [employer] Patient Portal for access to your information. You can also access the [facility] Patient Portal on the [employer]. Simply click on Health Records under [employer] and then click on the [employer] logo. HOW TO SAFELY DISPOSE OF PRESCRIPTION MEDICATIONS Please use one of the following methods to safely dispose of your unused medications. 1.Use a drug disposal kit: the drug disposal pouch allows you to safely discard your old and unuseddrugs. Ask your nurse to give you one when you are discharged.2.Visit a local take-back location: Many local pharmacies and police departments have programs that collect old and unwanted prescriptiondrugs. Call your local pharmacy or go to http://2d2c.[employer]/9H0Eb7t to find one close to you.3.Make use of household items: Use cat litter or old coffee grounds to dispose medications if other options arenot available. Mix your drugs with these household products, seal them in an airtight container andthrow it into the garbage. Call [facility]: [phone] to be sure your drugs can be disposed of in this way. Some medicines may require a different approach.4.Never flush your medications down the toilet. IF YOU HAVE BEEN PRESCRIBED AN OPIOIDS FOR PAIN If you have been prescribed an opioid (such as hydrocodone, oxycodone or morphine), it is critical to understand the possible side effects and risks of opioid pain medications. Even when taken as directed, opioids can have several side effects including: Tolerance, meaning you might need to take more of a medication for the same pain relief. Nausea, vomiting and/or constipation. Sleepiness, dizziness, dry mouth, confusion, depression or itching. Physical dependence, meaning you have withdrawal symptoms when a medication is stopped ? this can develop within a few days. KNOW YOUR RESPONSIBILITIES It is important to know exactly how much and how often to take the opioid pain medications you are prescribed. Never take opioids in higher amounts or more often than prescribed. Do not combine opioids with alcohol or other drugs that cause drowsiness, such as benzodiazepines, also known as benzos,including diazepam and alprazolam, muscle relaxants or sleep aids. Never sell or share prescriptionopioids. This is illegal. Store opioids in a secure place and out of reach of others (including children, family, friends and visitors). The last page(s) of this document has been signed and retained as a CHART COPY Signatures Patient Education Materials Costochondritis Chest Pain, Uncertain Cause Medication Leaflets My discharge plan and instructions have been reviewed and explained to me and I,DESTINY LESTER understand my current condition and have read and understand these discharge instructions. I have received a written copy of the plan/instructions. If I have questions, I am aware that I should contact my doctor. 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 HISTORY: ORDERING SYSTEM PROVIDED HISTORY: Reason for Exam: chest pain FINDINGS: Rotation to left. Cardiomediastinal silhouette is within normal limits. No overt edema. No focal consolidation. Costophrenic angles are sharp. No pneumothorax. Lower cervical posterior instrumented fusion partially visualized. Severe right AC joint degenerative change. IMPRESSION: No acute cardiopulmonary process. Interpreted by: Rhonda Menendez Preliminary Report By: Rhonda Menendez Electronically signed By Rhonda Menendez Dictated Date: 02/28/2024 2:17:44 PM Prelim Date: 02/28/2024 2:18:42 PM Sign Date: 02/28/2024 2:18:42 PM Ordering Provider: MAY JEAN [facility]12-30-2024 Note* Exam Date Time Procedure Performing Provider Status 02/28/24 1:23 PM EKG [ED AOH] - CV MAY JEAN DO; Auth (Verified) ECG Final Report Sinus rhythm Borderline prolonged MS interval Borderline left axis deviation Electronic Signature: MAY JEAN DO 02/28/2024 13:47:27 [facility]08-25-2023 Note ORIGINAL EXAMINATION: MRI OF THE LUMBAR SPINE WITHOUT CONTRAST, 10/23/2022 11:36 am TECHNIQUE: Multiplanar multisequence MRI of the lumbar spine was performed without the administration of intravenous contrast. 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 New onset left lower extremity weakness and absence of the knee reflex. FINDINGS: For the purposes of this dictation, there are 5 lumbar vertebral bodies with the most caudal segmented vertebral body considered L5. BONES/ALIGNMENT: Grade 1 retrolisthesis of L1 on L2, L2 on L3, L4 on L5 and L5 on S1. The vertebral body heights are maintained. Degenerate endplate changes. SPINAL CORD: The conus terminates normally. SOFT TISSUES: No paraspinal mass identified. Scattered tiny renal cysts bilaterally. L1-L2: There is no significant disc herniation, spinal canal stenosis or neural foraminal narrowing. L2-L3: Mild disc bulge with a small central disc extrusion with superior migration to the infra pedicular level without significant spinal canal stenosis or neural foraminal narrowing. L3-L4: There is no significant disc herniation, spinal canal stenosis or neural foraminal narrowing. L4-L5: Mild disc bulge and facet arthrosis resulting in mild right neural foraminal narrowing without significant spinal canal stenosis. L5-S1: Broad disc bulge with bilateral facet arthrosis resulting in moderate left neural foraminal narrowing, mild on the right, without significant spinal canal stenosis. IMPRESSION: Degenerative changes of the spine as above.. Interpreted by: Terry Paredes Preliminary Report By: Terry Paredes Electronically signed By Terry Paredes Dictated Date: 10/23/2022 1:47:24 PM Prelim Date: 10/23/2022 1:57:19 PM Sign Date: 10/23/2022 1:57:19 PM Ordering Provider: [facility]04-14-2023 Hospital Discharge instructions Patient Education 06/12/2022 16:05:29 Steps to Quit Smoking, Pese-yx-Mbfm Steps to Quit Smoking Smoking tobacco is the leading cause of preventable . It can affect almost every organ in the body. Smoking puts you and people around you at risk for many serious, long-lasting (chronic) diseases. Quitting smoking can be hard, but it is one of the best things that you can do for your health. It is never too late to quit. How do I get ready to quit? When you decide to quit smoking, make a plan to help you succeed. Before you quit: Pick a date to quit. Set a date within the next 2 weeks to give you time to prepare. Write down the reasons why you are quitting. Keep this list in places where you will see it often. Tell your family, friends, and co-workers that you are quitting. Their support is important. Talk with your doctor about the choices that may help you quit. Find out if your health insurance will pay for these treatments. Know the people, places, things, and activities that make you want to smoke (triggers). Avoid them. What first steps can I take to quit smoking? Throw away all cigarettes at home, at work, and in your car. Throw away the things that you use when you smoke, such as ashtrays and lighters. Clean your car. Make sure to empty the ashtray. Clean your home, including curtains and carpets. What can I do to help me quit smoking? Talk with your doctor about taking medicines and seeing a counselor at the same time. You are more likely to succeed when you do both. If you are or , talk with your doctor about counseling or other ways to quit smoking. Do not take medicine to help you quit smoking unless your doctor tells you to do so. To quit smoking: Quit right away Quit smoking totally, instead of slowly cutting back on how much you smoke over a period of time. Go to counseling. You are more likely to quit if you go to counseling sessions regularly. Take medicine You may take medicines to help you quit. Some medicines need a prescription, and some you can buy taup-kiq-yefjpjy. Some medicines may contain a drug called nicotine to replace the nicotine in cigarettes. Medicines may: Help you to stop having the desire to smoke (cravings). Help to stop the problems that come when you stop smoking (withdrawal symptoms). Your doctor may ask you to use: Nicotine patches, gum, or lozenges. Nicotine inhalers or sprays. Non-nicotine medicine that is taken by mouth. Find resources Find resources and other ways to help you quit smoking and remain smoke-free after you quit. These resources are most helpful when you use them often. They include: Online chats with a counselor. Phone quitlines. Printed self-help materials. Support groups or group counseling. Text messaging programs. Mobile phone apps. Use apps on your mobile phone or tablet that can help you stick to your quit plan. There are many free apps for mobile phones and tablets as well as websites. Examples include QuitGuide from the CDC and smokefree.gov What things can I do to make it easier to quit? Talk to your family and friends. Ask them to support and encourage you. Call a phone quitline (1-422-NUSONOW), reach out to support groups, or work with a counselor. Ask people who smoke to not smoke around you. Avoid places that make you want to smoke, such as: ?Bars. ?Parties. ?Smoke-break areas at work. Spend time with people who do not smoke. Lower the stress in your life. Stress can make you want to smoke. Try these things to help your stress: ?Getting regular exercise. ?Doing deep-breathing exercises. ?Doing yoga. ?Meditating. ?Doing a body scan. To do this, close your eyes, focus on one area of your body at a time from headto toe. Notice which parts of your body are tense. Try to relax the muscles in those areas. How will I feel when I quit smoking? Day 1 to 3 weeks Within the first 24 hours, you may start to have some problems that come from quitting tobacco. These problems are very bad 2 3 days after you quit, but they do not often last for more than 2 3 weeks. You may get these symptoms: Mood swings. Feeling restless, nervous, angry, or annoyed. Trouble concentrating. Dizziness. Strong desire for high-sugar foods and nicotine. Weight gain. Trouble pooping (constipation). Feeling like you may vomit (nausea). Coughing or a sore throat. Changes in how the medicines that you take for other issues work in your body. Depression. Trouble sleeping (insomnia). Week 3 and afterward After the first 2 3 weeks of quitting, you may start to notice more positive results, such as: Better sense of smell and taste. Less coughing and sore throat. Slower heart rate. Lower blood pressure. Clearer skin. Better breathing. Fewer sick days. Quitting smoking can be hard. Do not give up if you fail the first time. Some people need to try a few times before they succeed. Do your best to stick to your quit plan, and talk with your doctor ifyou have any questions or concerns. Summary Smoking tobacco is the leading cause of preventable . Quitting smoking can be hard, but it is one of the best things that you can do for your health. When you decide to quit smoking, make a plan to help you succeed. Quit smoking right away, not slowly over a period of time. When you start quitting, seek help from your doctor, family, or friends. This information is not intended to replace advice given to you by your health care provider. Make sure you discuss any questions you have with your health care provider. Document Released: 12/12/2009 Document Revised: 05/05/2019 Document Reviewed: 05/06/2019 Elsevier Patient Education 2020 [employer] Follow Up Care 05/12/2022 15:26:57 With:IZZY FIGUEROA MD, Surgery Address: [address] [place] [address] [place] [address]- When:06/29/2022 13:40:00 Comments:This is your Post OP appt. [facility] 04-14-2023 Note Discharge Instructions Thank you for allowing [facility] to assist you with your healthcare needs. The following is importantdischarge information regarding your hospital visit. Your Care Team [facility] Your Diagnosis Acute respiratory failure with hypoxia Acute post-operative pain S/P hernia repair Essential hypertension Lumbar back pain with radiculopathy affecting lower extremity What to do next Scheduled Follow-Up Appointments Appointment Type When With Where Contact InformationGS OV Post Op 06/29/2022 01:40 PM EDT IZZY FIGUEROA MD [facility] OV 10/06/2022 11:00 AM EDT LAVON STALLINGS DO [facility] [address] [place] [address] CV OV 04/06/2023 02:30 PM EST MARIANO HERNANDEZ APRN-ESTIMATION MANAGER [facility] Follow Up Appointments Follow Up with IZZY FIGUEROA MD, Surgery When 06/29/2022 01:40 PM EDT Why: This is your Post OP appt. Where: [address] [facility] [address] [place] [address]- The Following Activity and Diet Have Been Ordered for You Discharge Activity - Ordered -- Sexual [place] Restricted No bending, twisting, crawling or squatt, No shower or tub bath for 2 days; no driving for 5 days, no lifting >15 lbs, 06/11/22 10:08:00 EDT Discharge Diet - Ordered -- Follow the post-operative/post-procedure diet instructions provided by your physician's office.,06/11/22 10:08:00 EDT The Following Equipment Has Been Ordered for You Discharge Home Equipment Discharge Wound Care - Ordered -- Dressing Type: Dry sterile drsg, Remove dressing in two (2) days. Leave steristrips on until they fall off, 06/11/22 10:08:00 EDT The Following Treatments Have Been Ordered for You Discharge Labs No qualifying data available. Discharge Radiology No qualifying data available. Other Therapies Discharge Outpatient to Other Therapy/Tests - Ordered -- Your therapy ordered is: PFT, Relevant Diagnosis: Hypxia, wheezing, tobacco, Reason for therapy:Hypxia, wheezing, tobacco history, Forward results to Dr. Lavon Stallings., 06/12/22 15:16:00 EDT Post Acute Orders No qualifying data available. Allergies NKA Medications Please ask your primary doctor or pharmacist before taking any other medication not listed, including over the counter drugs, herbal medications, vitamins and or supplements as they may interact withyour home medications. What How Much When Why Instructions Last Dose New albuterol (albuterol MDI (90 mcg/ inh) CFC free inhalation aerosol) 2 puff(s) by inhalation Every 4 hours as needed for as needed for wheezing Pickup at [facility]/pharmacy #[id number] New predniSONE (prednisone 10mg tab (TAPER)) Taper 40-20-10 mg x 2 days each dose by mouth Every day Duration: 6 Days Pickup at [facility]/pharmacy #[id number] Unchanged acetaminophen-hydrocodone (Rosenberg 325- 5 mg oral tablet) 1 tab(s) by mouth Every 4 hours as needed for Pain, scale 1-6 Acute post-operative pain Duration: 5 Days Pickup at [facility]/pharmacy #[id number] 06/12 @ 9am Unchanged amitriptyline (amitriptyline 25 mg oral tablet) 1 tab(s) by mouth Daily at bedtime Lumbar back pain with radiculopathy affecting lower extremity 06/11 @ 10pm Unchanged DULoxetine (DULoxetine 30 mg oral delayed release capsule) 1 cap by mouth Once a day Take along with a 60 mg capsule daily to equal 90 mg 06/12 @ 9am Unchanged DULoxetine (DULoxetine 60 mg oral delayed release capsule) 1 cap by mouth Once a day Take along with a 30 mg Daily to equal 90 mg daily. 06/12 @ 9am Unchanged escitalopram (escitalopram 10 mg oral tablet) 1 tab(s) by mouth Once a day 06/12 @ 9am Unchanged ezetimibe (ezetimibe 10 mg oral tablet) 1 tab(s) by mouth Once a day 06/12 @ 9am Unchanged gabapentin (gabapentin 600 mg oral tablet) 1 tab(s) by mouth Daily at bedtime Reflex sympathetic dystrophy of left lower extremity Duration: 90 Days not given Unchanged icosapent (Vascepa 1 g oral capsule) 2 cap by mouth Two (2) times a day Hyperlipidemia not given Unchanged lisinopril (lisinopril 5 mg oral tablet) 1 tab(s) by mouth Once a day 06/12 @ 9am Unchanged meloxicam (meloxicam 15 mg oral tablet) 1 tab(s) by mouth Once a day as needed for Pain not given Unchanged metoprolol (Lopressor 25mg--USE metoprolol tartrate 25 mg oral tablet) 1 tab(s) by mouth Once a day 06/12 @ 9am Unchanged montelukast (montelukast 10 mg oral tablet) 1 tab(s) by mouth Once a day (in the evening) not given Unchanged omeprazole (omeprazole 40 mg oral delayed release capsule) 1 cap by mouth Once a day 06/12 @ 5am Unchanged simvastatin (simvastatin 80 mg oral tablet) 1 tab(s) by mouth Daily at bedtime 06/11 @ 10pm Unchanged traZODone (traZODone 150 mg oral tablet) 1 tab(s) by mouth Daily at bedtime 06/11 @ 10pm Pharmacy Information [facility]/pharmacy #[id number]: [address], [place] [id number] [phone] Please take this list to your next doctor s visit. Bring all medications you take, including over the counter medications, herbals and other supplements with you to your doctor s visit. Patients and families are reminded to discard old lists and to update any records with all medication providers or retail pharmacies. Medication Leaflets prednisone (OLIVA Vidales What is the most important information I should know about prednisone? You should not use prednisone if you have a fungal infection anywhere in your body. You should not stop using prednisone suddenly. Follow your doctor's instructions about tapering your dose. What is prednisone? Prednisone is a steroid that reduces inflammation in the body, and also suppresses your immune system. Prednisone is used to treat many different conditions such as hormonal disorders, skin diseases, arthritis, lupus, psoriasis, allergic conditions, ulcerative colitis, Crohn's disease, eye diseases, lung diseases, asthma, tuberculosis, blood cell disorders, kidney disorders, leukemia, lymphoma, multi ple sclerosis, organ transplant rejection, swelling from a brain tumor or injury. Prednisone may also be used for purposes not listed in this medication guide. What should I discuss with my healthcare provider before taking prednisone? You should not use prednisone if you are allergic to it, or if you have a fungal infection anywherein your body. Steroid medication can weaken your immune system, making it easier for you to get an infection or worsening an infection you already have. Tell your doctor about any illness or infection you've had within the past several weeks. Tell your doctor if you have ever had: heart problems, high blood pressure, or a heart attack; glaucoma or cataracts; herpes infection of the eyes; past or present tuberculosis; a parasite infection that causes diarrhea (such as threadworms); any illness that causes diarrhea; underactive thyroid; diabetes; a stomach ulcer, diverticulitis; a colostomy or ileostomy; osteoporosis or low bone mineral density (steroid medication can increase your risk of bone loss); low levels of calcium or potassium in your blood; cirrhosis or other liver disease; mental illness or psychosis; or a muscle disorder such as myasthenia gravis. Long-term use of steroids may lead to bone loss (osteoporosis), especially if you smoke or drink alcohol, if you do not exercise, or if you do not get enough vitamin D or calcium in your diet. It is not known whether this medicine will harm an unborn baby. Tell your doctor if you are or plan to become . You should not breastfeed while using prednisone. How should I take prednisone? Follow all directions on your prescription label and read all medication guides or instruction sheets. Your doctor may occasionally change your dose. Use the medicine exactly as directed. Prednisone is taken daily or every other day, depending on the condition being treated. You may need to take the medicine at a certain time of day. Follow your doctor's instructions about when and how often to take this medicine. Take with food if prednisone upsets your stomach. Measure liquid medicine carefully. Use the dosing syringe provided, or use a medicine dose-measuring device (not a kitchen spoon). Swallow the delayed-release tablet whole and do not crush, chew, or break it. Prednisone can weaken (suppress) your immune system, and you may get an infection more easily. C[place]our doctor if you have signs of infection (fever, weakness, cold or flu symptoms, skin sores, diarrhea, frequent or recurring illness). If you have major surgery or a severe injury or infection, your prednisone dose needs may change. Make sure any doctor caring for you knows you are using this medicine. If you use this medicine long-term, you may need medical tests and vision exams. In case of emergency, wear or carry medical identification to let others know you use a steroid. You should not stop using prednisone suddenly. Follow your doctor's instructions about tapering your dose. Store at room temperature away from moisture, heat, and light. What happens if I miss a dose? Take the medicine as soon as you can, but skip the missed dose if it is almost time for your next dose. Do not take two doses at one time. What happens if I overdose? Seek emergency medical attention or call the Poison Help line at . High doses or long-term use of prednisone can lead to thinning skin, easy bruising, changes in bodyfat (especially in your face, neck, back, and waist), increased acne or facial hair, menstrual problems, impotence, or loss of interest in sex. What should I avoid while taking prednisone? Do not receive a 'live' vaccine while using prednisone. The vaccine may not work as well and may not fully protect you from disease. Live vaccines include measles, mumps, rubella (MMR), polio, rotavirus, typhoid, yellow fever, varicella (chickenpox), zoster (shingles), and nasal flu (influenza) vaccine. Avoid being near people who are sick or have infections. Call your doctor for preventive treatment if you are exposed to chickenpox or measles. These conditions can be serious or even fatal in peoplewho are using steroid medicine. Avoid drinking alcohol. What are the possible side effects of prednisone? Get emergency medical help if you have signs of an allergic reaction: hives; difficult breathing; swelling of your face, lips, tongue, or throat. Call your doctor at once if you have: muscle pain or weakness; blurred vision, tunnel vision, eye pain, or seeing halos around lights; severe depression, changes in personality, unusual thoughts or behavior; bloody or tarry stools, coughing up blood or vomit that looks like coffee grounds; swelling, rapid weight gain, feeling short of breath; irregular heartbeats; severe headache, pounding in your neck or ears; decreased adrenal gland hormones--muscle weakness, tiredness, diarrhea, nausea, menstrual changes, skin discoloration, craving salty foods, and feeling light- headed; or low potassium level--leg cramps, constipation, irregular heartbeats, fluttering in your chest, increased thirst or urination, numbness or tingling, muscle weakness or limp feeling. Prednisone can affect growth in children. Tell your doctor if your child is not growing at a normalrate while using this medicine. Common side effects may include: weight gain (especially in your face or your upper back and torso); increased appetite; mood changes, trouble sleeping; changes in your menstrual periods; problems with memory or thought; muscle or joint pain; weakness; headache, dizziness, spinning sensation; nausea, bloating, loss of appetite; slow wound healing; or acne, increased sweating, thinning skin, bruising, pinpoint spots under your skin. This is not a complete list of side effects and others may occur. Call your doctor for medical advice about side effects. You may report side effects to FDA at 9-217-DKC-9178. What other drugs will affect prednisone? Sometimes it is not safe to use certain medications at the same time. Some drugs can affect your blood levels of other drugs you take, which may increase side effects or make the medications less effective. Tell your doctor about all your current medicines. Many drugs can affect prednisone, especially: bupropion; cyclosporine; digoxin; ketoconazole; an antibiotic; control pills or hormone replacement therapy; a diuretic or 'water pill'; insulin or oral diabetes medicine; a blood thinner--warfarin, Coumadin, Jantoven; or NSAIDs (nonsteroidal anti-inflammatory drugs)--aspirin, ibuprofen (Advil, Motrin), naproxen (Aleve), celecoxib, diclofenac, indomethacin, meloxicam, and others. This list is not complete and many other drugs may affect prednisone. This includes prescription and [id number] medicines, vitamins, and herbal products. Not all possible drug interactions are listed here. Where can I get more information? Your pharmacist can provide more information about prednisone. Remember, keep this and all other medicines out of the reach of children, never share your medicines with others, and use this medication only for the indication prescribed. Every effort has been made to ensure that the information provided by [employer]. [employer]') is accurate, up-to-date, and complete, but no guarantee is made to that effect. Drug information contained herein may be time sensitive. [employer] information has been compiled for use by healthcare practitioners and consumers in the [place] and therefore [employer] does not warrant that uses outside of the [place] are appropriate, unless specifically indicated otherwise. [employer] drug information does not endorse drugs, diagnose patients or recommend therapy. [employer] drug information isan informational resource designed to assist licensed healthcare practitioners in caring for their p atients and/or to serve consumers viewing this service as a supplement to, and not a substitute for, the expertise, skill, knowledge and judgment of healthcare practitioners. The absence of a warningfor a given drug or drug combination in no way should be construed to indicate that the drug or drug combination is safe, effective or appropriate for any given patient. [facility] does not assume any responsibility for any aspect of healthcare administered with the aid of information [employer] provides. The information contained herein is not intended to cover all possible uses, directions, precautions, warnings, drug interactions, allergic reactions, or adverse effects. If you have questions about the drugs you are taking, check with your doctor, nurse or pharmacist. Copyright 6554-4001 [facility]. Version: 10.. Revision Date: 05/26/2018. albuterol inhalation (al BYOO ter all) ProAir HFA, ProAir RespiClick, Proventil HFA, Ventolin HFA What is the most important information I should know about albuterol inhalation? Follow all directions on your medicine label and package. Tell each of your healthcare providers about all your medical conditions, allergies, and all medicines you use. What is albuterol inhalation? Albuterol inhalation is a bronchodilator that is used to treat or prevent bronchospasm in people with reversible obstructive airway disease. Albuterol is also used to prevent exercise-induced bronchospasm. Albuterol inhalation is for use in adults and children at least 4 years old. Albuterol inhalation may also be used for purposes not listed in this medication guide. What should I discuss with my healthcare provider before using albuterol inhalation? You should not use this medicine if you are allergic to albuterol. You should not use ProAir RespiClick if you are allergic to milk proteins. Tell your doctor if you have ever had: heart disease, high blood pressure; a thyroid disorder; seizures; diabetes; or low levels of potassium in your blood. Tell your doctor if you are or plan to become . It is not known whether albuterol will harm an unborn baby. However, having uncontrolled asthma during may increase the riskof premature , low weight, or eclampsia (dangerously high blood pressure that can lead to medical problems in both mother and baby). The benefit of preventing bronchospasm may outweigh any risks to the baby. If you are , your name may be listed on a registry to track the effects of albuterol on the baby. It may not be safe to breastfeed while using this medicine. Ask your doctor about any risk. How should I use albuterol inhalation? Follow all directions on your prescription label and read all medication guides. Use the medicine exactly as directed. Do not allow a young child to use albuterol inhalation without help from an adult. To prevent exercise-induced bronchospasm, use this medicine 15 to 30 minutes before you exercise. The effects of albuterol inhalation should last about 4 to 6 hours. Seek medical attention if your breathing problems get worse quickly, or if you think your asthma medications are not working as well. Read and carefully follow any Instructions for Use provided with your medicine. Ask your doctor or pharmacist if you do not understand these instructions. ProAir HFA, Proventil HFA, or Ventolin HFA must be shaken before each use. You do not need to shakeProAir RespiClick before using. Do not try to clean or take apart the ProAir RespiClick inhaler device. Always use the new inhaler device provided with your refill. Do not float a medicine canister in water to see if it is empty. Your dose needs may change due to surgery, illness, stress, or a recent asthma attack. Do not change your dose or dosing schedule without your doctor's advice. Store at room temperature away from moisture, heat, or cold temperatures. Keep the cover on your ProAir RespiClick inhaler when not in use. Store Proventil or Ventolin with the mouthpiece down. Keep the inhaler canister away from open flame or high heat. The canister may explode if it gets too hot. Do not puncture or burn an empty inhaler canister. What happens if I miss a dose? Use the medicine as soon as you can, but skip the missed dose if it is almost time for your next dose. Do not use two doses at one time. Get your prescription refilled before you run out of medicine completely. What happens if I overdose? Seek emergency medical attention or call the Poison Help line at . An overdose of albuterol can be fatal. Overdose symptoms may include dry mouth, tremors, chest pain, fast heartbeats, nausea, general ill feeling, seizure, feeling light-headed or fainting. What should I avoid while using albuterol inhalation? Rinse with water if this medicine gets in your eyes. What are the possible side effects of albuterol inhalation? Get emergency medical help if you have signs of an allergic reaction: hives; difficult breathing; swelling of your face, lips, tongue, or throat. Call your doctor at once if you have: wheezing, choking, or other breathing problems after using this medicine; chest pain, fast heart rate, pounding heartbeats or fluttering in your chest; severe headache, pounding in your neck or ears; pain or burning when you urinate; high blood sugar--increased thirst, increased urination, dry mouth, fruity breath odor; or low potassium--leg cramps, constipation, irregular heartbeats, increased thirst or urination, numbness or tingling, muscle weakness or limp feeling. Common side effects may include: chest pain, fast or pounding heartbeats; upset stomach, vomiting; painful urination; dizziness; feeling shaky or nervous; headache, back pain, body aches; or cough, sore throat, sinus pain, runny or stuffy nose. This is not a complete list of side effects and others may occur. Call your doctor for medical advice about side effects. You may report side effects to FDA at 4-612-YJG-2141. What other drugs will affect albuterol inhalation? Tell your doctor about all your other medicines, especially: any other inhaled medicines or bronchodilators; digoxin; a diuretic or 'water pill'; an antidepressant--amitriptyline, desipramine, imipramine, doxepin, nortriptyline, and others; a beta balbina--atenolol, carvedilol, labetalol, metoprolol, propranolol, sotalol, and others; or an MAO inhibitor--isocarboxazid, linezolid, methylene blue injection, phenelzine, rasagiline, selegiline, tranylcypromine, and others. This list is not complete. Other drugs may affect albuterol inhalation, including prescription and xltq-kzi-tkbuahc medicines, vitamins, and herbal products. Not all possible drug interactions are listed here. Where can I get more information? Your pharmacist can provide more information about albuterol inhalation. Remember, keep this and all other medicines out of the reach of children, never share your medicines with others, and use this medication only for the indication prescribed. Every effort has been made to ensure that the information provided by [employer]. [employer]') is accurate, up-to-date, and complete, but no guarantee is made to that effect. Drug information contained herein may be time sensitive. [employer] information has been compiled for use by healthcare practitioners and consumers in the [place] and therefore [employer] does not warrant that uses outside of the [place] are appropriate, unless specifically indicated otherwise. [employer] drug information does not endorse drugs, diagnose patients or recommend therapy. [employer] drug information isan informational resource designed to assist licensed healthcare practitioners in caring for their p atients and/or to serve consumers viewing this service as a supplement to, and not a substitute for, the expertise, skill, knowledge and judgment of healthcare practitioners. The absence of a warningfor a given drug or drug combination in no way should be construed to indicate that the drug or drug combination is safe, effective or appropriate for any given patient. [employer] does not assume any responsibility for any aspect of healthcare administered with the aid of information [employer] provides. The information contained herein is not intended to cover all possible uses, directions, precautions, warnings, drug interactions, allergic reactions, or adverse effects. If you have questions about the drugs you are taking, check with your doctor, nurse or pharmacist. Copyright 0830-6486 [employer]. Version: 10.. Revision Date: 01/17/2020. acetaminophen and hydrocodone (a SEET a MIN oh fen and suki droe KOE done) Hycet, Lorcet, Rosenberg, Verdrocet, Vicodin, Xodol, Zamicet What is the most important information I should know about acetaminophen and hydrocodone? MISUSE OF OPIOID MEDICINE CAN CAUSE ADDICTION, OVERDOSE, OR . Keep the medication in a place where others cannot get to it. Taking opioid medicine during may cause life-threatening withdrawal symptoms in the . Fatal side effects can occur if you use opioid medicine with alcohol, or with other drugs that cause drowsiness or slow your breathing. Stop taking this medicine and call your doctor right away if you have skin redness or a rash that spreads and causes blistering and peeling. What is acetaminophen and hydrocodone? Acetaminophen and hydrocodone is a combination medicine used to relieve moderate to severe pain. Acetaminophen and hydrocodone contains an opioid medicine, and may be habit-forming. Acetaminophen and hydrocodone may also be used for purposes not listed in this medication guide. What should I discuss with my healthcare provider before taking acetaminophen and hydrocodone? You should not use this medicine if you are allergic to acetaminophen or hydrocodone, or if you have: severe asthma or breathing problems; or a blockage in your stomach or intestines. Tell your doctor if you have ever had: breathing problems, sleep apnea (breathing stops during sleep); liver disease; a drug or alcohol addiction; kidney disease; a head injury or seizures; urination problems; or problems with your thyroid, pancreas, or gallbladder. If you use opioid medicine while you are , your baby could become dependent on the drug. This can cause life-threatening withdrawal symptoms in the baby after it is born. Babies born dependent on opioids may need medical treatment for several weeks. Ask a doctor before using opioid medicine if you are . Tell your doctor if you notice severe drowsiness or slow breathing in the nursing baby. How should I take acetaminophen and hydrocodone? Follow all directions on your prescription label. Never take this medicine in larger amounts, or for longer than prescribed. An overdose can damage your liver or cause . Tell your doctor if you feel an increased urge to use more of this medicine. Never share this medicine with another person, especially someone with a history of drug abuse or addiction. MISUSE CAN CAUSE ADDICTION, OVERDOSE, OR . Keep the medicine in a place where others cannot get to it. Selling or giving away this medicine is against the law. Measure liquid medicine carefully. Use the dosing syringe provided, or use a medicine dose-measuring device (not a kitchen spoon). If you need surgery or medical tests, tell the doctor ahead of time that you are using this medicine. You should not stop using this medicine suddenly. Follow your doctor's instructions about tapering your dose. Store at room temperature away from moisture and heat. Keep track of your medicine. You should be aware if anyone is using it improperly or without a prescription. Do not keep leftover opioid medication. Just one dose can cause in someone using this medicine accidentally or improperly. Ask your pharmacist where to locate a drug take-back disposal program.If there is no take-back program, flush the unused medicine down the toilet. What happens if I miss a dose? Since this medicine is used for pain, you are not likely to miss a dose. Skip any missed dose if itis almost time for your next dose. Do not use two doses at one time. What happens if I overdose? Seek emergency medical attention or call the Poison Help line at . An overdose of this medicine can be fatal, especially in a child or other person using the medicine without a prescription. Overdose symptoms may include nausea, vomiting, sweating, severe drowsiness, pinpoint pupils, slow breathing, or no breathing. Your doctor may recommend you get naloxone (a medicine to reverse an opioid overdose) and keep it with you at all times. A person caring for you can give the naloxone if you stop breathing or don't wake up. Your caregiver must still get emergency medical help and may need to perform CPR (cardiopulmonary resuscitation) on you while waiting for help to arrive. Anyone can buy naloxone from a pharmacy or local health department. Make sure any person caring foryou knows where you keep naloxone and how to use it. What should I avoid while taking acetaminophen and hydrocodone? Avoid driving or operating machinery until you know how this medicine will affect you. Dizziness ordrowsiness can cause falls, accidents, or severe injuries. Do not drink alcohol. Dangerous side effects or could occur. Ask a doctor or pharmacist before using any other medicine that may contain acetaminophen (sometimes abbreviated as APAP). Taking certain medications together can lead to a fatal overdose. What are the possible side effects of acetaminophen and hydrocodone? Get emergency medical help if you have signs of an allergic reaction: hives; difficulty breathing; swelling of your face, lips, tongue, or throat. Opioid medicine can slow or stop your breathing, and may occur. A person caring for you should give naloxone and/or seek emergency medical attention if you have slow breathing with long pauses,blue colored lips, or if you are hard to wake up. In rare cases, acetaminophen may cause a severe skin reaction that can be fatal. This could occur even if you have taken acetaminophen in the past and had no reaction. Stop taking this medicine and call your doctor right away if you have skin redness or a rash that spreads and causes blistering andpeeling. Call your doctor at once if you have: noisy breathing, sighing, shallow breathing, breathing that stops; a light-headed feeling, like you might pass out; liver problems--nausea, upper stomach pain, tiredness, loss of appetite, dark urine, thais-colored stools, jaundice (yellowing of the skin or eyes); low cortisol levels-- nausea, vomiting, loss of appetite, dizziness, worsening tiredness or weakness; o high levels of serotonin in the body--agitation, hallucinations, fever, sweating, shivering, fast heart rate, muscle stiffness, twitching, loss of coordination, nausea, vomiting, diarrhea. Serious breathing problems may be more likely in older adults and in those who are debilitated or have wasting syndrome or chronic breathing disorders. Common side effects include: dizziness, drowsiness, feeling tired; nausea, vomiting, stomach pain; constipation; or headache. This is not a complete list of side effects and others may occur. Call your doctor for medical advice about side effects. You may report side effects to FDA at 1-797-IXK-0322. What other drugs will affect acetaminophen and hydrocodone? You may have breathing problems or withdrawal symptoms if you start or stop taking certain other medicines. Tell your doctor if you also use an antibiotic, antifungal medication, heart or blood pressure medication, seizure medication, or medicine to treat HIV or hepatitis C. Opioid medication can interact with many other drugs and cause dangerous side effects or . Be sure your doctor knows if you also use: cold or allergy medicines, bronchodilator asthma/COPD medication, or a diuretic ('water pill'); medicines for motion sickness, irritable bowel syndrome, or overactive bladder; other opioids--opioid pain medicine or prescription cough medicine; a sedative like Valium--diazepam, alprazolam, lorazepam, Xanax, Klonopin, Versed, and others; drugs that make you sleepy or slow your breathing--a sleeping pill, muscle relaxer, medicine to treat mood disorders or mental illness; drugs that affect serotonin levels in your body--a stimulant, or medicine for depression, Parkinson's disease, migraine headaches, serious infections, or nausea and vomiting. This list is not complete. Other drugs may affect acetaminophen and hydrocodone, including prescription and pyqj-dih-irlemnz medicines, vitamins, and herbal products. Not all possible interactions are listed here. Where can I get more information? Your doctor or pharmacist can provide more information about acetaminophen and hydrocodone. Remember, keep this and all other medicines out of the reach of children, never share your medicines with others, and use this medication only for the indication prescribed. Every effort has been made to ensure that the information provided by [employer] is accurate, up-to-date, and complete, but no guarantee is made to that effect. Drug information contained herein may be time sensitive. [employer] information has been compiled for use by healthcare practitioners and consumers in the [place] and therefore [employer] does not warrant that uses outside of the [place] are appropriate, unless specifically indicated otherwise. [employer] drug information does not endorse drugs, diagnose patients or recommend therapy. [employer] drug information isan informational resource designed to assist licensed healthcare practitioners in caring for their p atients and/or to serve consumers viewing this service as a supplement to, and not a substitute for, the expertise, skill, knowledge and judgment of healthcare practitioners. The absence of a warningfor a given drug or drug combination in no way should be construed to indicate that the drug or drug combination is safe, effective or appropriate for any given patient. [employer] does not assume any responsibility for any aspect of healthcare administered with the aid of information [employer] provides. The information contained herein is not intended to cover all possible uses, directions, precautions, warnings, drug interactions, allergic reactions, or adverse effects. If you have questions about the drugs you are taking, check with your doctor, nurse or pharmacist. Copyright 8031-5523 [employer]. Version: 16.03. Revision Date: 04/02/2020. Education Materials Steps to Quit Smoking Smoking tobacco is the leading cause of preventable . It can affect almost every organ in the body. Smoking puts you and people around you at risk for many serious, long-lasting (chronic) diseases. Quitting smoking can be hard, but it is one of the best things that you can do for your health. It is never too late to quit. How do I get ready to quit? When you decide to quit smoking, make a plan to help you succeed. Before you quit: Pick a date to quit. Set a date within the next 2 weeks to give you time to prepare. Write down the reasons why you are quitting. Keep this list in places where you will see it often. Tell your family, friends, and co-workers that you are quitting. Their support is important. Talk with your doctor about the choices that may help you quit. Find out if your health insurance will pay for these treatments. Know the people, places, things, and activities that make you want to smoke (triggers). Avoid them. What first steps can I take to quit smoking? Throw away all cigarettes at home, at work, and in your car. Throw away the things that you use when you smoke, such as ashtrays and lighters. Clean your car. Make sure to empty the ashtray. Clean your home, including curtains and carpets. What can I do to help me quit smoking? Talk with your doctor about taking medicines and seeing a counselor at the same time. You are more likely to succeed when you do both. If you are or , talk with your doctor about counseling or other ways to quit smoking. Do not take medicine to help you quit smoking unless your doctor tells you to do so. To quit smoking: Quit right away Quit smoking totally, instead of slowly cutting back on how much you smoke over a period of time. Go to counseling. You are more likely to quit if you go to counseling sessions regularly. Take medicine You may take medicines to help you quit. Some medicines need a prescription, and some you can buy [id number]. Some medicines may contain a drug called nicotine to replace the nicotine in cigarettes. Medicines may: Help you to stop having the desire to smoke (cravings). Help to stop the problems that come when you stop smoking (withdrawal symptoms). Your doctor may ask you to use: Nicotine patches, gum, or lozenges. Nicotine inhalers or sprays. Non-nicotine medicine that is taken by mouth. Find resources Find resources and other ways to help you quit smoking and remain smoke-free after you quit. These resources are most helpful when you use them often. They include: Online chats with a counselor. Phone quitlines. Printed self-help materials. Support groups or group counseling. Text messaging programs. Mobile phone apps. Use apps on your mobile phone or tablet that can help you stick to your quit plan. There are many free apps for mobile phones and tablets as well as websites. Examples include QuitGuide from the CDC and smokefree.gov What things can I do to make it easier to quit? Talk to your family and friends. Ask them to support and encourage you. Call a phone quitline (-NOW), reach out to support groups, or work with a counselor. Ask people who smoke to not smoke around you. Avoid places that make you want to smoke, such as: ? Bars. ? Parties. ? Smoke-break areas at work. Spend time with people who do not smoke. Lower the stress in your life. Stress can make you want to smoke. Try these things to help your stress: ? Getting regular exercise. ? Doing deep-breathing exercises. ? Doing yoga. ? Meditating. ? Doing a body scan. To do this, close your eyes, focus on one area of your body at a time from head to toe. Notice which parts of your body are tense. Try to relax the muscles in those areas. How will I feel when I quit smoking? Day 1 to 3 weeks Within the first 24 hours, you may start to have some problems that come from quitting tobacco. These problems are very bad 2 3 days after you quit, but they do not often last for more than 2 3 weeks. You may get these symptoms: Mood swings. Feeling restless, nervous, angry, or annoyed. Trouble concentrating. Dizziness. Strong desire for high-sugar foods and nicotine. Weight gain. Trouble pooping (constipation). Feeling like you may vomit (nausea). Coughing or a sore throat. Changes in how the medicines that you take for other issues work in your body. Depression. Trouble sleeping (insomnia). Week 3 and afterward After the first 2 3 weeks of quitting, you may start to notice more positive results, such as: Better sense of smell and taste. Less coughing and sore throat. Slower heart rate. Lower blood pressure. Clearer skin. Better breathing. Fewer sick days. Quitting smoking can be hard. Do not give up if you fail the first time. Some people need to try a few times before they succeed. Do your best to stick to your quit plan, and talk with your doctor ifyou have any questions or concerns. Summary Smoking tobacco is the leading cause of preventable . Quitting smoking can be hard, but it is one of the best things that you can do for your health. When you decide to quit smoking, make a plan to help you succeed. Quit smoking right away, not slowly over a period of time. When you start quitting, seek help from your doctor, family, or friends. This information is not intended to replace advice given to you by your health care provider. Make sure you discuss any questions you have with your health care provider. Document Released: 12/12/2009 Document Revised: 05/05/2019 Document Reviewed: 05/06/2019 [employer] Patient Education 2019 [employer] Additional Information VACCINATE! IT SAVES LIVES! Members of the community who have not yet received the COVID-19 vaccine and would like to receive it can visit one of [facility] vaccine clinics. There are many vaccine clinic locations within the [facility]. For locations and available times, please visit https://[email or web address].[place].gov/. It is important to note that some COVID mobile vaccine clinics are held outdoors and may be canceled in rainy or stormy conditions. To learn more about pediatric vaccinations (ages 5-11), we invite you to visit the [facility] webpage. [email or web address].[email or web address].org/pages/[email or web address]-Sinna-[email or web address]-[email or web address] stions.htmlTo learn more about the COVID-19 vaccine, we invite you to visit the CDC website for a list of frequently asked questions. https://www.cdc.gov/coronavirus/2019-ncov/vaccines/faq.html [facility] WilfredoChart Patient Portal Access I (more content not included)... [facility]04[facility]14-[facility]23 Surgery Hospital Progress note Date of Service 06/12/2022 Surgery progress note: Postop day 1 status post robotic assisted epigastric ventral hernia repair. Patient had postop hypoxia requiring him to stay overnight for observation. Has been afebrile. Vital signs stable. O2 saturation fluctuating between 88 and 92 on room air. In the low 90s on 1 or 2 L nasal cannula. Patient subjectively does not feel short of breath and does not really feel any different on or off the oxygen. He denies chest pain. He does have some abdominal soreness as expected postop day 1. He is tolerating a diet with no nausea or vomiting and is passing flatus. Awake alert cooperative coherent appears to be in his baseline state of health. Lungs sounds show a few mild scattered wheezes. Abdomen is soft benign and only mildly tender. The trocar sites are clean dry well approximated with Steri-Strips in place. Repeat chest x-ray done this morning appears clear with very minimal atelectasis White blood count 12.9. Hemoglobin stable. Serum electrolytes normal. BUN and creatinine stable. Impression: Stable postop day 1 appears to be progressing satisfactorily. Continued relative hypoxia which I suspect is most likely his baseline given his chronic heavy smoking history. Discussed with [place] Herring of medicine. She feels that he did benefit from a dose of steroids that she gave him IV as well as the and inhalers. Patient is stable to be discharged home when she will prescribe some inhalers to use as well as puthim on a steroid taper. Pain medications have been E scribed to his pharmacy. Patient is strongly urged and admonished to not smoke at all when he goes home. Follow-up with me in 2 weeks. Home-going instructions have been communicated verbally to the patient. Digitally Signed by IZZY FIGUEROA MD on 06/12/2022 03:55 PM [facility]04-14-2023 Note Date of Service 06/12/22 Chief Complaint dyspnea Subjective 61-year-old male with past medical history significant for CAD s/p P CABG, cardiomyopathy, HTN, HLD, GERD. Overnight patient remained on supplemental oxygen.He has been afebrile and hemodynamically stable. White blood cell count 12,900. Renal function at baseline. On exam today, pt denies any fever or chills. No headache or dizziness. Denies chest pain, palpitations. Dyspnea.. Denies N/V/D/C. No melena/hematochezia. No dysuria or hematuria. No new paresthesias. Objective Vitals and Measurements T: 37.0 C (Oral) TMIN: 36.0 C (Temporal Artery) TMAX: 37.0 C (Oral) HR: 92(Monitored) RR: 18 BP: 140/82 SpO2: 91% HT: 175 cm WT: 93.2 kg BMI: 30.43 Intake and Output 7AM Yesterday to 7AM Today Intake and Output (Last 24 hours) Intake Oral Intake 280.00 Output Urine Voided 1950.00 Stool Count 0.00 Urine Count 5.00 Total Summary Total Intake 280.00 Total Output 1950.00 Fluid Balance -1670.00 Physical Exam GEN: Appears chronically ill CHEST: Normal S1 and S2. Rhythm is regular. Expiratory wheezing throughout ABD: Positive bowel sounds x 4 quads. Soft, nondistended, nontender. EXT: No significant deformity or joint abnormality. No edema. Peripheral pulses intact. NEURO: Sensation grossly intact SKIN: Surgical dressing in place PSYCH: The mental examination revealed the patient was alert and oriented x 4 Weight Dosing Weight: 93.2 kg (06/11/22) Dosing Weight: 93.2 kg (06/11/22) Medications Medications (21) Active Scheduled: (14) albuterol - ipratropium 2.5 mg-0.5 mg/3 mL Inhal Farzaneh UD 3 mL, Inhalation, q4hRT amitriptyline 25 mg tablet 25 mg 1 tab(s), Oral, qHS atorvastatin 40 mg tablet 40 mg 1 tab(s), Oral, qHS duloxetine [address] capsule 30 mg 1 cap(s), Oral, qDay duloxetine [address] capsule 60 mg 1 cap(s), Oral, qDay escitalopram 10 mg tablet 10 mg 1 tab(s), Oral, qDay ezetimibe 10 mg tablet 10 mg 1 tab(s), Oral, qDay ibuprofen 800 mg 200 mL, IV Piggyback, q6hr lisinopril 5 mg tablet 5 mg 1 tab(s), Oral, qDay metoclopramide 5 mg/mL (2mL) vial 10 mg 2 mL, IV Push, q6h metoprolol tartrate 25 mg tablet 25 mg 1 tab(s), Oral, qDay montelukast 10 mg Tablet 10 mg 1 tab(s), Oral, qPM pantoprazole 20 mg EC tablet 40 mg 2 tab(s), Oral, qDayAC traZODONE 50 mg Tablet 150 mg 3 tab(s), Oral, qHS Continuous: (0) PRN: (7) acetaminophen-HYDROcodone 325-5 mg tablet 1 tab(s), Oral, q4h albuterol - ipratropium 2.5 mg-0.5 mg/3 mL Inhal Farzaneh UD 3 mL, Inhalation, q2hRT morphine 2 mg/mL 1 mL syringe 2 mg 1 mL, IV Push, q5min morphine 2 mg/mL 1 mL syringe 2 mg 1 mL, IV Push, q3h morphine 4 mg/mL 1mL INJ 4 mg 1 mL, IV Push, q3h ondansetron 2 mg/ 1 mL 2 mL INJ 4 mg 2 mL, IV Push, AsDirected ondansetron 2 mg/ 1 mL 2 mL INJ 4 mg 2 mL, IV Push, q4h Lab Results 06/12 05:38 WBC: 12.9 H Hgb: 14.6 Hct: 43.5 Platelet: 174 Neutrophil %: 83.3 H Glucose Level: 110 H Sodium Level: 141 Potassium Level: 4.3 BUN: 15 Creatinine Lvl (s): 1.31 H Imaging Results and Diagnostics XR Chest 2 Views Result Date: June 12, 2022 Verified By: CASIMIRO MENJIVAR, JANI Schrader CLINICAL STATEMENT: IMPRESSION: Improved lung volumes and aeration. Minimal left atelectasis. I have personally reviewed the images of this examination, and agree with theresident's findings and interpretation. XR Chest 1 View Result Date: June 11, 2022 Verified By: LAVON COVARRUBIAS MD CLINICAL STATEMENT: IMPRESSION: Bilateral perihilar haziness in the setting of diminished lung volumesreflecting eitherhypoventilatory changes are mild central vascularcongestion. Left retrocardiac atelectasis. EKG Electrocardiogram [AOH] (EKG [AOH]) - InProcess -- 06/11/22 10:00:00 EDT, 06/11/22 10:00:00 EDT Assessment/Plan 1. Acute respiratory failure with hypoxia 2. Acute post-operative pain 3. S/P hernia repair 4. Essential hypertension Acute hypoxic respiratory failure Repeat chest x-ray this morning shows improved lung volumes and aeration. Minimal left atelectasis. Patient was trialed on room air with oxygen saturations at 88%. He was experiencing wheezing throughout. He was given [id number] albuterol treatments and a dose ofSolu- Medrol. He was then able to be transitioned to room air. Patient states the last time that he had surgery he also had 2 stay in the hospital for the same reason Acute postoperative pain S/P hernia repair management per primary team HTN- SBP goal 140 or less. Continue home antihypertensives. DVT prophylaxis: SCDs Labs, diagnostics, and progress notes reviewed as noted in HPI Code Status: Full code Plan of care discussed with patient. All questions answered. Patient verbalizes understanding is agreeable to plan of care. Thank you for requesting our participation in the care of your patient. We will continue to follow during their hospitalization. This dictation was performed using voice recognition software and may include grammatical and/or spelling errors. Digitally Signed by ALBANIA FRANCO on 06/12/2022 12:32 PM [facility]04-14-2023 Note ORIGINAL EXAMINATION: TWO XRAY VIEWS OF THE CHEST 06/12/2022 5:37 am COMPARISON: Chest radiograph 06/11/2022 HISTORY: ORDERING SYSTEM PROVIDED HISTORY: Reason for Exam: Follow-up abnormal chest x-ray and postop hypoxia FINDINGS: Improved lung volumes and aeration. Normal cardiomediastinal silhouette. No focal consolidation, vascular congestion, pleural effusion, or pneumothorax. Minimal left retrocardiac atelectasis. Cervical spine hardware. IMPRESSION: Improved lung volumes and aeration. Minimal left atelectasis. I have personally reviewed the images of this examination, and agree with the resident's findings and interpretation. Interpreted by: Jani Gonzalez MD Preliminary Report By: Irlanda Sales Electronically signed By Jani Gonzalez MD Dictated Date: 06/12/2022 5:41:11 AM Prelim Date: 06/12/2022 5:43:00 AM Sign Date: 06/12/2022 6:09:30 AM Ordering Provider: IZZY FIGUEROA [facility]04-14-2023 Note ORIGINAL EXAMINATION: TWO XRAY VIEWS OF THE CHEST 06/12/2022 5:37 am COMPARISON: Chest radiograph 06/11/2022 HISTORY: ORDERING SYSTEM PROVIDED HISTORY: Reason for Exam: Follow-up abnormal chest x-ray and postop hypoxia FINDINGS: Improved lung volumes and aeration. Normal cardiomediastinal silhouette. No focal consolidation, vascular congestion, pleural effusion, or pneumothorax. Minimal left retrocardiac atelectasis. Cervical spine hardware. IMPRESSION: Improved lung volumes and aeration. Minimal left atelectasis. I have personally reviewed the images of this examination, and agree with the resident's findings and interpretation. Interpreted by: Jani Gonzalez MD Preliminary Report By: Irlanda Sales Electronically signed By Jani Gonzalez MD Dictated Date: 06/12/2022 5:41:11 AM Prelim Date: 06/12/2022 5:43:00 AM Sign Date: 06/12/2022 6:09:30 AM [facility]ing [facility] Progress note Date of Service 06/11/2022 Surgery progress note/postop check: [facility] because of relative hypoxia postoperatively which persisted in recovery room for at least 2 or 3 hours. Currently the patient is about 6 hours postop. He is sitting up in bed awake alert pleasant cooperative coherent and appears to be in no distress. He denies being short of breath. Very little abdominaldiscomfort. Subjectively feels good. SaO2 97 to 100% currently on 2 L nasal cannula. Lungs sound clear and equal to auscultation with nowheezes. Abdomen is soft and benign. Patient most likely improving from either some mild postoperative flash pulmonary edema or atelectasis. Encourage patient to continue to do incentive spirometer is much as possible and cough and deepbreathing. Suspect the hypoxia will clear and patient will likely be able to go home tomorrow morning. Digitally Signed by IZZY FIGUEROA MD on 06/11/2022 06:29 PM [facility]04-13-2023 Note ORIGINAL EXAMINATION: ONE XRAY VIEW OF THE CHEST TECHNIQUE: AP upright COMPARISON: Chest 05/23/2019 HISTORY: ORDERING SYSTEM PROVIDED HISTORY: Reason for Exam: sob FINDINGS: Support devices: None Cardiomediastinal: The heart is not enlarged. Lungs: Hypoventilatory changes with accentuation of the pulmonary vessels and mild bibasilar atelectasis. Mild bilateral perihilar haziness. Left retrocardiac opacification. No evidence of a pleural effusion. Pneumothorax: None Osseous: No acute osseous pathology. Moderately severe acromioclavicular arthrosis with enthesopathy changes extending into the subacromial space. IMPRESSION: Bilateral perihilar haziness in the setting of diminished lung volumes reflecting either hypoventilatory changes are mild central vascular congestion. Left retrocardiac atelectasis. Interpreted by: Lavon Covarrubias MD Preliminary Report By: Lavon Covarrubias MD Electronically signed By Lavon Covarrubias MD Dictated Date: 06/11/2022 11:26:06 AM Prelim Date: 06/11/2022 11:36:05 AM Sign Date: 06/11/2022 11:36:05 AM Ordering Provider: [facility]04-13-2023 Note ORIGINAL EXAMINATION: ONE XRAY VIEW OF THE CHEST TECHNIQUE: AP upright COMPARISON: Chest 05/23/2019 HISTORY: ORDERING SYSTEM PROVIDED HISTORY: Reason for Exam: sob FINDINGS: Support devices: None Cardiomediastinal: The heart is not enlarged. Lungs: Hypoventilatory changes with accentuation of the pulmonary vessels and mild bibasilar atelectasis. Mild bilateral perihilar haziness. Left retrocardiac opacification. No evidence of a pleural effusion. Pneumothorax: None Osseous: No acute osseous pathology. Moderately severe acromioclavicular arthrosis with enthesopathy changes extending into the subacromial space. IMPRESSION: Bilateral perihilar haziness in the setting of diminished lung volumes reflecting either hypoventilatory changes are mild central vascular congestion. Left retrocardiac atelectasis. 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 Family's history: negative. Review of Systems Ear/Nose/Mouth/Throat: Negative. Respiratory: smoker. Cardiovascular: CAD, cardiomyopathy, htn, hx IA with CABG. Gastrointestinal: Reflux, obese. Genitourinary: Negative. Endocrine: Negative. Musculoskeletal: Back pain, Neck pain, cervical stenosis. Integumentary: Negative. Neurologic: cognitive defects. Health Status Allergies: Allergic Reactions (Selected) NKA, Allergies (1) ActiveReaction NKANone Documented Current medications: (Selected) Inpatient Medications Ordered LR 1,000 mL: 20 mL/hr, Intravenous LR 1000 mL: 20 mL/hr, Intravenous Zofran ( PACU ): 4 mg, 2 mL, IV Push, AsDirected, PRN: Nausea/Vomiting morphine ( PACU ): 2 mg, 1 mL, IV Push, q5min, PRN: Pain, scale 4-6 Prescriptions Prescribed DULoxetine 30 mg oral delayed release capsule: 30 mg, 1 cap(s), Oral, qDay, Take along with a 60 mgcapsule daily to equal 90 mg, 90 cap(s), 3 Refill(s) DULoxetine 60 mg oral delayed release capsule: 60 mg, 1 cap(s), Oral, qDay, Take along with a 30 mgDaily to equal 90 mg daily., 90 cap(s), 3 Refill(s) Lopressor 25mg--USE metoprolol tartrate 25 mg oral tablet: 25 mg, 1 tab(s), Oral, qDay, 90 tab(s), 3 Refill(s) Vascepa 1 g oral capsule: 2 gram(s), 2 cap(s), Oral, BID, 360 cap(s), 3 Refill(s) amitriptyline 25 mg oral tablet: 25 mg, 1 tab(s), Oral, qHS, 90 tab(s), 3 Refill(s) escitalopram 10 mg oral tablet: 10 mg, 1 tab(s), Oral, qDay, 90 tab(s), 3 Refill(s) gabapentin 600 mg oral tablet: 600 mg, 1 tab(s), Oral, qHS, for 90 day(s), 90 tab(s), 0 Refill(s) lisinopril 5 mg oral tablet: 5 mg, 1 tab(s), Oral, qDay, 90 tab(s), 3 Refill(s) meloxicam 15 mg oral tablet: 15 mg, 1 tab(s), Oral, qDay, PRN: Pain, 90 tab(s), 1 Refill(s) montelukast 10 mg oral tablet: 10 mg, 1 tab(s), Oral, qPM, 90 tab(s), 3 Refill(s) omeprazole 40 mg oral delayed release capsule: 40 mg, 1 cap(s), Oral, qDay, 90 cap(s), 3 Refill(s) simvastatin 80 mg oral tablet: 80 mg, 1 tab(s), Oral, qHS, 90 tab(s), 3 Refill(s) traZODone 150 mg oral tablet: 150 mg, 1 tab(s), Oral, qHS, 90 tab(s), 3 Refill(s) Documented Medications Documented Misc Medication: 0 Refill(s) ezetimibe 10 mg oral tablet: 10 mg, 1 tab(s), Oral, qDay, 90 tab(s), 0 Refill(s), Medications (4) Active Scheduled: (0) Continuous: (2) Lactated Ringers 1,000 mL 1,000 mL, Intravenous, 20 mL/hr Lactated Ringers Infusion 1000 mL 1,000 mL, Intravenous, 20 mL/hr PRN: (2) morphine 2 mg/mL 1 mL syringe 2 mg 1 mL, IV Push, q5min ondansetron 2 mg/ 1 mL 2 mL INJ 4 mg 2 mL, IV Push, AsDirected Problem list: Medical Anxiety / SNOMED CT 27247919 / Confirmed CTS (carpal tunnel syndrome) / SNOMED CT 87041108 / Confirmed Cervical myelopathy / SNOMED CT 744947958 / Confirmed Reflex sympathetic dystrophy of left lower extremity / SNOMED CT 8773426519 / Confirmed CAD (coronary artery disease) / SNOMED CT 86034282 / Confirmed Depressive disorder / SNOMED CT 99394857 / Confirmed Dysesthesia / SNOMED CT 646867788 / Confirmed Essential hypertension / SNOMED CT 35022935 / Confirmed GERD - Gastro-esophageal reflux disease / SNOMED CT 4052010799 / Confirmed Ventral hernia without obstruction or gangrene / SNOMED CT 8324636128 / Confirmed History of adenomatous polyp of colon / SNOMED CT 0620099414 / Confirmed History of IA (myocardial infarction) / SNOMED CT 1130894364 / Confirmed Lumbar back pain with radiculopathy affecting lower extremity / SNOMED CT 716734395 / Confirmed Hyperlipidemia / SNOMED CT 774217212 / Confirmed Well adult exam / SNOMED CT 100790134 / Confirmed Screening for prostate cancer / SNOMED CT 382326266 / Confirmed 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 / SNOMED CT 953912508 / Confirmed Primary insomnia / SNOMED CT 7742697 / Confirmed HNP (herniated nucleus pulposus), lumbar / SNOMED CT 231617410 / Confirmed Seasonal allergy / SNOMED CT 0600612410 / Confirmed Chronic shoulder pain / SNOMED CT 87796848 / Confirmed Cervical spinal stenosis / SNOMED CT 002124421 / Confirmed, Active Problems (28) Anxiety CAD (coronary artery disease) Cardiomyopathy Cervical myelopathy Cervical spinal stenosis Chronic shoulder pain Cognitive deficits CTS (carpal tunnel syndrome) Depressive disorder Dysesthesia Essential hypertension GERD - Gastro-esophageal reflux disease History of adenomatous polyp of colon History of IA (myocardial infarction) HNP (herniated nucleus pulposus), lumbar Hx of CABG Hyperlipidemia longterm use of drug Lumbar back pain with radiculopathy affecting lower extremity Poor historian Primary insomnia Reflex sympathetic dystrophy of left lower extremity Screening for prostate cancer Seasonal allergy Tobacco use Unable to read or write Ventral hernia without obstruction or gangrene Well adult exam Histories Past Medical History: Active CAD (coronary artery disease) (55398067) Hyperlipidemia (695868489) Resolved Right shoulder injury (8202315348): Resolved. Acute kidney failure, unspecified (81619992): Resolved. Acute renal failure (07403126): Resolved. Preop examination (690496920): Resolved. Family History: Diabetes mellitus Father (Tera Lester, ) Heart disease Mother (Aydee Lester, ) Sister (Radha Lester, ) Procedure history: Facet joint nerve block (515910294) on 11/28/2019 at 59 Years. Lumbar epidural steroid injection ([id number]) on 10/24/2019 at 58 Years. CABG - Coronary artery bypass graft ([id number]) in 2013 at 53 Years. Comments: 08/31/2019 15:46 EDT - ALFRED Rodriguez In [place] Tonsillectomy ([id number]). Nasal septoplasty ([id number]). Operation on brain ([id number]). Comments: 08/31/2019 15:47 EDT - ALFRED Rodriguez Cori Crews States as a child had surgery to remove a blood clot from brain s/p head injury. 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 Lives In 1st floor bathroom, 1st floor bedroom, Apartment, Single level home Current Home Treatments None Marital Status of Patient if Patient Independent Adult: Unmarried Nutrition/Health 08/31/2019 Type of diet: Regular Appetite Good Eating Difficulties None Caffeine intake amount: 2 servings daily . Physical Examination Vital Signs 06/11/2022 8:27 EDT Systolic Blood Pressure Non-Invasive 60 mmHg mmHg Diastolic Blood Pressure Non-Invasive 37 mmHg mmHg 06/11/2022 8:25 EDT Heart Rate Monitored 73 bpm bpm Respiratory Rate - Anes 10 br/min br/min Systolic Blood Pressure Non-Invasive 64 mmHg mmHg Diastolic Blood Pressure Non-Invasive 41 mmHg mmHg 06/11/2022 8:20 EDT Heart Rate Monitored 74 bpm bpm Respiratory Rate - Anes 10 br/min br/min Systolic Blood Pressure Non-Invasive 82 mmHg mmHg Diastolic Blood Pressure Non-Invasive 63 mmHg mmHg 06/11/2022 8:15 EDT Heart Rate Monitored 74 bpm bpm Respiratory Rate - Anes 10 br/min br/min Systolic Blood Pressure Non-Invasive 86 mmHg mmHg Diastolic Blood Pressure Non-Invasive 66 mmHg mmHg 06/11/2022 8:10 EDT Heart Rate Monitored 70 bpm bpm Respiratory Rate - Anes 0 br/min br/min Systolic Blood Pressure Non-Invasive 89 mmHg mmHg Diastolic Blood Pressure Non-Invasive 70 mmHg mmHg 06/11/2022 8:06 EDT Systolic Blood Pressure Non-Invasive 125 mmHg mmHg Diastolic Blood Pressure Non-Invasive 83 mmHg mmHg 06/11/2022 8:05 EDT Respiratory Rate - Anes 0 br/min br/min 06/11/2022 6:51 EDT Temperature Temporal Artery 35.4 DegC Apical Heart Rate 74 bpm Respiratory Rate 14 br/min Systolic Blood Pressure Non-Invasive 140 mmHg Diastolic Blood Pressure Non-Invasive 86 mmHg Vital Signs(last 24 hrs) Last Charted Heart Rate [id number] bpm (JUN 11 08:25) Resp Rate 14 br/min (JUN 11 06:51) SBP60 mmHg (JUN 11 08:27) DBP37 mmHg (JUN 11 08:) Measurements from flowsheet : Measurements 06/11/2022 6:51 EDT Height 175 cm Admission Weight 93.2 kg [place] Body Weight 70.46 kg Admission Body Mass Index 30.43 m2 Pain assessment: Pain Assessment 06/11/2022 6:51 EDT Primary Pain Intensity 0 Pain Scale Type 0-10 Pain scale . General: Alert and oriented. Airway: Normal temporomandibular joint mobility. Mallampati classification: II (soft palate, fauces, uvula visible). Head: Normocephalic. Dentition Evaluation: Dentures, lower, Dentures, upper. Neck: Supple. Respiratory: diminished. Cardiovascular: Normal rate. Heart Sounds: Normal. Gastrointestinal: Soft. Musculoskeletal Normal range of motion. Integumentary: Intact. Neurologic: Alert, Oriented. Review / Management Results review: No qualifying data available , Lab results 06/11/2022 8:30 EDT SN - Cul - Culture Type No Specimen per Surgeon 06/11/2022 8:29 EDT SN - CAt - Case Attendee SN - CAt - Case Attendee SN - CAt - Case Attendee SN - CAt - Case Attendee SN - CAt - Case Attendee SN - CAt - Case Attendee SN - CAt - Case Attendee SN - CAt - Case Attendee SN - CAt - Case Attendee SN - CAt - Case Attendee SN - CAt - Case Attendee SN - CAt - Case Attendee SN - CAt - Role Performed Primary Surgeon SN - CAt - Role Performed SENIOR BI DEVELOPER SN - CAt - Role Performed Cotton Stripper 1 SN - CAt - Role Performed Scrub 1 SN - CAt - Role Performed Wedger Machine 1 SN - CAt - Role Performed Aircraft Machinist 06/11/2022 8:27 EDT SN - CTm - Surgery Start 06/11/2022 8:23 06/11/2022 8:27 EDT Systolic Blood Pressure Non-Invasive 60 mmHg mmHg Diastolic Blood Pressure Non-Invasive 37 mmHg mmHg phenylephrine 100 mcg mcg 06/11/2022 8:25 EDT Heart Rate Monitored 73 bpm bpm Respiratory Rate - Anes 10 br/min br/min Systolic Blood Pressure Non-Invasive 64 mmHg mmHg Diastolic Blood Pressure Non-Invasive 41 mmHg mmHg Oxygen Saturation 99.9 % % Set Rate Anes 10 br/min br/min 06/11/2022 8:24 EDT dexAMETHasone 4 mg mg ondansetron 4 mg mg 06/11/2022 8:23 EDT SN - CTm - Surgery Start Surgery Start 06/11/2022 8:20 EDT Heart Rate Monitored 74 bpm bpm Respiratory Rate - Anes 10 br/min br/min Systolic Blood Pressure Non-Invasive 82 mmHg mmHg Diastolic Blood Pressure Non-Invasive 63 mmHg mmHg Oxygen Saturation 99.3 % % Set Rate Anes 10 br/min br/min 06/11/2022 8:15 EDT Heart Rate Monitored 74 bpm bpm Respiratory Rate - Anes 10 br/min br/min Systolic Blood Pressure Non-Invasive 86 mmHg mmHg Diastolic Blood Pressure Non-Invasive 66 mmHg mmHg Oxygen Saturation 100 % % Set Rate Anes 10 br/min br/min 06/11/2022 8:10 EDT Heart Rate Monitored 70 bpm bpm Respiratory Rate - Anes 0 br/min br/min Systolic Blood Pressure Non-Invasive 89 mmHg mmHg Diastolic Blood Pressure Non-Invasive 70 mmHg mmHg Oxygen Saturation 90.1 % % 06/11/2022 8:08 EDT fentaNYL 100 mcg mcg lidocaine 80 mg mg propofol 150 mg mg rocuronium 40 mg mg 06/11/2022 8:06 EDT Systolic Blood Pressure Non-Invasive 125 mmHg mmHg Diastolic Blood Pressure Non-Invasive 83 mmHg mmHg 06/11/2022 8:05 EDT Respiratory Rate - Anes 0 br/min br/min 06/11/2022 8:03 EDT SN - CTm - Anesthesia Start Time Anesthesia Start midazolam 2 mg mg 06/11/2022 7:44 EDT SN - Preop - CTm Pt in SDS Room 06/11/2022 6:51 SN - Preop - CTm Pt Ready for OR/Proced 06/11/2022 7:44 06/11/2022 7:41 EDT gabapentin 300 mg mg ibuprofen 800 mg mg Dextrose 5% in Water 250 mL mL 06/11/2022 7:33 EDT Sleep Apnea Snore Yes Sleep Apnea Tired Yes Sleep Apnea Obstruction Yes Sleep Apnea Pressure Yes Sleep Apnea BMI Yes Sleep Apnea Neck Yes Sleep Apnea Score 8 >HHI High Risk for Sleep Apnea Yes Safety Brochure Information Reviewed Unable to complete Eitan Granger Video Viewed No Teaching Evaluation Needs further teaching Admission Note-Nursing Same Day Patient History (Modified) 06/11/2022 7:32 EDT Individuals Taught Patient Learning Readiness Willing to learn Barriers to Learning Cognitive deficits, Literacy Preferred Spoken Language Beninese Pre Procedure/Surgery Education Appropriate expectations Ed-Tubes/Drains/IV's Verbalizes/Nonverbally indicates understanding 06/11/2022 7:20 EDT Lactated Ringers Injection Begin Bag 1,000 mL mL 06/11/2022 6:51 EDT Height 175 cm Admission Weight 93.2 kg [place] Body Weight 70.46 kg Admission Body Mass Index 30.43 m2 Temperature Temporal Artery 35.4 DegC Apical Heart Rate 74 bpm Respiratory Rate 14 br/min Systolic Blood Pressure Non-Invasive 140 mmHg Diastolic Blood Pressure Non-Invasive 86 mmHg Primary Pain Intensity 0 Pain Scale Type 0-10 Pain scale Heart Rhythm Regular Oxygen Therapy Room air Oxygen Saturation 93 % Abdomen Description Non-distended Bowel Sounds All Quadrants Present Urinary Elimination Voiding with difficulties Skin Temperature Warm Skin Description [place], Dry Skin Integrity Intact Mucous Membrane Color [place] IV Present Present Continuous IV Infusions LR Antecubital Left 06/11/2022 20 gauge Peripheral IV Activity: Insert new site Peripheral IV Dressing Condition: Clean, Dry, Intact Peripheral IV Dressing Activity: Applied, Transparent dressing Peripheral IV Line Status/Patency: Continuous infusion Peripheral IV Line Care: Secured with tape Peripheral IV Site Condition: No complications Peripheral IV Equipment: Extension set, [place] Peripheral IV Number of Attempts: 2 Characteristics of Speech Clear Level of Consciousness Alert Strength All Extremities Moderate Tone All Extremities Normal Sensation All Extremities Intact Affect/Behavior Appropriate, Calm, Cooperative Orientation Oriented x 4 Allergies No Supervisor Extrusion On Yes Consent Form Signed Yes Patient Dressed In Hospital gown Pre-op Preparation Dentures not removed CHG Preoperative Wash/Wipe Night before procedure, Day of procedure History & Physical Update On Chart Yes History & Physical On Chart Yes Obstructive Sleep Apnea Assess Completed No Belongings At Bedside Cell phone, Dentures, lower, Dentures, upper, Pants, Shirt, Shoes, Socks, Undergarments Personal Home Medications Received Received from patient Belongings Sent To Security None Assistive Device None SCD On/Re-applied bilateral knee high NPO Status Maintained Standard Safety ID band on, Bed in low position, Wheels locked, Non-Slip footwear Allergy Band on and Verified No Blood Band on and Verified No Patient ID Band on and Verified Yes Implants Verified Yes Pacemaker/AICD Verified Yes Anesthesia Consent Signed Yes Blood Consent Signed Yes Last Fluid Intake 06/10/2022 23:00 Last Food Intake 06/10/2022 23:00 Last Void 06/11/2022 6:00 . Assessment and Plan [place] [employer] Anesthesiologists (ASA) physical status classification: Class III. Anesthetic Preoperative Plan Premedication: intravenous. Anesthetic technique: General. Induction: intravenously. Maintenance airway: Oral endotracheal tube. Postoperative pain management: Per surgeon. Risks discussed: nausea, vomiting, sore throat. Informed consent: signed by patient. Digitally Signed by RIVER GRADY on 06/11/2022 08:40 AM [facility]09-27-2022 NoteHNO ID: [id number] Author: Miles Washburn DO Service: ? Author Type: Physician Type: Progress Notes Filed: 11/25/2021 2:32 PM Note Text: Miles Washburn DO [facility] Orthopedics - Orthopedic Spine Surgeon [facility] [address] [facility] [address] [place] [address] Phone: [phone] FAX: [phone] SPINE SURGERY OUTPATIENT CONSULT SERVICE DATE: 11/25/2021 Last Office Visit: 08/19/2021 REFERRING PROVIDER: Miles Washburn [facility] [address] [facility] [id number] CHIEF COMPLAINT: Gait and balance-improved HISTORY OF PRESENT ILLNESS Destiny Lester is a 61 year old male presenting alone. He is 6 months s/p C3-6 lami fusion on 05/29/2021. At his last office visit he stated he was doing well. He stated he is having some shooting pains down his left arm at times. Pain is in the anterior shoulder. Pain is worse when he is carrying his heavy groceries. Stated he worked with physical and occupational therapy and had great improvement. Patient stated he started smoking again. Recommendation was to work with physical therapy for his right shoulder pain and smoking cessation. He was asked to follow up in 3 months, prompting his visit today. Today, he states he is doing great. He states he had his last cigarette on Wednesday. States he has been using his cane for gait stability secondary to his leg pain. Denies loss of bowel or bladder. He is here for image review, evaluation and plan of care. SYMPTOMS: none PREVIOUS CONSERVATIVE TREATMENTS: NSAID's (mobic) Physical therapy PREVIOUS SURGERY: SURGERY #1: C3-6 laminectomy with fusion on 05/29/2021 Smoker: former Diabetic: Denies Anticoagulants / Antiplatelets: No Occupation: Not working at this time PAST MEDICAL HISTORY Diagnosis Date Anxiety state CAD (coronary artery disease) Depression GERD (gastroesophageal reflux disease) Hypertension Illiterate 03/20/21- per Adeline, caregiver/underwriter mortgage loan Lumbar disc disease IA (myocardial infarction) ([facility]) 2013 Mixed hyperlipidemia Myelopathy ([facility]) Polyneuropathy, peripheral sensorimotor axonal PAST SURGICAL HISTORY Procedure Laterality Date NECK SURGERY HX 05/29/2021 C3-7 Laminectomy C3-T1 Fusion PAST SURGICAL HISTORY OF 2013 coronary arthery bypass graft PAST SURGICAL HISTORY OF tonsillectomy and nose surgery FAMILY HISTORY Problem Relation Age of Onset Stroke Mother Kidney failure Sister Social History Tobacco Use Smoking status: Every Day Years: 45.00 Types: Cigarettes Smokeless tobacco: Never Tobacco comments: 3-4 cig per day Substance Use Topics Alcohol use: Not Currently Drug use: Never ALLERGIES No Known Allergies MEDICATIONS: DULoxetine (CYMBALTA) 60 mg capsule TAKE 1 CAP(S) BY MOUTH EVERY DAY. TAKE ALONG WITH A 30 MG DAILY TO EQUAL 90 MG DAILY. icosapent ethyl (VASCEPA) 1 gram capsule Take 2 g by mouth twice daily. metoprolol tartrate, short acting, (LOPRESSOR) 25 mg tablet Take 25 mg by mouth once daily. metoprolol succinate ER (TOPROL XL) 25 mg 24 hr tablet Take 25 mg by mouth once daily. meloxicam (MOBIC) 15 mg tablet Take 15 mg by mouth once daily. polyethylene glycol 3350 (MIRALAX) 17 gram/dose powder Take 17 g by mouth twice daily. escitalopram oxalate (LEXAPRO) 10 mg tablet Take 10 mg by mouth once daily. Comp Stocking,Knee,Regular,Sml (T.E.D. ANTI-EMBOLISM STOCKING) 12 Each q 12 HR. Post operatively omeprazole (PRILOSEC) 40 mg capsule Take 40 mg by mouth once daily. icosapent ethyl (VASCEPA) 0.5 gram capsule Take 2 g by mouth twice daily. gabapentin (NEURONTIN) 600 mg tablet Take 600 mg by mouth daily at bedtime. simvastatin (ZOCOR) 80 mg tablet Take 80 mg by mouth daily at bedtime. amitriptyline (ELAVIL) 25 mg tablet Take 25 mg by mouth daily at bedtime. traZODone (DESYREL) 150 mg tablet Take 150 mg by mouth daily at bedtime. montelukast (SINGULAIR) 10 mg tablet Take 10 mg by mouth daily at bedtime. lisinopril (ZESTRIL, PRINIVIL) 5 mg tablet Take 5 mg by mouth once daily. DULoxetine (CYMBALTA) 30 mg capsule Take 90 mg by mouth once daily. REVIEW OF SYSTEMS Review of Systems Constitutional: Negative for appetite change, chills and fever. HENT: Negative for ear discharge, tinnitus and trouble swallowing. Eyes: Negative for pain, redness and visual disturbance. Respiratory: Negative for cough, shortness of breath and wheezing. Cardiovascular: Negative for chest pain, palpitations and leg swelling. Gastrointestinal: Negative for diarrhea, nausea and vomiting. Endocrine: Negative for cold intolerance and heat intolerance. Genitourinary: Negative for difficulty urinating, frequency and urgency. Musculoskeletal: Negative for back pain, gait problem, neck pain and neck stiffness. Skin: Negative for color change, rash and wound. Allergic/Immunologic: Negative for environmental allergies and food allergies. Neurological: Negative (more content not included)...[facility]09-27-2022 Miscellaneous Notes* Addendum Note - Miles Washburn DO - 11/25/2021 2:59 PM EDTAddended by: MILES WASHBURN on: 11/25/2021 02:59 PM Modules accepted: Orders documented in this encounterCleveland [id number] History of Present illness Narrative* Miles Washburn DO - 11/25/2021 2:15 PM EDT Images from the original note were not included. Miles Washburn DO [facility] - Orthopedic Spine Surgeon [address] [facility] [address] [address] [place] [address] Phone: [phone] FAX: [phone] SPINE SURGERY OUTPATIENT CONSULT SERVICE DATE: 11/25/2021 Last Office Visit: 08/19/2021 REFERRING PROVIDER: Miles Washburn [address] [facility] [address] CHIEF COMPLAINT: Gait and balance-improved HISTORY OF PRESENT ILLNESS Destiny Lester is a 61 year old male presenting alone. He is 6 months s/p C3-6 lami fusion on 05/29/2021. At his last office visit he stated he was doing well. He stated he is having some shooting pains down his left arm at times. Pain is in the anterior shoulder. Pain is worse when he is carrying his heavy groceries. Stated he worked with physical and occupational therapy and had great improvement. Patient stated he started smoking again. Recommendation was to work with physical therapy for his right shoulder pain and smoking cessation. He was asked to follow up in 3 months, prompting his visit today. Today, he states he is doing great. He stateshe had his last cigarette on Wednesday. States he has been using his cane for gait stability secondary to his leg pain. Denies loss of bowel or bladder. He is here for image review, evaluation and plan of care. SYMPTOMS: none PREVIOUS CONSERVATIVE TREATMENTS: NSAID's (mobic) Physical therapy PREVIOUS SURGERY: SURGERY #1: C3-6 laminectomy with fusion on 05/29/2021 Smoker: former Diabetic: Denies Anticoagulants / Antiplatelets: No Occupation: Not working at this time PAST MEDICAL HISTORY Diagnosis Date Anxiety state CAD (coronary artery disease) Depression GERD (gastroesophageal reflux disease) Hypertension Illiterate 03/20/21- per Adeline, caregiver/underwriter mortgage loan Lumbar disc disease [place] (myocardial infarction) ([facility]) 2013 Mixed hyperlipidemia Myelopathy ([facility]) Polyneuropathy, peripheral sensorimotor axonal PAST SURGICAL HISTORY Procedure Laterality Date NECK SURGERY HX 05/29/2021 C3-7 Laminectomy C3-T1 Fusion PAST SURGICAL HISTORY OF 2013 coronary arthery bypass graft PAST SURGICAL HISTORY OF tonsillectomy and nose surgery FAMILY HISTORY Problem Relation Age of Onset Stroke Mother Kidney failure Sister Social History Tobacco Use Smoking status: Every Day Years: 45.00 Types: Cigarettes Smokeless tobacco: Never Tobacco comments: 3-4 cig per day Substance Use Topics Alcohol use: Not Currently Drug use: Never ALLERGIES No Known Allergies MEDICATIONS: DULoxetine (CYMBALTA) 60 mg capsule TAKE 1 CAP(S) BY MOUTH EVERY DAY. TAKE ALONG WITH A 30 MG DAILYTO EQUAL 90 MG DAILY. icosapent ethyl (VASCEPA) 1 gram capsule Take 2 g by mouth twice daily. metoprolol tartrate, short acting, (LOPRESSOR) 25 mg tablet Take 25 mg by mouth once daily. metoprolol succinate ER (TOPROL XL) 25 mg 24 hr tablet Take 25 mg by mouth once daily. meloxicam (MOBIC) 15 mg tablet Take 15 mg by mouth once daily. polyethylene glycol 3350 (MIRALAX) 17 gram/dose powder Take 17 g by mouth twice daily. escitalopram oxalate (LEXAPRO) 10 mg tablet Take 10 mg by mouth once daily. Comp Stocking,Knee,Regular,Sml (T.E.D. ANTI-EMBOLISM STOCKING) 12 Each q 12 HR. Post operatively omeprazole (PRILOSEC) 40 mg capsule Take 40 mg by mouth once daily. icosapent ethyl (VASCEPA) 0.5 gram capsule Take 2 g by mouth twice daily. gabapentin (NEURONTIN) 600 mg tablet Take 600 mg by mouth daily at bedtime. simvastatin (ZOCOR) 80 mg tablet Take 80 mg by mouth daily at bedtime. amitriptyline (ELAVIL) 25 mg tablet Take 25 mg by mouth daily at bedtime. traZODone (DESYREL) 150 mg tablet Take 150 mg by mouth daily at bedtime. montelukast (SINGULAIR) 10 mg tablet Take 10 mg by mouth daily at bedtime. lisinopril (ZESTRIL, PRINIVIL) 5 mg tablet Take 5 mg by mouth once daily. DULoxetine (CYMBALTA) 30 mg capsule Take 90 mg by mouth once daily. REVIEW OF SYSTEMS Review of Systems Constitutional: Negative for appetite change, chills and fever. HENT: Negative for ear discharge, tinnitus and trouble swallowing. Eyes: Negative for pain, redness and visual disturbance. Respiratory: Negative for cough, shortness of breath and wheezing. Cardiovascular: Negative for chest pain, palpitations and leg swelling. Gastrointestinal: Negative for diarrhea, nausea and vomiting. Endocrine: Negative for cold intolerance and heat intolerance. Genitourinary: Negative for difficulty urinating, frequency and urgency. Musculoskeletal: Negative for back pain, gait problem, neck pain and neck stiffness. Skin: Negative for color change, rash and wound. Allergic/Immunologic: Negative for environmental allergies and food allergies. Neurological: Negative for weakness, numbness and headaches. Hematological: Does not bruise/bleed easily. Psychiatric/Behavioral: Negative for agitation and confusion. The patient is not nervous/anxious. OBJECTIVE: BP 107/58 (BP Site: Left Arm, BP Position: Sitting, BP Cuff Size: Large Adult) Pulse 71 Temp 36.4 C (97.5 F) (Temporal) Ht 175.3 cm (5' 9) Wt 93 kg (205 lb 0.4 oz) SpO2 94% BMI 30.28 kg/m PHYSICAL EXAM GENERAL APPEARANCE: Well nourished, well developed, and no apparent distress. NEURO PSYCH: Patient oriented to person, place, and time. Mood pleasant. Benign affect. CARDIOVASCULAR: Palpable pulses. No edema noted. No varicosities. SKIN: Head, neck, trunk, and extremities dry, intact and without lesions. LYMPHATICS: No palpable nodes in cervical or axillae areas. Groin exam deferred MUSCULOSKELETAL PALPATION: SPINOUS PROCESS: No pain. PARASPINALS: No pain. MUSCLE TONE and BULK: Symmetrical in the upper & lower extremities. MOTOR: Upper Extremity Left Right Deltoids 5/5 5/5 Biceps 5/5 5/5 Triceps 5/5 5/5 Assembler Finger Buffs 5/5 5/5 Interossei 5/5 5/5 Lower Extremity Hip Flexors 5/5 5/5 Quadriceps 5/5 5/5 Dorsiflexion 5/5 5/5 EHL/EDC 5/5 5/5 Plantar Flexion 5/5 5/5 SENSORY: Sensation intact to light touch C5-T1, L1-S1 GAIT: Able to perform toe and heel walk. Able to perform tandem gait. LONG TRACT SIGNS: No clonus. No Hoffmanns REFLEXES: symmetric non-brisk DATA REVIEW XR Cervical spine 2V AP/LAT on 11/25/2021 AP lateral view of the cervical spine displays a C3-6 fusion, Hardware in stable position. ASSESSMENT/PLAN Destiny Lester is a 61-year-old male with cervical myelopathy. -He is now 6 months status post C3-6 laminectomy fusion. He is doing great since the surgery. His balance is greatly improved. His dexterity is improved. His arm pain has improved. His arm weakness has greatly improved. Patient continues to smoke. I discussed with him that he needs to be smoke-freehe agrees that he will attempt this. We will see the patient back in 6 months for his 1 year appointment. The following portions of the patient's history were reviewed, confirmed, and updated as necessary:allergies, current medications, past family history, past medical history, past social history, past surgical history, problem list, HPI, and ROS obtained by others. Some elements may be copied from a previous office note and have been reviewed/updated where appropriate. All portions reflect current medical decision making from today. The clinical and radiographic findings as well as the risks, benefits and alternatives of treatmenthave been reviewed in detail with the patient. Advised to call the office if symptoms worsen or new symptoms develop. Patient expressed understanding and is in agreement with plan. Miles Washburn DO documented in this encounterThe [facility]06-[facility] NoteHNO ID: [id number] Author: Miles Washburn DO Service: ? Author Type: Physician Type: Progress Notes Filed: 08/19/2021 1:53 PM Note Text: Miles Washburn DO [facility] - Orthopedic Spine Surgeon [address], [place] [address] [address] [place] [address] Phone: [phone] FAX: [phone] SPINE SURGERY POST-OP FOLLOW UP SERVICE DATE: 08/19/2021 SURGERY DATE: 05/29/2021 ? SURGERY: C3-6 lamifusion ? PREOPERATIVE SYMPTOMS: Bilateral arm weakness, balance disturbance? ? Destiny Lester is seen for 3 month post operative follow up. At his last visit he noted he was improving since surgery. Stated he had been wearing his neck brace at all times. He stated his bilateral arms felt significantly stronger. He stated he had a mechanical fall by his fridge and noted he landed on his left side. He did not call EMS and he did not notify the office. He denied hitting his head and noted his neck was feeling great. Recommendation was to continue with home physical therapy exercises and follow-up in 6 weeks with repeat imaging. Today, he states he was doing well. He states he is having some shooting pains down his left arm at times. Pain is in the anterior shoulder. Pain is worse when he is carrying his heavy groceries. States he worked with physical and occupational therapy and had great improvement. Denies loss of bowel or bladder. He is here for image review, evaluation and plan of care. INCISION: healed PREVIOUS SURGERY: None Review of Systems Constitutional: Negative for appetite change, chills and fever. HENT: Negative for ear discharge, tinnitus and trouble swallowing. Eyes: Negative for pain, redness and visual disturbance. Respiratory: Negative for cough, shortness of breath and wheezing. Cardiovascular: Negative for chest pain, palpitations and leg swelling. Gastrointestinal: Negative for diarrhea, nausea and vomiting. Endocrine: Negative for cold intolerance and heat intolerance. Genitourinary: Negative for difficulty urinating, frequency and urgency. Musculoskeletal: Positive for back pain and gait problem. Negative for neck pain and neck stiffness. Skin: Negative for color change, rash and wound. Allergic/Immunologic: Negative for environmental allergies and food allergies. Neurological: Positive for numbness. Negative for weakness and headaches. Hematological: Does not bruise/bleed easily. Psychiatric/Behavioral: Negative for agitation and confusion. The patient is not nervous/anxious. ALLERGIES No Known Allergies Current Outpatient Medications Medication Sig Dispense Refill - metoprolol succinate ER (TOPROL XL) 25 mg 24 hr tablet Take 25 mg by mouth once daily. - meloxicam (MOBIC) 15 mg tablet Take 15 mg by mouth once daily. - polyethylene glycol 3350 (MIRALAX) 17 gram/dose powder Take 17 g by mouth twice daily. - escitalopram oxalate (LEXAPRO) 10 mg tablet Take 10 mg by mouth once daily. - Comp Stocking,Knee,Regular,Sml (T.E.D. ANTI-EMBOLISM STOCKING) 12 Each q 12 HR. Post operatively 12 Each 0 - omeprazole (PRILOSEC) 40 mg capsule Take 40 mg by mouth once daily. - icosapent ethyl (VASCEPA) 0.5 gram capsule Take 2 g by mouth twice daily. - gabapentin (NEURONTIN) 600 mg tablet Take 600 mg by mouth daily at bedtime. - simvastatin (ZOCOR) 80 mg tablet Take 80 mg by mouth daily at bedtime. - amitriptyline (ELAVIL) 25 mg tablet Take 25 mg by mouth daily at bedtime. - traZODone (DESYREL) 150 mg tablet Take 150 mg by mouth daily at bedtime. - montelukast (SINGULAIR) 10 mg tablet Take 10 mg by mouth daily at bedtime. - lisinopril (ZESTRIL, PRINIVIL) 5 mg tablet Take 5 mg by mouth once daily. - DULoxetine (CYMBALTA) 30 mg capsule Take 90 mg by mouth once daily. - metoprolol tartrate, short acting, (LOPRESSOR) 25 mg tablet Take 25 mg by mouth once daily. (Patient not taking: Reported on 08/19/2021 ) No current facility-administered medications for this visit. OBJECTIVE: BP 120/79 (BP Site: Right Arm, BP Position: Sitting, BP Cuff Size: Large Adult) Pulse 74 Temp 36.6 ?C (97.8 ?F) Ht 175.3 cm (5' 9) Wt 93.3 kg (205 lb 11 oz) SpO2 94% BMI 30.38 kg/m? PHYSICAL EXAM GENERAL APPEARANCE: Well nourished, well developed, and no apparent distress. NEURO PSYCH: Patient oriented to person, place, and time. Mood pleasant. Benign affect. CARDIOVASCULAR: Palpable pulses. No edema noted. No varicosities. SKIN: Head, neck, trunk, and extremities dry, intact and without lesions. LYMPHATICS: No palpable nodes in cervical or axillae areas. Groin exam deferred MUSCULOSKELETAL PALPATION: SPINOUS PROCESS: No pain. PARASPINALS: No pain. MUSCLE TONE and BULK: Symmetrical in the upper AND lower extremities. MOTOR: Upper Extremity Left Right Deltoids 5/5 5/5 Biceps 5/5 5/5 Triceps 5/5 5/5 Assembler Finger Buffs 5/5 5/5 Interossei 5/5 5/5 Lower Extremity Hip Flexor (more content not included)...[facility]05-10-2022 NoteHNO ID: [id number] Author: Miles Washburn, DO Service: ? Author Type: Physician Type: Progress Notes Filed: 07/08/2021 11:30 AM Note Text: Miles Washburn DO [facility] - Orthopedic Spine Surgeon [address], [facility] [address] [address] [place] [address] Phone: [phone] FAX: [phone] SPINE SURGERY POST-OP FOLLOW UP SERVICE DATE: 07/08/2021 SURGERY DATE: 05/29/2021 ? SURGERY: C3-6 lamifusion ? PREOPERATIVE SYMPTOMS: Bilateral arm weakness, balance disturbance? ? Destiny Lester is seen for 6 week post operative follow up. At his last visit he stated his presurgical symptoms have resolved and he is feeling great. 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 He stated he was very pleased with the surgery. He stated he has warn his c-collar at all time and is using a walker for mobility. He reported doing home physical and occupation therapy. He was asked to stay in the c-collar until the 6-week appointment along with alex's, prompting his visit today. Today he states he is improving since surgery. States he has been wearing his neck brace at all times. He states on Wednesday night he was at his fridge and went to turn around and his left leg went numb he fell onto the floor hitting his left side. States he did not call EMS and the office was not notified. Patient states he did not hit his head and his neck feel great. He is here for image review, evaluation and plan of care. States that his bilateral arms feels significantly stronger. INCISION: Healed PREVIOUS SURGERY: None Review of Systems ALLERGIES No Known Allergies Current Outpatient Medications Medication Sig Dispense Refill - metoprolol succinate ER (TOPROL XL) 25 mg 24 hr tablet Take 25 mg by mouth once daily. - meloxicam (MOBIC) 15 mg tablet Take 15 mg by mouth once daily. - polyethylene glycol 3350 (MIRALAX) 17 gram/dose powder Take 17 g by mouth twice daily. - escitalopram oxalate (LEXAPRO) 10 mg tablet Take 10 mg by mouth once daily. - Comp Stocking,Knee,Regular,Sml (T.E.D. ANTI-EMBOLISM STOCKING) 12 Each q 12 HR. Post operatively 12 Each 0 - omeprazole (PRILOSEC) 40 mg capsule Take 40 mg by mouth once daily. - icosapent ethyl (VASCEPA) 0.5 gram capsule Take 2 g by mouth twice daily. - gabapentin (NEURONTIN) 600 mg tablet Take 600 mg by mouth daily at bedtime. - simvastatin (ZOCOR) 80 mg tablet Take 80 mg by mouth daily at bedtime. - amitriptyline (ELAVIL) 25 mg tablet Take 25 mg by mouth daily at bedtime. - traZODone (DESYREL) 150 mg tablet Take 150 mg by mouth daily at bedtime. - montelukast (SINGULAIR) 10 mg tablet Take 10 mg by mouth daily at bedtime. - lisinopril (ZESTRIL, PRINIVIL) 5 mg tablet Take 5 mg by mouth once daily. - DULoxetine (CYMBALTA) 30 mg capsule Take 90 mg by mouth once daily. No current facility-administered medications for this visit. OBJECTIVE: BP 121/81 (BP Site: Right Arm, BP Position: Sitting, BP Cuff Size: Large Adult) Pulse 76 Temp 36.6 ?C (97.9 ?F) Ht 175.3 cm (5' 9) Wt 85.3 kg (188 lb) SpO2 97% BMI 27.76 kg/m? PHYSICAL EXAM GENERAL APPEARANCE: Well nourished, well developed, and no apparent distress. NEURO PSYCH: Patient oriented to person, place, and time. Mood pleasant. Benign affect. CARDIOVASCULAR: Palpable pulses. No edema noted. No varicosities. SKIN: Head, neck, trunk, and extremities dry, intact and without lesions. LYMPHATICS: No palpable nodes in cervical or axillae areas. Groin exam deferred MUSCULOSKELETAL PALPATION: SPINOUS PROCESS: No pain. PARASPINALS: No pain. MUSCLE TONE and BULK: Symmetrical in the upper AND lower extremities. MOTOR: Upper Extremity Left Right Deltoids 5/5 5/5 Biceps 5/5 5/5 Triceps 5/5 5/5 Assembler Finger Buffs 5/5 5/5 Interossei 5/5 5/5 Lower Extremity Hip Flexors 5/5 5/5 Quadriceps 5/5 5/5 Dorsiflexion 5/5 5/5 EHL 5/5 5/5 Plantar Flexion 5/5 5/5 SENSORY: Sensation intact to light touch C5-T1, L1-S1 GAIT: Able to perform toe and heel walk. Able to perform tandem gait. LONG TRACT SIGNS: No clonus. Positive Penny's bilaterally REFLEXES: symmetric non-brisk WOUND ASSESSMENT: Healed DATA REVIEW Xray cervical 2V AP/LAT 07/08/2021 AP lateral cervical x-ray displays a C3-6 fusion with hardware in excellent position no signs of loosening. ASSESSMENT/PLAN (G95.9) Cervical myelopathy (HCC) (primary encounter diagnosis) Destiny Lester is a 60-year-old male who is 6 weeks status post C3-6 fusion with a C3-5 decompression. -He is doing great since surgery. He has resolution of his deltoid weakness. His pain is improving every day. Recommend continuing doing home physical therapy exercises. I will see the patient back in another 6 weeks for his 3-month appointment. The following portions of the patient's history were reviewed, confirmed, and updated as (more content not included)...[facility] 07-08-2021 History of Present illness Narrative* Miles Washburn DO - 07/08/2021 10:45 AM EDT Images from the original note were not included. Miles Washburn DO [facility] - Orthopedic Spine Surgeon [address], [facility] [address] [place] [address] Phone: [phone] FAX: [phone] SPINE SURGERY POST-OP FOLLOW UP SERVICE DATE: 07/08/2021 SURGERY DATE: 05/29/2021 SURGERY: C3-6 lamifusion PREOPERATIVE SYMPTOMS: Bilateral arm weakness, balance disturbance Destiny Lester is seen for 6 week post operative follow up. At his last visit he stated his presurgical symptoms have resolved and he is feeling great. 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 He stated he was very pleased with the surgery. He statedhe has warn his c-collar at all time and is using a walker for mobility. He reported doing home physical and occupation therapy. He was asked to stay in the c-collar until the 6-week appointment along with xrfouzia's, prompting his visit today. Today he states he is improving since surgery. States he has been wearing his neck brace at all times. He states on Wednesday night he was at his fridge and went to turn around and his left leg went numb he fell onto the floor hitting his left side. States hedid not call EMS and the office was not notified. Patient states he did not hit his head and his neck feel great. He is here for image review, evaluation and plan of care. States that his bilateral arms feels significantly stronger. INCISION: Healed PREVIOUS SURGERY: None Review of Systems ALLERGIES No Known Allergies Current Outpatient Medications Medication Sig Dispense Refill metoprolol succinate ER (TOPROL XL) 25 mg 24 hr tablet Take 25 mg by mouth once daily. meloxicam (MOBIC) 15 mg tablet Take 15 mg by mouth once daily. polyethylene glycol 3350 (MIRALAX) 17 gram/dose powder Take 17 g by mouth twice daily. escitalopram oxalate (LEXAPRO) 10 mg tablet Take 10 mg by mouth once daily. Comp Stocking,Knee,Regular,Sml (T.E.D. ANTI-EMBOLISM STOCKING) 12 Each q 12 HR. Post operatively 12Each 0 omeprazole (PRILOSEC) 40 mg capsule Take 40 mg by mouth once daily. icosapent ethyl (VASCEPA) 0.5 gram capsule Take 2 g by mouth twice daily. gabapentin (NEURONTIN) 600 mg tablet Take 600 mg by mouth daily at bedtime. simvastatin (ZOCOR) 80 mg tablet Take 80 mg by mouth daily at bedtime. amitriptyline (ELAVIL) 25 mg tablet Take 25 mg by mouth daily at bedtime. traZODone (DESYREL) 150 mg tablet Take 150 mg by mouth daily at bedtime. montelukast (SINGULAIR) 10 mg tablet Take 10 mg by mouth daily at bedtime. lisinopril (ZESTRIL, PRINIVIL) 5 mg tablet Take 5 mg by mouth once daily. DULoxetine (CYMBALTA) 30 mg capsule Take 90 mg by mouth once daily. No current facility-administered medications for this visit. OBJECTIVE: BP 121/81 (BP Site: Right Arm, BP Position: Sitting, BP Cuff Size: Large Adult) Pulse 76 Temp 36.6 C (97.9 F) Ht 175.3 cm (5' 9) Wt 85.3 kg (188 lb) SpO2 97% BMI 27.76 kg/m PHYSICAL EXAM GENERAL APPEARANCE: Well nourished, well developed, and no apparent distress. NEURO PSYCH: Patient oriented to person, place, and time. Mood pleasant. Benign affect. CARDIOVASCULAR: Palpable pulses. No edema noted. No varicosities. SKIN: Head, neck, trunk, and extremities dry, intact and without lesions. LYMPHATICS: No palpable nodes in cervical or axillae areas. Groin exam deferred MUSCULOSKELETAL PALPATION: SPINOUS PROCESS: No pain. PARASPINALS: No pain. MUSCLE TONE and BULK: Symmetrical in the upper & lower extremities. MOTOR: Upper Extremity Left Right Deltoids 5/5 5/5 Biceps 5/5 5/5 Triceps 5/5 5/5 Assembler Finger Buffs 5/5 5/5 Interossei 5/5 5/5 Lower Extremity Hip Flexors 5/5 5/5 Quadriceps 5/5 5/5 Dorsiflexion 5/5 5/5 EHL 5/5 5/5 Plantar Flexion 5/5 5/5 SENSORY: Sensation intact to light touch C5-T1, L1-S1 GAIT: Able to perform toe and heel walk. Able to perform tandem gait. LONG TRACT SIGNS: No clonus. Positive Penny's bilaterally REFLEXES: symmetric non-brisk WOUND ASSESSMENT: Healed DATA REVIEW Xray cervical 2V AP/LAT 07/08/2021 AP lateral cervical x-ray displays a C3-6 fusion with hardware in excellent position no signs of loosening. ASSESSMENT/PLAN (G95.9) Cervical myelopathy (HCC) (primary encounter diagnosis) Destiny Lester is a 60-year-old male who is 6 weeks status post C3-6 fusion with a C3-5 decompression. -He is doing great since surgery. He has resolution of his deltoid weakness. His pain is improving every day. Recommend continuing doing home physical therapy exercises. I will see the patient back in another 6 weeks for his 3-month appointment. The following portions of the patient's history were reviewed, confirmed, and updated as necessary:allergies, current medications, past family history, past medical history, past social history, past surgical history, problem list, HPI, and ROS obtained by others. Some elements may be copied from a previous office note and have been reviewed/updated where appropriate. All portions reflect current medical decision making from today. The clinical and radiographic findings as well as the risks, benefits and alternatives of treatmenthave been reviewed in detail with the patient. Advised to call the office if symptoms worsen or new symptoms develop. Patient expressed understanding and is in agreement with plan. Miles Washburn DO [facility] Miscellaneous Notes* Telephone Encounter - Miguelina Delcid, PT - 06/26/2021 5:26 PM EDT Pt discharged from home PT 06/26/21 Goals met documented in this encounterThe [facility]04[facility] Miscellaneous Notes* PT DISCHARGE - Miguelina Delcid, PT - 06/26/2021 12:41 PM EDT SITUATIONNo one present during today's visit. patient reports the following since the last homecarevisit: medications/allergies--no changes, no fall. patient reports little to no pain and doing welloverall. BACKGROUND: Diagnoses (reason for Home Care): Posterior cervical laminectomy C3 to C5 with bilateral foraminotomies Weight Bearing/Precaution Changes: no changes ASSESSMENT: Focus of visit: reassessment /discharge Physical therapy discharged: goals achieved. Functional performance at discharge - bed mobility independent, transfers independent, ambulation independent and stairs independent. Plan of care, goals, and discharge reviewed and agreed upon with patient and/or caregiver. RECOMMENDATION: Patient discharged from home health services. Instructions to include:home exercise program as directed See intervention summary for intervention/education details. documented in this [facility]The [facility]04[facility] Miscellaneous Notes* PT ROUTINE/REASSESSMENT/RECERT/CASE MGMT - Brenton Parish PTA - 06/23/2021 12:54 PM EDT SITUATION:Routine [facility] visit No one present during today's visit. patient reports the following since the last homecare visit: medications/allergies--no changes, no fall. patient reports little to no pain and doing well overall. BACKGROUND: Diagnoses (reason for Home Care): Posterior cervical laminectomy C3 to C5 with bilateral foraminotomies Weight Bearing/Precaution Changes: no changes ASSESSMENT: Focus of visit cane training outdoor surface. Plan of care, goals, and visit frequency reviewed and agreed upon with patient and/or caregiver. Current Discharge Plan: independent with home exercise program Anticipate discharge by 06/26/21 RECOMMENDATION: Next visit to focus on cane use and possible d/c See intervention summary for intervention/education details. [facility]04[facility] Miscellaneous Notes* PT ROUTINE/REASSESSMENT/RECERT/CASE MGMT - Shira Wild PTA - 06/19/2021 2:26 PM EDT SITUATION: noone present during today's visit. patient reports the following since the last homecare visit: medications/allergies--no changes, no fall. patient reports he is doing ok. BACKGROUND: Diagnoses (reason for Home Care): Posterior cervical laminectomy C3 to C5 with bilateral foraminotomies Weight Bearing/Precaution Changes: no changes ASSESSMENT: Focus of visit cane training and strength and balance activities Plan of care, goals, and visit frequency reviewed and agreed upon with patient and/or caregiver. Current Discharge Plan: independent with home exercise program Anticipate discharge by 06/26/21 RECOMMENDATION: Next visit to focus on NOMNC outdoor ambulation with cane if weather permits See intervention summary for intervention/education details. documented in this encounterThe [facility]04-[facility] Miscellaneous Notes* Telephone Encounter - Eddie Wick OT/L - 06/17/2021 9:26 AM EDT D/C home OT d/t pt has met goals. Feel free to contact me if you have any questions or concerns regarding plan of care. ([phone]) Eddie Wick OTR/L, [facility] documented in this encounterThe [facility]04-18-2022 Miscellaneous Notes* HH OT DISCHARGE VISIT NOTE - Eddie Wick OT/L - 06/16/2021 3:33 PM EDT SITUATION: Patient's underwriter mortgage loan's present during today's visit. patient reports the following since the last homecare visit: medications/allergies--no changes, no fall. patient reports things are going well, has been able to do UE exercises and shoulder not hurting as much . BACKGROUND: Diagnoses or reason for Home Care: S/ P 05/29/2021 C3-7 laminectomy with fusion C3-T1 ASSESSMENT: Focus of visit: safety with ADLs/IADLs, UE HEP, and d/c Occupational therapy discharged: goals achieved. Functional Performance at discharge: Upper body dressing independence, Lower body dressing independence, Bathing independence and supervision or setup assistance and Toileting independence with shower seat, awning maker and installer. Plan of care, goals, and discharge reviewed and agreed upon with patient/caregiver. RECOMMENDATION: Instructions include: discharged from OT and is active with PT. Post dc recommendations: continue to have assistance with any lifting and heavier IADL tasks and follow up with physician as scheduled 07/08/[address] Wu Aquino See intervention summary for intervention/education details. documented in this encounterThe [facility]04[facility]12-[facility]22 NoteHNO ID: [id number] Author: Miles Washburn, DO Service: ? Author Type: Physician Type: Progress Notes Filed: 06/10/2021 11:42 AM Note Text: Miles Washburn, DO [facility] - Orthopedic Spine Surgeon [address], [place] [address] [address] [place] [address] Phone: [phone] ([phone] FAX: [phone] SPINE SURGERY POST-OP FOLLOW UP SERVICE DATE: 06/05/2021 SURGERY DATE: 05/29/2021 SURGERY: C3-6 lamifusion PREOPERATIVE SYMPTOMS: Bilateral arm weakness, balance disturbance Destiny Lester is seen for 1st post operative follow up. He presented to [facility] with complaints of low back pain into the left lower extremity. Imaging was completed and determined cervical myelopathy, warrannting a C3-6 laminectomy and fusion. He did well following his operation and hospital stay. Today he presents with his sister. He states his presurgical symptoms have resolved and he is feeing great. 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 He states he is very pleased with the surgery. He states he has warn his c-collar at all times and is using a walker for mobility. He notes he is doing home physical and occupational therapy. He kayce loss of bowel or bladder. He is here for image review, evaluation and plan of care. Denies any drainage from incision. Denies any fevers. INCISION: clean, dry, intact and healing PREVIOUS SURGERY: None Review of Systems Constitutional: Negative for appetite change, chills and fever. HENT: Negative for ear discharge, tinnitus and trouble swallowing. Eyes: Negative for pain, redness and visual disturbance. Respiratory: Negative for cough, shortness of breath and wheezing. Cardiovascular: Negative for chest pain, palpitations and leg swelling. Gastrointestinal: Negative for diarrhea, nausea and vomiting. Endocrine: Negative for cold intolerance and heat intolerance. Genitourinary: Negative for difficulty urinating, frequency and urgency. Musculoskeletal: Negative for back pain, gait problem, neck pain and neck stiffness. Skin: Negative for color change, rash and wound. Allergic/Immunologic: Negative for environmental allergies and food allergies. Neurological: Negative for weakness, numbness and headaches. Hematological: Does not bruise/bleed easily. Psychiatric/Behavioral: Negative for agitation and confusion. The patient is not nervous/anxious. ALLERGIES No Known Allergies Current Outpatient Medications Medication Sig Dispense Refill - metoprolol succinate ER (TOPROL XL) 25 mg 24 hr tablet Take 25 mg by mouth once daily. - meloxicam (MOBIC) 15 mg tablet Take 15 mg by mouth once daily. - escitalopram oxalate (LEXAPRO) 10 mg tablet Take 10 mg by mouth once daily. - Comp Stocking,Knee,Regular,Sml (T.E.D. ANTI-EMBOLISM STOCKING) 12 Each q 12 HR. Post operatively 12 Each 0 - omeprazole (PRILOSEC) 40 mg capsule Take 40 mg by mouth once daily. - icosapent ethyl (VASCEPA) 0.5 gram capsule Take 2 g by mouth twice daily. - gabapentin (NEURONTIN) 600 mg tablet Take 600 mg by mouth daily at bedtime. - simvastatin (ZOCOR) 80 mg tablet Take 80 mg by mouth daily at bedtime. - amitriptyline (ELAVIL) 25 mg tablet Take 25 mg by mouth daily at bedtime. - traZODone (DESYREL) 150 mg tablet Take 150 mg by mouth daily at bedtime. - montelukast (SINGULAIR) 10 mg tablet Take 10 mg by mouth daily at bedtime. - lisinopril (ZESTRIL, PRINIVIL) 5 mg tablet Take 5 mg by mouth once daily. - DULoxetine (CYMBALTA) 30 mg capsule Take 90 mg by mouth once daily. - polyethylene glycol 3350 (MIRALAX) 17 gram/dose powder Take 17 g by mouth twice daily. (Patient not taking: Reported on 06/10/2021 ) No current facility-administered medications for this visit. OBJECTIVE: BP 101/60 (BP Site: Left Arm, BP Position: Sitting, BP Cuff Size: Large Adult) Pulse 63 Temp 36.6 ?C (97.8 ?F) Ht 175.3 cm (5' 9) Wt 85.3 kg (188 lb) SpO2 95% BMI 27.76 kg/m? PHYSICAL EXAM GENERAL APPEARANCE: Well nourished, well developed, and no apparent distress. NEURO PSYCH: Patient oriented to person, place, and time. Mood pleasant. Benign affect. CARDIOVASCULAR: Palpable pulses. No edema noted. No varicosities. SKIN: Head, neck, trunk, and extremities dry, intact and without lesions. LYMPHATICS: No palpable nodes in cervical or axillae areas. Groin exam deferred MUSCULOSKELETAL PALPATION: SPINOUS PROCESS: No pain. PARASPINALS: No pain. MUSCLE TONE and BULK: Symmetrical in the upper AND lower extremities. MOTOR: Upper Extremity Left Right Deltoids 5/5 5/5 Biceps 5/5 5/5 Triceps 5/5 5/5 Assembler Finger Buffs 5/5 5/5 Interossei 5/5 5/5 Lower Extremity Hip Flexors 5/5 5/5 Quadriceps 5/5 5/5 Dorsiflexion 5/5 5/5 EHL 5/5 5/5 Plantar Flexion 5/5 5/5 SENSORY: Sensation intact to light touch 5 to T1, L1-S1 GAIT: Unable to perform tandem gait LONG TRACT SIGNS: No cl (more content not included)...[facility]04-12-2022 History of Present illness Narrative* Miles Washburn DO - 06/10/2021 10:45 AM EDT Images from the original note were not included. Miles Washburn DO [facility] - Orthopedic Spine Surgeon [address], [facility] [address] [address] [place] [address] Phone: [phone] ([phone] FAX: [phone] SPINE SURGERY POST-OP FOLLOW UP SERVICE DATE: 06/05/2021 SURGERY DATE: 05/29/2021 SURGERY: C3-6 lamifusion PREOPERATIVE SYMPTOMS: Bilateral arm weakness, balance disturbance Destiny Lester is seen for 1st post operative follow up. [facility] [facility] with complaints of low back pain into the left lower extremity. Imaging was completed and determined cervical myelopathy,warrannting a C3-6 laminectomy and fusion. He did well following his operation and hospital stay. Today he presents with his sister. He states his presurgical symptoms have resolved and he is feeing great. 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 He states he is very pleased with the surgery. He states he has warn his c-collar at all times and is using a walker for mobility. He notes he is doing home physical and occupational therapy. He kayce loss of bowel or bladder. He is here for image review, evaluation and plan of care. Denies any drainage from incision. Denies any fevers. INCISION: clean, dry, intact and healing PREVIOUS SURGERY: None Review of Systems Constitutional: Negative for appetite change, chills and fever. HENT: Negative for ear discharge, tinnitus and trouble swallowing. Eyes: Negative for pain, redness and visual disturbance. Respiratory: Negative for cough, shortness of breath and wheezing. Cardiovascular: Negative for chest pain, palpitations and leg swelling. Gastrointestinal: Negative for diarrhea, nausea and vomiting. Endocrine: Negative for cold intolerance and heat intolerance. Genitourinary: Negative for difficulty urinating, frequency and urgency. Musculoskeletal: Negative for back pain, gait problem, neck pain and neck stiffness. Skin: Negative for color change, rash and wound. Allergic/Immunologic: Negative for environmental allergies and food allergies. Neurological: Negative for weakness, numbness and headaches. Hematological: Does not bruise/bleed easily. Psychiatric/Behavioral: Negative for agitation and confusion. The patient is not nervous/anxious. ALLERGIES No Known Allergies Current Outpatient Medications Medication Sig Dispense Refill metoprolol succinate ER (TOPROL XL) 25 mg 24 hr tablet Take 25 mg by mouth once daily. meloxicam (MOBIC) 15 mg tablet Take 15 mg by mouth once daily. escitalopram oxalate (LEXAPRO) 10 mg tablet Take 10 mg by mouth once daily. Comp Stocking,Knee,Regular,Sml (T.E.D. ANTI-EMBOLISM STOCKING) 12 Each q 12 HR. Post operatively 12Each 0 omeprazole (PRILOSEC) 40 mg capsule Take 40 mg by mouth once daily. icosapent ethyl (VASCEPA) 0.5 gram capsule Take 2 g by mouth twice daily. gabapentin (NEURONTIN) 600 mg tablet Take 600 mg by mouth daily at bedtime. simvastatin (ZOCOR) 80 mg tablet Take 80 mg by mouth daily at bedtime. amitriptyline (ELAVIL) 25 mg tablet Take 25 mg by mouth daily at bedtime. traZODone (DESYREL) 150 mg tablet Take 150 mg by mouth daily at bedtime. montelukast (SINGULAIR) 10 mg tablet Take 10 mg by mouth daily at bedtime. lisinopril (ZESTRIL, PRINIVIL) 5 mg tablet Take 5 mg by mouth once daily. DULoxetine (CYMBALTA) 30 mg capsule Take 90 mg by mouth once daily. polyethylene glycol 3350 (MIRALAX) 17 gram/dose powder Take 17 g by mouth twice daily. (Patient nottaking: Reported on 06/10/2021 ) No current facility-administered medications for this visit. OBJECTIVE: BP 101/60 (BP Site: Left Arm, BP Position: Sitting, BP Cuff Size: Large Adult) Pulse 63 Temp 36.6 C (97.8 F) Ht 175.3 cm (5' 9) Wt 85.3 kg (188 lb) SpO2 95% BMI 27.76 kg/m PHYSICAL EXAM GENERAL APPEARANCE: Well nourished, well developed, and no apparent distress. NEURO PSYCH: Patient oriented to person, place, and time. Mood pleasant. Benign affect. CARDIOVASCULAR: Palpable pulses. No edema noted. No varicosities. SKIN: Head, neck, trunk, and extremities dry, intact and without lesions. LYMPHATICS: No palpable nodes in cervical or axillae areas. Groin exam deferred MUSCULOSKELETAL PALPATION: SPINOUS PROCESS: No pain. PARASPINALS: No pain. MUSCLE TONE and BULK: Symmetrical in the upper & lower extremities. MOTOR: Upper Extremity Left Right Deltoids 5/5 5/5 Biceps 5/5 5/5 Triceps 5/5 5/5 Assembler Finger Buffs 5/5 5/5 Interossei 5/5 5/5 Lower Extremity Hip Flexors 5/5 5/5 Quadriceps 5/5 5/5 Dorsiflexion 5/5 5/5 EHL 5/5 5/5 Plantar Flexion 5/5 5/5 SENSORY: Sensation intact to light touch 5 to T1, L1-S1 GAIT: Unable to perform tandem gait LONG TRACT SIGNS: No clonus. Positive Penny's bilaterally REFLEXES: Hyperreflexic all 4 extremities WOUND ASSESSMENT: Incision healing DATA REVIEW XRAY Cervical 06/10/2021 AP lateral view of the cervical spine displays a C3-6 laminectomy fusion with hardware in excellentposition no signs of loosening. [facility] All prescriptions have been APPROPRIATELY filled. No suspiciousactivity was identified. 06/10/2021 by Miles Washburn, DO ASSESSMENT/PLAN Destiny Lester is a 60-year-old male who is 2 weeks status post C3-6 laminectomy and fusion -He is doing great since the surgery. His bilateral deltoid weakness has completely resolved. States that his balance is getting progressively better. He is doing physical therapy at home. I recommend that he stay in the collar until the 6-week appointment. I will see him back in 4 weeks we will get x-rays at that time. Carla are being removed today. The following portions of the patient's history were reviewed, confirmed, and updated as necessary:allergies, current medications, past family history, past medical history, past social history, past surgical history, problem list, HPI, and ROS obtained by others. Some elements may be copied from a previous office note and have been reviewed/updated where appropriate. All portions reflect current medical decision making from today. The clinical and radiographic findings as well as the risks, benefits and alternatives of treatmenthave been reviewed in detail with the patient. Advised to call the office if symptoms worsen or new symptoms develop. Patient expressed understanding and is in agreement with plan. Miles Washburn DO documented [facility]04[facility] Miscellaneous Notes* OT ROUTINE / CASE MGMT VISIT - HCOLO Srinivasan - 06/09/2021 1:26 PM EDT SITUATION: patient reports the following since the last homecare visit: medications/allergies--no changes, no fall. patient reports that things are going well, just a little bit of pain. BACKGROUND: Diagnoses or reason for Home Care: S/ P 05/29/2021 C3-7 laminectomy with fusion C3-T1 ASSESSMENT: Focus of Visit safety with cooking at stove Patient identified goals to get stronger Plan of care, goals, and visit frequency reviewed and agreed upon with patient and/or caregiver. See intervention summary for intervention/education details. Current Discharge Plan: remain in community with/without caregiver support. Anticipate discharge by 06/14/21 RECOMMENDATION: Next visit to focus on safety with ADLs/IADLs, UE HEP and probable d/c documented in this encounterThe [facility]04-11-2022 Miscellaneous Notes* Telephone Encounter - CHOLO Srinivasan - 06/09/2021 10:26 AM EDT OT evaluation completed 06/03/21 with plan to see pt 2wk1, 1wk2 to address adaptive techniques and safety with ADLs and IADLs, as well as UE HEP for strengthening/ROM. Feel free to contact me if you have any questions or concerns regarding plan of care. ([phone]) Eddie Wick OTR/L, [facility] documented in this encounterThe [facility]04-11-2022 Miscellaneous Notes* PT ROUTINE/REASSESSMENT/RECERT/CASE MGMT - Shira Wild PTA - 06/09/2021 8:56 AM EDT SITUATION: Noone present during today's visit. patient reports the following since the last homecare visit: medications/allergies--no changes, no fall. patient reports he is doing ok. BACKGROUND: Diagnoses (reason for Home Care): 1. Posterior cervical laminectomy C3 to C5 with bilateral foraminotomies 2. Posterolateral arthrodesis C3 to C6 3. Posterior segmental fixation C3 to C6 4. Harvesting of iliac crest bone marrow through separate stab incision Weight Bearing/Precaution Changes: no changes Wear neck brace at all times.no lifting more then 10lbs ASSESSMENT: Focus of visit progression of HEP for strengthening and balance, gait training including stairs. Plan of care, goals, and visit frequency reviewed and agreed upon with patient and/or caregiver. Current Discharge Plan: independent with home exercise program Anticipate discharge by 06/26/21 RECOMMENDATION: Next visit to focus on outdoor ambulation if weather permits See intervention summary for intervention/education details. documented in this encounterThe [facility]04-08-2022 Miscellaneous Notes* OT ROUTINE / CASE MGMT VISIT - Eddie Wick OT/Macrina - 06/06/2021 1:09 PM EDT SITUATION: Hyster Driver's , Adeline, present during today's visit. patient reports the following since the last homecare visit: medications/allergies--no changes, no fall. patient and caregiver reports that shower went well with underwriter mortgage loan there for supervision, and that overall things are going well, though pt has been doing more than he is supposed to at times --got up on ladder to fix his antenna. BACKGROUND: Diagnoses or reason for Home Care: S/ P 05/29/2021 C3-7 laminectomy with fusion C3-T1 ASSESSMENT: Focus of Visit laundry, UE HEP, follow up on shower and overall safety with following restrictions Patient identified goals to get back his independence Plan of care, goals, and visit frequency reviewed and agreed upon with patient and/or caregiver. See intervention summary for intervention/education details. Current Discharge Plan: remain in community with/without caregiver support. Anticipate discharge by 06/21/21 RECOMMENDATION: Next visit to focus on safety wtih cooking at stove documented in this encounterThe [facility]04-07-2022 Miscellaneous Notes* PT ROUTINE/REASSESSMENT/RECERT/CASE MGMT - Shira Wild PTA - 06/05/2021 9:00 AM EDT SITUATION: friend present during today's visit. patient reports the following since the last homecare visit: medications/allergies--no changes, no fall. patient reports he is doing good . BACKGROUND: Diagnoses (reason for Home Care): 1. Posterior cervical laminectomy C3 to C5 with bilateral foraminotomies 2. Posterolateral arthrodesis C3 to C6 3. Posterior segmental fixation C3 to C6 4. Harvesting of iliac crest bone marrow through separate stab incision Weight Bearing/Precaution Changes: no changes ASSESSMENT: Focus of visit HEP and transfers Plan of care, goals, and visit frequency reviewed and agreed upon with patient and/or caregiver. Current Discharge Plan: family support Anticipate discharge by 06/28/21 RECOMMENDATION: Next visit to focus on increase ambulation distances as able See intervention summary for intervention/education details. documented in this encounterThe [facility]04-06-2022 Miscellaneous Notes* Telephone Encounter - Ab Grace RN - 06/04/2021 1:31 PM EDT Spoke with Adeline at this time and answered questions in regards to patients ability to walk around,go up and down stairs and the use of a walker. Informed her he is to keep his c-collar on and to use the walker. documented in this encounterThe [facility]04-05-2022 Miscellaneous Notes* OT EVALUATION/REASSESSMENT/RECERT - Eddie Wick OT/L - 06/03/2021 2:07 PM EDT SITUATION: friend present during today's visit. patient reports the following since the last homecare visit: medications/allergies--no changes, no fall. BACKGROUND: Diagnoses or reason for home care: Pt was in the hospital 05/29/21-05/31/21 for Cervial spondylotic myelopathy , Cervical Myelopathy, Nicotine use disorder, S/ P 05/29/2021 C3-7 laminectomy with fusion C3-T1 (N/A) ARTHRODESIS CERVICAL POSTERIOR, BELOW C2 1ST SINGLE LEVEL (N/A) ARTHRODESIS CERVICAL BELOW C2, 3RD CERVICAL LEVEL (N/A) DECOMPRESSION LAMINECTOMY 4TH ADD'L CERVICAL SEGMENT (N/A) POSTERIOR SEGMENTAL INSTRUMENTATION FOLLOWING CERVICAL FUSION 3-6 LEVELS (N/A) BONE MARROW ASPIRATION FOR BONE GRAFTING,SPINE SURGERY ONLY,VIA SEPARATE SKIN OR FASCIAL INCISION (N/A) Past medical history: heart attack (2013) Weight Bearing or Precautions: to wear cervical collar at all times, no lifting over 10# ASSESSMENT: Patient evaluated by [facility]. Reviewed and explained homecare services. Plan of care, goals and visit frequency developed, reviewed, and agreed upon with patient and/or caregiver. Patient identified goals: to get back to taking care of self. Patient will benefit from continued occupational therapy to address the following deficits functional activity including I/ADLs, UE strength/ROM and functional transfers as evidenced by score on Modified Solomon Index 80/100. Current Discharge Plan:remain in community with/without caregiver support. Anticipate discharge by 06/21/21 RECOMMENDATION: Plan for next visit to focus on laundry and UE ROM. See intervention summary for intervention/education details. documented in this encounterThe [facility]04-04-2022 Miscellaneous Notes* Telephone Encounter - Miguelina Delcid, PT - 06/02/2021 5:19 PM EDT PT traeal completed 06/02/21 POC 2w4 for ther ex, gait, balance, transfers and stairs documented in this encounterThe [facility]04-04-2022 Miscellaneous Notes* HH PT SOC/SHAKA/FOLLOW UP/OTHER - Miguelina Delcid PT - 06/02/2021 9:31 AM EDT SITUATION: friend present during today's visit. patient reports that he is managing alright so far . BACKGROUND: Diagnoses (reason for Home Care): 1. Posterior cervical laminectomy C3 to C5 with bilateral foraminotomies 2. Posterolateral arthrodesis C3 to C6 3. Posterior segmental fixation C3 to C6 4. Harvesting of iliac crest bone marrow through separate stab incision Past Medical History: CAD,HTN,IA Weight Bearing or Surgical Precautions: wbat, no lifting , c collar at all times ASSESSMENT: Patient evaluated by [facility] physical therapy. Reviewed and explained homecare services. Plan of care, goals, and visit frequency developed, reviewed, and agreed upon with patient and/or caregiver. Patient Goal: be without pain Patient will benefit from continued physical therapy to address the following deficits: strength, balance, gait, transfers, stair negotiation and bed mobility. Current Discharge Plan: family support. Anticipate discharge by 06/28/21. RECOMMENDATION: Next visit to focus on developing HEP , transfers in his home Agreeable to PT and OT; declining none. See intervention summary for intervention/education details. documented in this encounterThe [facility]04-02-2022 NoteHNO ID: [id number] Author: Bambi Sagastume RN Service: Care Management Author Type: Registered Nurse Type: Care Mgt Progress Note Filed: 05/31/2021 11:00 AM Note Text: CARE MANAGEMENT PROGRESS NOTE SERVICE DATE: 05/31/2021 SERVICE TIME: 1050 am LOS: 2 days IMM Follow Up Copy Given: Yes Copy given to:: Patient Method: In Person (verbalized understanding) SIGNATURE: Bambi Sagastume RN PATIENT NAME: Destiny Lester DATE: May 31, 2021 TIME: 11:00 AM PAGER/CONTACT #: [phone] NoteHNO ID: [id number] Author: Bambi Sagastume RN Service: Care Management Author Type: Registered Nurse Type: Care Mgt Progress Note Filed: 05/31/2021 10:59 AM Note Text: CARE MANAGEMENT DISCHARGE NOTE SERVICE DATE: 05/31/2021 SERVICE TIME: 10:51 AM LOS: 2 days Admission Date: 05/29/2021 DISCHARGE ARRANGEMENT (list agency and phone number) Discharge Arrangement: Home with Home Health Provider Name: [facility] CAREGIVER ASSESSMENT: Caregiver is ready, willing and able to meet the patient's needs as recommended by the inter-professional team:: Yes Does the patient have an acute stroke diagnosis, or has the patient had a stroke during this admission?: No HANDOFF COMMUNICATION: Handoff to: Primary Care Physician;Other Caregiver Primary Care Physician Name/Phone: Dr. Lavon [phone] Other Caregiver Name/Phone: [facility] [phone] TRANSPORTATION ARRANGEMENTS: Transportation Arrangements: Car ADDITIONAL CONTACT RESOURCES: script for walker tb provided (discussed with RN) and discussed resources for obtaining Needs Prior to Discharge: Ready for Discharge;None Spoke with patient and then contacted pastor [phone] with whom pt will reside short term at [facility]. Aware above and [facility] to contact pt for socLoli Casillas will provide transportation. SIGNATURE: Bambi Sagastume RN PATIENT NAME: Destiny Lester DATE: May 31, 2021 TIME: 10:51 AM PAGER/CONTACT #: [phone]-31-2021 NoteHNO ID: [id number] Author: Deni Mir MD Service: Orthopaedic Surgery Author Type: Resident Type: Progress Notes Filed: 05/31/2021 9:47 AM Note Text: ASSESSMENT: 60 year old male POD 2 status-post: C3-C6 posterior cervical laminectomy and fusion. PLAN: - Pain control. - Weight Bearing Status: WBAT BLE . - Immobilization/Dressing(s): Soft dressing, C collar at all times . - Drain(s): pulled this AM - PT/OT: Evaluation AND recommendations. - Okay for diet - DVT PPx: SCDs. - Munson: Maintain till out of bed and ambulating . - Anticipated Length of Stay/Disposition: pending PT/OT, 2-3 days. INTERVAL HPI: No acute events overnight. OBJECTIVE: BP 130/87 Pulse 72 Temp 36.3 ?C (97.3 ?F) (Oral) Resp 17 Ht 175.3 cm (5' 9) Wt 85.4 kg (188 lb 4.8 oz) SpO2 95% BMI 27.81 kg/m? Exam: General: NAD Spine Inspection: Dressing clean, dry, and intact. Cervical collar in place in good position. Sensation: Sensation intact to light touch in C5-T1 and L1-S1 dermatomes. Motor: Upper Extremities Right Left Deltoid (C5) 4 4 Biceps (C6) 5 5 Triceps (C7) 5 5 Assembler Finger Buffs (C8) 5 5 Interossei (T1) 5 5 Lower Extremities Right Left Psoas (L2) 5 5 Quadriceps (L3) 5 5 Dorsiflexion (L4) 5 5 EHL (L5) 5 5 Plantarflexion (S1) 5 5 Reflexes: 2+ BR and biceps reflexes, 2+ patellar, achilles reflexes bilaterally, penny present bilaterally Special Tests: Babinski down-going, clonus absent Recent Labs 05/30/21 0116 CREAT 1.22 BUN 18 NA 138 K 4.7 CHLOR 102 CO2 26 ANION 10 GLUC 142* CA 8.6 WBC 12.68* HB 14.6 HCT 43.7 PLT 182 COAGS: APTT 24.9 05/22/2021 INR 0.9 05/22/2021 SED RATE/CRP: No results found for this basename: wsr:*,crp:* Imaging: NNI Deni Mir MD Orthopaedic Surgery Pager #[phone] May 31[facility]04-01-2022 NoteHNO ID: [id number] Author: Eleanor Ruiz MD Service: Orthopaedic Surgery Author Type: Resident Type: Progress Notes Filed: 05/30/2021 6:31 AM Note Text: Attestation signed by Miles Washburn DO at 05/30/2021 8:08 AM I saw and examined the patient. Agree with the resident's assessment plan and exam. Patient is doing great since surgery. His bilateral deltoids are significantly stronger. Drain output was only 35 cc overnight. Recommend working with physical therapy today. Plan will be to pull the drain this afternoon and discharge home today. Miles Washburn DO ORTHOPAEDIC SURGERY DAILY PROGRESS NOTE ASSESSMENT: 60 year old male POD 1 status-post: C3-C6 posterior cervical laminectomy and fusion. PLAN: - Pain control. - Weight Bearing Status: WBAT BLE . - Immobilization/Dressing(s): Soft dressing, C collar at all times . - Drain(s): Posterior cervical hemovac drain - drain placed to gravity today, pull when < 30cc/shift - 65 since surgery, 35 overnight - PT/OT: Evaluation AND recommendations. - Okay for diet - DVT PPx: SCDs. - Antibiotics: Ancef 2g x Q8H for 24 hours - complete - Munson: Maintain till out of bed and ambulating . - Imaging: Upright C spine films POD1 pending - Anticipated Length of Stay/Disposition: pending PT/OT, 2-3 days. INTERVAL HPI: No acute events overnight. Pain controlled. Denies fevers and chills. Denies chest pain and shortness of breath. OBJECTIVE: BP 147/87 Pulse 76 Temp 36.8 ?C (98.2 ?F) (Oral) Resp 16 Ht 175.3 cm (5' 9) Wt 86.7 kg (191 lb 2.2 oz) SpO2 94% BMI 28.23 kg/m? Exam: General: NAD, AOx3 Spine Inspection: Dressing clean, dry, and intact. Cervical collar in place in good position. Hemovac drain in place with good seal and sanguinous output in cannister. Sensation: Sensation intact to light touch in C5-T1 and L1-S1 dermatomes. ? Motor: Upper Extremities Right Left Deltoid (C5) 4+ 4+ Biceps (C6) 5 5 Triceps (C7) 5 5 Assembler Finger Buffs (C8) 5 5 Interossei (T1) 5 5 ? Lower Extremities Right Left Psoas (L2) 5 5 Quadriceps (L3) 5 5 Dorsiflexion (L4) 5 5 EHL (L5) 5 5 Plantarflexion (S1) 5 5 ? Reflexes: 2+ BR and biceps reflexes, 2+ patellar, achilles reflexes bilaterally, penny present bilaterally Special Tests: Babinski down-going, clonus absent Recent Labs 05/30/21 0116 CREAT 1.22 BUN 18 NA 138 K 4.7 CHLOR 102 CO2 26 ANION 10 GLUC 142* CA 8.6 WBC 12.68* HB 14.6 HCT 43.7 PLT 182 COAGS: APTT 24.9 05/22/2021 INR 0.9 05/22/2021 SED RATE/CRP: No results found for this basename: wsr:*,crp:* Imaging: xr cervical ordered Eleanor Ruiz MD Orthopaedic Surgery 05/30/2021 6:10 [facility]03-31-2022 NoteHNO ID: [id number] Author: Raj Hunter MD Service: Orthopaedic Surgery Author Type: Resident Type: Progress Notes Filed: 05/29/2021 3:09 PM Note Text: Destiny Lester [id number] Postoperative Check Spine Surgery Subjective: patient doing well. Having some midline neck pain and difficulty with shoulder movement, states that its hurting his neck Overall doing well. No new numbness or tingling. Objective: Vitals: BP 95/59 Pulse 62 Temp 36.5 ?C (97.7 ?F) (Oral) Resp 9 Ht 175.3 cm (5' 9) Wt 93 kg (205 lb) SpO2 92% BMI 30.27 kg/m? General: no distress, laying comfortably in bed, alert and oriented Focused MSK exam: Spine Inspection: Dressing clean, dry, and intact. Cervical collar in place in good position. Hemovac drain in place with good seal and sanguinous output in cannister. Sensation: Sensation intact to light touch in C5-T1 and Slightly diminished sensation in L4 dermatome on the left which is unchanged from prior to surgery, sensation intact through the rest of exam of L1-S1 dermatomes. Motor: Upper Extremities Right Left Deltoid (C5) 3 3 Biceps (C6) 5 5 Triceps (C7) 5 5 Assembler Finger Buffs (C8) 5 5 Interossei (T1) 5 5 Lower Extremities Right Left Psoas (L2) 5 5 Quadriceps (L3) 5 5 Dorsiflexion (L4) 5 5 EHL (L5) 5 5 Plantarflexion (S1) 5 5 Special Tests: Babinski down-going, clonus absent, Assessment: 60 year old male POD 0 S/P C3-C6 posterior laminectomy and fusion Pain well-controlled, exam appropriate Plan: - Continue routine post-operative care Raj Hunter MD Orthopaedic Surgery 05/29/2021 2:51 [facility]03-31-2022 NoteHNO ID: [id number] Author: Dayanara Gonzalez RN Service: Nursing Author Type: Registered Nurse Type: Nursing Progress Note Filed: 05/29/2021 11:54 AM Note Text: Dr. Martin notified of pt's BP ok to give 500ml LR bolus.[facility]03-31-2022 NoteHNO ID: [id number] Author: Rochelle Reeder APRN.SENIOR BI DEVELOPER Service: ? Author Type: Nurse Road Builder Type: Anesthesia Procedure Notes Filed: 05/29/2021 8:51 AM Note Text: ANESTHESIOLOGY PROCEDURE NOTE PIV General Information Patient Location: OR Staffing SENIOR BI DEVELOPER: Rochelle Reeder APRN.SENIOR BI DEVELOPER Performed by: SENIOR BI DEVELOPER Preparation Sterility Preparation: hand hygiene performed prior to procedure, skin prep agent completely dried prior to procedure Site Prep: Chloraprep Procedure Details Indication: need for IV access Needle Size/Type: 16 gauge angiocath Orientation: Right Location: Hand Imaging Guidance Used: No SIGNATURE: Rochelle Reeder APRN.SENIOR BI DEVELOPER PATIENT NAME: Destiny Lester DATE: May 29, 2021 TIME: 8:50 AM CSN: [id number]22 NoteHNO ID: [id number] Author: Rochelle Reeder APRN.CRNA Service: ? Author Type: Nurse Road Builder Type: Anesthesia Procedure Notes Filed: 05/29/2021 8:50 AM Note Text: ANESTHESIOLOGY PROCEDURE NOTE PIV General Information Procedure Start Time/Medication Administration: 05/29/2021 7:30 AM Staffing SENIOR BI DEVELOPER: Rochelle Reeder APRN.SENIOR BI DEVELOPER Performed by: FABIÁN Preparation Sterility Preparation: hand hygiene performed prior to procedure, skin prep agent completely dried prior to procedure Site Prep: Chloraprep Procedure Details Indication: need for IV access Needle Size/Type: 18 gauge angiocath Orientation: Left Location: Hand Imaging Guidance Used: No SIGNATURE: Rochelle Reeder APRN.CRNA PATIENT NAME: Destiny Lester DATE: May 29, 2021 TIME: 8:49 AM [facility]: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 Future Scheduled Tests Laboratory* Prostate Specific Antigen 08/09/23 * Complete Blood Count 08/09/23 * Lipid Profile 08/09/23 * Complete Metabolic Panel 08/09/23 [facility] Evaluation + Plan note Future Appointments Appointment Date:09/27/2024 02:00:00 PM Scheduled Provider: Location:[facility] Appointment Type:Echo - Echocardiogram Adult Appointment Date:10/10/2024 02:00:00 PM Scheduled Provider:MARIANO HERNANDEZ Location:[facility] Appointment Type:CV OV Appointment Date:12/08/2024 02:00:00 PM Scheduled Provider:KYAW CASILLAS Location:[facility] Appointment Type:PC OV Appointment Date:12/25/2024 02:00:00 PM Scheduled Provider:KYAW CASILLAS Location:[facility] Appointment Type:PC OV Future Scheduled Tests Laboratory* Stool Gastrointestinal Panel 09/08/24 Radiology* NM Myocardial Spect Rest/Stress 09/05/24 [facility] Evaluation + Plan note Future Appointments Appointment Date:09/27/2024 02:00:00 PM Scheduled Provider: Location:[facility] Appointment Type:Echo - Echocardiogram Adult Appointment Date:10/10/2024 02:00:00 PM Scheduled Provider:MARIANO HERNANDEZ Location:[facility] Appointment Type:CV OV Appointment Date:12/08/2024 02:00:00 PM Scheduled Provider:KYAW CASILLAS Location:[facility] Appointment Type:PC OV Appointment Date:12/25/2024 02:00:00 PM Scheduled Provider:KYAW CASILLAS Location:[facility] Appointment Type:PC OV Future Scheduled Tests Radiology* NM Myocardial Spect Rest/Stress 09/05/24 [facility] Evaluation + Plan note Future Appointments Appointment Date:10/10/2024 02:00:00 PM Scheduled Provider:MARIANO HERNANDEZ Location:[facility] Appointment Type:CV OV Appointment Date:10/26/2024 03:00:00 PM Scheduled Provider: Location:[facility] Appointment Type:Echo - Echocardiogram Adult Appointment Date:12/08/2024 02:00:00 PM Scheduled Provider:KYAW CASILLAS Location:[facility] Appointment Type:PC OV Appointment Date:12/25/2024 02:00:00 PM Scheduled Provider:KYAW CASILLAS Location:[facility] Appointment Type:PC OV Future Scheduled Tests Radiology* NM Myocardial Spect Rest/Stress 09/05/24 [facility] evaluation note* Diagnosis Pre-op testing- Primary Preoperative examination, unspecified Disc displacement, lumbar Displacement of lumbar intervertebral disc without myelopathy Cervical myelopathy (HCC) Cervical spondylosis with myelopathy Primary hypertension Unspecified essential hypertension Mixed hyperlipidemia documented in this encounter [facility] note* Diagnosis Disc displacement, lumbar Displacement of lumbar intervertebral disc without myelopathy documented in this encounter [facility] note* Diagnosis Cervical myelopathy (HCC)- Primary Cervical spondylosis with myelopathy History of cervical spinal surgery Other postprocedural status [facility] Diagnosis History of cervical spinal surgery Other [facility]procedural status [facility] Diagnosis Cervical myelopathy (HCC)- Primary Cervical spondylosis with myelopathy [facility] Diagnosis Cervical myelopathy (HCC) Cervical spondylosis with myelopathy [facility] Diagnosis History of cervical spinal surgery Other postprocedural status [facility] Diagnosis Cervical myelopathy (HCC)- Primary Cervical spondylosis with myelopathy [facility] Diagnosis Cervical myelopathy (HCC) Cervical spondylosis with myelopathy [facility] Narrative No data available for this section [facility] Discharge instructions No data available for this section [facility] Patient's home Plan of care note* Visit Details Visit Type -PT SOC Discipline -Physical Therapy Problems Problem Description Start Date Status Goals Interve ntions Medication Education Disciplines: Skilled Services 06/02/2021 Active 1 goal linked to scheduled/documen lei intervention 1 goal intervention scheduled/document ed in this visit Sepsis Disciplines: Skilled Services 06/02/2021 Active 1 goal linked to scheduled/documen lei intervention 1 goal intervention scheduled/document ed in this visit Physician Specific Parameters Disciplines: Skilled Services 06/02/2021 Active 1 goal linked to scheduled/documen lei intervention 1 goal intervention scheduled/document ed in this visit Risk for Falls Disciplines: Skilled Services 06/02/2021 Active 1 goal linked to scheduled/documen lei intervention 1 goal intervention scheduled/document ed in this visit Pain Disciplines: Skilled Services 06/02/2021 Active 1 goal linked to scheduled/documen lei intervention 1 goal intervention scheduled/document ed in this visit High Risk Medications Disciplines: Skilled Services 06/02/2021 Active 1 goal linked to scheduled/documen lei intervention 1 goal intervention scheduled/document ed in this visit Advance Directives Disciplines: Skilled Services 06/02/2021 Resolved on 06/02/2021 1 goal linked to scheduled/documen lei intervention 1 goal intervention scheduled/document ed in this visit PT Neurologic Condition Disciplines: PT 06/02/2021 Active 1 goal linked to scheduled/documen lei intervention 1 goal intervention scheduled/document ed in this visit PT Learning Assessment Disciplines: PT 06/02/2021 Active 1 goal linked to scheduled/documen lei intervention 1 goal intervention scheduled/document ed in this visit Goals Goal Associated Problem Outcome Goal Met? Visit Notes Patient/caregiver will demonstrate ability to obtain, store, identify and administer ordered medications, keep accurate medication list in home, and adhere to medication schedule Medication Education No Patient/caregiver will be able to identify signs/symptoms of sepsis infection and will verbalize actions to take if suspected Sepsis No Patient to maintain parameters within physician-specified ranges Physician Specific Parameters No Manage Risk for falls Description: Patient/caregiver will verbalize knowledge of individualized fall prevention strategies by 06/28/21. . Risk for Falls No Manage Pain Description: Patient/caregiver will verbalize knowledge and understanding of appropriate techniques to control pain, including pain medication and non-pharmacological techniques. Patient will verbalize or demonstrate an acceptable level of pain as evidenced by a pain score of <5/10 and improvement in ability to perform activities of daily living to be achieved by 06/28/21. Pain No Patient/caregiver will teach back high risk medication side effect and precaution education High Risk Medications No Patient/caregiver will make healthcare providers aware of Advance Directives Advance Directives Completed Yes Manage Neurologic Condition Description: Improve patient and/or caregiver understanding of post surgical and/or non-surgical neurologic intervention management as evidenced by patient and/or caregiver able to verbalize, demonstrate, and teach back instruction, to be achieved by 06/28/21. . PT Neurologic Condition No Demonstrate understanding of education Description: Patient and/or caregiver will understand educational instruction to be achieved by 06/28/21. STG- pt will receive instruction of home safety , fall prevention , and home ex's upon arrival 06/02/21. PT Learning Assessment No Interventions Intervention Associated Problem/Goal Status Variance Visit Notes Medication Education Description: Evaluate/instruct patient/caregiver on obtaining, storing, identifying and administering ordered medications as well as keeping accurate medication list in the home and adhereing to medication schedule Problem:Medication Education Goal:Patient/caregive r will demonstrate ability to obtain, store, identify and administer ordered medications, keep accurate medication list in home, and adhere to medication schedule Completed Patient instructed on importance of keeping accurate medication list in home and adhering to medication schedule. Risk of Sepsis Description: Patient is at risk for sepsis. Monitor closely for s/s of sepsis. Problem:Sepsis Goal:Patient/caregive r will be able to identify signs/symptoms of sepsis infection and will verbalize actions to take if suspected Completed SPO2 Description: Notify Dr. Washburn if pulse ox is <92% at rest. Problem:Physician Specific Parameters Goal:Patient to maintain parameters within physician-specified ranges Completed Instruct on individual fall risk factors and strategies to prevent falls and injuries caused by falls. Problem:Risk for Falls Goal:Manage Risk for falls Completed PT: Patient instructed on Eliminating Environmental Hazards: Keep pathways clear, Keep pets out of pathways, Remove unsafe rugs, Move furniture from pathways and Wear supportive shoes or non-skid socks Managing Impaired Functional Mobility: Use assistive device(s): Walker Managing Pain Instruct on pain and instruct on strategies to control pain Problem:Pain Goal:Manage Pain Completed patient and caregiver instructed on techniques to control pain including Pharmacological measures and Non-Pharmacological measures; rest, positioning/elevation Opioids- Instruct on high risk medication Problem:High Risk Medications Goal:Patient/caregive r will teach back high risk medication side effect and precaution education Completed patient instructed on the following: Possible side effects of opioid medication including sedation, decreased rate of breathing, and constipation. Instructed on reporting over sedation to prescribing physician, practice deep breathing techniques every hour while awake, and prevention of constipation by increasing water and fiber intake, increase activity as tolerated, and use stool softener as prescribed. Only take opioids as prescribed, do not share your medications, and take proper precautions in storing and properly disposing of opioids once no longer needed. Follow providers guidelines for driving and weaning from prescribed opioid. Determine patient's Advance Directive Status Description: Patient does not have advance directives. Patient/Caregiver declined Advance Directive information. Problem:Advance Directives Goal:Patient/caregive r will make healthcare providers aware of Advance Directives Completed Discussed Advance Directives with Patient and/or Caregiver. Referred patient to Home Care handbook for further information on Healthcare DPOA & Living Will. Instruct on self-management of post surgical and/or non-surgical neurologic intervention Problem:PT Neurologic Condition Goal:Manage Neurologic Condition Completed patient instructed on instructed on when to call provider. Instruct and educate on knowledge deficits Problem:PT Learning Assessment Goal:Demonstrate understanding of education Completed patient verbalize and/or demonstrate understanding of physical therapy education including home exercise program, neurological disease management, fall prevention strategies and home safety. Education methods include: verbal cues. Further education required to improve knowledge and compliance with home exercise program, neurological disease management, fall prevention strategies and home safety. documented in this encounter [facility] Plan of care note* Visit Details Visit Type -[facility] ROUTINE Discipline -Physical Therapy Problems Problem Description Start Date Status Goals Interve ntions Medication Education Disciplines: Skilled Services 06/02/2021 Active 1 goal linked to scheduled/document ed intervention 1 goal intervention scheduled/document ed in this visit Sepsis Disciplines: Skilled Services 06/02/2021 Active 1 goal linked to scheduled/document ed intervention 1 goal intervention scheduled/document ed in this visit Physician Specific Parameters Disciplines: Skilled Services 06/02/2021 Active 1 goal linked to scheduled/document ed intervention 1 goal intervention scheduled/document ed in this visit Risk for Falls Disciplines: Skilled Services 06/02/2021 Active 1 goal linked to scheduled/document ed intervention 1 goal intervention scheduled/document ed in this visit Pain Disciplines: Skilled Services 06/02/2021 Active 1 goal linked to scheduled/document ed intervention 1 goal intervention scheduled/document ed in this visit Discharge Disciplines: Skilled Services 06/02/2021 Active 1 goal linked to scheduled/document ed intervention 1 goal intervention scheduled/document ed in this visit PT Impaired muscle performance and/or ROM Disciplines: PT 06/02/2021 Active 1 goal linked to scheduled/document ed intervention 1 goal intervention scheduled/document ed in this visit PT Impaired mobility Disciplines: PT 06/02/2021 Active 1 goal linked to scheduled/document ed intervention 1 goal intervention scheduled/document ed in this visit PT Impaired gait Disciplines: PT 06/02/2021 Active 1 goal linked to scheduled/document ed intervention 1 goal intervention scheduled/document ed in this visit PT Learning Assessment Disciplines: PT 06/02/2021 Active 1 goal linked to scheduled/document ed intervention 1 goal intervention scheduled/document ed in this visit Goals Goal Associated Problem Outcome Goal Met? Visit Notes Patient/caregiver will demonstrate ability to obtain, store, identify and administer ordered medications, keep accurate medication list in home, and adhere to medication schedule Medication Education No Patient/caregiver will be able to identify signs/symptoms of sepsis infection and will verbalize actions to take if suspected Sepsis No Patient to maintain parameters within physician-specified ranges Physician Specific Parameters No Manage Risk for falls Description: Patient/caregiver will verbalize knowledge of individualized fall prevention strategies by 06/28/21. . Risk for Falls No Manage Pain Description: Patient/caregiver will verbalize knowledge and understanding of appropriate techniques to control pain, including pain medication and non-pharmacological techniques. Patient will verbalize or demonstrate an acceptable level of pain as evidenced by a pain score of <5/10 and improvement in ability to perform activities of daily living to be achieved by 06/28/21. Pain No Manage discharge planning Description: Patient/caregiver will verbalize understanding of ongoing discharge plan provided related to disease management, arrangements for outpatient and/or community services, obtaining medications, supplies, and DME, as needed. Discharge No Improved Muscle Performance and/or ROM Description: LTG: Patient will demonstrate improved muscle performance to meet functional goals as evidenced by ability to tolerate 10 min of standing activity, to be achieved by 06/28/21. . STG: Patient and/or caregiver will verbalize/demonstrate independence with home exercise program, to improve functional mobility, to be achieved by 06/14/21. PT Impaired muscle performance and/or ROM No Improved Transfers Description: LTG: Patient will demonstrate safe transfers to/from bed, chair, toilet, couch, shower/tub and car independently with AD, to be achieved by 06/28/21. . PT Impaired mobility No Improved Gait Description: STG: Patient will demonstrate improved gait ability as evidenced by ambulation 150 feet with front wheeled walker independently with AD, in order to maneuver throughout home , to be achieved by 06/14/21. LTG: Patient will demonstrate improved gait ability as evidenced by ambulation 300 feet with LRD independently with AD, to return to safe household and community ambulation, in order to re-enter community , to be achieved by 06/28/21. . PT Impaired gait No Demonstrate understanding of education Description: Patient and/or caregiver will understand educational instruction to be achieved by 06/28/21. STG- pt will receive instruction of home safety , fall prevention , and home ex's upon arrival 06/02/21. PT Learning Assessment No Interventions Intervention Associated Problem/Goal Status Variance Visit Notes Medication Education Description: Evaluate/instruct patient/caregiver on obtaining, storing, identifying and administering ordered medications as well as keeping accurate medication list in the home and adhereing to medication schedule Problem:Medication Education Goal:Patient/caregive r will demonstrate ability to obtain, store, identify and administer ordered medications, keep accurate medication list in home, and adhere to medication schedule Completed Patient instructed on importance of keeping accurate medication list in home. Risk of Sepsis Description: Patient is at risk for sepsis. Monitor closely for s/s of sepsis. Problem:Sepsis Goal:Patient/caregive r will be able to identify signs/symptoms of sepsis infection and will verbalize actions to take if suspected Completed SPO2 Description: Notify Dr. Washburn if pulse ox is <92% at rest. Problem:Physician Specific Parameters Goal:Patient to maintain parameters within physician-specified ranges Completed Instruct on individual fall risk factors and strategies to prevent falls and injuries caused by falls. Problem:Risk for Falls Goal:Manage Risk for falls Completed PT: Patient instructed on Eliminating Environmental Hazards: Keep pathways clear Instruct on pain and instruct on strategies to control pain Problem:Pain Goal:Manage Pain Completed patient instructed on techniques to control pain including Pharmacological measures and Non-Pharmacological measures; to wear cervical collar at all times. Instruct on ongoing discharge plan Problem:Discharge Goal:Manage discharge planning Completed Ongoing Discharge plan: Discharge plan discussed with patient including frequency and duration for home PT and plan for transition to: live independently at home without ongoing services. Physical Therapy Therapeutic Exercises Problem:PT Impaired muscle performance and/or ROM Goal:Improved Muscle Performance and/or ROM Completed patient instructed on strengthening exercises including seated: laq and hip flexion x's 10 each. standing: calf raises, hip abd and hamstring curlx's 10each with verbal, visual and written cues for correct form and pace . patient and caregiver instructed to perform home exercise program twice a day which included above exercises . Physical Therapy Transfer Training Problem:PT Impaired mobility Goal:Improved Transfers Completed Transfer training and instruction to patient and caregiver on safe transfers to and from bed and chair with supervision and verbal cues for log rolling to get in/out of bed. Physical Therapy Gait Training Problem:PT Impaired gait Goal:Improved Gait Completed Gait training and instruction to patient on safe ambulation with no device for 40 feet with supervision, with verbal cues for corrections of gait deviations including pacing. Instruct and educate on knowledge deficits Problem:PT Learning Assessment Goal:Demonstrate understanding of education Completed patient verbalize and/or demonstrate understanding of physical therapy education including home exercise program and surgical precautions. Education methods include: verbal cues. Further education required to improve knowledge and compliance with home exercise program. [facility] Visit Details Visit Type -OT EVAL Discipline -Occupational Therapy Problems Problem Description Start Date Status Goals Interve ntions Sepsis Disciplines: Skilled Services 06/02/2021 Active 1 goal linked to scheduled/documen lei intervention 1 goal intervention scheduled/document ed in this visit OT Referral Disciplines: Skilled Services 06/02/2021 Resolved on 06/03/2021 1 goal linked to scheduled/documen lei intervention 1 goal intervention scheduled/document ed in this visit Physician Specific Parameters Disciplines: Skilled Services 06/02/2021 Active 1 goal linked to scheduled/documen lei intervention 1 goal intervention scheduled/document ed in this visit Risk for Falls Disciplines: Skilled Services 06/02/2021 Active 1 goal linked to scheduled/documen lei intervention 1 goal intervention scheduled/document ed in this visit Pain Disciplines: Skilled Services 06/02/2021 Active 1 goal linked to scheduled/documen lei intervention 1 goal intervention scheduled/document ed in this visit Discharge Disciplines: Skilled Services 06/02/2021 Active 1 goal linked to scheduled/documen lei intervention 1 goal intervention scheduled/document ed in this visit OT Learning Assessment Disciplines: OT 06/03/2021 Active 1 goal linked to scheduled/documen lei intervention 1 goal intervention scheduled/document ed in this visit OT Functional Transfers Disciplines: OT 06/03/2021 Active 1 goal linked to scheduled/documen lie intervention 1 goal intervention scheduled/document ed in this visit Goals Goal Associated Problem Outcome Goal Met? Visit Notes Patient/caregiver will be able to identify signs/symptoms of sepsis infection and will verbalize actions to take if suspected Sepsis No Patient will be referred to additional discipline as needed OT Referral Completed Yes Met Patient to maintain parameters within physician-specified ranges Physician Specific Parameters No Manage Risk for falls Description: Patient/caregiver will verbalize knowledge of individualized fall prevention strategies by 06/28/21. . Risk for Falls No Manage Pain Description: Patient/caregiver will verbalize knowledge and understanding of appropriate techniques to control pain, including pain medication and non-pharmacological techniques. Patient will verbalize or demonstrate an acceptable level of pain as evidenced by a pain score of <5/10 and improvement in ability to perform activities of daily living to be achieved by 06/28/21. Pain No Manage discharge planning Description: Patient/caregiver will verbalize understanding of ongoing discharge plan provided related to disease management, arrangements for outpatient and/or community services, obtaining medications, supplies, and DME, as needed. Discharge No Demonstrate understanding of education Description: Patient and/or caregiver will understand educational instruction to be achieved by 06/21/21. OT Learning Assessment No Improved Functional Transfers Description: patient will demonstrate safe transfers to/from shower/tub with independent assistance and no verbal cues with use of DME to be achieved by 06/21/21. OT Functional Transfers No Interventions Intervention Associated Problem/Goal Status Variance Visit Notes Risk of Sepsis Description: Patient is at risk for sepsis. Monitor closely for s/s of sepsis. Problem:Sepsis Goal:Patient/caregive r will be able to identify signs/symptoms of sepsis infection and will verbalize actions to take if suspected Completed OT evaluation and treatment Description: Evaluate and treat for the assessment of functional deficits and establishment of appropriate interventions and education to address: I/ADL training and home safety and falls prevention recommendations. Problem:OT Referral Goal:Patient will be referred to additional discipline as needed Completed SPO2 Description: Notify Dr. Washburn if pulse ox is <92% at rest. Problem:Physician Specific Parameters Goal:Patient to maintain parameters within physician-specified ranges Completed Instruct on individual fall risk factors and strategies to prevent falls and injuries caused by falls. Problem:Risk for Falls Goal:Manage Risk for falls Completed OT: Patient instructed on Managing Impaired Functional Mobility: Use assistive device(s): shower chair and Caregiver to provide assist with: Ambulation out of home, Steps, Transfers and ADL/IADLs Instruct on pain and instruct on strategies to control pain Problem:Pain Goal:Manage Pain Completed patient instructed on techniques to control pain including Pharmacological measures and Non-Pharmacological measures; rest, positioning/elevation and use of DME/assistive devices. Instruct on ongoing discharge plan Problem:Discharge Goal:Manage discharge planning Completed Ongoing Discharge plan: Discharge plan discussed with patient including frequency and duration for home OT 2w1, 1w2 and plan for transition to: live independently at home without ongoing services. Instruct and educate on knowledge deficits Problem:OT Learning Assessment Goal:Demonstrate understanding of education Completed Education methods include: verbal cues, visual cues, and teach back. Patient/Caregiver require further education to improve knowledge and compliance with fall prevention strategies, pain management, post surgical precautions, functional transfers and discharge planning. Transfer Training Problem:OT Functional Transfers Goal:Improved Functional Transfers Completed Instruct patient on safe transfers and proper techniques including management of neck brace when getting into shower, only taking off once in shower and putting back on before getting out to perform to and from shower/tub with supervision assistance and verbal cues and assist with neck brace as needed. education and training on the following adaptive equipment/durable medical equipment:shower chair. Recommend only get in shower when someone there. [facility] Visit Details Visit Type -OT ROUTINE Discipline -Occupational Therapy Problems Problem Description Start Date Status Goals Interve ntions Sepsis Disciplines: Skilled Services 06/02/2021 Active 1 goal linked to scheduled/documente d intervention 1 goal intervention scheduled/documente d in this visit Physician Specific Parameters Disciplines: Skilled Services 06/02/2021 Active 1 goal linked to scheduled/documente d intervention 1 goal intervention scheduled/documente d in this visit Risk for Falls Disciplines: Skilled Services 06/02/2021 Active 1 goal linked to scheduled/documente d intervention 1 goal intervention scheduled/documente d in this visit Pain Disciplines: Skilled Services 06/02/2021 Active 1 goal linked to scheduled/documente d intervention 1 goal intervention scheduled/documente d in this visit High Risk Medications Disciplines: Skilled Services 06/02/2021 Active 1 goal linked to scheduled/documente d intervention 1 goal intervention scheduled/documente d in this visit OT Learning Assessment Disciplines: OT 06/03/2021 Active 1 goal linked to scheduled/documente d intervention 1 goal intervention scheduled/documente d in this visit OT ADLs/IADLs Disciplines: OT 06/03/2021 Active 1 goal linked to scheduled/documente d intervention 1 goal intervention scheduled/documente d in this visit OT Upper Body Strength and/or ROM Disciplines: OT 06/03/2021 Active 1 goal linked to scheduled/documente d intervention 1 goal intervention scheduled/documente d in this visit Goals Goal Associated Problem Outcome Goal Met? Visit Notes Patient/caregiver will be able to identify signs/symptoms of sepsis infection and will verbalize actions to take if suspected Sepsis No Patient to maintain parameters within physician-specified ranges Physician Specific Parameters No Manage Risk for falls Description: Patient/caregiver will verbalize knowledge of individualized fall prevention strategies by 06/28/21. . Risk for Falls No Manage Pain Description: Patient/caregiver will verbalize knowledge and understanding of appropriate techniques to control pain, including pain medication and non-pharmacological techniques. Patient will verbalize or demonstrate an acceptable level of pain as evidenced by a pain score of <5/10 and improvement in ability to perform activities of daily living to be achieved by 06/28/21. Pain No Patient/caregiver will teach back high risk medication side effect and precaution education High Risk Medications No Demonstrate understanding of education Description: Patient and/or caregiver will understand educational instruction to be achieved by 06/21/21. OT Learning Assessment No Improved ADLs/IADLs performance Description: patient will verbalize understanding of instructions and demonstrate improved performance of bathing, meal prep and laundry to independence as evidenced by improved Solomon ADL Index score to at least 90 to be achieved by 06/21/21. Pt will have good knowledge of adatpive techniques to complete laundry task while maintaining restrictions by 06/17/21. Pt will complete bathing in shower with supervision post setup by 06/17/21. Pt will complete simple meal prep for making eggs on stove top safely by 06/21/21. OT ADLs/IADLs No Improved Strength and/or ROM Description: patient will verbalize/demonstrate independence with home exercise program with min to no c/o pain, to improve functional performance, to be achieved by 06/21/21. OT Upper Body Strength and/or ROM No Interventions Intervention Associated Problem/Goal Status Variance Visit Notes Risk of Sepsis Description: Patient is at risk for sepsis. Monitor closely for s/s of sepsis. Problem:Sepsis Goal:Patient/caregive r will be able to identify signs/symptoms of sepsis infection and will verbalize actions to take if suspected Completed SPO2 Description: Notify Dr. Washburn if pulse ox is <92% at rest. Problem:Physician Specific Parameters Goal:Patient to maintain parameters within physician-specified ranges Completed Instruct on individual fall risk factors and strategies to prevent falls and injuries caused by falls. Problem:Risk for Falls Goal:Manage Risk for falls Completed OT: Patient instructed on Managing Impaired Functional Mobility: Modification of current activities: not getting up on ladder, Use assistive device(s): shower seat and Caregiver to provide assist with: Ambulation outside of home, Steps, Transfers and ADL/IADLs Instruct on pain and instruct on strategies to control pain Problem:Pain Goal:Manage Pain Completed patient instructed on techniques to control pain including Pharmacological measures and Non-Pharmacological measures; rest, distraction and use of DME/assistive devices. Opioids- Instruct on high risk medication Problem:High Risk Medications Goal:Patient/caregive r will teach back high risk medication side effect and precaution education Completed patient and caregiver instructed on the following: Possible side effects of opioid medication including sedation, decreased rate of breathing, and constipation. Instructed on reporting over sedation to prescribing physician, practice deep breathing techniques every hour while awake, and prevention of constipation by increasing water and fiber intake, increase activity as tolerated, and use stool softener as prescribed. Only take opioids as prescribed, do not share your medications, and take proper precautions in storing and properly disposing of opioids once no longer needed. Follow providers guidelines for driving and weaning from prescribed opioid. Instruct and educate on knowledge deficits Problem:OT Learning Assessment Goal:Demonstrate understanding of education Completed Education methods include: verbal cues, visual cues and teach back. Patient/Caregiver require further education to improve knowledge and compliance with fall prevention strategies, pain management, post surgical precautions, functional adl/iadl activity and discharge planning. ADL/IADLs Training Problem:OT ADLs/IADLs Goal:Improved ADLs/IADLs performance Completed Instruct patient on compensatory strategies, adaptive equipment/DME use, safety and falls prevention and maintaining cervical precautions and awning maker and installer use to facilite improved performance of lower body dressing and laundry with independence and supervision or setup assistance and verbal cues. Pt demonstrated ability to put pants over feet with use of awning maker and installer post instruction. Pt also educated in use of awning maker and installer and positioning during laundry task, sitting on a chair to take items out of dryer, not lifting laundry basket or muliple pairs of jeans while wet. Placement of laundry detergent d/t weight of jug or have someone get him a smaller container. Would benefit from reinforcement Therapeutic Exercises Problem:OT Upper Body Strength and/or ROM Goal:Improved Strength and/or ROM Completed Instructed patient/caregiver on therapeutic exercise including: upper body exercises: shoulder flexion, bicep curls, forearm pronation/supination and shoulder abduction. Provided verbal, visual and written cues for pacing and proper technique. Patient performed 1 set (s) of 5 reps this date, reports pain in right shoulder/neck with performance and requires rest breaks. Plan to work with pt again next visit and evaluate overall tolerance prior to pt continuing on own d/t c/o increased pain in right shoulder/neck after exercises - but only when asked --concerned that pt will overdo it with exercises on own at this time. Pt did have prior injury to right shoulder which contributes to pain. documented in this encounter [facility] Plan of care note* Visit Details Visit Type -[facility] ROUTINE Discipline -Physical Therapy Problems Problem Description Start Date Status Goals Interve ntions Medication Education Disciplines: Skilled Services 06/02/2021 Active 1 goal linked to scheduled/document ed intervention 1 goal intervention scheduled/document ed in this visit Sepsis Disciplines: Skilled Services 06/02/2021 Active 1 goal linked to scheduled/document ed intervention 1 goal intervention scheduled/document ed in this visit Physician Specific Parameters Disciplines: Skilled Services 06/02/2021 Active 1 goal linked to scheduled/document ed intervention 1 goal intervention scheduled/document ed in this visit Risk for Falls Disciplines: Skilled Services 06/02/2021 Active 1 goal linked to scheduled/document ed intervention 1 goal intervention scheduled/document ed in this visit Pain Disciplines: Skilled Services 06/02/2021 Active 1 goal linked to scheduled/document ed intervention 1 goal intervention scheduled/document ed in this visit Discharge Disciplines: Skilled Services 06/02/2021 Active 1 goal linked to scheduled/document ed intervention 1 goal intervention scheduled/document ed in this visit PT Impaired muscle performance and/or ROM Disciplines: PT 06/02/2021 Active 1 goal linked to scheduled/document ed intervention 1 goal intervention scheduled/document ed in this visit PT Impaired gait Disciplines: PT 06/02/2021 Active 2 goals linked to scheduled/document ed interventions 2 goal interventions scheduled/document ed in this visit PT Impaired balance Disciplines: PT 06/02/2021 Active 1 goal linked to scheduled/document ed intervention 1 goal intervention scheduled/document ed in this visit PT Neurologic Condition Disciplines: PT 06/02/2021 Active 1 goal linked to scheduled/document ed intervention 1 goal intervention scheduled/document ed in this visit PT Learning Assessment Disciplines: PT 06/02/2021 Active 1 goal linked to scheduled/document ed intervention 1 goal intervention scheduled/document ed in this visit Goals Goal Associated Problem Outcome Goal Met? Visit Notes Patient/caregiver will demonstrate ability to obtain, store, identify and administer ordered medications, keep accurate medication list in home, and adhere to medication schedule Medication Education No Patient/caregiver will be able to identify signs/symptoms of sepsis infection and will verbalize actions to take if suspected Sepsis No Patient to maintain parameters within physician-specified ranges Physician Specific Parameters No Manage Risk for falls Description: Patient/caregiver will verbalize knowledge of individualized fall prevention strategies by 06/28/21. . Risk for Falls No Manage Pain Description: Patient/caregiver will verbalize knowledge and understanding of appropriate techniques to control pain, including pain medication and non-pharmacological techniques. Patient will verbalize or demonstrate an acceptable level of pain as evidenced by a pain score of <5/10 and improvement in ability to perform activities of daily living to be achieved by 06/28/21. Pain No Manage discharge planning Description: Patient/caregiver will verbalize understanding of ongoing discharge plan provided related to disease management, arrangements for outpatient and/or community services, obtaining medications, supplies, and DME, as needed. Discharge No Improved Muscle Performance and/or ROM Description: LTG: Patient will demonstrate improved muscle performance to meet functional goals as evidenced by ability to tolerate 10 min of standing activity, to be achieved by 06/28/21. . STG: Patient and/or caregiver will verbalize/demonstrate independence with home exercise program, to improve functional mobility, to be achieved by 06/14/21. PT Impaired muscle performance and/or ROM No Improved Stair Climbing Description: LTG: Patient will demonstrate improved stair negotiation as evidenced by ascend/descend 4 steps without railing and with cane independently, to safely access community and exit home, to be achieved by 06/28/21. . PT Impaired gait No Improved Gait Description: STG: Patient will demonstrate improved gait ability as evidenced by ambulation 150 feet with front wheeled walker independently with AD, in order to maneuver throughout home , to be achieved by 06/14/21. LTG: Patient will demonstrate improved gait ability as evidenced by ambulation 300 feet with LRD independently with AD, to return to safe household and community ambulation, in order to re-enter community , to be achieved by 06/28/21. . PT Impaired gait No Improved Balance Description: LTG: Patient will demonstrate improved standing balance to meet functional goals as evidenced by TUG score of < to be achieved by 06/28/21. . PT Impaired balance No Manage Neurologic Condition Description: Improve patient and/or caregiver understanding of post surgical and/or non-surgical neurologic intervention management as evidenced by patient and/or caregiver able to verbalize, demonstrate, and teach back instruction, to be achieved by 06/28/21. . PT Neurologic Condition No Demonstrate understanding of education Description: Patient and/or caregiver will understand educational instruction to be achieved by 06/28/21. STG- pt will receive instruction of home safety , fall prevention , and home ex's upon arrival 06/02/21. PT Learning Assessment No Interventions Intervention Associated Problem/Goal Status Variance Visit Notes Medication Education Description: Evaluate/instruct patient/caregiver on obtaining, storing, identifying and administering ordered medications as well as keeping accurate medication list in the home and adhereing to medication schedule Problem:Medication Education Goal:Patient/caregive r will demonstrate ability to obtain, store, identify and administer ordered medications, keep accurate medication list in home, and adhere to medication schedule Completed Patient and Caregiver instructed on importance of keeping accurate medication list in home. Risk of Sepsis Description: Patient is at risk for sepsis. Monitor closely for s/s of sepsis. Problem:Sepsis Goal:Patient/caregive r will be able to identify signs/symptoms of sepsis infection and will verbalize actions to take if suspected Completed SPO2 Description: Notify Dr. Washburn if pulse ox is <92% at rest. Problem:Physician Specific Parameters Goal:Patient to maintain parameters within physician-specified ranges Completed Instruct on individual fall risk factors and strategies to prevent falls and injuries caused by falls. Problem:Risk for Falls Goal:Manage Risk for falls Completed PT: Patient instructed on Eliminating Environmental Hazards: Keep pathways clear and Keep pets out of pathways Instruct on pain and instruct on strategies to control pain Problem:Pain Goal:Manage Pain Completed patient instructed on techniques to control pain including Pharmacological measures and Non-Pharmacological measures; use of thermal modalities, apply ice to affected area for the following prescribed frequency: several times a day prn. Instruct on ongoing discharge plan Problem:Discharge Goal:Manage discharge planning Completed Ongoing Discharge plan: Discharge plan discussed with patient including frequency and duration for home PT and plan for transition to: live independently at home without ongoing services. Physical Therapy Therapeutic Exercises Problem:PT Impaired muscle performance and/or ROM Goal:Improved Muscle Performance and/or ROM Completed patient instructed on strengthening exercises including stading: calf raises, hip abduction, flexin and extension, hamstring curls and mini sits x's 15 each. seated: laq and hip flexion x's 15each with verbal, visual and written cues for correct tecnique and pace . patient instructed to perform home exercise program twice a day which included above exercises. Physical Therapy Stair Training Problem:PT Impaired gait Goal:Improved Stair Climbing Completed Stair training and instruction to patient on safe stair climbing, ascend/descend 12 steps, with railing with supervision and verbal cues for pacing for safety . Physical Therapy Gait Training Problem:PT Impaired gait Goal:Improved Gait Completed Gait training and instruction to patient on safe ambulation with no device for household distances with supervision, with verbal cues for corrections of gait deviations including pacing for safety. No outdoor ambulation today due to inclement weather. Physical Therapy Balance Training Problem:PT Impaired balance Goal:Improved Balance Completed Developed, implemented, and instructed patient on standing balance exercises including lateral stepping outs x's 10 each with inilateral support. SLS 2x's 20sec . Instruct on self-management of post surgical and/or non-surgical neurologic intervention Problem:PT Neurologic Condition Goal:Manage Neurologic Condition Completed patient instructed on energy conservation. Resting when fatigued Instruct and educate on knowledge deficits Problem:PT Learning Assessment Goal:Demonstrate understanding of education Completed patient verbalize and/or demonstrate understanding of physical therapy education including home exercise program and surgical precautions. Education methods include: verbal cues. Further education required to improve knowledge and compliance with home exercise program and surgical precautions. [facility] Visit Details Visit Type -OT ROUTINE Discipline -Occupational Therapy Problems Problem Description Start Date Status Goals Interve ntions Sepsis Disciplines: Skilled Services 06/02/2021 Active 1 goal linked to scheduled/documente d intervention 1 goal intervention scheduled/documente d in this visit Physician Specific Parameters Disciplines: Skilled Services 06/02/2021 Active 1 goal linked to scheduled/documente d intervention 1 goal intervention scheduled/documente d in this visit Risk for Falls Disciplines: Skilled Services 06/02/2021 Active 1 goal linked to scheduled/documente d intervention 1 goal intervention scheduled/documente d in this visit Pain Disciplines: Skilled Services 06/02/2021 Active 1 goal linked to scheduled/documente d intervention 1 goal intervention scheduled/documente d in this visit High Risk Medications Disciplines: Skilled Services 06/02/2021 Active 1 goal linked to scheduled/documente d intervention 1 goal intervention scheduled/documente d in this visit Discharge Disciplines: Skilled Services 06/02/2021 Active 1 goal linked to scheduled/documente d intervention 1 goal intervention scheduled/documente d in this visit OT Learning Assessment Disciplines: OT 06/03/2021 Active 1 goal linked to scheduled/documente d intervention 1 goal intervention scheduled/documente d in this visit OT ADLs/IADLs Disciplines: OT 06/03/2021 Active 1 goal linked to scheduled/documente d intervention 1 goal intervention scheduled/documente d in this visit OT Upper Body Strength and/or ROM Disciplines: OT 06/03/2021 Active 1 goal linked to scheduled/documente d intervention 1 goal intervention scheduled/documente d in this visit Goals Goal Associated Problem Outcome Goal Met? Visit Notes Patient/caregiver will be able to identify signs/symptoms of sepsis infection and will verbalize actions to take if suspected Sepsis No Patient to maintain parameters within physician-specified ranges Physician Specific Parameters No Manage Risk for falls Description: Patient/caregiver will verbalize knowledge of individualized fall prevention strategies by 06/28/21. . Risk for Falls No Manage Pain Description: Patient/caregiver will verbalize knowledge and understanding of appropriate techniques to control pain, including pain medication and non-pharmacological techniques. Patient will verbalize or demonstrate an acceptable level of pain as evidenced by a pain score of <5/10 and improvement in ability to perform activities of daily living to be achieved by 06/28/21. Pain No Patient/caregiver will teach back high risk medication side effect and precaution education High Risk Medications No Manage discharge planning Description: Patient/caregiver will verbalize understanding of ongoing discharge plan provided related to disease management, arrangements for outpatient and/or community services, obtaining medications, supplies, and DME, as needed. Discharge No Demonstrate understanding of education Description: Patient and/or caregiver will understand educational instruction to be achieved by 06/21/21. OT Learning Assessment No Improved ADLs/IADLs performance Description: patient will verbalize understanding of instructions and demonstrate improved performance of bathing, meal prep and laundry to independence as evidenced by improved Solomon ADL Index score to at least 90 to be achieved by 06/21/21. Pt will have good knowledge of adatpive techniques to complete laundry task while maintaining restrictions by 06/17/21. Pt will complete bathing in shower with supervision post setup by 06/17/21. Pt will complete simple meal prep for making eggs on stove top safely by 06/21/21. OT ADLs/IADLs No Improved Strength and/or ROM Description: patient will verbalize/demonstrate independence with home exercise program with min to no c/o pain, to improve functional performance, to be achieved by 06/21/21. OT Upper Body Strength and/or ROM No Interventions Intervention Associated Problem/Goal Status Variance Visit Notes Risk of Sepsis Description: Patient is at risk for sepsis. Monitor closely for s/s of sepsis. Problem:Sepsis Goal:Patient/caregive r will be able to identify signs/symptoms of sepsis infection and will verbalize actions to take if suspected Completed SPO2 Description: Notify Dr. Washburn if pulse ox is <92% at rest. Problem:Physician Specific Parameters Goal:Patient to maintain parameters within physician-specified ranges Completed Instruct on individual fall risk factors and strategies to prevent falls and injuries caused by falls. Problem:Risk for Falls Goal:Manage Risk for falls Completed OT: Patient instructed on Managing Impaired Functional Mobility: Caregiver to provide assist with: Ambulation out of home, Steps and ADL/IADLs Instruct on pain and instruct on strategies to control pain Problem:Pain Goal:Manage Pain Completed patient instructed on techniques to control pain including Pharmacological measures and Non-Pharmacological measures; rest, breathing/relaxation and use of DME/assistive devices. Opioids- Instruct on high risk medication Problem:High Risk Medications Goal:Patient/caregive r will teach back high risk medication side effect and precaution education Completed patient instructed on the following: Possible side effects of opioid medication including sedation, decreased rate of breathing, and constipation. Instructed on reporting over sedation to prescribing physician, practice deep breathing techniques every hour while awake, and prevention of constipation by increasing water and fiber intake, increase activity as tolerated, and use stool softener as prescribed. Only take opioids as prescribed, do not share your medications, and take proper precautions in storing and properly disposing of opioids once no longer needed. Follow providers guidelines for driving and weaning from prescribed opioid. Instruct on ongoing discharge plan Problem:Discharge Goal:Manage discharge planning Completed Ongoing Discharge plan: Discharge plan discussed with patient including frequency and duration for home OT with plan for reassessment possible d/c next visit and plan for transition to: caregiver assistance. Pt is progressing well - still supervision when getting in shower and limited tolerance with shoulder exercises d/t previous injury, unsure how will progress. Instruct and educate on knowledge deficits Problem:OT Learning Assessment Goal:Demonstrate understanding of education Completed Education methods include: verbal cues, written instructions and teach back. Patient/Caregiver require further education to improve knowledge and compliance with fall prevention strategies, pain management, post surgical precautions, home safety, functional adl/iadl activity, home exercise program and discharge planning. ADL/IADLs Training Problem:OT ADLs/IADLs Goal:Improved ADLs/IADLs performance Completed Instruct patient on compensatory strategies, safety and falls prevention, maintaining cervical precautions and proper body mechanics and no adaptive equipment use to facilite improved performance of meal prep with independence and verbal cues. pt was able to safely get pot and cooking items out of cupboard. Pt was able to cut up onions and cook carrots, onion, and peppers on stove safely while maintaining cervical precautions. Therapeutic Exercises Problem:OT Upper Body Strength and/or ROM Goal:Improved Strength and/or ROM Completed Instructed patient/caregiver on therapeutic exercise including: upper body exercises: shoulder presses, chest presses, and chest pulls. Provided verbal and written cues for pacing and proper technique. Patient performed 1 set (s) of 5 reps this date and reports some mild pain with performance of shoulder presses - tolerated others well. Pt also completed 1 rep of shoulder flexion and abduction but then did not tolerated another rep of shoulder abduction Instructed patient/caregiver for HEP to be performed 1-2 sets(s) of 5 reps, daily. As tolerated. Pt has previous injury to right shoulder which limits tolerance. HEP program reviewed and modified. [facility] Visit Details Visit Type -OT DISC DC W VIS IT Discipline -Occupational Therapy Problems Problem Description Start Date Status Goals Interve ntions Sepsis Disciplines: Skilled Services 06/02/2021 Active 1 goal linked to scheduled/documen lei intervention 1 goal intervention scheduled/document ed in this visit Physician Specific Parameters Disciplines: Skilled Services 06/02/2021 Active 1 goal linked to scheduled/documen lei intervention 1 goal intervention scheduled/document ed in this visit OT Learning Assessment Disciplines: OT 06/03/2021 Resolved on 06/16/2021 1 goal linked to scheduled/documen lei intervention 1 goal intervention scheduled/document ed in this visit OT ADLs/IADLs Disciplines: OT 06/03/2021 Resolved on 06/16/2021 1 goal linked to scheduled/documen lei intervention 1 goal intervention scheduled/document ed in this visit OT Upper Body Strength and/or ROM Disciplines: OT 06/03/2021 Resolved on 06/16/2021 1 goal linked to scheduled/documen lei intervention 1 goal intervention scheduled/document ed in this visit OT Functional Transfers Disciplines: OT 06/03/2021 Resolved on 06/16/2021 1 goal linked to scheduled/documen lei intervention Goals Goal Associated Problem Outcome Goal Met? Visit Notes Patient/caregiver will be able to identify signs/symptoms of sepsis infection and will verbalize actions to take if suspected Sepsis No Patient to maintain parameters within physician-specified ranges Physician Specific Parameters No Demonstrate understanding of education Description: Patient and/or caregiver will understand educational instruction to be achieved by 06/21/21. OT Learning Assessment Completed Yes Met Improved ADLs/IADLs performance Description: patient will verbalize understanding of instructions and demonstrate improved performance of bathing, meal prep and laundry to independence as evidenced by improved Solomon ADL Index score to at least 90 to be achieved by 06/21/21. Pt will have good knowledge of adatpive techniques to complete laundry task while maintaining restrictions by 06/17/21. Pt will complete bathing in shower with supervision post setup by 06/17/21. Pt will complete simple meal prep for making eggs on stove top safely by 06/21/21. OT ADLs/IADLs Completed Yes Met Improved Strength and/or ROM Description: patient will verbalize/demonstrate independence with home exercise program with min to no c/o pain, to improve functional performance, to be achieved by 06/21/21. OT Upper Body Strength and/or ROM Completed Yes Met Improved Functional Transfers Description: patient will demonstrate safe transfers to/from shower/tub with independent assistance and no verbal cues with use of DME to be achieved by 06/21/21. OT Functional Transfers Completed Yes Met Interventions Intervention Associated Problem/Goal Status Variance Visit Notes Risk of Sepsis Description: Patient is at risk for sepsis. Monitor closely for s/s of sepsis. Problem:Sepsis Goal:Patient/caregiver will be able to identify signs/symptoms of sepsis infection and will verbalize actions to take if suspected Completed SPO2 Description: Notify Dr. Washburn if pulse ox is <92% at rest. Problem:Physician Specific Parameters Goal:Patient to maintain parameters within physician-specified ranges Completed Instruct and educate on knowledge deficits Problem:OT Learning Assessment Goal:Demonstrate understanding of education Completed Education methods include: verbal cues, written instructions and teach back. Patient/Caregiver require further education to improve knowledge and compliance with fall prevention strategies, pain management, post surgical precautions, functional adl/iadl activity, home exercise program and discharge planning. ADL/IADLs Training Problem:OT ADLs/IADLs Goal:Improved ADLs/IADLs performance Completed Instruct patient on compensatory strategies, safety and falls prevention and maintaining cervical precautions and shower seat use to facilite improved performance of bathing with independence. instructed that when taking neck brace off for shower/hygiene be aware being gentle with movement and keeping neck/head in midline - not twisting. Also educated in adaptive techniques to maintain lifting restrictions during daily activities, including marking on humidifier level of one gallon to help pt not to fill too full. Therapeutic Exercises Problem:OT Upper Body Strength and/or ROM Goal:Improved Strength and/or ROM Completed Instructed patient/caregiver on therapeutic exercise including: upper body exercises: shoulder flexion.Provided verbal cues for proper technique. Patient performed 1 set (s) of 10 reps this date and reports a little pain with performance of some right shoulder exercises, but post exercises reports no pain. Instructed patient/caregiver for HEP to be performed 1-2 sets(s) of 10 reps, daily and as tolerated with right shoulder. HEP program reviewed and modified. ROM - right shoulder flexion 140 degrees, left shoulder flexion 145 degrees, right abduction 140 degrees with min pain, left shoulder abduction 154 degrees. [facility] Visit Details Visit Type -[facility] ROUTINE Discipline -Physical Therapy Problems Problem Description Start Date Status Goals Interve ntions Medication Education Disciplines: Skilled Services 06/02/2021 Active 1 goal linked to scheduled/document ed intervention 1 goal intervention scheduled/document ed in this visit Sepsis Disciplines: Skilled Services 06/02/2021 Active 1 goal linked to scheduled/document ed intervention 1 goal intervention scheduled/document ed in this visit Physician Specific Parameters Disciplines: Skilled Services 06/02/2021 Active 1 goal linked to scheduled/document ed intervention 1 goal intervention scheduled/document ed in this visit Risk for Falls Disciplines: Skilled Services 06/02/2021 Active 1 goal linked to scheduled/document ed intervention 1 goal intervention scheduled/document ed in this visit Pain Disciplines: Skilled Services 06/02/2021 Active 1 goal linked to scheduled/document ed intervention 1 goal intervention scheduled/document ed in this visit Discharge Disciplines: Skilled Services 06/02/2021 Active 1 goal linked to scheduled/document ed intervention 1 goal intervention scheduled/document ed in this visit PT Impaired muscle performance and/or ROM Disciplines: PT 06/02/2021 Active 1 goal linked to scheduled/document ed intervention 1 goal intervention scheduled/document ed in this visit PT Impaired gait Disciplines: PT 06/02/2021 Active 1 goal linked to scheduled/document ed intervention 1 goal intervention scheduled/document ed in this visit PT Impaired balance Disciplines: PT 06/02/2021 Active 1 goal linked to scheduled/document ed intervention 1 goal intervention scheduled/document ed in this visit PT Learning Assessment Disciplines: PT 06/02/2021 Active 1 goal linked to scheduled/document ed intervention 1 goal intervention scheduled/document ed in this visit Goals Goal Associated Problem Outcome Goal Met? Visit Notes Patient/caregiver will demonstrate ability to obtain, store, identify and administer ordered medications, keep accurate medication list in home, and adhere to medication schedule Medication Education No Patient/caregiver will be able to identify signs/symptoms of sepsis infection and will verbalize actions to take if suspected Sepsis No Patient to maintain parameters within physician-specified ranges Physician Specific Parameters No Manage Risk for falls Description: Patient/caregiver will verbalize knowledge of individualized fall prevention strategies by 06/28/21. . Risk for Falls No Manage Pain Description: Patient/caregiver will verbalize knowledge and understanding of appropriate techniques to control pain, including pain medication and non-pharmacological techniques. Patient will verbalize or demonstrate an acceptable level of pain as evidenced by a pain score of <5/10 and improvement in ability to perform activities of daily living to be achieved by 06/28/21. Pain No Manage discharge planning Description: Patient/caregiver will verbalize understanding of ongoing discharge plan provided related to disease management, arrangements for outpatient and/or community services, obtaining medications, supplies, and DME, as needed. Discharge No Improved Muscle Performance and/or ROM Description: LTG: Patient will demonstrate improved muscle performance to meet functional goals as evidenced by ability to tolerate 10 min of standing activity, to be achieved by 06/28/21. . STG: Patient and/or caregiver will verbalize/demonstrate independence with home exercise program, to improve functional mobility, to be achieved by 06/14/21. PT Impaired muscle performance and/or ROM No Improved Gait Description: STG: Patient will demonstrate improved gait ability as evidenced by ambulation 150 feet with front wheeled walker independently with AD, in order to maneuver throughout home , to be achieved by 06/14/21. LTG: Patient will demonstrate improved gait ability as evidenced by ambulation 300 feet with LRD independently with AD, to return to safe household and community ambulation, in order to re-enter community , to be achieved by 06/28/21. . PT Impaired gait No Improved Balance Description: LTG: Patient will demonstrate improved standing balance to meet functional goals as evidenced by TUG score of < to be achieved by 06/28/21. . PT Impaired balance No Demonstrate understanding of education Description: Patient and/or caregiver will understand educational instruction to be achieved by 06/28/21. STG- pt will receive instruction of home safety , fall prevention , and home ex's upon arrival 06/02/21. PT Learning Assessment No Interventions Intervention Associated Problem/Goal Status Variance Visit Notes Medication Education Description: Evaluate/instruct patient/caregiver on obtaining, storing, identifying and administering ordered medications as well as keeping accurate medication list in the home and adhereing to medication schedule Problem:Medication Education Goal:Patient/caregive r will demonstrate ability to obtain, store, identify and administer ordered medications, keep accurate medication list in home, and adhere to medication schedule Completed Patient instructed on importance of keeping accurate medication list in home. Risk of Sepsis Description: Patient is at risk for sepsis. Monitor closely for s/s of sepsis. Problem:Sepsis Goal:Patient/caregive r will be able to identify signs/symptoms of sepsis infection and will verbalize actions to take if suspected Completed SPO2 Description: Notify Dr. Washburn if pulse ox is <92% at rest. Problem:Physician Specific Parameters Goal:Patient to maintain parameters within physician-specified ranges Completed Instruct on individual fall risk factors and strategies to prevent falls and injuries caused by falls. Problem:Risk for Falls Goal:Manage Risk for falls Completed PT: Patient instructed on Eliminating Environmental Hazards: Keep rooms and walkways well lit Instruct on pain and instruct on strategies to control pain Problem:Pain Goal:Manage Pain Completed patient instructed on techniques to control pain including Pharmacological measures and Non-Pharmacological measures; rest. Instruct on ongoing discharge plan Problem:Discharge Goal:Manage discharge planning Completed Ongoing Discharge plan: Discharge plan discussed with patient including frequency and duration for home PT and plan for transition to: live independently at home without ongoing services. Physical Therapy Therapeutic Exercises Problem:PT Impaired muscle performance and/or ROM Goal:Improved Muscle Performance and/or ROM Completed patient instructed on strengthening exercises including standing calf raises, hip abduction, flexion and extension, hamstring curls, and mini sits x's 20each with verbal and visual cues for slower pace . patient instructed to perform home exercise program twice a day which included .above exercises Physical Therapy Gait Training Problem:PT Impaired gait Goal:Improved Gait Completed Gait training and instruction to patient on safe ambulation with single point cane for 4x's 30 feet with stand by assist, with verbal cues for corrections of gait deviations including correct step pattern. Adjusted cane to proper height . Physical Therapy Balance Training Problem:PT Impaired balance Goal:Improved Balance Completed Developed, implemented, and instructed patient on standing balance exercises including cone stepping forward and lateral 3cones x's 4 each.. Instruct and educate on knowledge deficits Problem:PT Learning Assessment Goal:Demonstrate understanding of education Completed patient verbalize and/or demonstrate understanding of physical therapy education including home exercise program and surgical precautions. Education methods include: verbal cues. Further education required to improve knowledge and compliance with home exercise program. [facility] Visit Details Visit Type -[facility]IST ROUTINE Discipline -Physical Therapy Problems Problem Description Start Date Status Goals Interve ntions Physician Specific Parameters Disciplines: Skilled Services 06/02/2021 Active 1 goal linked to scheduled/documente d intervention 1 goal intervention scheduled/documente d in this visit Risk for Falls Disciplines: Skilled Services 06/02/2021 Active 1 goal linked to scheduled/documente d intervention 1 goal intervention scheduled/documente d in this visit PT Impaired gait Disciplines: PT 06/02/2021 Active 2 goals linked to scheduled/documente d interventions 2 goal interventions scheduled/documente d in this visit PT Learning Assessment Disciplines: PT 06/02/2021 Active 1 goal linked to scheduled/documente d intervention 1 goal intervention scheduled/documente d in this visit Goals Goal Associated Problem Outcome Goal Met? Visit Notes Patient to maintain parameters within physician-specified ranges Physician Specific Parameters No Manage Risk for falls Description: Patient/caregiver will verbalize knowledge of individualized fall prevention strategies by 06/28/21. . Risk for Falls No Improved Stair Climbing Description: LTG: Patient will demonstrate improved stair negotiation as evidenced by ascend/descend 4 steps without railing and with cane independently, to safely access community and exit home, to be achieved by 06/28/21. . PT Impaired gait No Improved Gait Description: STG: Patient will demonstrate improved gait ability as evidenced by ambulation 150 feet with front wheeled walker independently with AD, in order to maneuver throughout home , to be achieved by 06/14/21. LTG: Patient will demonstrate improved gait ability as evidenced by ambulation 300 feet with LRD independently with AD, to return to safe household and community ambulation, in order to re-enter community , to be achieved by 06/28/21. . PT Impaired gait No Demonstrate understanding of education Description: Patient and/or caregiver will understand educational instruction to be achieved by 06/28/21. STG- pt will receive instruction of home safety , fall prevention , and home ex's upon arrival 06/02/21. PT Learning Assessment No Interventions Intervention Associated Problem/Goal Status Variance Visit Notes SPO2 Description: Notify Dr. Washburn if pulse ox is <92% at rest. Problem:Physician Specific Parameters Goal:Patient to maintain parameters within physician-specified ranges Completed Instruct on individual fall risk factors and strategies to prevent falls and injuries caused by falls. Problem:Risk for Falls Goal:Manage Risk for falls Completed PT: Patient instructed on Eliminating Environmental Hazards: Keep pathways clear and Keep pets out of pathways Managing Impaired Functional Mobility: Use assistive device(s): Walker and/or Cane Physical Therapy Stair Training Problem:PT Impaired gait Goal:Improved Stair Climbing Completed Stair training and instruction to patient on safe stair climbing, ascend/descend 4 steps, without railing and with cane with supervision and verbal cues for proper timing and sequencing with lesser device. Physical Therapy Gait Training Problem:PT Impaired gait Goal:Improved Gait Completed Gait training and instruction to patient on safe ambulation with single point cane for 300 + feet x1 (9min walk) with supervision, with verbal cues for corrections of gait deviations including proper timing and sequencing with lesser device. Patient with slight deviations at times and was able to self correct. Instructed patient in tapping cane on ground with left foot heel strike to find rhythm with timing. Instruct and educate on knowledge deficits Problem:PT Learning Assessment Goal:Demonstrate understanding of education Completed patient verbalize and/or demonstrate understanding of physical therapy education including orthopedic condition management, surgical precautions and fall prevention strategies. Education methods include: verbal cues. [facility] Visit Details Visit Type -PT AGENCY DC W V ISIT Discipline -Physical Therapy Problems Problem Description Start Date Status Goals Interve ntions Medication Education Disciplines: Skilled Services 06/02/2021 Resolved on 06/26/2021 1 goal linked to scheduled/document ed intervention 1 goal intervention scheduled/document ed in this visit Sepsis Disciplines: Skilled Services 06/02/2021 Resolved on 06/26/2021 1 goal linked to scheduled/document ed intervention 1 goal intervention scheduled/document ed in this visit Physician Specific Parameters Disciplines: Skilled Services 06/02/2021 Resolved on 06/26/2021 1 goal linked to scheduled/document ed intervention 1 goal intervention scheduled/document ed in this visit Risk for Falls Disciplines: Skilled Services 06/02/2021 Resolved on 06/26/2021 1 goal linked to scheduled/document ed intervention 1 goal intervention scheduled/document ed in this visit Pain Disciplines: Skilled Services 06/02/2021 Resolved on 06/26/2021 1 goal linked to scheduled/document ed intervention 1 goal intervention scheduled/document ed in this visit High Risk Medications Disciplines: Skilled Services 06/02/2021 Resolved on 06/26/2021 1 goal linked to scheduled/document ed intervention 1 goal intervention scheduled/document ed in this visit Discharge Disciplines: Skilled Services 06/02/2021 Resolved on 06/26/2021 1 goal linked to scheduled/document ed intervention 1 goal intervention scheduled/document ed in this visit PT Impaired muscle performance and/or ROM Disciplines: PT 06/02/2021 Resolved on 06/26/2021 1 goal linked to scheduled/document ed intervention 1 goal intervention scheduled/document ed in this visit PT Impaired mobility Disciplines: PT 06/02/2021 Resolved on 06/26/2021 1 goal linked to scheduled/document ed intervention 1 goal intervention scheduled/document ed in this visit PT Impaired gait Disciplines: PT 06/02/2021 Resolved on 06/26/2021 2 goals linked to scheduled/document ed interventions 2 goal interventions scheduled/document ed in this visit PT Impaired balance Disciplines: PT 06/02/2021 Resolved on 06/26/2021 1 goal linked to scheduled/document ed intervention 1 goal intervention scheduled/document ed in this visit PT Neurologic Condition Disciplines: PT 06/02/2021 Resolved on 06/26/2021 1 goal linked to scheduled/document ed intervention 1 goal intervention scheduled/document ed in this visit PT Learning Assessment Disciplines: PT 06/02/2021 Resolved on 06/26/2021 1 goal linked to scheduled/document ed intervention 1 goal intervention scheduled/document ed in this visit Goals Goal Associated Problem Outcome Goal Met? Visit Notes Patient/caregiver will demonstrate ability to obtain, store, identify and administer ordered medications, keep accurate medication list in home, and adhere to medication schedule Medication Education Completed Yes Patient/caregiver will be able to identify signs/symptoms of sepsis infection and will verbalize actions to take if suspected Sepsis Completed Yes Patient to maintain parameters within physician-specified ranges Physician Specific Parameters Completed Yes Manage Risk for falls Description: Patient/caregiver will verbalize knowledge of individualized fall prevention strategies by 06/28/21. . Risk for Falls Completed Yes Manage Pain Description: Patient/caregiver will verbalize knowledge and understanding of appropriate techniques to control pain, including pain medication and non-pharmacological techniques. Patient will verbalize or demonstrate an acceptable level of pain as evidenced by a pain score of <5/10 and improvement in ability to perform activities of daily living to be achieved by 06/28/21. Pain Completed Yes Patient/caregiver will teach back high risk medication side effect and precaution education High Risk Medications Completed Yes Manage discharge planning Description: Patient/caregiver will verbalize understanding of ongoing discharge plan provided related to disease management, arrangements for outpatient and/or community services, obtaining medications, supplies, and DME, as needed. Discharge Completed Yes Improved Muscle Performance and/or ROM Description: LTG: Patient will demonstrate improved muscle performance to meet functional goals as evidenced by ability to tolerate 10 min of standing activity, to be achieved by 06/28/21. . STG: Patient and/or caregiver will verbalize/demonstrate independence with home exercise program, to improve functional mobility, to be achieved by 06/14/21. PT Impaired muscle performance and/or ROM Completed Yes Improved Transfers Description: LTG: Patient will demonstrate safe transfers to/from bed, chair, toilet, couch, shower/tub and car independently with AD, to be achieved by 06/28/21. . PT Impaired mobility Completed Yes Improved Stair Climbing Description: LTG: Patient will demonstrate improved stair negotiation as evidenced by ascend/descend 4 steps without railing and with cane independently, to safely access community and exit home, to be achieved by 06/28/21. . PT Impaired gait Completed Yes Improved Gait Description: STG: Patient will demonstrate improved gait ability as evidenced by ambulation 150 feet with front wheeled walker independently with AD, in order to maneuver throughout home , to be achieved by 06/14/21. LTG: Patient will demonstrate improved gait ability as evidenced by ambulation 300 feet with LRD independently with AD, to return to safe household and community ambulation, in order to re-enter community , to be achieved by 06/28/21. . PT Impaired gait Completed Yes Improved Balance Description: LTG: Patient will demonstrate improved standing balance to meet functional goals as evidenced by TUG score of < to be achieved by 06/28/21. . PT Impaired balance Completed Yes Manage Neurologic Condition Description: Improve patient and/or caregiver understanding of post surgical and/or non-surgical neurologic intervention management as evidenced by patient and/or caregiver able to verbalize, demonstrate, and teach back instruction, to be achieved by 06/28/21. . PT Neurologic Condition Completed Yes Demonstrate understanding of education Description: Patient and/or caregiver will understand educational instruction to be achieved by 06/28/21. STG- pt will receive instruction of home safety , fall prevention , and home ex's upon arrival 06/02/21. PT Learning Assessment Completed Yes Interventions Intervention Associated Problem/Goal Status Variance Visit Notes Medication Education Description: Evaluate/instruct patient/caregiver on obtaining, storing, identifying and administering ordered medications as well as keeping accurate medication list in the home and adhereing to medication schedule Problem:Medication Education Goal:Patient/caregive r will demonstrate ability to obtain, store, identify and administer ordered medications, keep accurate medication list in home, and adhere to medication schedule Completed Patient instructed on importance of keeping accurate medication list in home and adhering to medication schedule. Risk of Sepsis Description: Patient is at risk for sepsis. Monitor closely for s/s of sepsis. Problem:Sepsis Goal:Patient/caregive r will be able to identify signs/symptoms of sepsis infection and will verbalize actions to take if suspected Completed SPO2 Description: Notify Dr. Washburn if pulse ox is <92% at rest. Problem:Physician Specific Parameters Goal:Patient to maintain parameters within physician-specified ranges Completed Instruct on individual fall risk factors and strategies to prevent falls and injuries caused by falls. Problem:Risk for Falls Goal:Manage Risk for falls Completed PT: Patient instructed on Eliminating Environmental Hazards: Keep pathways clear and Keep pets out of pathways Managing Impaired Functional Mobility: Use assistive device(s): Cane Managing Pain Instruct on pain and instruct on strategies to control pain Problem:Pain Goal:Manage Pain Completed patient instructed on techniques to control pain including Pharmacological measures and Non-Pharmacological measures; rest, positioning/elevation and use of thermal modalities, apply ice to affected area. Opioids- Instruct on high risk medication Problem:High Risk Medications Goal:Patient/caregive r will teach back high risk medication side effect and precaution education Completed patient instructed on the following: Possible side effects of opioid medication including sedation, decreased rate of breathing, and constipation. Instructed on reporting over sedation to prescribing physician, practice deep breathing techniques every hour while awake, and prevention of constipation by increasing water and fiber intake, increase activity as tolerated, and use stool softener as prescribed. Only take opioids as prescribed, do not share your medications, and take proper precautions in storing and properly disposing of opioids once no longer needed. Follow providers guidelines for driving and weaning from prescribed opioid. Instruct on final discharge plan and deliver discharge instructions Problem:Discharge Goal:Manage discharge planning Completed Delivered Discharge plan: Discharge plan discussed with patient for plan for transition to: live independently at home without ongoing services Physical Therapy Therapeutic Exercises Problem:PT Impaired muscle performance and/or ROM Goal:Improved Muscle Performance and/or ROM Completed patient instructed on strengthening exercises including STANDING : KNEE FLEX, HIP EXT, HIP FLEX, HIP ABD X 10 with verbal cues for techniqu . patient instructed to perform home exercise program daily . Physical Therapy Transfer Training Problem:PT Impaired mobility Goal:Improved Transfers Completed SAMANTHA transfers with safe/proper technique Physical Therapy Stair Training Problem:PT Impaired gait Goal:Improved Stair Climbing Completed up and down 10 steps with rail and recip pattern , slow and careful Physical Therapy Gait Training Problem:PT Impaired gait Goal:Improved Gait Completed Indep amb with no ad in the apt and st cane outdoors . med stride. gait can be mildly guarded if he is having a lot of yuliya in the L extrmities Physical Therapy Balance Training Problem:PT Impaired balance Goal:Improved Balance Completed pt demonstrates improved dynaic standing balance as evidenced by a tug of 26 Instruct on self-management of post surgical and/or non-surgical neurologic intervention Problem:PT Neurologic Condition Goal:Manage Neurologic Condition Completed patient instructed on instructed on when to call provider. Instruct and educate on knowledge deficits Problem:PT Learning Assessment Goal:Demonstrate understanding of education Completed patient verbalize and/or demonstrate understanding of physical therapy education including home exercise program, orthopedic condition management, weight bearing precautions, surgical precautions and pain management. Education methods include: verbal cues. [facility] this encounter [facility] No data available for this section [facility] Reason for referral (narrative)* Diagnostic Procedure Only (Routine) - Closed Specialty Diagnoses / Procedures Referred By Contac t Referred To Contact XR IMAGING Diagnoses History of cervical spinal surgery Procedures XR CERV GENERAL 2V AP/LAT RADEX SPINE CERVICAL 2 OR 3 VIEWS Miles Washburn, DO [address] [place] [address] Xr Imaging Referral ID Status Reason Start Date Expiration Date V isits Requested Visits Authorized [id number] Closed Auto-Generate d Referral 06/06/2021 07/06/2022 1 1 [facility] for referral (narrative)* Diagnostic Procedure Only (Routine) - Closed Specialty Diagnoses / Procedures Referred By Contac t Referred To Contact XR IMAGING Diagnoses History of cervical spinal surgery Procedures XR CERV GENERAL 2V AP/LAT RADEX SPINE CERVICAL 2 OR 3 VIEWS Miles Washburn, DO [address] [place] [address] Xr Imaging Referral ID Status Reason Start Date Expiration Date V isits Requested Visits Authorized [id number] Closed Auto-Generate d Referral 06/06/2021 07/06/2022 1 1 [facility] for referral (narrative)* Diagnostic Procedure Only (Routine) - Closed Specialty Diagnoses / Procedures Referred By Contac t Referred To Contact XR IMAGING Diagnoses Cervical myelopathy (HCC) Procedures XR CERV GENERAL 2V AP/LAT RADEX SPINE CERVICAL 2 OR 3 VIEWS Miles Washburn, DO [address] [place] [address] Xr Imaging Referral ID Status Reason Start Date Expiration Date V isits Requested Visits Authorized [id number] Closed Auto-Generate d Referral 07/02/2021 08/01/2022 1 1 [facility] for referral (narrative)* Diagnostic Procedure Only (Routine) - Closed Specialty Diagnoses / Procedures Referred By Contac t Referred To Contact XR IMAGING Diagnoses Cervical myelopathy (HCC) Procedures XR CERV GENERAL 2V AP/LAT RADEX SPINE CERVICAL 2 OR 3 VIEWS Miles Washburn, DO [address] [place] [address] Xr Imaging Referral ID Status Reason Start Date Expiration Date V isits Requested Visits Authorized [id number] Closed Auto-Generate d Referral 07/02/2021 08/01/2022 1 1 [facility] for referral (narrative)* Diagnostic Procedure Only (Routine) - Closed Specialty Diagnoses / Procedures Referred By Contac t Referred To Contact XR IMAGING Diagnoses History of cervical spinal surgery Procedures XR CERV GENERAL 2V AP/LAT RADEX SPINE CERVICAL 2 OR 3 VIEWS Miles Washburn, DO [address] [address] Xr Imaging Referral ID Status Reason Start Date Expiration Date V isits Requested Visits Authorized [id number] Closed Auto-Generate d Referral 08/11/2021 09/10/2022 1 1 [facility] for referral (narrative)* Diagnostic Procedure Only (Routine) - Pending Review Specialty Diagnoses / Procedures Referred By Contac t Referred To Contact XR IMAGING Diagnoses Cervical myelopathy (HCC) Procedures XR CERV OTHER 4V AP/LAT/OBL RADEX SPINE CERVICAL 4 OR 5 VIEWS Miles Washburn, DO [address] [place] [address] [place] [id number] Xr Imaging Referral ID Status Reason Start Date Expiration Date Visits Requested Visits Authorized [id number] Pending Review Auto-Generat ed Referral 11/25/2021 12/25/2022 1 1 [facility] for referral (narrative)* Diagnostic Procedure Only (Routine) - Closed Specialty Diagnoses / Procedures Referred By Contac t Referred To Contact XR IMAGING Diagnoses Cervical myelopathy (HCC) Procedures XR CERV GENERAL 2V AP/LAT RADEX SPINE CERVICAL 2 OR 3 VIEWS Miles Washburn, DO [address] [place] [address] [place] [id number] Xr Imaging Referral ID Status Reason Start Date Expiration Date V isits Requested Visits Authorized [id number] Closed Auto-Generate d Referral 08/19/2021 09/18/2022 1 1 [facility] for visit Narrative* Diagnostic Procedure Only (Routine) - Closed Specialty Diagnoses / Procedures Referred By Contac t Referred To Contact XR IMAGING Diagnoses History of cervical spinal surgery Procedures XR CERV GENERAL 2V AP/LAT RADEX SPINE CERVICAL 2 OR 3 VIEWS Miles Washburn, DO [address] [place] [address] Xr Imaging Referral ID Status Reason Start Date Expiration Date V isits Requested Visits Authorized [id number] Closed Auto-Generate d Referral 06/06/2021 07/06/2022 1 1 [facility] for visit Narrative* Diagnostic Procedure Only (Routine) - Closed Specialty Diagnoses / Procedures Referred By Contac t Referred To Contact XR IMAGING Diagnoses Cervical myelopathy (HCC) Procedures XR CERV GENERAL 2V AP/LAT RADEX SPINE CERVICAL 2 OR 3 VIEWS Miles Washburn, DO [address] [place] [address] Xr Imaging Referral ID Status Reason Start Date Expiration Date V isits Requested Visits Authorized [id number] Closed Auto-Generate d Referral 07/02/2021 08/01/2022 1 1 [facility] for visit Narrative* Diagnostic Procedure Only (Routine) - Closed Specialty Diagnoses / Procedures Referred By Contac t Referred To Contact XR IMAGING Diagnoses History of cervical spinal surgery Procedures XR CERV GENERAL 2V AP/LAT RADEX SPINE CERVICAL 2 OR 3 VIEWS Miles Washburn, DO [address] [address] Xr Imaging Referral ID Status Reason Start Date Expiration Date V isits Requested Visits Authorized [id number] Closed Auto-Generate d Referral 08/11/2021 09/10/2022 1 1 [facility] for visit Narrative* Diagnostic Procedure Only (Routine) - Closed Specialty Diagnoses / Procedures Referred By Contac t Referred To Contact XR IMAGING Diagnoses Cervical myelopathy (HCC) Procedures XR CERV GENERAL 2V AP/LAT RADEX SPINE CERVICAL 2 OR 3 VIEWS WuMiles P, DO [address] [facility] [address] [place] [address] Xr Imaging Referral ID Status Reason Start Date Expiration Date V isits Requested Visits Authorized [id number] Closed Auto-Generate d Referral 08/19/2021 09/18/2022 1 1 [facility] History of Present Illness * Shakeel Torres - 01/03/2020 10:30 AM EST NEUROSURGERY CONSULT NOTE Shakeel Torres MD Date of visit: January 03, 2020 Patient Name: Mr.Glenn Richy Lester Date of : 1960 Current Age: [age] year old Sex: male MRN/E# [id number] Chief Complaint: Patient presents with: New Patient: lumbar HISTORY OF PRESENT ILLNESS : The patient is a 59 year old, right handed male who is referred by Briana Arias APRN, CNP for neurosurgical evaluation. Mr. Lester presents to the office today as a new patient with imaging for evaluation of low back pain. He describes a one year history of worsening low back pain. He describes pain into bilateral gluteal regions through the posterior lower extremities into the feet. He notes the left is significantly worse than the right. His pain is worse with standing, sitting, walking, and change of position. He has not had improvement with use of NSAID's, PT, injections, or home exercise program. He presents today for evaluation and plan of care. Symptoms: low back PREVIOUS CONSERVATIVE TREATMENTS: Physical therapy Injections NSAID's Home exercise PREVIOUS SURGERY: None PAIN EVALUATION 01/03/2020 1044 Pain Level: 10 Pain Location: Back-Lower PAST MEDICAL HISTORY Diagnosis Date GERD (gastroesophageal reflux disease) Hypertension IA (myocardial infarction) ([facility]) PAST SURGICAL HISTORY Procedure Laterality Date PAST SURGICAL HISTORY OF 2013 coronary arthery bypass graft PAST SURGICAL HISTORY OF tonsillectomy No family history on file. ALLERGIES Not on File Current Outpatient Medications Medication Sig Dispense Refill meloxicam (MOBIC) 15 mg tablet 15 mg. simvastatin (ZOCOR) 80 mg tablet [address] (PROTONIX) 40 mg tablet TAKE 1 TABLET BY MOUTH EVERY DAY IN THE MORNING amitriptyline (ELAVIL) 25 mg tablet 25 mg. traZODone (DESYREL) 150 mg tablet 150 mg. montelukast (SINGULAIR) 10 mg tablet 10 mg. lisinopril (ZESTRIL, PRINIVIL) 5 mg tablet 5 mg. escitalopram oxalate (LEXAPRO) 10 mg tablet 10 mg. ezetimibe (ZETIA) 10 mg tablet 10 mg. metoprolol tartrate, short acting, (LOPRESSOR) 25 mg tablet 25 mg. DULoxetine (CYMBALTA) 30 mg capsule 90 mg. No current facility-administered medications for this visit. REVIEW OF SYSTEMS Review of Systems Constitutional: Negative for chills, diaphoresis and fever. HENT: Negative for congestion, ear pain and sinus pressure. Eyes: Negative for discharge and redness. Respiratory: Positive for cough. Negative for shortness of breath and wheezing. Cardiovascular: Negative for chest pain, palpitations and leg swelling. Gastrointestinal: Negative for constipation, diarrhea and nausea. Endocrine: Negative for cold intolerance and heat intolerance. Genitourinary: Negative for difficulty urinating, frequency and urgency. Musculoskeletal: Positive for back pain and gait problem. Negative for neck pain. Skin: Negative for rash and wound. Allergic/Immunologic: Positive for environmental allergies. Negative for food allergies. Neurological: Negative for dizziness, weakness and numbness. Hematological: Does not bruise/bleed easily. Psychiatric/Behavioral: Positive for agitation. The patient is not nervous/anxious. OBJECTIVE: BP 140/81 Pulse 71 Resp 18 Ht 5' 7 (1.70m) Wt 202 lb 6.4 oz (91.8kg) BMI 31.69 kg/(m^2). Physical Exam Constitutional: He is oriented to person, place, and time and well-developed, well-nourished, and in no distress. HENT: Head: Normocephalic and atraumatic. Right Ear: External ear normal. Left Ear: External ear normal. Eyes: Conjunctivae are normal. Neck: Normal range of motion. Pulmonary/Chest: Effort normal. Musculoskeletal: Normal range of motion. Neurological: He is alert and oriented to person, place, and time. Antalgic/compensated gait Skin: Skin is warm and dry. Psychiatric: Mood and affect normal. Neurological Exam Mental Status Alert. Motor Normal muscle bulk throughout. Normal muscle tone. Right Left Hip flexion 5 4 Knee flexion 5 5 Knee extension 5 4 Plantarflexion 5 5 Dorsiflexion 5 4 Positive left straight leg raise Sensory Sensation is intact to light touch, pinprick, vibration and proprioception in all four extremities. Reflexes Right Left Patellar 2+ 2+ Data Review IMAGING STUDIES: MRI of the lumbar spine 08/04/2019 There is evidence of a minor disc bulge just off the midline causing no significant compression at L2-3. There is also a moderate disc herniation at L5- S1 on the left side. The right side looks to bewide open. Personal review of medical records: I reviewed with the patient, history, physical exam, the imagesand the chart. 1. Disc displacement, lumbar The patient is a pleasant 59-year-old male who presents with complaints of back pain radiating intothe groin on the left side. In addition, he has bilateral pain radiating into the S1 distributions bilaterally. I reviewed a MRI of the lumbar spine that demonstrates a tiny L2-3 disc bulge just off the midline toward the left side which does not result in significant mass-effect or compression of the thecal sac. Along the left cervical disc herniation that is mild to moderate in nature at L5-S1.There is no right-sided compression. I told him that there is a significant lack of concordance between his imaging and symptoms. As such, I have recommended that he undergo evaluation with electrodia gnostic studies. He will bring the reports of what he perceives was a EMG study that was performed approximately 5 months ago. If this does not returned case inspector to be the case, we can schedule this for him at his convenience. All of his questions were addressed in detail. - EMG(NEURO/NI); Future - XR LUMBAR MOTION 4V AP/LAT/ FLEX/EXT; Future Shakeel Torres MD This note was partially generated using [employer] voice recognition system, and there may be some incorrect words, spellings, and punctuation that were not noted in checking the note before saving. documented in this encounter* Shakeel Torres - 04/26/2020 10:15 AM EST NEUROSURGERY FOLLOW UP OFFICE NOTE Shakeel Torres MD Date of visit: April 26, 2020 Patient Name: Mr.Glenn Richy Lester Date of : 1960 Current Age: [age] year old Sex: male MRN/E# [id number] Last Office Visit: Visit date not found Chief Complaint: Patient presents with: Established Patient SUBJECTIVE: Mr. Lester presents to the office today for a follow up visit with imaging and EMG/NC study for evaluation of low back pain. He was last seen 01/03/2020 as a new patient with imaging for evaluation oflow back pain. He described a one year history of worsening low back pain. He described pain into bilateral gluteal regions through the posterior lower extremities into the feet. He noted the left was significantly worse than the right. His pain was worse with standing, sitting, walking, and changeof position. He had not had improvement with use of NSAID's, PT, injections, or home exercise program. His imaging was reviewed and MRI of the lumbar spine demonstrated a tiny L2-3 disc bulge just off the midline toward the left side which did not result in significant mass-effect or compression ofthe thecal sac. He also had a disc herniation that was mild to moderate in nature at L5-S1. Due to a significant lack of concordance between his imaging and symptoms, it was recommended that he undergo an EMG/NC study if he had not already had one completed, as the patient thought he did a couple mo nths prior. Additionally, X-rays of the lumbar spine with flexion and extension views, were ordered. Today he states his symptoms are unchanged. He presents for evaluation and plan of care. Symptoms: low back PREVIOUS CONSERVATIVE TREATMENTS: Physical therapy Injections NSAID's Home exercise PREVIOUS SURGERY: None PAIN EVALUATION 04/26/2020 1022 Pain Level: 10 Pain Location: Back-Lower Description: Aching;Sharp;Throbbing;Shooting Duration Units: Months Frequency: Continuous Intervention: Medication PAST MEDICAL HISTORY Diagnosis Date GERD (gastroesophageal reflux disease) Hypertension IA (myocardial infarction) ([facility]) PAST SURGICAL HISTORY Procedure Laterality Date PAST SURGICAL HISTORY OF 2013 coronary arthery bypass graft PAST SURGICAL HISTORY OF tonsillectomy FAMILY HISTORY Problem Relation Age of Onset Stroke Mother Kidney failure Sister ALLERGIES No Known Allergies Current Outpatient Medications Medication Sig Dispense Refill meloxicam (MOBIC) 15 mg tablet 15 mg. simvastatin (ZOCOR) 80 mg tablet [address] (PROTONIX) 40 mg tablet TAKE 1 TABLET BY MOUTH EVERY DAY IN THE MORNING amitriptyline (ELAVIL) 25 mg tablet 25 mg. traZODone (DESYREL) 150 mg tablet 150 mg. montelukast (SINGULAIR) 10 mg tablet 10 mg. lisinopril (ZESTRIL, PRINIVIL) 5 mg tablet 5 mg. escitalopram oxalate (LEXAPRO) 10 mg tablet 10 mg. ezetimibe (ZETIA) 10 mg tablet 10 mg. metoprolol tartrate, short acting, (LOPRESSOR) 25 mg tablet 25 mg. DULoxetine (CYMBALTA) 30 mg capsule 90 mg. No current facility-administered medications for this visit. REVIEW OF SYSTEMS Review of Systems Constitutional: Negative for chills, diaphoresis and fever. HENT: Negative for congestion, ear pain and sinus pressure. Eyes: Negative for discharge and redness. Respiratory: Positive for wheezing. Negative for cough and shortness of breath. Cardiovascular: Negative for chest pain, palpitations and leg swelling. Gastrointestinal: Negative for constipation, diarrhea and nausea. Endocrine: Negative for cold intolerance and heat intolerance. Genitourinary: Negative for difficulty urinating, frequency and urgency. Musculoskeletal: Positive for back pain and gait problem. Negative for neck pain. Skin: Negative for rash and wound. Allergic/Immunologic: Negative for environmental allergies and food allergies. Neurological: Positive for weakness and numbness. Negative for dizziness. Hematological: Does not bruise/bleed easily. Psychiatric/Behavioral: Negative for agitation. The patient is not nervous/anxious. OBJECTIVE: BP 122/80 Pulse 66 Temp 98 Resp 16 Ht 5' 7 (1.70m) Wt 202 lb (91.6kg) SpO2 94% BMI 31.63 kg/(m^2). Physical Exam Constitutional: He is oriented to person, place, and time and well-developed, well-nourished, and in no distress. HENT: Head: Normocephalic and atraumatic. Right Ear: External ear normal. Left Ear: External ear normal. Eyes: Conjunctivae are normal. Pulmonary/Chest: Effort normal. Musculoskeletal: General: Normal range of motion. Cervical back: Normal range of motion. Neurological: He is alert and oriented to person, place, and time. Gait normal. Skin: Skin is warm and dry. Psychiatric: Mood and affect normal. Neurological Exam Mental Status Alert. Gait Normal gait. Motor Normal muscle bulk throughout. Normal muscle tone. Right Left Hip flexion 5 5 Knee flexion 5 5 Knee extension 5 5 Plantarflexion 5 5 Dorsiflexion 5 5 Positive left straight leg raise Sensory Sensation is intact to light touch, pinprick, vibration and proprioception in all four extremities. Reflexes Right Left Patellar 2+ 2+ Data Review IMAGING STUDIES: XR cerv AP/LAT/FLEX/EX obtained on 04/26/2020 there is no evidence of instability on flexion and extension. EMG/NC study of the bilateral lower extremities obtained on 07/11/2019 Personal review of medical records: I reviewed with the patient, history, physical exam, the imagesand the chart. 1. Polyneuropathy, peripheral sensorimotor axonal Patient returns today for follow-up. He has undergone electrodiagnostic studies that demonstrate a sensorimotor peripheral polyneuropathy. I told him he needs to be seen by neurology. I explained to him that surgical treatment is not warranted for his lumbar spine given the lack of radicular findings. All of his questions were addressed in detail. - CONSULT TO NEUROLOGY; Future Shakeel Torres MD This note was partially generated using [employer] voice recognition system, and there may be some incorrect words, spellings, and punctuation that were not noted in checking the note before saving. documented in this encounter* [place] Acevedo Tech (Rt) - 04/26/2020 10:00 AM EST Radiology Service Progress Note PATIENT NAME: Destiny Lester DATE OF SERVICE: April 26, 2020 TIME: 10:29 AM PATIENT IDENTITY VERIFICATION COMPLETED USING TWO (2) IDENTIFIERS: Name and Date of confirmedby patient verbally. FALL SCREENING: Has the patient had 2 falls in the last year or 1 fall with injury or currently using an Ambulatory Assistive Device (Walker, Cane, Wheelchair, Crutches, etc.)? No PATIENT GENDER DATA: Male PATIENT RELEVANT IMPLANT DATA REVIEWED: Not Applicable RADIOLOGY DEPARTMENT: General X-ray: Exam(s) Completed: Spine X-Ray(s): Lumbar AP / LAT / L5-S1 / FLEX-EXT PERIPHERAL IV DATA: Not applicable SIGNED BY: RT Marco Antonio April 26, 2020 10:29 AM documented in this encounter Assessments Diagnosis Disc displacement, lumbar- Primary Displacement of lumbar intervertebral disc without myelopathy Diagnosis Polyneuropathy, peripheral sensorimotor axonal- Primary Other specified idiopathic peripheral neuropathy Diagnosis Disc displacement, lumbar Displacement of lumbar intervertebral disc without myelopathy Reason for Referral Status Reason Specialty Diagnoses / Procedures Referred By Contact Referred To Contact Authorized PCP Requested Referral Neurology Diagnoses Polyneuropathy, peripheral sensorimotor axonal Procedures CONSULT TO NEUROLOGY NEW PATIENT VISIT LEVEL 5 Shakeel Torres [address] [facility] [place] [address] Summary Purpose Family History No Family History Records FoundNo Family History Records FoundNo Family History Records Found No data available for this section No Family History Records Found No data available for this section No data available for this section No data available for this section No Family History Records Found No data available for this section No data available for this section No data available for this section No data available for this section No data available for this section No data available for this section No Family History Records Found No data available for this section No Family History Records Found Advance Directives No Advanced Directives Records FoundDocuments on File Type Date Recorded 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 Expl anation Advance Directive(s) 05/29/2021 6:36 AM Latest Code Status on File Code Status Date Activated Date Inactivated Comments Full Code 06/02/2021 5:01 PM Documents on File Type Date Recorded 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 Expl 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 Advance Directive(s) 05/29/2021 6:36 AM Latest Code Status on File Code Status Date Activated Date Inactivated Comments Full Code 06/02/2021 5:01 PM Additional Source Comments Source Comments (unrecognize d section and content) In the event this informatio n is protected by the Federal Confidentiality of Alcohol and Drug Abuse Patient Records regulations: The Federal rules restrict any use of the information to criminally investigate or prosecute any alcohol or drug abuse patient.[facility]In the event this information is protected by the Federal Confidentiality of Alcohol and Drug Abuse Patient Records regulations: The Federal rules restrict any use of the information to criminally investigate or prosecute any alcohol or drug abuse patient.[facility] the event this information is protected by the Federal Confidentiality of Alcohol and Drug Abuse Patient Records regulations: The Federal rules restrict any use of the information to criminally investigate or prosecute any alcohol or drug abuse patient.[facility] the event this information is protected by the Federal Confidentiality of Alcohol and Drug Abuse Patient Records regulations: The Federal rules restrict any use of the information to criminally investigate or prosecute any alcohol or drug abuse patient.[facility] the event this information is protected by the Federal Confidentiality of Alcohol and Drug Abuse Patient Records regulations: The Federal rules restrict any use of the information to criminally investigate or prosecute any alcohol or drug abuse patient.[facility] the event this information is protected by the Federal Confidentiality of Alcohol and Drug Abuse Patient Records regulations: The Federal rules restrict any use of the information to criminally investigate or prosecute any alcohol or drug abuse patient.[facility] the event this information is protected by the Federal Confidentiality of Alcohol and Drug Abuse Patient Records regulations: The Federal rules restrict any use of the information to criminally investigate or prosecute any alcohol or drug abuse patient.[facility] the event this information is protected by the Federal Confidentiality of Alcohol and Drug Abuse Patient Records regulations: The Federal rules restrict any use of the information to criminally investigate or prosecute any alcohol or drug abuse patient.[facility] the event this information is protected by the Federal Confidentiality of Alcohol and Drug Abuse Patient Records regulations: The Federal rules restrict any use of the information to criminally investigate or prosecute any alcohol or drug abuse patient.[facility] the event this information is protected by the Federal Confidentiality of Alcohol and Drug Abuse Patient Records regulations: The Federal rules restrict any use of the information to criminally investigate or prosecute any alcohol or drug abuse patient.[facility] the event this information is protected by the Federal Confidentiality of Alcohol and Drug Abuse Patient Records regulations: The Federal rules restrict any use of the information to criminally investigate or prosecute any alcohol or drug abuse patient.[facility] the event this information is protected by the Federal Confidentiality of Alcohol and Drug Abuse Patient Records regulations: The Federal rules restrict any use of the information to criminally investigate or prosecute any alcohol or drug abuse patient.[facility]In the event this information is protected by the Federal Confidentiality of Alcohol and Drug Abuse Patient Records regulations: The Federal rules restrict any use of the information to criminally investigate or prosecute any alcohol or drug abuse patient.[facility] the event this information is protected by the Federal Confidentiality of Alcohol and Drug Abuse Patient Records regulations: The Federal rules restrict any use of the information to criminally investigate or prosecute any alcohol or drug abuse patient.[facility] the event this information is protected by the Federal Confidentiality of Alcohol and Drug Abuse Patient Records regulations: The Federal rules restrict any use of the information to criminally investigate or prosecute any alcohol or drug abuse patient.[facility] the event this information is protected by the Federal Confidentiality of Alcohol and Drug Abuse Patient Records regulations: The Federal rules restrict any use of the information to criminally investigate or prosecute any alcohol or drug abuse patient.[facility]In the event this information is protected by the Federal Confidentiality of Alcohol and Drug Abuse Patient Records regulations: The Federal rules restrict any use of the information to criminally investigate or prosecute any alcohol or drug abuse patient.[facility]In the event this information is protected by the Federal Confidentiality of Alcohol and Drug Abuse Patient Records regulations: The Federal rules restrict any use of the information to criminally investigate or prosecute any alcohol or drug abuse patient.[facility]In the event this information is protected by the Federal Confidentiality of Alcohol and Drug Abuse Patient Records regulations: The Federal rules restrict any use of the information to criminally investigate or prosecute any alcohol or drug abuse patient.[facility]In the event this information is protected by the Federal Confidentiality of Alcohol and Drug Abuse Patient Records regulations: The Federal rules restrict any use of the information to criminally investigate or prosecute any alcohol or drug abuse patient.[facility] the event this information is protected by the Federal Confidentiality of Alcohol and Drug Abuse Patient Records regulations: The Federal rules restrict any use of the information to criminally investigate or prosecute any alcohol or drug abuse patient.[facility] the event this information is protected by the Federal Confidentiality of Alcohol and Drug Abuse Patient Records regulations: The Federal rules restrict any use of the information to criminally investigate or prosecute any alcohol or drug abuse patient.[facility]In the event this information is protected by the Federal Confidentiality of Alcohol and Drug Abuse Patient Records regulations: The Federal rules restrict any use of the information to criminally investigate or prosecute any alcohol or drug abuse patient.[facility]In the event this information is protected by the Federal Confidentiality of Alcohol and Drug Abuse Patient Records regulations: The Federal rules restrict any use of the information to criminally investigate or prosecute any alcohol or drug abuse patient.[facility] the event this information is protected by the Federal Confidentiality of Alcohol and Drug Abuse Patient Records regulations: The Federal rules restrict any use of the information to criminally investigate or prosecute any alcohol or drug abuse patient.[facility]In the event this information is protected by the Federal Confidentiality of Alcohol and Drug Abuse Patient Records regulations: The Federal rules restrict any use of the information to criminally investigate or prosecute any alcohol or drug abuse patient.[facility] the event this information is protected by the Federal Confidentiality of Alcohol and Drug Abuse Patient Records regulations: The Federal rules restrict any use of the information to criminally investigate or prosecute any alcohol or drug abuse patient.[facility]In the event this information is protected by the Federal Confidentiality of Alcohol and Drug Abuse Patient Records regulations: The Federal rules restrict any use of the information to criminally investigate or prosecute any alcohol or drug abuse patient.[facility]In the event this information is protected by the Federal Confidentiality of Alcohol and Drug Abuse Patient Records regulations: The Federal rules restrict any use of the information to criminally investigate or prosecute any alcohol or drug abuse patient.[facility]In the event this information is protected by the Federal Confidentiality of Alcohol and Drug Abuse Patient Records regulations: The Federal rules restrict any use of the information to criminally investigate or prosecute any alcohol or drug abuse patient.[facility]In the event this information is protected by the Federal Confidentiality of Alcohol and Drug Abuse Patient Records regulations: The Federal rules restrict any use of the information to criminally investigate or prosecute any alcohol or drug abuse patient.[facility]In the event this information is protected by the Federal Confidentiality of Alcohol and Drug Abuse Patient Records regulations: The Federal rules restrict any use of the information to criminally investigate or prosecute any alcohol or drug abuse patient.[facility]In the event this information is protected by the Federal Confidentiality of Alcohol and Drug Abuse Patient Records regulations: The Federal rules restrict any use of the information to criminally investigate or prosecute any alcohol or drug abuse patient.[facility] Reason for Visit (unrecogniz ed section and content) Reason Comments New Patient lumbar Reason Comments Established Patient Reason Comments Neck Pain Cervical myelopathy (HCC) [G95.9] Reason Onset Date Comments Pre-Op Update 05/23/2021 Reason Comments Results Reason Comments Home Care admit to home care Specialty Diagnoses / Procedures Referred By Alfredo villalobos Referred To Contact [facility] Home Care [address] [place] [id number] Referral ID Status Reason Start Date Expiration Date Visits Re quested Visits Authorized [id number] 1 Reason Comments Home Care OT evaluation Reason Comments Post-Op Visit Reason Comments Home Care d/c 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 Reason Onset Date Comments Refill Request 06/10/2021 pain medician Reason Comments Home Care agency d/c (unrecognized sect ion and content) No Status Records FoundNo Status Records FoundNo Status Records FoundNo Status Records FoundNo Status Records FoundNo Status Records FoundNo Status Records Found INFORMATION SOURCE (unrecogn ized section and content) DATE CREATED AUTHOR 08/26/2020 [place] [facility] DATE CREATED AUTHOR AUTHOR'S ORGANIZ ATION 06/29/2021 [facility] DATE CREATED AUTHOR AUTHOR'S ORGANIZ ATION 12/01/2021 Onel Urbina [facility] DATE CREATED AUTHOR AUTHOR'S ORGANIZ ATION 05/15/2023 [facility] DATE CREATED AUTHOR AUTHOR'S ORGANIZ ATION 04/27/2024 [facility] DATE CREATED AUTHOR AUTHOR'S ORGANIZ ATION 09/29/2024 [facility] DATE CREATED AUTHOR AUTHOR'S ORGANIZ ATION 10/02/2024 [facility] Care Teams (unrecognized sec tion and content) Advertising Production Manager Relationship Specialty Start Date End Date Lavon Stallings [address] [place] [id number] PCP - General Family Practice 01/03/20 Advertising Production Manager Relationship Specialty Start Date End Date Lavon Stallings [address] [place] [address] PCP - General Family Practice 01/03/20 Advertising Production Manager Relationship Specialty Start Date End Date Lavon Stallings [address] [place] [address] PCP - General Family Practice 01/03/20 Advertising Production Manager Relationship Specialty Start Date End Date Lavon Stallings [address] [place] [address] PCP - General Family Practice 01/03/20 Miles Washburn, DO [address] [place] [address] Home Care Physician Orthopedics 05/31/21 Miles Washburn, DO [address] [place] [address] Referring Orthopedics 05/31/21 Miguelina Delcid, PT [address] [place] [address] Input Output Clerk Post Acute Care 05/31/21 Advertising Production Manager Relationship Specialty Start Date End Date Lavon Stallings [address] [place] [address] PCP - General Family Practice 01/03/20 Miles Washburn, DO [address] [place] [address] Home Care Physician Orthopedics 05/31/21 Miles Washburn, DO [address] [place] [address] Referring Orthopedics 05/31/21 Miguelina Delcid, PT [address] [place] [address] Input Output Clerk Post Acute Care 05/31/21 Advertising Production Manager Relationship Specialty Start Date End Date Lavon Stallings [address] [address] PCP - General Family Practice 01/03/20 Miles Washburn, DO [address] [place] [address] Home Care Physician Orthopedics 05/31/21 Miles Washburn, DO [address] [place] [address] Referring Orthopedics 05/31/21 Miguelina Delcid, PT [address] [place] [address] Input Output Clerk Post Acute Care 05/31/21 Advertising Production Manager Relationship Specialty Start Date End Date Lavon Stallings [address] [place] [address] PCP - General Family Practice 01/03/20 Miles Washburn, DO [address] [place] [address] Home Care Physician Orthopedics 05/31/21 Miles Washburn, DO [address] [place] [address] Referring Orthopedics 05/31/21 Miguelina Delcid, PT [address] [place] [address] Input Output Clerk Post Acute Care 05/31/21 Advertising Production Manager Relationship Specialty Start Date End Date Lavon Stallings [address] [address] PCP - General Family Practice 01/03/20 Miles Washburn, DO [address] [place] [address] Home Care Physician Orthopedics 05/31/21 Miles Washburn, DO [address] [place] [address] Referring Orthopedics 05/31/21 Miguelina Delcid, PT [address] [place] [address] Input Output Clerk Post Acute Care 05/31/21 Advertising Production Manager Relationship Specialty Start Date End Date Haylie Lavon [address] [address] PCP - General Family Practice 01/03/20 Miles Washburn, DO [address] [place] [address] Home Care Physician Orthopedics 05/31/21 Miles Washburn, DO [address] [place] [address] Referring Orthopedics 05/31/21 Miguelina Delcid, PT [address] [place] [address] Input Output Clerk Post Acute Care 05/31/21 Advertising Production Manager Relationship Specialty Start Date End Date Haylie [address] [address] PCP - General Family Practice 01/03/20 Miles Washburn, DO [address] [place] [address] Home Care Physician Orthopedics 05/31/21 Miles Washburn, DO [address] [place] [address] Referring Orthopedics 05/31/21 Miguelina Delcid, PT [address] [place] [address] Input Output Clerk Post Acute Care 05/31/21 Advertising Production Manager Relationship Specialty Start Date End Date Lavon Stallings [facility] [place] [address] PCP - General Family Practice 01/03/20 Miles Washburn, DO [address] [place] [address] Home Care Physician Orthopedics 05/31/21 Miles Washburn, DO [address] [place] [address] Referring Orthopedics 05/31/21 Miguelina Delcid, PT [address] [place] [address] Input Output Clerk Post Acute Care 05/31/21 Advertising Production Manager Relationship Specialty Start Date End Date Lavon Stallings [address] [address] PCP - General Family Practice 01/03/20 Miles Washburn, DO [address] [place] [address] Home Care Physician Orthopedics 05/31/21 Miles Washburn, DO [address] [place] [address] Referring Orthopedics 05/31/21 Miguelina Delcid, PT [address] [place] [address] Input Output Clerk Post Acute Care 05/31/21 Advertising Production Manager Relationship Specialty Start Date End Date Lavon Stallings [address] [address] PCP - General Family Practice 01/03/20 Miles Washburn, DO [address] [place] [address] Home Care Physician Orthopedics 05/31/21 Miles Washburn, DO [address] [place] [address] Referring Orthopedics 05/31/21 Miguelina Delcid, PT [address] [facility] [place] [address] Input Output Clerk Post Acute Care 05/31/21 Advertising Production Manager Relationship Specialty Start Date End Date Haylie [address] [address] PCP - General Family Practice 01/03/20 Miles Washburn, DO [address] [place] [address] Home Care Physician Orthopedics 05/31/21 Miles Washburn, DO [address] [place] [address] Referring Orthopedics 05/31/21 Miguelina Delcid, PT [address] [facility] [address] Input Output Clerk Post Acute Care 05/31/21 Advertising Production Manager Relationship Specialty Start Date End Date Haylie [address] [address] PCP - General Family Practice 01/03/20 Miles Washburn, DO [address] [place] [address] Home Care Physician Orthopedics 05/31/21 Miles Washburn, DO [address] [place] [address] Referring Orthopedics 05/31/21 Miguelina Delcid, PT [address] [facility] [place] [address] Input Output Clerk Post Acute Care 05/31/21 Advertising Production Manager Relationship Specialty Start Date End Date Haylie [address] [address] PCP - General Family Practice 01/03/20 Miles Washburn, DO [address] [place] [address] Home Care Physician Orthopedics 05/31/21 Miles Washburn, DO [address] [place] [address] Referring Orthopedics 05/31/21 Miguelina Delcid, PT [address] [place] [address] Input Output Clerk Post Acute Care 05/31/21 Advertising Production Manager Relationship Specialty Start Date End Date Haylie, Lavon [address] [address] (Work) PCP - General Family Practice 01/03/20 Miles Washburn, DO [address] [place] [address] Home Care Physician Orthopedics 05/31/21 Miles Washburn, DO [address] [place] [address] Referring Orthopedics 05/31/21 Miguelina Delcid, PT [address] [place] [address] Input Output Clerk Post Acute Care 05/31/21 Advertising Production Manager Relationship Specialty Start Date End Date Haylie [address] [address] PCP - General Family Practice 01/03/20 Miles Washburn, DO [address] [place] [address] Home Care Physician Orthopedics 05/31/21 Miles Washburn, DO [address] [place] [address] Referring Orthopedics 05/31/21 Miguelina Delcid, PT [address] [place] [address] Input Output Clerk Post Acute Care 05/31/21 Advertising Production Manager Relationship Specialty Start Date End Date Lavon Stallings [address] [place] [address] PCP - General Family Medicine 01/03/20 Miles Washburn, DO [address] [place] [address] [place] [address], [place] [address] Home Care Provider Orthopedics 05/31/21 Miles Washburn, DO [address] [place] [address] Referring Orthopedics 05/31/21 Miguelina Delcid, PT [address] [place] [address] Input Output Clerk Post Acute Care 05/31/21 Advertising Production Manager Relationship Specialty Start Date End Date Lavon Stallings [address] [place] [address] PCP - General Family Medicine 01/03/20 Miles Washburn, DO [address] [place] [address] Home Care Provider Orthopedics 05/31/21 Miles Washburn, DO [address] [place] [address] [place] [address], [place] [address] Referring Orthopedics 05/31/21 Miguelina Delcid, PT [address] [place] [address] Input Output Clerk Post Acute Care 05/31/21 Care Team (unrecognized sect ion and content) Care Team Personnel Name: Mckenna Woody Clerroma Mars PT Position: P3 Scheduling - Electronics Engineering Technician Advanced Member Role: Other Name: LAVON STALLINGS DO Position: P4 Physician - Primary Care Member Role: Primary Care Physician Address: Address: [address] [place], [place] [address] Care Team Related Persons Name: SISSY FERNÁNDEZ FOR RECORDS PERTAINING TO PATIENTS WHO ARE OR HAVE BEEN ENROLLED IN A CHEMICAL DEPENDENCY/SUBSTANCEABUSE PROGRAM, SOME INFORMATION MAY BE OMITTED. This clinical summary was aggregated from multiple sources. Caution should be exercised in using it in the provision of clinical care. This summary normalizes information from multiple sources, and as a consequence, information in this document may materially change the coding, format and clinical context of patient data. In addition, data may be omitted in some cases. CLINICAL DECISIONS SHOULD BE BASED ON THE PRIMARY CLINICAL RECORDS. [facility] [employer] [facility]. provides no warranty or guarantee of the accuracy or completeness of information in this document.
--- NOTE | 2024-10-04 18:59 | STRESSREP ---
Stress Test Report Pharmacologic myocardial perfusion stress test. 63-year-old man with a history of chest pain syncope and cardiomyopathy Resting EKG demonstrates sinus rhythm with a first-degree AV block with a rate of 75 bpm. Resting blood pressure is 118/88 mmHg. 0.4 mg of regadenoson was infused per usual protocol followed by rapid intravenous saline flush injection. Continuous EKG monitoring was performed. The maximum heart rate was 97 bpm which was 61% of max impacted heart rate the maximum workload was 1 metabolic equivalent. At rest there were no ST or T wave changes noted to suggest ischemia and at peak infusion nonspecific ST changes were noted which did not meet the criteria for ischemia. No clinical angina is noted. The final blood pressure was 124/82 mmHg. Myocardial perfusion protocol. 12 mCi of technetium 99m sestamibi was injected at rest. 0.4 mg of regadenoson was infused per usual protocol. At peak infusion 36 mCi of technetium 99m sestamibi was injected stress images were obtained stress and rest images were reconstructed and compared in the short axis vertical long and horizontal long axis. Gated images were also obtained. Perfusion SPECT analysis: Review of the stress images demonstrate normal uptake of tracer noted in all areas of the myocardium except for the anterior septal wall with a moderate defect present. The resting images demonstrate mild improvement in the anteroseptal wall suggesting a mild amount of anterior septal ischemia. A previous infarct within this territory cannot be completely excluded. Gated SPECT analysis: The gated ejection fraction is 57%. Conclusion: Pharmacologic myocardial perfusion stress test, mildly abnormal with mild mid anteroseptal and apical ischemia. Preserved ejection fraction.
== END | disposition home or self-care (01) ==
PROVIDERS: PCP Nurse Practitioner Adult Health; Referring Provider Nurse Practitioner Family; Visit Provider Nurse Practitioner Family
DX: R07.9 Chest pain, unspecified (principal)
CPT/HCPCS: 78452; 93017; A9500; A4216; J2785

== ENCOUNTER 2024-11-07 14:23 | Emergency (ER) | payer MEDICARE, MEDICAID, SELFPAY ==
[2024-11-07 14:24] VITALS: BP 143/88; PULSE 91; RESP 18; TEMP 36.9; O2SAT 98; BMI 26.6
--- NOTE | 2024-11-07 14:55 | EDS_ITS ---
HPI History of Present Illness Chief Complaint: Fall Informant: patient Narrative Narrative: Patient is a 64-year-old male denies any significant past medical history does report prior left groin injury with pain over the last 6 years (denies any prior surgery) presenting with left hip pain after mechanical fall. Patient states he was making a bottle for his baby cousin. He turned around and tripped over the bouncer. This caused him to fall landing onto his left knee and his left hip area. He denies any in his head or any loss of consciousness. States he crawled to a chair and tried to stand up but cannot put any weight on his leg. EMS was called and he was brought to the ER. He denies any numbness or tingling to his leg. Denies any other injuries. Is not on any blood thinners. Pain is worse with any attempted range of motion or palpation of the entire leg. No other complaints or concerns reported at this time. [facility] Medical History GERD (gastroesophageal reflux disease) HTN (hypertension) Depression Home Medications ?Medication ?Instructions ?Recorded ?Last Taken ?Type cyclobenzaprine 10 mg tablet 10 mg PO TID PRN Muscle S pasm #20 11/07/24 Unknown Rx TABLETS ibuprofen 600 mg tablet 600 mg PO Q6H PRN PRN pain # 20 11/07/24 Unknown Rx TABLETS Allergy/AdvReac Type Severity Reaction Status Date / Time No Known Allergies Allergy Verified 11/07/24 14:28 Social History Smoking Status: Current every day smoker tobacco type: cigarettes and e- cigarettes ROS ROS ED Constitutional Constitutional ED: Denies chills or fever(s) Eyes Eyes: Denies change in vision Musculoskeletal Musculoskeletal: Reports other Details: left hip and knee pain Integumentary Denies Abrasions or rash Neurologic Neurologic: Denies headache(s), paresthesias or weakness Hematologic/Lymphatic Hematologic/Lymphatic: Denies easy bleeding or easy bruising EXAM Physical Exam Const Vital Signs: 11/07/24 14:24 11/07/24 14:31 Temperature 98.5 F Temperature Source Oral Pulse Rate 91 Respiratory Rate 18 Respiratory Effort Normal Non-Labored Respiratory Depth Normal Respiratory Pattern Normal Blood Pressure 143/88 H Blood Pressure Mean 106 Pulse Ox 98 Oxygen Delivery Method Room Air Room Air Positive well nourished and well developed General Appearance ED: well developed and NAD HEENT atraumatic Nose: Negative for septum abnormal Eyes PERRL and EOMs intact bilaterally Neck full ROM General: Negative for tenderness Chest Wall inspection of chest normal and palpation of chest normal Resp normal respiratory effort and clear to auscultation bilaterally Cardio regular rhythm and no murmurs Cardio Narrative: 2+ radial and DP pulses Rate: regular rate GI normal to inspection, nondistended, normoactive bowel sounds and non-tender Back/Spine normal to inspection and no thoracic nor lumbar tenderness Extremity Extremity Narrative: No obvious deformity of the extremities. pelvis is stable. Pain with any type of palpation of the entire left lower leg even light palpation of the left anterior thigh. No obvious effusion noted of the knee or hip. Normal extensor mechanism. Does not tolerate range of motion of the hip or the knee on initial evaluation. Neuro oriented x3, moves all extremities, no focal motor deficits and no sensory deficits noted [place] Coma Scale: document GCS findings Spontaneous Obeys Commands Oriented 15 Sensorium / Orientation: alert Psych mental status grossly normal and thought process normal Skin no rashes or lesions noted and no wounds Skin Narrative: Discoloration of the left anterior knee associate with falling on dirt or some substance that transferred over to his knee. MDM MDM MDM Narrative Medical decision making narrative: Patient valuated for mechanical fall onto his left side. He has a complaint of significant pain to his left hip and knee. X-ray of the hip, pelvis, femur and x-ray obtained. Patient given IV morphine and Zofran for symptom control. He is hemodynamically stable. He has normal neurovascular exam and low suspicion for any acute vascular pathology. He is able to move his leg on his own and hold it up. Differential includes pelvic fracture, tibial plateau fracture, hip fracture, patellar fracture, femur fracture as well as contusions. X-rays reviewed by myself as radiology showed degenerative changes with no acute traumatic findings. Patient reevaluated after pain medication. He is moving his leg much better. He does not have pain when I range of motion his hip or knee now. He is able to walk on it with a slightly antalgic gait. Is comfortable going home. States he does have a walker to use at home. Will be given prescription for muscle relaxer and NSAIDs. I anticipate he will have some increased left low back pain from the fall over the next few days and that is why am prescribing a muscle relaxer. Patient encouraged follow-up his primary care doctor. Given return precautions. Discharged home in improved and stable condition. Radiography Diagnostic Testing: Clinical Impression(s) from Imaging Studies Femur X-Ray 11/07/24 15:25 IMPRESSION: NO ACUTE FRACTURE OR DISLOCATION. Reading Location: [facility] Hip/Pelvis X-Ray 11/07/24 15:25 IMPRESSION: DEGENERATIVE OSTEOARTHROSIS. NO ACUTE FINDINGS. Reading Location: [facility] Knee X-Ray 11/07/24 15:25 IMPRESSION: DEGENERATIVE OSTEOARTHROSIS. NO ACUTE FINDINGS. Reading Location: [id number] Discharge Plan Triage Chief Complaint: Fall ED Provider: Nancy Zapata Dx/Rx/DC Orders Clinical Impression: Fall, Contusion of hip, left, Contusion of knee, left Instructions: ED Soft Tissue Contusion, ED Hip Contusion Prescriptions: New ibuprofen 600 mg tablet 600 mg PO Q6H PRN PRN (Reason: pain) Qty: 20 0RF cyclobenzaprine 10 mg tablet 10 mg PO TID PRN (Reason: Muscle Spasm) Qty: 20 0RF Primary Care Provider: KYAW CASILLAS Referrals: KYAW CASILLAS CRNP [Primary Care Provider] - Activity Restrictions/Additional Instructions: Your x-rays did not show any broken bones (fractures) or dislocations. I suspect you have soft tissue bruising and injury that is causing her pain. Treat this with ice, rest and anti-inflammatories. I suspect you will have some increased tightening of the muscles form your fall given a prescription for a muscle relaxer. Print Language: Niuean Disposition Disposition: Home, Self Care
--- NOTE | 2024-11-07 15:25 | RAD_ITS ---
PROCEDURE: FEMUR MIN 2 VIEWS 11/07/2024 REASON FOR EXAM: INJURY/PAIN TECHNIQUE: Procedure Code: RADFEM Modality: DX Procedure: FEMUR MIN 2 VIEWS Laterality: Left femur COMPARISON: None FINDINGS: Bones: No fracture Joints: Normal alignment at the hip and knee. Soft tissues: Soft tissues are unremarkable. Other: RAD/Femur Min 2 Views IMPRESSION: NO ACUTE FRACTURE OR DISLOCATION. Reading Location: [facility]
--- NOTE | 2024-11-07 15:25 | RAD_ITS ---
PROCEDURE: KNEE 4 OR MORE VIEWS 11/07/2024 REASON FOR EXAM: INJURY/PAIN TECHNIQUE: Procedure Code: RADKN Modality: DX Procedure: KNEE 4 OR MORE VIEWS Laterality: Left knee COMPARISON: None FINDINGS: Bones: No fracture. Joints: Normal alignment. Mild degenerative changes. Effusion: No effusion. Soft tissues: Vascular calcification. Other: RAD/Knee 4 or More Views IMPRESSION: DEGENERATIVE OSTEOARTHROSIS. NO ACUTE FINDINGS. Reading Location: [facility]
--- NOTE | 2024-11-07 15:25 | RAD_ITS ---
PROCEDURE: HIP, UNI W/ PELVIS 2-3 VIEWS 11/07/2024 REASON FOR EXAM: INJURY/PAIN TECHNIQUE: Procedure Code: RAD Modality: DX Procedure: HIP, UNI W/ PELVIS 2-3 VIEWS Laterality: Left hip COMPARISON: None FINDINGS: Bones: No fracture Joints: Normal alignment. Mild degenerative changes. Soft tissues: Soft tissues are unremarkable. Other: RAD/HIP, UNI W/ Pelvis 2-3 Views IMPRESSION: DEGENERATIVE OSTEOARTHROSIS. NO ACUTE FINDINGS. Reading Location: [id number]
[2024-11-07 17:31] VITALS: BP 124/78; PULSE 82; RESP 14; TEMP 36.6; O2SAT 99
== END 2024-11-07 17:32 | disposition home or self-care (01) ==
PROVIDERS: Emergency Provider Emergency Medicine; PCP Nurse Practitioner Adult Health; Visit Provider Emergency Medicine
DX: S70.02XA Contusion of left hip, initial encounter (principal); S80.02XA Contusion of left knee, initial encounter; W18.09XA Striking against other object with subsequent fall, initial encounter; F17.290 Nicotine dependence, other tobacco product, uncomplicated; F17.210 Nicotine dependence, cigarettes, uncomplicated
CPT/HCPCS: 73502; 73552; 73564; 96374; 96375; 99285; A4216; J2405